=== PATIENT | female | born 1945 | race Caucasian/White ===

== ENCOUNTER 2018-08-28 19:43 | Emergency (ER) | payer BC, SELFPAY ==
[2018-08-28 19:44] VITALS: BP 141/78; PULSE 57; RESP 16; TEMP 36; O2SAT 95; BMI 32.9
[2018-08-28 20:31] VITALS: BP 122/62; PULSE 61; RESP 16; O2SAT 98
--- NOTE | 2018-08-28 20:45 | ED.RN ---
NO OLD EKGS IN MUSE
--- NOTE | 2018-08-28 20:49 | CT_ITS ---
STUDY: CTA NECK WITH CONTRAST REASON FOR EXAM: Female, 73 years old. HEAD AND BACK Pain, elevated BP HX:HTN RADIATION DOSAGE (If Supplied By Facility): CTDIvol = ( 28.48 ) mGy, DLP = ( 1464.36 ) mGycm Individualized dose optimization techniques were used for this CT. TECHNIQUE: CT angiography with multi-detector data acquisition was performed from the aortic arch to the skull base following intravenous administration of 100ML ml of Isovue 370 contrast. MIP images were reconstructed from the axial data set. Post-processing of the angiographic images was performed, with multiplanar reformation and 3D reconstruction. COMPARISON: None. FINDINGS: AORTIC ARCH: There is atherosclerotic calcific plaque formation of the aortic arch and great vessels arising from the aortic arch, without a hemodynamically significant stenosis. There is a normal origin of the brachiocephalic, left common carotid, and left subclavian arteries. Normal origins of the brachiocephalic, left common carotid, and left subclavian arteries. RIGHT CAROTID ARTERIES: Normal right common carotid artery (CCA). Normal right common carotid bulb. Normal origin of the right internal carotid (ICA) artery without a hemodynamically significant stenosis. Normal visualized cervical portion of the right internal carotid artery. Normal origin of the right external carotid artery (ECA). LEFT CAROTID ARTERIES: Normal left common carotid artery (CCA). Normal left common carotid bulb. Normal origin of the left internal carotid (ICA) artery without a hemodynamically significant stenosis. Normal visualized cervical portion of the left internal carotid artery. Normal origin of the left external carotid artery (ECA). VERTEBRAL ARTERIES: Normal bilateral vertebral arteries. CT/CTA Neck W/WO Contrast IMPRESSION: Normal bilateral cervical carotid and vertebral arteries. ALL ABOVE CRITERIA BY [facility]. Electronically Signed: Valentin Alejandro MD at 22:15 EDT , Service support ,
--- NOTE | 2018-08-28 20:49 | EKG12_ITS ---
Test Reason : HTN Blood Pressure : / mmHG Vent. Rate : 055 BPM Atrial Rate : 055 BPM P-R Int : 148 ms QRS Dur : 076 ms QT Int : 430 ms P-R-T Axes : 042 -54 045 degrees QTc Int : 411 ms Sinus bradycardia Left axis deviation Poor R wave progression Anteroseptal OK, age undetermined Abnormal ECG Confirmed by DARLENE MARTINES, ANA ([id number]), staff editor LUIZA SLADE ([id number]) on 08/30/2018 1:14:08 PM Referred By: NIKITA Confirmed By:ANA COLON MD
--- NOTE | 2018-08-28 20:49 | CT_ITS ---
STUDY: CT BRAIN WITHOUT CONTRAST REASON FOR EXAM: Female, 73 years old. Elevated blood pressure. RADIATION DOSAGE (If Supplied By Facility): CTDIvol = ( 28.48 ) mGy, DLP = ( 1464.36 ) mGycm TECHNIQUE: Transaxial CT imaging of the brain was performed without administration of intravenous contrast material. Individualized dose optimization techniques were used for this CT. COMPARISON: None. FINDINGS: Normal soft tissue structures. Normal calvarium. There is mild cerebral atrophy with widening of the extra-axial spaces and ventricular dilatation. There are areas of decreased attenuation within the white matter tracts of the supratentorial brain, consistent with microvascular disease changes. Normal basal ganglia and thalami. Normal brainstem. There is mild cerebellar atrophy. There is no intracranial hemorrhage. There are no findings of an acute ischemic infarction. Normal visualized paranasal sinuses. CT/CTA Head W/WO Contrast IMPRESSION: Chronic involutional changes of the brain. No acute abnormalities. Electronically Signed: Franki Corona MD at 22:38 EDT , Service support ,
[2018-08-28 21:26] LABS: Absolute Lymphocyte Count 2.19 X10^3/ul (0.83-4.51); Absolute Neutrophil Count 2.9 X10^3/uL (2.0-7.7); Basophil# 0.06 X10^3/uL; Eosinophil# 0.34 X10^3/uL; Eosinophils% 5.7 % (0-5); Hematocrit 40.6 % (37-47); Hemoglobin 13.3 g/dl (12.0-15.0); Lymphocyte # 2.19 X10^3/ul (4.0); Lymphocyte % 36.4 % (19-41); Mean Corp Hgb Conc 32.8 g/gl (32-36); Mean Corpuscular Volume 94.6 fL (81-99); Mean Platelet Vol. 9.4 fl (6.2-12.0); Monocyte# 0.49 X10^3/uL; Monocyte% 8.2 % (0-10); Neutrophil # 2.91 X10^3/uL (2.7-7.7); Neutrophil % 48.4 % (47-70); Platelet Count 235 K/mm3 (150-450); RBC Distribution Width SD 47.2 fl (35.1-43.9); Red Blood Count 4.29 M/mm3 (4.2-5.4)
[2018-08-28 21:31] LABS: POSITIVE COUNT NO; POSITIVE DIFFERENTIAL NO; POSITIVE MORPHOLOGY NO
[2018-08-28 21:37] LABS: Anion Gap 5 (5-15); BUN 10 mg/dL (7-18); BUN/Creat Ratio 10.4 RATIO (10-20); Calcium,Total 8.4 mg/dL (8.5-10.1); Chloride 105 mmol/L (98-107); Creatinine, Serum 0.96 mg/dL (0.55-1.02); EST Glomerular Filtration Rate 61 mL/min (>60); Est Glom Filt Rate - Afr Amer 74 mL/min (>60); Estimated Creatinine Clearance 46.41 ml/min; Glucose 90 mg/dL (74-106); Sodium Level 138 mmol/L (136-145)
[2018-08-28 21:40] LABS: Erythrocyte Sedimentation Rate 8 mm/hr (0-30)
[2018-08-28 23:15] VITALS: BP 150/75; PULSE 55; RESP 19; O2SAT 96
--- NOTE | 2018-08-28 23:51 | ED.VISSUMM ---
- ER Visit Summary Date of Service: 08/28/18 Chief Complaint: [] History of Present Illness: The patient is a 73 F [headache and hypertension presents the emergency department with complaint of a headache intermittently for several months. Patient also states that she has spikes in her blood pressure that then causes a headache. Yesterday patient had an episode where a bug went down her throat and she started gagging and coughing and then developed a severe right-sided headache. Patient spoke with her cherry picker operator and he advised her to come into the ER to be evaluated. Patient currently states her headaches about a 3 out of 10. Patient states that she has been under increased stress recently as her has to go have surgery tomorrow. Patient denies any chest pain. Within the last 3 months she has had a stress test and wore a Holter monitor and is had an echocardiogram.] Patient denies photophobia. She denies any falls or head injuries. No family history of brain aneurysms or brain tumors. Physical Examination: [HEENT-PERRLA, EOMI. Cranial nerves II through XII grossly intact. TMs clear. Mucous membranes moist. No adenopathy. Cardiovascular-regular rate and rhythm without murmur or ectopy Lungs-clear to auscultation, chest wall stable without crepitus or subcu emphysema Abdomen-normoactive bowel sounds, soft, nontender, no rebound or rigidity, no peritoneal signs. Neuro hoko-rhozqk-nzsm and heel squires testing within normal limits, negative Romberg, negative pronator drift, fundi benign Extremities-intact ?4, normal range of motion, normal pulses, atraumatic] Test Results: [CBC with differential obtained was normal. Chemistries were normal. Troponin was less than 0.015. EKG obtained shows sinus rhythm with a ventricular rate of 55 bpm with no acute ST segment changes. CT of the brain without contrast was unremarkable. CTA of the brain and neck were normal.] Sed rate was normal. Emergency Department Course and Treatment: [Patient's blood pressures in the emergency department are in the 140 systolic over 70s diastolic. No further treatment was indicated.] Treatment Plan: [Patient to follow-up with her primary care physician as needed] Disposition: [Discharged home in stable condition] Impression: Cephalgia Hypertension-established Anxiety [] This note was generated with Ripstoneation software. It may contain incorrect words, spelling, and punctuation that were not noted in review of the chart prior to signing ED Disposition - Plan for ED Patient: Chief Complaint: Hypertension Referrals: Rafal Zapien [Primary Care Provider] -
--- NOTE | 2018-08-28 23:54 | ED.DCSUM_ITS ---
- ER Visit Summary Date of Service: 08/28/18 Chief Complaint: [] History of Present Illness: The patient is a 73 F [headache and hypertension presents the emergency department with complaint of a headache intermittently for several months. Patient also states that she has spikes in her blood pressure that then causes a headache. Yesterday patient had an episode where a bug went down her throat and she started gagging and coughing and then developed a severe right-sided headache. Patient spoke with her merchandiser retail representative and he advised her to come into the ER to be evaluated. Patient currently states her headaches about a 3 out of 10. Patient states that she has been under increased stress recently as her has to go have surgery tomorrow. Patient denies any chest pain. Within the last 3 months she has had a stress test and wore a Holter monitor and is had an echocardiogram.] Patient denies photophobia. She denies any falls or head injuries. No family history of brain aneurysms or brain tumors. Physical Examination: [HEENT-PERRLA, EOMI. Cranial nerves II through XII grossly intact. TMs clear. Mucous membranes moist. No adenopathy. Cardiovascular-regular rate and rhythm without murmur or ectopy Lungs-clear to auscultation, chest wall stable without crepitus or subcu emphysema Abdomen-normoactive bowel sounds, soft, nontender, no rebound or rigidity, no peritoneal signs. Neuro pfof-krmlly-viap and heel squires testing within normal limits, negative R omberg, negative pronator drift, fundi benign Extremities-intact ?4, normal range of motion, normal pulses, atraumatic] Test Results: [CBC with differential obtained was normal. Chemistries were normal. Troponin was less than 0.015. EKG obtained shows sinus rhythm with a ventricular rate of 55 bpm with no acute ST segment changes. CT of the brain without contrast was unremarkable. CTA of the brain and neck were normal.] Sed rate was normal. Emergency Department Course and Treatment: [Patient's blood pressures in the emergency department are in the 140 systolic over 70s diastolic. No further treatment was indicated.] Treatment Plan: [Patient to follow-up with her primary care physician as needed] Disposition: [Discharged home in stable condition] Impression: Cephalgia Hypertension-established Anxiety [] This note was generated with Wed[employer]uation software. It may contain incorrect words, spelling, and punctuation that were not noted in review of the chart prior to signing ED Disposition - Plan for ED Patient: Chief Complaint: Hypertension Referrals: Rafal Zapien [Primary Care Provider] -
--- NOTE | 2018-08-28 23:54 | ED.DEP ---
ED Disposition - Plan for ED Patient: Chief Complaint: Hypertension Instructions: ED HTN Established, ED Cephalgia Unspecified, ED Stress React Referrals: Rafal Zapien [Primary Care Provider] - 3-5 Days
[2018-08-29 00:02] VITALS: BP 149/75
== END 2018-08-29 00:02 | disposition home or self-care (01) ==
PROVIDERS: Emergency Provider Emergency Medicine; Family Provider Student in an Organized Health Care Education/Training Program; PCP Student in an Organized Health Care Education/Training Program
DX: R51 Headache (principal); F41.9 Anxiety disorder, unspecified; I10 Essential (primary) hypertension; E78.00 Pure hypercholesterolemia, unspecified; E03.9 Hypothyroidism, unspecified; Z79.82 Long term (current) use of aspirin; Z79.899 Other long term (current) drug therapy
CPT/HCPCS: 70496; 70498; 80048; 84484; 85025; 85652; 93005; 99284; Q9967; A4216

== ENCOUNTER → 2018-12-28 14:57 | Outpatient (CLI) | payer MEDICARE, SELFPAY ==
--- NOTE | 2018-12-28 15:10 | VDLE_ITS ---
Reason For Study: SWELLING Procedure LEFT Exam performed in department. GSV is normal. A preliminary report was called and/or faxed CFV is compressible, spontaneous, phasic, to ANA RUIZ. competent, and demonstrates normal augmentation. FV is compressible, spontaneous, phasic, competent and demonstrates normal augmentation. POP V is compressible, spontaneous, phasic, competent and demonstrates normal augmentation. T/P Trunk is compressible. PTV is compressible. LT PerV is compressible. Interpretation Summary Deep veins of the left lower extremity are patent and compressible segmentally. There is no evidence of left lower extremity deep vein thrombosis. Valvular competence appears intact within the proximal deep venous system on the left . The left greater saphenous vein appears patent and compressible segmentally. Ordering Physician: Ana Ruiz Referring Physician: PÉREZ SHEPARD Performed By: Emi Gamboa, LAURENT, RVT
== END ==
PROVIDERS: Family Provider Student in an Organized Health Care Education/Training Program; PCP Student in an Organized Health Care Education/Training Program; Referring Provider Nurse Practitioner Adult Health; Visit Provider Nurse Practitioner Adult Health
DX: M79.662 Pain in left lower leg (principal); M79.89 Other specified soft tissue disorders; V89.2XXA Person injured in unspecified motor-vehicle accident, traffic, initial encounter
CPT/HCPCS: 93971

== ENCOUNTER 2024-12-19 15:07 | Emergency (ER) | payer MEDICARE, SELFPAY ==
[2024-12-19 15:08] VITALS: BP 150/78; PULSE 67; RESP 16; TEMP 36.4; O2SAT 98
--- NOTE | 2024-12-19 16:21 | CT_ITS ---
PROCEDURE: SPINE LUMBAR WITHOUT CONTRAST REASON FOR EXAM: Sciatica; increased pain and weakness with incontinence. . TECHNIQUE: Lumbar spine CT without contrast. CONTRAST: COMPARISON: None. FINDINGS: Vertebrae: Normal lumbar vertebral body heights. No evidence of fracture. No spondylolysis. Alignment: No spondylolisthesis. Moderate discogenic degenerative changes at L1-2, L2-3, and L3-4. Severe discogenic degenerative changes at L4-5 and L5-S1. Lower lumbar facet arthropathy. Sacrum: Degenerative changes of the bilateral sacroiliac joints. Atherosclerosis is present. CT/Spine Lumbar without Contrast IMPRESSION: Multilevel spondylosis. One or more dose reduction techniques were used (e.g., Automated exposure contr ol, adjustment of the mA and/or kV according to patient size, use of iterative reconstruction technique). Reading Location: [id number]
[2024-12-19] MEDS: Orphenadrine 60 MG/2 ML Ampul IM (16:27)
[2024-12-19] MEDS: morphine 10 MG/ML Syringe 8 MG IM (16:27)
[2024-12-19] MEDS: Ondansetron ODT 4 MG Tablet PO (16:28)
[2024-12-19 16:32] VITALS: BMI 38.6
[2024-12-19 16:45] VITALS: BP 133/70; PULSE 82; RESP 16; O2SAT 98
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
[2024-12-19 17:38] VITALS: BP 135/66; PULSE 86; RESP 16; TEMP 36.9; O2SAT 100
== END 2024-12-19 17:52 | disposition home or self-care (01) ==
PROVIDERS: Emergency Provider Emergency Medicine; PCP Student in an Organized Health Care Education/Training Program; Visit Provider Emergency Medicine
DX: S30.0XXA Contusion of lower back and pelvis, initial encounter (principal); F41.9 Anxiety disorder, unspecified; E78.00 Pure hypercholesterolemia, unspecified; E03.9 Hypothyroidism, unspecified; I10 Essential (primary) hypertension; W19.XXXA Unspecified fall, initial encounter; G89.29 Other chronic pain
CPT/HCPCS: 72131; 96372; 99283

== ENCOUNTER 2024-12-26 13:47 | Emergency (ER) | payer MEDICARE, SELFPAY ==
[2024-12-26 13:48] VITALS: BP 112/89; PULSE 67; RESP 26; TEMP 36.6; O2SAT 100
--- NOTE | 2024-12-26 14:36 | RAD_ITS ---
EXAM: XR Lumbosacral Spine, 2 or 3 Views CLINICAL INDICATION: TECHNIQUE: Frontal and lateral views of the lumbar spine and sacrum. COMPARISON: No relevant prior studies available. FINDINGS: VERTEBRAE: Endplate degenerative change and disc disease with facet arthropathy of L4-S1. Normal alignment. No acute fracture. SACRUM/COCCYX: Unremarkable as visualized. No acute fracture. DISC SPACES: No acute findings. No significant narrowing. SOFT TISSUES: Unremarkable. RAD/Lumbar Spine 2 or 3 Views IMPRESSION: No acute fracture. Reading [facility]
[2024-12-26] MEDS: Ondansetron 4 MG/2 ML Vial IV (14:48)
[2024-12-26] MEDS: Morphine 4 MG/ML Syringe IV (14:48)
--- NOTE | 2024-12-26 15:15 | EX.ED.GENINJ ---
HPI History of Present Illness Chief Complaint: Back Detail of Chief Complaint: Low back pain status post fall 1 week ago. Informant: patient Onset/Context/Timing Onset: Weeks (1 week) Mechanism/Context: Fall (Standing position) Location of pain/injuries: - ( low back/lumbar region) Quality of Pain: Dull and Throbbing Current Severity: Mild Maximum Severity: Severe Worsened by: Movement Relieved by: Nothing Associated Symptoms Associated Symptoms: Negative for Parasthesias, Weakness, Loss of function, Inability to ambulate, Loss of consciousness or Amnesia Narrative Narrative: Patient is a 79-year-old woman. She presents because of low back pain since falling. She was seen on December 19, 2024. She had a CT at that time which revealed degenerative changes of L1-L2, L2-L3, L3-L4. Patient was prescribed Percocet. She presents because of persistent pain. She denies bowel bladder dysfunction. She denies radicular pain. Denies foot drop. Denies buckling of her knees going up or down steps. She denies saddle paresthesia or anesthesia i.e. no altered sensation when she wipes. She denies symptoms of claudication. Patient [place] fever, chills night sweats. Patient denies dysuria, frequency, urgency or hematuria. Patient denies change in consistency, caliber or color of her stool. Prior similar symptoms: Yes Recent Illness/Hospitalization: Yes (Reviewed documentation by nurse practitioner for visit December 19, 2024.) [facility] Medical History Hypercholesteremia Depression Anxiety Hypothyroidism Home Medications ?Medication ?Instructions ?Recorded ?Last Taken ?Type aspirin 81 mg tablet,delayed 81 mg PO DAILY 08/28/18 Unknown History release (Adult Low Dose Aspirin) cetirizine 10 mg capsule (Zyrtec) 10 mg PO DAILY PRN Allergies 08/28/18 Unknown History cholecalciferol (vitamin D3) 125 5,000 unit PO DAILY 08/28/18 Unknown History mcg (5,000 unit) capsule diazepam 10 mg tablet 10 mg PO DAILY PRN Anxiety 08/28/18 Unknown History fluoxetine 10 mg capsule 10 mg PO DAILY 08/28/18 Unknown History levothyroxine 137 mcg tablet 137 mcg PO DAILY 08/28/18 Unknown History pravastatin 40 mg tablet 40 mg PO DAILY 08/28/18 Unknown History ondansetron 4 mg disintegrating 4 mg PO Q8H PRN PRN Nausea #10 tabs 12/19/24 Unknown Rx tablet oxycodone-acetaminophen 5 mg-325 1 tab PO Q8H PRN pain 3 days #10 12/19/24 Unknown Rx mg tablet (Percocet) tabs oxycodone-acetaminophen 5 mg-325 1 tab PO Q6H PRN PRN pain 5 days 12/26/24 Unknown Rx mg tablet #20 TABLETS Allergy/AdvReac Type Severity Reaction Status Date / Time acetaminophen (From Allergy Other Verified 12/26/24 13:48 Tylenol-Codeine #3) codeine (From Allergy Other Verified 12/26/24 13:48 Tylenol-Codeine #3) diphenhydramine (From Allergy Other Verified 12/26/24 13:48 Benadryl) Surgical History Hx of tonsillectomy Hx of appendectomy History of cholecystectomy Social History housing: house Smoking Status: Never smoker ROS ROS ED Constitutional Constitutional ED: Denies chills, fever(s), subjective, sweats or weight loss Eyes Eyes: Denies blurry vision or change in vision Cardiovascular Cardiovascular: Denies chest pain or palpitations Respiratory/Chest Respiratory/Chest: Denies cough, dyspnea or dyspnea on exertion Gastrointestinal Gastrointestinal: Denies abdominal pain, constipation, diarrhea, melena, nausea or vomiting Genitourinary Genitourinary ED: Denies dysuria, hematuria or urinary frequency Musculoskeletal Musculoskeletal: Reports back pain; Denies arthralgias or myalgias Integumentary Denies rash Neurologic Neurologic: Denies paresthesias or weakness Endocrine Endocrinology: Denies cold intolerance or heat intolerance Hematologic/Lymphatic Hematologic/Lymphatic: Denies easy bleeding or easy bruising EXAM Physical Exam Const Vital Signs: 12/26/24 13:48 Temperature 97.8 F Temperature Source Temporal Pulse Rate 67 Respiratory Rate 26 H Blood Pressure 112/89 H Blood Pressure Mean 96 Pulse Ox 100 Oxygen Delivery Method Room Air Positive well nourished and well developed General Appearance ED: well developed; Negative for NAD HEENT Reports TM's clear HEENT Narrative: Head is normocephalic. atraumatic Nose: Negative for septum abnormal Tympanic Membrane ED: Yes TM's clear Eyes PERRL and EOMs intact bilaterally General Eye ED: Yes other Other Details: There is no subconjunctival hemorrhage. There is no scleral icterus. Adjunctive is normal. Neck full ROM General: Negative for tenderness Resp normal respiratory effort Cardio regular rhythm Rate: regular rate GI normal to inspection, nondistended, normoactive bowel sounds, non-tender, non-distended and no masses Inspection: Negative for abdominal distention Palpation: soft Back/Spine normal to inspection; Negative for no thoracic nor lumbar tenderness Back/Spine Narrative: There is pain outpatient lower lumbar region. There is no bruising noted. There is no rash noted. Extremity full ROM Extremity Narrative: Patient has mild edema of the lower extremities. There is no neurovascular compromise. Patella and ankle reflex are 1+. There is no clonus. There is no Babinski sign. EHLs intact bilaterally. 5/5 strength with plantar dorsiflexion of her foot. PT pulses palpable and symmetric. General Extremety ED: Negative for deformity General Extremity: Negative for deformity Neuro oriented x3, CN's II-XII intact bilaterally, moves all extremities, no focal motor deficits and no sensory deficits noted [place] Coma Scale: document GCS findings Spontaneous Obeys Commands Oriented 15 Deep Tendon Reflexes: Rt Patellar (L4): 1+, Lt Patellar (L4): 1+, Rt Ankle (S1): 1+ and Lt Ankle (S1): 1+ Deep Tendon Reflexes Back: Rt Patellar (L4): 1+, Lt Patellar (L4): 1+, Rt Ankle (S1): 1+ and Lt Ankle (S1): 1+ Plantar Reflex: Downgoing: bilateral Psych mental status grossly normal and thought process normal Skin no rashes or lesions noted, no wounds and no jaundice MDM MDM MDM Narrative Medical decision making narrative: With persistent pain will obtain x-ray to determine if she has delayed compression fracture. Patient was medicated with morphine. History & Record Review Additional record(s) reviewed:: Prior ED visit (CT of the lumbar spine was reviewed that was obtained December 19, 2024. Radiology report was reviewed as well.) Radiography Chest X-Ray - ED: Read by ED Physician (Three-view x-ray of the LS spine reveals degenerative changes with no evidence of compression fracture, spondylolisthesis or spondylosis. There is no dilatation of the aorta noted. This was independently reviewed interpreted by me at 1516.) Treatment and Re-Evaluation Narrative: Patient was informed of x-ray results. She was discharged to home. Patient had no questions. Discharge Plan Triage Chief Complaint: Back ED Provider: Ignacio Ballesteros Dx/Rx/DC Orders Clinical Impression: Low back pain, Fall, Acute lumbosacral myofascial strain Instructions: ED Back Sprain/Strain Prescriptions: New oxycodone-acetaminophen 5-325 mg tablet 1 tab PO Q6H PRN PRN (Reason: pain) 5 Days Qty: 20 0RF No Action levothyroxine 137 MCG tablet 137 mcg PO DAILY pravastatin 40 MG tablet 40 mg PO DAILY aspirin [Adult Low Dose Aspirin] 81 MG tablet,delayed release (DR/EC) 81 mg PO DAILY fluoxetine 10 MG capsule 10 mg PO DAILY diazepam 10 MG tablet 10 mg PO DAILY PRN (Reason: Anxiety) cholecalciferol (vitamin D3) 5,000 UNIT capsule 5,000 unit PO DAILY cetirizine [Zyrtec] 10 MG capsule 10 mg PO DAILY PRN (Reason: Allergies) oxycodone-acetaminophen [Percocet] 5-325 mg tablet 1 tab PO Q8H PRN (Reason: pain) 3 Days Qty: 10 0RF ondansetron 4 mg tablet,disintegrating 4 mg PO Q8H PRN PRN (Reason: Nausea) Qty: 10 0RF Primary Care Provider: Rafal Zapien Referrals: Rafal Zapien, [Primary Care Provider] - 3-5 Days if not improving Activity Restrictions/Additional Instructions: 1. Apply ice to your lower back 6-8 times a day. Print Language: Serbian Disposition Disposition: Home, Self Care
[2024-12-26 15:31] VITALS: BP 112/89; PULSE 67; RESP 26; TEMP 36.6; O2SAT 100
== END 2024-12-26 15:49 | disposition home or self-care (01) ==
PROVIDERS: Emergency Provider Emergency Medicine; PCP Student in an Organized Health Care Education/Training Program; Visit Provider Emergency Medicine
DX: S39.012A Strain of muscle, fascia and tendon of lower back, initial encounter (principal); E78.00 Pure hypercholesterolemia, unspecified; W19.XXXA Unspecified fall, initial encounter
CPT/HCPCS: 72100; 96374; 96375; 99282; A4216; J2405

== ENCOUNTER 2024-12-30 14:50 | Emergency (ER) | payer MEDICARE, SELFPAY ==
[2024-12-30 14:51] VITALS: BP 126/86; PULSE 82; RESP 18; TEMP 36.1; O2SAT 98
--- NOTE | 2024-12-30 16:52 | CT_ITS ---
PROCEDURE: CTA ABD/PELVIS W/WO CONTRAST REASON FOR EXAM: Abdominal pain. Blood in stool. TECHNIQUE: CTA imaging of the abdomen and pelvis with and without intravenous contrast. 3D reconstructions. Coronal and sagittal 2D reformatted images are provided for better evaluation. COMPARISON: None. FINDINGS: Abdominal aorta demonstrates normal caliber with no evidence of aneurysm or dissection. There are atherosclerotic calcifications of the abdominal aorta. Celiac artery, superior mesenteric artery, bilateral renal arteries, and inferior mesenteric artery are patent. Bilateral common iliac, internal iliac, and external iliac arteries are patent. There is no evidence of active hemorrhage. Lung bases demonstrates dependent atelectasis. Liver and spleen are limited in evaluation due to the phase of contrast. Gallbladder is surgically absent. Pancreas and adrenal glands are unremarkable. Bilateral kidneys enhance homogeneously without hydronephrosis or obstructive uropathy. There is a small fat containing umbilical hernia. Urinary bladder is underdistended. Colonic diverticulosis is identified without diverticulitis. There is fatty wall infiltration of the cecum, ascending colon, and mid to proximal transverse colon. No colonic obstruction is present. Appendix is surgically absent. Small bowel demonstrates a normal caliber. No free air or free fluid is identified. Evaluation of the osseous structures demonstrates degenerative changes greatest from L4-S1. There is a hemangioma involving the L2 vertebral body. There is dextroscoliosis of the upper lumbar spine. CT/CTA Abd/Pelvis W/WO Contrast IMPRESSION: 1. No evidence of active hemorrhage. No abdominal aortic aneurysm or dissection . 2. Colonic diverticulosis without diverticulitis. 3. Fatty wall infiltration of the cecum, ascending colon, mid to proximal trans verse colon which can relate to chronic inflammatory changes. 4. Additional findings as above. One or more dose reduction techniques were used (e.g., Automated exposure contr ol, adjustment of the mA and/or kV according to patient size, use of iterative reconstruction technique). Reading Location: [facility]
--- NOTE | 2024-12-30 16:54 | EDS_ITS ---
HPI History of Present Illness Chief Complaint: Back Informant: patient Narrative Narrative: Presents to ED for evaluation after discussing with her PCP office. She has been having sciatica pain right side for the past few weeks. She states this is her third visit to the ED. She was seen in the ED twice had a CT scan and x- ray. She was told sciatica was put on Percocet which helped her symptoms. From her last visit reported she missed her doctors appointment that day. She called for follow-up the following day however appointment not till March. Yesterday noted bright red blood in her stool once called her PCP office today due to bright red blood was sent here. Baby aspirin no other anticoagulants. No colonoscopies in the past. Feels pain deep in her abdomen. Denies any abdominal surgeries. Also reported there was blood in her urine. No fever or chills. She is not taking any NSAIDs. Prior similar symptoms: Yes [facility] Medical History Hypercholesteremia Depression Anxiety Hypothyroidism Home Medications ?Medication ?Instructions ?Recorded ?Last Taken ?Type aspirin 81 mg tablet,delayed 81 mg PO DAILY 08/28/18 U nknown History release (Adult Low Dose Aspirin) cetirizine 10 mg capsule (Zyrtec) 10 mg PO DAILY PRN A llergies 08/28/18 Unknown History cholecalciferol (vitamin D3) 125 5,000 unit PO DAILY 1 Unknown History mcg (5,000 unit) capsule diazepam 10 mg tablet 10 mg PO DAILY PRN Anxiety 1 Unknown History fluoxetine 10 mg capsule 10 mg PO DAILY 08/28/18 Unkn own History levothyroxine 137 mcg tablet 137 mcg PO DAILY 08/28/18 Unknown History pravastatin 40 mg tablet 40 mg PO DAILY 08/28/18 Unkn own History ondansetron 4 mg disintegrating 4 mg PO Q8H PRN PRN Na usea #10 tabs 12/19/24 Unknown Rx tablet oxycodone-acetaminophen 5 mg-325 1 tab PO Q8H PRN pain 3 days #10 12/19/24 Unknown Rx mg tablet (Percocet) tabs oxycodone-acetaminophen 5 mg-325 1 tab PO Q6H PRN PRN pain 5 days 12/26/24 Unknown Rx mg tablet #20 TABLETS gabapentin 300 mg capsule 300 mg PO QHS #30 caps 12/30 Unknown Rx oxycodone-acetaminophen 5 mg-325 1 tab PO Q6H PRN PRN Pain 3 days 12/30/24 Unknown Rx mg tablet #12 TABLETS Allergy/AdvReac Type Severity Reaction Status Date / Time acetaminophen (From Allergy Other Verified 12/30/24 14:57 Tylenol-Codeine #3) codeine (From Allergy Other Verified 12/30/24 14:57 Tylenol-Codeine #3) diphenhydramine (From Allergy Other Verified 12/30/24 14:57 Benadryl) Surgical History Hx of tonsillectomy Hx of appendectomy History of cholecystectomy Social History housing: house Smoking Status: Never smoker ROS ROS ED Constitutional Constitutional ED: Denies chills, fever(s) or sweats ENT ENT ED: Denies sore throat Cardiovascular Cardiovascular: Denies chest pain, leg edema, palpitations or racing heartbeat Respiratory/Chest Respiratory/Chest: Denies cough, dyspnea or dyspnea on exertion Gastrointestinal Gastrointestinal: Reports abdominal pain and other Details: Blood in stool ; Denies diarrhea, nausea or vomiting Genitourinary Genitourinary ED: Reports hematuria; Denies dysuria or urinary frequency Musculoskeletal Musculoskeletal: Reports back pain; Denies extremity pain or neck pain Integumentary Denies rash or wounds Neurologic Neurologic: Denies headache(s), paresthesias or weakness EXAM Physical Exam Const Vital Signs: 12/30/24 14:51 12/30/24 18:50 Temperature 96.9 F L Temperature Source Temporal Pulse Rate 82 74 Respiratory Rate 18 16 Blood Pressure 126/86 H 122/88 H Blood Pressure Mean 99 99 Pulse Ox 98 99 Oxygen Delivery Method Room Air Positive well nourished and well developed General Appearance ED: well developed and NAD HEENT Reports moist mucous membranes normocephalic and atraumatic Eyes General Eye ED: Yes normal appearance of both eyes Neck full ROM Chest Wall Chest: Negative for tenderness Resp normal respiratory effort and normal air movement Effort and Inspection: symmetric chest movement; Negative for respiratory distress Cardio regular rate, regular rhythm and no murmurs Peripheral Pulses: pulses 2+ throughout GI normal to inspection, nondistended, normoactive bowel sounds GI Narrative: Pain to deep palpation lower abdominal, no guarding or rebound. Palpation: Negative for guarding or rebound tenderness present Back/Spine Negative for no CVA tenderness Back/Spine Narrative: Straight leg test negative bilaterally. Extremity normal to inspection General Extremety ED: Negative for edema or tenderness General Extremity: Negative for edema Neuro oriented x3 and no sensory deficits noted Sensorium / Orientation: awake and alert Skin no rashes or lesions noted and no wounds MDM MDM MDM Narrative Medical decision making narrative: Interventions / MDM: Differential diagnosis: Right-sided sciatica, rectal bleed Diagnosis considered but do not suspect: Colitis however CT negative. No cauda equina symptoms. My EKG interpretation: N/A Imaging independently reviewed and interpreted by myself: CT angiogram abdomen pelvis: No acute process. External documents reviewed: Visit 12/19/2024, visit 12/26/2024. With CT lumbar spine degenerative disc disease noted. Test considered but not ordered:N/A ED course: Patient was sciatica symptoms no cauda equina symptoms. However new symptoms of blood in stools. Pain at the palpation of abdomen. Will check labs, CT angiogram abdomen pelvis. Morphine Zofran. Will reevaluate. 1830: Hemoglobin 14.3 white count 6.4. Sodium 141 potassium 3.1 creatinine 0.94. Awaiting urine. Awaiting CT scan results. Patient noted ambulating to the restroom with no difficulties. 2030: Delays on CT read returned showing no acute process. No additional bloody stools. Hemoglobin stable vital stable. She is able to ambulate. Discussed starting the patient on gabapentin for which she agrees. First dose in the ED. She will take this at night. Short prescription for pain control. Follow-up with her PCP for sciatica treatment options. She is given follow-up with GI as an outpatient with her reported blood in the stool with no history endoscopies. All questions were answered. Re-evaluation: stable Disposition discussed with patient/family/significant other: Patient Case discussed with consulting clinician: N/A This note was generated with [employer] dictation software. It may contain incorrect words, spelling, and punctuation that were not noted in checking the note before signing. Lab Data Attestation: I reviewed the patient's lab results. Labs: Laboratory Results - last 24 hr 12/30/24 12/30/24 17:06 18:30 WBC 6.4 RBC 4.72 Hgb 14.3 Hct 43.0 MCV 91.1 MCH 30.3 MCHC 33.3 RDW Std Deviation 43.9 RDW Coeff of Natasha 13.2 Plt Count 219 MPV 10.6 Immature Gran % (Auto) 0.200 Neut % (Auto) 55.2 Lymph % (Auto) 29.1 [place] % (Auto) 8.6 Eos % (Auto) 6.0 H Baso % (Auto) 0.9 Absolute Neuts (auto) 3.5 Absolute Lymphs (auto) 1.85 Nucleated RBC % 0 Sodium 141 Potassium 3.4 L Chloride 104 Carbon Dioxide 29.0 Anion Gap 8 BUN 12 Creatinine 0.94 Est GFR (MDRD) Af Amer 75 Est GFR (MDRD) Non-Af 62 BUN/Creatinine Ratio 12.8 Glucose 98 Calcium 9.5 Urine Color Yellow Urine Clarity Clear Urine pH 8.0 Ur Specific [place] 1.010 Urine Protein 15 H Urine Glucose (UA) Normal Urine Ketones Negative Urine Occult Blood Negative Urine Nitrite Negative Urine Bilirubin Negative Urine Urobilinogen Normal Ur Leukocyte Esterase 25 H Urine RBC 0 SEEN Urine WBC 0-5 SEEN Ur Squamous Epith Cells 0-5 SEEN Urine Bacteria RARE Urine Mucus 0 SEEN Radiography Diagnostic Testing: Clinical Impression(s) from Imaging Studies Abdomen/Pelvis CTA 12/30/24 16:52 IMPRESSION: 1. No evidence of active hemorrhage. No abdominal aortic aneurysm or dissection. 2. Colonic diverticulosis without diverticulitis. 3. Fatty wall infiltration of the cecum, ascending colon, mid to proximal transverse colon which can relate to chronic inflammatory changes. 4. Additional findings as above. One or more dose reduction techniques were used (e.g., Automated exposure control, adjustment of the mA and/or kV according to patient size, use of iterative reconstruction technique). Reading Location: [facility] Discharge Plan Triage Chief Complaint: Back ED Provider: Angelo Workman Dx/Rx/DC Orders Clinical Impression: Sciatica of right side, Abdominal pain, Rectal bleed Instructions: Abdominal Pain, Rectal Bleeding Tx, ED Sciatica Prescriptions: New oxycodone-acetaminophen 5-325 mg tablet 1 tab PO Q6H PRN PRN (Reason: Pain) 3 Days Qty: 12 0RF gabapentin 300 mg capsule 300 mg PO QHS Qty: 30 0RF No Action levothyroxine 137 MCG tablet 137 mcg PO DAILY pravastatin 40 MG tablet 40 mg PO DAILY aspirin [Adult Low Dose Aspirin] 81 MG tablet,delayed release (DR/EC) 81 mg PO DAILY fluoxetine 10 MG capsule 10 mg PO DAILY diazepam 10 MG tablet 10 mg PO DAILY PRN (Reason: Anxiety) cholecalciferol (vitamin D3) 5,000 UNIT capsule 5,000 unit PO DAILY cetirizine [Zyrtec] 10 MG capsule 10 mg PO DAILY PRN (Reason: Allergies) oxycodone-acetaminophen [Percocet] 5-325 mg tablet 1 tab PO Q8H PRN (Reason: pain) 3 Days Qty: 10 0RF ondansetron 4 mg tablet,disintegrating 4 mg PO Q8H PRN PRN (Reason: Nausea) Qty: 10 0RF oxycodone-acetaminophen 5-325 mg tablet 1 tab PO Q6H PRN PRN (Reason: pain) 5 Days Qty: 20 0RF Primary Care Provider: Rafal Zapien Referrals: Rafal Zapien DO [Primary Care Provider] - 5-7 Days Jl Lewis DO [Med Staff - Active Staff] - 1-2 Weeks Activity Restrictions/Additional Instructions: You referred him here secondary to blood in your stool. Your CT scan negative. Hemoglobin 14. Hold your aspirin at this time. You will need to follow-up with gastroenterology for further workup. You have sciatica symptoms with degenerative changes of lumbar spine. Take gabapentin as prescribed. Use oxycodone with Tylenol as needed. Follow-up your doctor for further treatment options. Print Language: Luxembourgish Disposition Disposition: Home, Self Care Discharge Date/Time: 12/30/24 20:41
[2024-12-30] MEDS: Ondansetron 4 MG/2 ML Vial IV (17:02)
[2024-12-30] MEDS: 0.9% Normal Saline (500mL Bag) 500 ML 1000 ML IV (17:02)
[2024-12-30] MEDS: Morphine 4 MG/ML Syringe IV (17:02)
--- NOTE | 2024-12-30 17:11 | ED.RN ---
pt refusing to get into hospital gown. pt states she has no metal in her clothes and would prefer to stay in her own clothes.
[2024-12-30 17:30] LABS: Anion Gap 8 (5-15); BUN 12 mg/dL (7-18); BUN/Creat Ratio 12.8 RATIO (10-20); Calcium,Total 9.5 mg/dL (8.5-10.1); Chloride 104 mmol/L (98-107); Creatinine, Serum 0.94 mg/dL (0.55-1.02); EST Glomerular Filtration Rate 62 mL/min (>60); Est Glom Filt Rate - Afr Amer 75 mL/min (>60); Glucose 98 mg/dL (74-106); Potassium 3.4 mmol/L (3.5-5.1); Sodium Level 141 mmol/L (136-145)
[2024-12-30 18:08] LABS: Absolute Lymphocyte Count 1.85 X10^3/uL (0.83-4.51); Absolute Neutrophil Count 3.5 X10^3/uL (2.0-7.7); Basophil# 0.06 X10^3/uL; Basophil% 0.9 % (0-1); Eosinophil# 0.38 X10^3/uL; Hemoglobin 14.3 g/dL (12.0-15.0); Lymphocyte # 1.85 X10^3/ul (0.83-4.51); Lymphocyte % 29.1 % (19-41); Mean Corp Hgb Conc 33.3 g/dL (32-36); Mean Corpuscular Hgb 30.3 pg (27.0-32.0); Mean Corpuscular Volume 91.1 fL (81-99); Mean Platelet Vol. 10.6 fl (6.2-12.0); Monocyte# 0.55 X10^3/uL; Monocyte% 8.6 % (0-10); NRBC Flagged by Analyzer 0 % (0-5); Neutrophil # 3.51 X10^3/uL (2.7-7.7); Neutrophil % 55.2 % (47-70); Platelet Count 219 K/mm3 (150-450); RBC Distribution Width CV 13.2 % (11.6-14.6); RBC Distribution Width SD 43.9 fl (35.1-43.9); Red Blood Count 4.72 M/mm3 (4.2-5.4); White Blood Count 6.4 K/mm3 (4.4-11.0)
[2024-12-30 18:36] LABS: Mucous, Urine 0 SEEN /hpf (<or=2+)
[2024-12-30 18:41] LABS: Color, Urine Yellow (Yellow); Glucose, Dipstick Normal (Normal); Ketone-Dipstick Negative (Negative); Leukocyte Esterase-Dipstick 25 /ul (Negative); Nitrite-Dipstick Negative (Negative); Occult Blood-Urine Negative /ul (Negative); Protein-Dipstick 15 mg/dl (Negative); Urine Bilirubin Dipstick Negative (Negative); Urine Clarity Clear (Clear); Urine Urobilinogen Normal (Normal)
[2024-12-30 18:50] VITALS: BP 122/88; PULSE 74; RESP 16; O2SAT 99
[2024-12-30 19:33] LABS: Bacteria RARE /hpf (None Seen); Red Blood Cells-Urine 0 SEEN /hpf (0-5); Squamous Epithelial Cells - UA 0-5 SEEN /hpf (5-10); White Blood Cells 0-5 SEEN /hpf (0-5)
[2024-12-30] MEDS: Gabapentin 300 MG Capsule PO (20:38)
== END 2024-12-30 20:41 | disposition home or self-care (01) ==
PROVIDERS: Emergency Provider Emergency Medicine; PCP Student in an Organized Health Care Education/Training Program; Visit Provider Emergency Medicine
DX: M54.31 Sciatica, right side (principal); R10.9 Unspecified abdominal pain; K62.5 Hemorrhage of anus and rectum; E78.00 Pure hypercholesterolemia, unspecified; Z79.82 Long term (current) use of aspirin; R31.9 Hematuria, unspecified
CPT/HCPCS: 74174; 80048; 81001; 85025; 96361; 96374; 96375; 99283; Q9967; A4216; J2405

== ENCOUNTER 2025-06-29 14:42 | Emergency (ER) | payer MEDICARE, SELFPAY ==
[2025-06-29 14:43] VITALS: BP 143/73; PULSE 84; RESP 16; TEMP 36.6; O2SAT 100; BMI 37.3
--- NOTE | 2025-06-29 15:03 | EX.ED.DYSGE1 ---
HPI History of Present Illness Chief Complaint: Complaint Informant: patient Onset/Context/Timing Onset: Weeks Context: Gradual Onset Timing: Intermittent Quality: Tightness Location: Chest Worsened by: Exertion, going up stairs Relieved by: Rest Narrative Narrative: Patient presents with shortness of breath. Patient states she went to the urgent care because she thought she had a urinary tract infection. Patient was referred to the emergency department because of her shortness of breath. Patient states that they told her she needed to come to the emergency department because she needed blood work done. Patient states her breathing has been getting worse over the past couple weeks. Patient states it is gradually getting worse. Patient admits to some tightness in her chest. Patient states her breathing is worse when she goes upstairs and exerts herself. Patient states it is better with rest. Patient also admits to some tingling into her fingers and toes. Patient is concerned that she may be developing diabetes. Patient denies any fevers or chills. Patient admits to a chronic cough. Patient denies any sputum production. [facility] Medical History Hypercholesteremia Depression Anxiety Hypothyroidism Home Medications ?Medication ?Instructions ?Recorded ?Last Taken ?Type aspirin 81 mg tablet,delayed 81 mg PO DAILY 08/28/18 Unknown History release (Adult Low Dose Aspirin) cetirizine 10 mg capsule (Zyrtec) 10 mg PO DAILY PRN Allergies 08/28/18 Unknown History cholecalciferol (vitamin D3) 125 5,000 unit PO DAILY 08/28/18 Unknown History mcg (5,000 unit) capsule diazepam 10 mg tablet 10 mg PO DAILY PRN Anxiety 08/28/18 Unknown History fluoxetine 10 mg capsule 10 mg PO DAILY 08/28/18 Unknown History levothyroxine 137 mcg tablet 137 mcg PO DAILY 08/28/18 Unknown History pravastatin 40 mg tablet 40 mg PO DAILY 08/28/18 Unknown History ondansetron 4 mg disintegrating 4 mg PO Q8H PRN PRN Nausea #10 tabs 12/19/24 Unknown Rx tablet gabapentin 300 mg capsule 300 mg PO QHS #30 caps 12/30/24 Unknown Rx Allergy/AdvReac Type Severity Reaction Status Date / Time acetaminophen (From Allergy Other Verified 12/30/24 14:57 Tylenol-Codeine #3) codeine (From Allergy Other Verified 12/30/24 14:57 Tylenol-Codeine #3) diphenhydramine (From Allergy Other Verified 12/30/24 14:57 Benadryl) Surgical History Hx of tonsillectomy Hx of appendectomy History of cholecystectomy Social History housing: house Smoking Status: Never smoker ROS ROS ED Constitutional Constitutional ED: Denies chills or fever(s) Eyes Eyes: Denies blurry vision or change in vision ENT ENT ED: Denies rhinorrhea or sore throat Cardiovascular Cardiovascular: Denies chest pain or palpitations Respiratory/Chest Respiratory/Chest: Reports cough and dyspnea Gastrointestinal Gastrointestinal: Denies nausea or vomiting Genitourinary Genitourinary ED: Denies dysuria or hematuria Musculoskeletal Musculoskeletal: Reports back pain; Denies neck pain Integumentary Denies abscess or rash Neurologic Neurologic: Reports headache(s); Denies weakness Allergic/Immunologic Allergic/Immunologic ED: Denies mouth swelling or urticaria EXAM Physical Exam Const Vital Signs: 06/29/25 14:43 06/29/25 16:43 Temperature 98 F Temperature Source Oral Pulse Rate 84 78 Respiratory Rate 16 18 Blood Pressure 143/73 H 154/81 H Blood Pressure Mean 96 105 Pulse Ox 100 97 Oxygen Delivery Method Room Air Positive well nourished and well developed General Appearance ED: well developed and NAD HEENT Reports moist mucous membranes Neck supple and no JVD Resp normal respiratory effort and clear to auscultation bilaterally Cardio regular rate and regular rhythm GI non-tender and non-distended Palpation: soft Extremity normal to inspection General Extremety ED: Negative for edema or tenderness General Extremity: Negative for edema Neuro oriented x3, CN's II-XII intact bilaterally and no sensory deficits noted Sensorium / Orientation: alert Motor Exam: strength 5/5 throughout Psych mental status grossly normal MDM MDM MDM Narrative Medical decision making narrative: Differential diagnosis includes urinary tract infection, pneumonia, bronchitis, congestive heart failure, cardiac dysrhythmia, cardiac ischemia, electrolyte abnormality, viral illness, and anxiety. EKG will be obtained to assess for cardiac dysrhythmia and cardiac ischemia. Chest x-ray will be obtained to assess for pneumonia, bronchitis, congestive heart failure. CBC will be obtained to assess for leukocytosis and anemia. Basic metabolic profile will be obtained to assess for electrolyte abnormality and renal function. BNP will be obtained to assess for congestive heart failure. High-sensitivity troponin will be obtained to assess for cardiac ischemia. 2-hour repeat high-sensitivity troponin will be obtained to assess for ongoing cardiac ischemia. D-dimer will be obtained to assess for pulmonary embolism. Lab Data Attestation: I reviewed the patient's lab results. Lab results narrative: CBC was reviewed and was within normal limits. Basic metabolic profile was reviewed and was within normal limits. D-dimer was reviewed and was normal at 0.27. Initial high-sensitivity troponin was reviewed and was normal at 8. BNP was reviewed and was normal at 37. 2-hour repeat high-sensitivity troponin was reviewed and was normal at 8. Urinalysis was reviewed. There is no evidence of urinary tract infection or hematuria. Labs: Laboratory Results - last 24 hr 06/29/25 06/29/25 06/29/25 14:59 16:16 16:53 WBC 6.7 RBC 4.69 Hgb 14.3 Hct 43.6 MCV 93.0 MCH 30.5 MCHC 32.8 RDW Std Deviation 43.5 RDW Coeff of Natasha 12.8 Plt Count 241 MPV 11.1 Immature Gran % (Auto) 0.400 Neut % (Auto) 56.3 Lymph % (Auto) 25.2 [place] % (Auto) 9.2 Eos % (Auto) 7.7 H Baso % (Auto) 1.2 H Absolute Neuts (auto) 3.8 Absolute Lymphs (auto) 1.69 Nucleated RBC % 0 D-Dimer Quant (PE/DVT) 0.27 Sodium 138 Potassium 4.5 Chloride 103 Carbon Dioxide 21.1 Anion Gap 14 BUN 17 Creatinine 0.87 Estim Creat Clear Calc 58.66 Est GFR (MDRD) Non-Af 68 BUN/Creatinine Ratio 19.5 Glucose 102 H Calcium 9.5 Troponin T High Sens 8 Troponin T Hi Sens 2 Hr 8 NT pro BNP II 37 Urine Color Yellow Urine Clarity Clear Urine pH 6.0 Ur Specific [place] 1.015 Urine Protein 15 H Urine Glucose (UA) Normal Urine Ketones Negative Urine Occult Blood 10 H Urine Nitrite Negative Urine Bilirubin Negative Urine Urobilinogen Normal Ur Leukocyte Esterase 25 H Urine RBC 0-5 SEEN Urine WBC 0-5 SEEN Ur Squamous Epith Cells 0-5 SEEN Urine Bacteria RARE Urine Mucus 0 SEEN Radiography Chest X-Ray - ED: 2 View, Read by ED Physician, Read by Radiologist and No Acute Disease Diagnostic Testing: Clinical Impression(s) from Imaging Studies Chest X-Ray 06/29/25 16:00 IMPRESSION: NO ACUTE FINDINGS. Reading Location: [id number] and lateral chest x-ray was obtained. There are 2 views. On my independent interpretation, lung marti are clear. There is normal cardiac silhouette. Bony thorax is normal. There is no acute process noted. Radiologist also interpreted the x-ray and agrees. EKG Initial EKG: Attestation: I personally reviewed and interpreted this EKG as follows: Interpretation: Sinus Rhythm (62) and No Acute Injury Pattern Comments: EKG was obtained. On my independent interpretation, it showed a normal sinus rhythm with a rate of 62. MS interval, QRS interval, and QTc intervals were all normal. There is left axis deviation at -63. There is a left anterior fascicular block pattern noted. There are no acute ST or T wave changes. Prior EKG tracings: available for review Prior: Unchanged (08/28/2018) Treatment and Re-Evaluation :: Patient was advised of her findings. Patient has a HEART score of 3. Patient was advised that this is low risk for acute cardiac event. Patient was instructed to follow-up with her primary care physician in 5 to 7 days. Patient was instructed to return if worse in any way. Patient understood and was agreeable with the plan. All questions were answered. Discharge Plan Triage Chief Complaint: Complaint ED Provider: Sushant Jones Dx/Rx/DC Orders Clinical Impression: Dyspnea, Elevated blood pressure reading Instructions: ED Dyspnea Prescriptions: No Action levothyroxine 137 MCG tablet 137 mcg PO DAILY pravastatin 40 MG tablet 40 mg PO DAILY aspirin [Adult Low Dose Aspirin] 81 MG tablet,delayed release (DR/EC) 81 mg PO DAILY fluoxetine 10 MG capsule 10 mg PO DAILY diazepam 10 MG tablet 10 mg PO DAILY PRN (Reason: Anxiety) cholecalciferol (vitamin D3) 5,000 UNIT capsule 5,000 unit PO DAILY Zyrtec 10 MG capsule 10 mg PO DAILY PRN (Reason: Allergies) ondansetron 4 mg tablet,disintegrating 4 mg PO Q8H PRN PRN (Reason: Nausea) Qty: 10 0RF gabapentin 300 mg capsule 300 mg PO QHS Qty: 30 0RF Primary Care Provider: Rafal Zapien Referrals: Rafal Zapien DO [Primary Care Provider] - 3-5 Days Print Language: [place] Disposition Disposition: Home, Self Care
--- NOTE | 2025-06-29 15:31 | CM.ED ---
Social Work Date of referral: 06/29/25 Reason for referral: No Advanced Care Directives (ACD's) on file. Referred by: Social Work Identification Patient provided consent to social work visit. Craft Recruiter requested a copy of the ACD's which patient stated she would bring in. Paz Mayen, PROP AND EFFECTS DESIGNER, WOOD CAR BUILDER
--- OUTSIDE RECORDS SUMMARY | 2025-06-29 15:31 | XMS RPT_ITS | CCD ---
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 prior LVEFANDlt;40 (NQF 0083) - N/AACE-I or ARB for ASHD with DM or prior LVEFANDlt;40 (NQF 0066) - N/AStatin therapy for ASHD or FHL or DM - metBMI documented and plan if ANDgt;25 (NQF 0421) - lifestyle recommendation formTobacco use screening and referral (NQF 0028) - lifestyle recommendation formRecommendation for whole food, plant based diet - lifestyle recommendation formCLINICAL IMPRESSION/PLAN:Xuan Hernandez is having intermittent episodes of shortness of breath andexercise intolerance which may correlate to episodes of significantbradycardia. She's also had some lightheadedness and occasional episodes ofconfusion and slight dizziness.I recommended that she have an echocardiogram for assessment of valvular heartdisease and an event monitor to see if we can correlate abnormal heart rates orarrhythmias with her symptoms. TSH is slightly low. [facility] She is also currently being evaluated for B-12deficiency.I will see her in one month, at which time we will review her monitor. If thereis any correlation between bradycardia and symptoms, she may be a candidate forpacemaker therapy. She is on no rate slowing agents at this time.Thank you for asking me to see and make recommendations on Xuan Hernandez.This report is available to you in the shared medical record.Written and verbal health teaching given to patient, patient verbalizesunderstanding and agrees with treatment plan.This note was generated using AudioPixels voice recognition system, and there may besome incorrect words, spellings, and punctuation that were not noted inchecking the note before saving.DIAGNOSIS FOR VISIT:BradycardiaExercise intoleranceHISTORY OF PRESENT ILLNESSXuan Hernandez is a 72-year-old woman who is seen in [facility] Zapien, for recommendations regarding new onset bradycardiaand multiple other symptoms.She contacted primary care last month with complaints of intermittentdizziness, lightheadedness, slight chest discomfort, slight confusion. She wassent to emergency department where she was evaluated. She was noted to haveresting sinus bradycardia. Workup was otherwise unremarkable. Most of thesymptoms have not recurred, but she has had episodes when she has unexplainedshortness of breath for a few seconds. These have been going on for 6 months .She has noted a slight decrease in exercise tolerance. 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 Shereports that her heart rate is frequently been less than 50 in the past,although this cannot be confirmed from the medical record.She's had no chest discomfort. She denies orthopnea and edema.She's had 30 pound intentional weight loss over the last several months. Shedenies TIAs, amaurosis, claudication. She is unaware of any irregular heartrhythm. She's had no syncope.She underwent stress testing last year for evaluation of exercise intolerance.She was told that she had a normal heart. There is no mention made ofbradycardia at that time.ALLERGIES:ALLERGIESAllerge n Reactions- Acetaminophen-Codei* GI Upset- Benedryl [Diphenhyd* Other: See Comments blood pressure droppedCURRENT OUTPATIENT MEDICATIONS:levothyroxine (SYNTHROID) 137 mcg tablet 1 tablet PO 6 days a weekFLUoxetine (PROZAC) 10 mg capsule Take 1 capsule by mouth once daily.diazePAM (VALIUM) 10 mg tablet Take 1 tablet by mouth every 12 hours as neededfor Anxiety for up to 90 days.nystatin-triamcinolone (MYCOLOG) ointment Apply 1 application to affected areatwice daily.ASPIRIN ORAL Take by mouth.pravastatin (PRAVACHOL) 40 mg tablet Take 1 tablet by mouth once daily.diclofenac, EC, (VOLTAREN) 75 mg EC tablet TAKE 1 TABLET TWICE DAILY NEEDEDFOR PAIN. DO NOT TAKE WITH ASPIRINPAST MEDICAL HISTORYDiagnosis Date- Ankle fracture left- History of tobacco abuse- Hypercholesteremia- Hypothyroidism- Panic attack- Pulmonary nodules 04/[address] chest by 04/2015- Spasm of back muscles after work injury in past- Vitamin D deficiency 02/21/14PAST SURGICAL HISTORYProcedure Laterality Date- CHOLECYSTECTOMY 1992 gallstones- COLONOSCOPY 1992- LUMPECTOMY/RADIOTHERAPY DIAG MAMM/A10 age 18 breast, left, benignFAMILY HISTORYProblem Relation Age of Onset- diabetes mellitus [Other] [OTHER] Mother- diabetes mellitus [Other] [OTHER] Brother- diabetes mellitus [Other] [OTHER] BrotherSocial History Marital status: Spouse name: Years of education: Number of children:Social History Main Topics Smoking status: Former Smoker Packs/day: 0.00 Years: 0.00 Types: Cigarettes Quit date: 11/20/1998 Smokeless status: Never Used Comment: quit smoking 15 years ago Alcohol use: No Drug use: No Sexual activity: Not CurrentlySocial History Narrative No pulmonary mass or significant adenopathy. Multiple small noncalcified nonspecific pleural and parenchymal nodules of uncertain significance. Followup recommended in 8-12 months to confirm stability.04/2014- Needs f/u by 04/2015REVIEW OF SYSTEMS: General: No chills, fever, weight loss, night sweats.SHEENT: No change in vision or auditory acuity. Respiratory: No productivecough. History of asthma. Cardiac: As noted above. GI: No melena. : Nodysuria. Musculoskeletal: No myalgias. Neurologic: No strokes. Psychiatric:No depression. Endocrine: No diabetes. Hematologic: No anemia.PHYSICAL EXAMINATION: S/he is alert and in no distressVITAL SIGNS: BP 127/57 Pulse 58 Wt 187 lb 12.8 oz (85.2kg)SHEENT: Skin is warm and dry. Pupils are round and reactive. Retinal vesselsare grossly unremarkable. No xanthelasmas appreciated. Pharynx is benign.There is no oral cyanosis. Neck: supple. No adenopathy or thyroidenlargement. Chest: Clear to percussion and auscultation. Trachea is midline. Air entry is equal. There is no chest wall tenderness. Cardiac: Regularrhythm. S1 and S2 are normal. PMI is nondisplaced. There is a soft systolicejection. No click is heard. Carotids are brisk without bruits. JVP is lessthan 10 cm. Abdomen: Soft and nontender. There are no pulsatile masses orbruits. No liver enlargement. Bowel sounds are active. : Deferred.Extremities: No edema. Pulses are intact and symmetrical. No clubbing orcyanosis. No femoral bruits. Neurologic: Grossly normal motor and sensory.S/he is alert and oriented x4. Musculoskeletal: No joint deformities.Previous records were reviewed. TSH is slightly suppressed. B-12 level wasborderline low, as was vitamin D. Renal function is mildly depressed. LDL lsn353.EKG shows sinus bradycardia and left axis deviation. There is no significantchange from 2013.Stress test showed a normal ejection fraction. There is no evidence of ischemia.Electronically Signed:Georgi Gonzalez [facility] 2017 2:33 PMCC: August Leal Provider: RAFAL ZAPIEN [[id number]]Allergies As of Date: 02/09/2018 Noted Allergy ReactionACETAMINOPHEN-CODEINE 03/31/2014 8 - GI UpsetBENEDRYL (DIPHENHYDRAMINE) 03/03/2014 14 - Other: See Comments Comments: blood pressure droppedDate Reviewed: 02/09/2018Reviewed by: Dolly Gilbert - Fully AssessedReason for Visit: New Patient [172]Primary Visit Diagnosis:JON (dyspnea on exertion) [R06.09] Other Visit Diagnoses:Other hyperlipidemia [E78.4] Cardiac syncope [R55]Order(s):EVENT MONITOR [[id number]] Order #: [id number]: 1 ECHO [[id number]] Order #: [id number]: 1 FUTUREPrescriptions as of 02/09/2018 Sig: LEVOTHYROXINE 137 MCG TABLET 1 tablet PO 6 days a week FLUOXETINE 10 MG CAPSULE Take 1 capsule by mouth once * DIAZEPAM 10 MG TABLET Take 1 tablet by mouth every * NYSTATIN-TRIAMCINOLONE 100,00* Apply 1 application to affect* ASPIRIN ORAL Take by mouth. PRAVASTATIN 40 MG TABLET Take 1 tablet by mouth once d* DICLOFENAC SODIUM 75 MG TABLE* TAKE 1 TABLET TWICE DAILY *Problem List As Of Date 02/09/2018 Noted Resolved Vitamin D deficiency [E55.9] INVALID FOR* Thyroid disease [E07.9] INVALID FOR*06/08/2015 Hypercholesterolemia [E78.00] INVALID FOR* Pulmonary nodules/lesions, multiple [R91.8] INVALID FOR* Acquired hypothyroidism [E03.9] INVALID FOR* Anemia due to vitamin B12 deficiency [D51.9] INVALID FOR*Follow-up and Disposition History RecordedEncounter Number: [id number] Status:Closed by GEORGI GONZALEZ MD on 02/09/18 [facility] PROGRESSon 02-09-2018 PROGRESS HNO ID: [id number] thor: Georgi Anderson: (none)Author Type: PhysicianType: Progress NotesFiled: 02/09/2018 4:59 PMNote Text:PERTINENT CARDIAC HISTORYBradycardiaDOEHTNHLADHER ENCE TO GUIDELINESACE-I or ARB for HF with prior LVEF<40 (NQF 0081) - N/AASA or Plavix for ASHD (NQF 0067) - N/ABeta paola for ASHD with prior MA or prior LVEF<40 (NQF 0070) - N/ABeta paola for HF with prior LVEF<40 (NQF 0083) - N/AACE-I or ARB for ASHD with DM or prior LVEF<40 (NQF 0066) - N/AStatin therapy for ASHD or FHL or DM - metBMI documented and plan if >25 (NQF 0421) - lifestyle recommendation formTobacco use screening and referral (NQF 0028) - lifestyle recommendationformRecommendatio n for whole food, plant based diet - lifestyle recommendationformCLINICAL IMPRESSION/PLAN:Xuan Hernandez is having intermittent episodes of shortness of breath andexercise intolerance which may correlate to episodes of significantbradycardia. She's also had some lightheadedness and occasional episodesof confusion and slight dizziness.I recommended that she have an echocardiogram for assessment of valvularheart disease and an event monitor to see if we can correlate abnormalheart rates or arrhythmias with her symptoms. TSH is slightly low. She hasan appointment in primary care in the near future. She is also currentlybeing evaluated for B-12 deficiency.I will see her in one month, at which time we will review her monitor. Ifthere is any correlation between bradycardia and symptoms, she may be acandidate for pacemaker therapy. She is on no rate slowing agents at thistime.Thank you for asking me to see and make recommendations on Xuan Murillo. This report is available to you in the shared medical record.Written and verbal health teaching given to patient, patient verbalizesunderstanding and agrees with treatment plan.This note was generated using AudioPixels voice recognition system, and theremay be some incorrect words, spellings, and punctuation that were notnoted in checking the note before saving.DIAGNOSIS FOR VISIT:BradycardiaExercise intoleranceHISTORY OF PRESENT ILLNESSXuan Hernandez is a 72-year-old woman who is seen in [facility], for recommendations regarding new onsetbradycardia and multiple other symptoms.She contacted primary care last month with complaints of intermittentdizziness, lightheadedness, slight chest discomfort, slight confusion. Shewas sent to emergency department where she was evaluated. She was noted tohave resting sinus bradycardia. Workup was otherwise unremarkable. Most ofthe symptoms have not recurred, but she has had episodes when she hasunexplained shortness of breath for a few seconds. These have been goingon for 6 months .She has noted a slight decrease in exercise tolerance. However, shecontinues to walk on her treadmill 3 times a day and takes care of herfarm animals. She reports that her heart rate is frequently been less than50 in the past, although this cannot be confirmed from the medical record.She's had no chest discomfort. She denies orthopnea and edema.She's had 30 pound intentional weight loss over the last several months.She denies TIAs, amaurosis, claudication. She is unaware of any irregularheart rhythm. She's had no syncope.She underwent stress testing last year for evaluation of exerciseintolerance. She was told that she had a normal heart. There is no mentionmade of bradycardia at that time.ALLERGIES:ALLERGIESAllerge n Reactions- Acetaminophen-Codei* GI Upset- Benedryl [Diphenhyd* Other: See Comments blood pressure droppedCURRENT OUTPATIENT MEDICATIONS:levothyroxine (SYNTHROID) 137 mcg tablet 1 tablet PO 6 days a weekFLUoxetine (PROZAC) 10 mg capsule Take 1 capsule by mouth once daily.diazePAM (VALIUM) 10 mg tablet Take 1 tablet by mouth every 12 hours asneeded for Anxiety for up to 90 days.nystatin-triamcinolone (MYCOLOG) ointment Apply 1 application to affectedarea twice daily.ASPIRIN ORAL Take by mouth.pravastatin (PRAVACHOL) 40 mg tablet Take 1 tablet by mouth once daily.diclofenac, EC, (VOLTAREN) 75 mg EC tablet TAKE 1 TABLET TWICE DAILY ASNEEDED FOR PAIN. DO NOT TAKE WITH ASPIRINPAST MEDICAL HISTORYDiagnosis Date- Ankle fracture left- History of tobacco abuse- Hypercholesteremia- Hypothyroidism- Panic attack- Pulmonary nodules 04/[address] chest by 04/2015- Spasm of back muscles after work injury in past- Vitamin D deficiency 02/21/14PAST SURGICAL HISTORYProcedure Laterality Date- CHOLECYSTECTOMY 1992 gallstones- COLONOSCOPY 1992- LUMPECTOMY/RADIOTHERAPY DIAG MAMM/A10 age 18 breast, left, benignFAMILY HISTORYProblem Relation Age of Onset- diabetes mellitus [Other] [OTHER] Mother- diabetes mellitus [Other] [OTHER] Brother- diabetes mellitus [Other] [OTHER] BrotherSocial History Marital status: Spouse name: Years of education: Number of children:Social History Main Topics Smoking status: Former Smoker Packs/day: 0.00 Years: 0.00 Types: Cigarettes Quit date: 11/20/1998 Smokeless status: Never Used Comment: quit smoking 15 years ago Alcohol use: No Drug use: No Sexual activity: Not CurrentlySocial History Narrative No pulmonary mass or significant adenopathy. Multiple small noncalcified nonspecific pleural and parenchymal nodules of uncertain significance. Followup recommended in 8-12 months to confirm stability.04/2014- Needs f/u by 04/2015REVIEW OF SYSTEMS: General: No chills, fever, weight loss, night sweats. SHEENT: No change in vision or auditory acuity. Respiratory: Noproductive cough. History of asthma. Cardiac: As noted above. GI: Nomelena. : No dysuria. Musculoskeletal: No myalgias. Neurologic: Nostrokes. Psychiatric: No depression. Endocrine: No diabetes.Hematologic: No anemia.PHYSICAL EXAMINATION: S/he is alert and in no distressVITAL SIGNS: BP 127/57 Pulse 58 Wt 187 lb 12.8 oz (85.2kg)SHEENT: Skin is warm and dry. Pupils are round and reactive. Retinalvessels are grossly unremarkable. No xanthelasmas appreciated. Pharynxis benign. There is no oral cyanosis. Neck: supple. No adenopathy orthyroid enlargement. Chest: Clear to percussion and auscultation.Trachea is midline. Air entry is equal. There is no chest walltenderness. Cardiac: Regular rhythm. S1 and S2 are normal. PMI isnondisplaced. There is a soft systolic ejection. No click is heard.Carotids are brisk without bruits. JVP is less than 10 cm. Abdomen: Softand nontender. There are no pulsatile masses or bruits. No liverenlargement. Bowel sounds are active. : Deferred. Extremities: Noedema. Pulses are intact and symmetrical. No clubbing or cyanosis. Nofemoral bruits. Neurologic: Grossly normal motor and sensory. S/he isalert and oriented x4. Musculoskeletal: No joint deformities.Previous records were reviewed. TSH is slightly suppressed. B-12 level wasborderline low, as was vitamin D. Renal function is mildly depressed. LDLwas 118.EKG shows sinus bradycardia and left axis deviation. There is nosignificant change from 2014.Stress test showed a normal ejection fraction. There is no evidence ofischemia.Electronically Signed:Georgi Gonzalez, [facility] 2017 2:33 PMCC: Rafal Zapien DO [facility] Vital Signs Date Time Vital Sign Value Performing Clinician Facility 04-21-2025 14:49-0400 Body height 162.5 cm Rafal Zapien DO Work Phone: [facility] 04-21-2025 14:49-0400 Body mass index (BMI) [Ratio] 37.96 kg/m2 Rafal Ledesmaon DO Work Phone: [facility] 04-21-2025 14:49-0400 Body temperature 97 [degF] Rafal Zapien DO Work Phone: [facility] 04-21-2025 14:49-0400 Body weight 100.25 kg Rafal Zapien DO Work Phone: [facility] 04-21-2025 14:49-0400 Diastolic blood pressure 80 mm[Hg] Rafal Zapien DO Work Phone: [facility] 04-21-2025 14:49-0400 Heart rate 60 /min Rafal Zapien DO Work Phone: [facility] 04-21-2025 14:49-0400 Respiratory rate 20 /min Rafal Zapien DO Work Phone: [facility] 04-21-2025 14:49-0400 Systolic blood pressure 124 mm[Hg] Rafal Zapien DO Work Phone: [facility] 02-21-2025 14:00-0400 Diastolic blood pressure 75 mm[Hg] Brandon Finelli DO Work Phone: [facility] 02-21-2025 14:00-0400 Heart rate 64 /min Brandon Finelli DO Work Phone: [facility] 02-21-2025 14:00-0400 Respiratory rate 25 /min Brandon Finelli DO Work Phone: [facility] 02-21-2025 14:00-0400 SaO2% (BldA) [Mass fraction] 98 % Brandon Finelli DO Work Phone: [facility] 02-21-2025 14:00-0400 Systolic blood pressure 155 mm[Hg] Brandon Finelli DO Work Phone: [facility] 02-21-2025 10:40-0400 Body height 162.6 cm Brandon Finelli DO Work Phone: [facility] 02-21-2025 10:40-0400 Body mass index (BMI) [Ratio] 37.76 kg/m2 Brandon Finelli DO Work Phone: [facility] 02-21-2025 10:40-0400 Body temperature 97 [degF] Brandon Finelli DO Work Phone: [facility] 02-21-2025 10:40-0400 Body weight 99.79 kg Brandon Alba DO Work Phone: [facility] 02-20-2025 11:23-0400 Diastolic blood pressure 76 mm[Hg] Darwin Pisano MD Work Phone: [facility] 02-20-2025 11:23-0400 Heart rate 59 /min Darwin Pisano MD Work Phone: [facility] 02-20-2025 11:23-0400 Respiratory rate 16 /min Darwin Pisano MD Work Phone: [facility] 02-20-2025 11:23-0400 SaO2% (BldA) [Mass fraction] 95 % Darwin Pisano MD Work Phone: [facility] 02-20-2025 11:23-0400 Systolic blood pressure 128 mm[Hg] Darwin Pisano MD Work Phone: [facility] 02-20-2025 09:46-0400 Body mass index (BMI) [Ratio] 37.77 kg/m2 Darwin Pisano MD Work Phone: [facility] 02-20-2025 09:46-0400 Body temperature 96.21 [degF] Darwin Pisano MD Work Phone: [facility] 02-20-2025 09:46-0400 Body weight 99.8 kg Darwin Pisano MD Work Phone: [facility] 02-03-2025 15:34-0400 Body mass index (BMI) [Ratio] 37.76 kg/m2 Nadia John CARDIOPULMONARY SUPERVISOR.CARDIAC NURSE SPECIALIST Work Phone: [facility] 02-03-2025 15:34-0400 Body weight 99.79 kg Nadia John CARDIOPULMONARY SUPERVISOR.CARDIAC NURSE SPECIALIST Work Phone: [facility] 02-03-2025 15:34-0400 Diastolic blood pressure 75 mm[Hg] Nadia John CARDIOPULMONARY SUPERVISOR.CARDIAC NURSE SPECIALIST Work Phone: [facility] 02-03-2025 15:34-0400 Heart rate 70 /min Nadia John CARDIOPULMONARY SUPERVISOR.CARDIAC NURSE SPECIALIST Work Phone: [facility] 02-03-2025 15:34-0400 SaO2% (BldA) [Mass fraction] 96 % Nadia John CARDIOPULMONARY SUPERVISOR.CARDIAC NURSE SPECIALIST Work Phone: [facility] 02-03-2025 15:34-0400 Systolic blood pressure 130 mm[Hg] Nadia John CARDIOPULMONARY SUPERVISOR.CARDIAC NURSE SPECIALIST Work Phone: [facility] 01-30-2025 15:19-0400 Body mass index (BMI) [Ratio] 37.61 kg/m2 Chata Suppan CARDIOPULMONARY SUPERVISOR.CARDIAC NURSE SPECIALIST Work Phone: [facility] 01-30-2025 15:19-0400 Body temperature 97.39 [degF] Chata Suppan CARDIOPULMONARY SUPERVISOR.CARDIAC NURSE SPECIALIST Work Phone: [facility] 01-30-2025 15:19-0400 Body weight 99.4 kg Chata Suppan CARDIOPULMONARY SUPERVISOR.CARDIAC NURSE SPECIALIST Work Phone: [facility] 01-30-2025 15:19-0400 Diastolic blood pressure 68 mm[Hg] Chata Suppan CARDIOPULMONARY SUPERVISOR.CARDIAC NURSE SPECIALIST Work Phone: [facility] 01-30-2025 15:19-0400 Heart rate 66 /min Chata Suppan CARDIOPULMONARY SUPERVISOR.CARDIAC NURSE SPECIALIST Work Phone: [facility] 01-30-2025 15:19-0400 SaO2% (BldA) [Mass fraction] 97 % Chata Suppan CARDIOPULMONARY SUPERVISOR.CARDIAC NURSE SPECIALIST Work Phone: [facility] 01-30-2025 15:19-0400 Systolic blood pressure 112 mm[Hg] Chata Suppan CARDIOPULMONARY SUPERVISOR.CARDIAC NURSE SPECIALIST Work Phone: [facility] 01-13-2025 13:14-0500 Body mass index (BMI) [Ratio] 37.59 kg/m2 Elham Perez CARDIOPULMONARY SUPERVISOR.CARDIAC NURSE SPECIALIST Work Phone: [facility] 01-13-2025 13:14-0500 Body weight 99.34 kg Elham Perez CARDIOPULMONARY SUPERVISOR.CARDIAC NURSE SPECIALIST Work Phone: [facility] 01-13-2025 13:14-0500 Diastolic blood pressure 60 mm[Hg] Elham Perez CARDIOPULMONARY SUPERVISOR.CARDIAC NURSE SPECIALIST Work Phone: [facility] 01-13-2025 13:14-0500 Heart rate 70 /min Elham Perez CARDIOPULMONARY SUPERVISOR.CARDIAC NURSE SPECIALIST Work Phone: [facility] 01-13-2025 13:14-0500 Respiratory rate 16 /min Elham Perez CARDIOPULMONARY SUPERVISOR.CARDIAC NURSE SPECIALIST Work Phone: [facility] 01-13-2025 13:14-0500 SaO2% (BldA) [Mass fraction] 94 % Elham Perez CARDIOPULMONARY SUPERVISOR.CARDIAC NURSE SPECIALIST Work Phone: [facility] 01-13-2025 13:14-0500 Systolic blood pressure 112 mm[Hg] Elham Perez CARDIOPULMONARY SUPERVISOR.CARDIAC NURSE SPECIALIST Work Phone: [facility] 09-25-2024 12:40-0500 Body mass index (BMI) [Ratio] 37.01 kg/m2 Rafal Zapien DO Work Phone: [facility] 09-25-2024 12:40-0500 Body temperature 97.2 [degF] Rafal Zapien DO Work Phone: [facility] 09-25-2024 12:40-0500 Body weight 97.8 kg Rafal Zapien DO Work Phone: [facility] 09-25-2024 12:40-0500 Diastolic blood pressure 76 mm[Hg] Rafal Zapien DO Work Phone: [facility] 09-25-2024 12:40-0500 Heart rate 68 /min Rafal Zapien DO Work Phone: [facility] 09-25-2024 12:40-0500 Respiratory rate 20 /min Rafal Zapien DO Work Phone: [facility] 09-25-2024 12:40-0500 Systolic blood pressure 124 mm[Hg] Rafal Zapien DO Work Phone: [facility] 07-15-2024 12:06-0400 Body mass index (BMI) [Ratio] 36.1 kg/m2 Teri Mahmood APRN.CARDIAC NURSE SPECIALIST Work Phone: [facility] 07-15-2024 12:06-0400 Body temperature 96.8 [degF] Teri Mahmood APRN.CARDIAC NURSE SPECIALIST Work Phone: [facility] 07-15-2024 12:06-0400 Body weight 95.4 kg Teri Mahmood APRN.CARDIAC NURSE SPECIALIST Work Phone: [facility] 07-15-2024 12:06-0400 Diastolic blood pressure 80 mm[Hg] Teri Mahmood APRN.CARDIAC NURSE SPECIALIST Work Phone: [facility] 07-15-2024 12:06-0400 Heart rate 73 /min Teri Mahmood APRN.CARDIAC NURSE SPECIALIST Work Phone: [facility] 07-15-2024 12:06-0400 Respiratory rate 18 /min Teri Mahmood APRN.CARDIAC NURSE SPECIALIST Work Phone: [facility] 07-15-2024 12:06-0400 SaO2% (BldA) [Mass fraction] 98 % Teri Mahmood APRN.CARDIAC NURSE SPECIALIST Work Phone: [facility] 07-15-2024 12:06-0400 Systolic blood pressure 138 mm[Hg] Teir Mahmood APRN.CARDIAC NURSE SPECIALIST Work Phone: [facility] 02-28-2024 14:06-0400 Body temperature 97 [degF] Rafal Zapien DO Work Phone: [facility] 02-28-2024 14:06-0400 Body weight 98.88 kg Rafal Zapien DO Work Phone: [facility] 02-28-2024 14:06-0400 Diastolic blood pressure 60 mm[Hg] Rafal Zapien DO Work Phone: [facility] 02-28-2024 14:06-0400 Heart rate 60 /min Rafal Zapien DO Work Phone: [facility] 02-28-2024 14:06-0400 Respiratory rate 16 /min Rafal Zapien DO Work Phone: [facility] 02-28-2024 14:06-0400 Systolic blood pressure 128 mm[Hg] Rafal Zapien DO Work Phone: [facility] 07-07-2023 14:01-0400 Body temperature 96.8 [degF] Rafal Zapien DO Work Phone: [facility] 07-07-2023 14:01-0400 Diastolic blood pressure 80 mm[Hg] Rafal Zapien DO Work Phone: [facility] 07-07-2023 14:01-0400 Heart rate 76 /min Rafal Zapien DO Work Phone: [facility] 07-07-2023 14:01-0400 Respiratory rate 20 /min Rafal Zapien DO Work Phone: [facility] 07-07-2023 14:01-0400 Systolic blood pressure 130 mm[Hg] Rafal Zapien DO Work Phone: [facility] 02-15-2023 11:13-0400 Body temperature 96.91 [degF] Teir Mahmood APRN.CARDIAC NURSE SPECIALIST Work Phone: [facility] 02-15-2023 11:13-0400 Body weight 100.15 kg Teri Mahmood APRN.CARDIAC NURSE SPECIALIST Work Phone: [facility] 02-15-2023 11:13-0400 Diastolic blood pressure 72 mm[Hg] Teri Mahmood APRN.CARDIAC NURSE SPECIALIST Work Phone: [facility] 02-15-2023 11:13-0400 Heart rate 78 /min Teri Mahmood APRN.CARDIAC NURSE SPECIALIST Work Phone: [facility] 02-15-2023 11:13-0400 Respiratory rate 20 /min Teri Mahmood APRN.CARDIAC NURSE SPECIALIST Work Phone: [facility] 02-15-2023 11:13-0400 SaO2% (BldA) [Mass fraction] 96 % Teri Mahmood APRN.CARDIAC NURSE SPECIALIST Work Phone: [facility] 02-15-2023 11:13-0400 Systolic blood pressure 118 mm[Hg] Teri Jamie YOUNG.CARDIAC NURSE SPECIALIST Work Phone: [facility] 08-05-2022 12:32-0400 Diastolic blood pressure 69 mm[Hg] SOLITARIO SAHU MD [facility] 08-05-2022 12:32-0400 Heart rate 64 /min SOLITARIO SAHU MD [facility] 08-05-2022 12:32-0400 Respiratory rate 18 /min SOLITARIO SAHU MD [facility] 08-05-2022 12:32-0400 Systolic blood pressure 138 mm[Hg] SOLITARIO SAHU MD [facility] 08-05-2022 12:06-0400 Diastolic blood pressure 66 mm[Hg] SOLITARIO SAHU MD [facility] 08-05-2022 12:06-0400 Heart rate 58 /min SOLITARIO SAHU MD [facility] 08-05-2022 12:06-0400 Respiratory rate 21 /min SOLITARIO SAHU MD [facility] 08-05-2022 12:06-0400 Systolic blood pressure 140 mm[Hg] SOLITARIO SAHU MD [facility] 08-05-2022 11:30-0400 Diastolic blood pressure 98 mm[Hg] SOLITARIO SAHU MD [facility] 08-05-2022 11:30-0400 Heart rate 59 /min SOLITARIO SAHU MD [facility] 08-05-2022 11:30-0400 Respiratory rate 22 /min SOLITARIO SAHU MD [facility] 08-05-2022 11:30-0400 Systolic blood pressure 139 mm[Hg] SOLITARIO SAHU MD [facility] 08-05-2022 09:36-0400 Body height 160 cm SOLITARIO SAHU MD [facility] 08-05-2022 09:36-0400 Body temperature 97.52 [degF] SOLITARIO SAHU MD [facility] 08-05-2022 09:36-0400 Body weight 95.5 kg SOLITARIO SAHU MD [facility] 08-05-2022 09:36-0400 Heart rate 58 /min SOLITARIO SAHU MD [facility] 07-13-2022 13:15-0400 Body temperature 96.4 [degF] Rafal Zapien DO Work Phone: [facility] 07-13-2022 13:15-0400 Body weight 100.25 kg Rafal Zapien DO Work Phone: [facility] 07-13-2022 13:15-0400 Diastolic blood pressure 80 mm[Hg] Rafal Zapien DO Work Phone: [facility] 07-13-2022 13:15-0400 Heart rate 76 /min Rafal Zapien DO Work Phone: [facility] 07-13-2022 13:15-0400 Respiratory rate 16 /min Rafal Zapien DO Work Phone: [facility] 07-13-2022 13:15-0400 Systolic blood pressure 130 mm[Hg] Rafal Zapien DO Work Phone: [facility] 04-05-2022 13:39-0400 Body temperature 96.21 [degF] Rafal Zapien DO Work Phone: [facility] 04-05-2022 13:39-0400 Body weight 98.43 kg Rafal Zapien DO Work Phone: [facility] 04-05-2022 13:39-0400 Diastolic blood pressure 60 mm[Hg] Rafal Zapien DO Work Phone: [facility] 04-05-2022 13:39-0400 Heart rate 80 /min Rafal Zapien DO Work Phone: [facility] 04-05-2022 13:39-0400 Respiratory rate 16 /min Rafal Zapien DO Work Phone: [facility] 04-05-2022 13:39-0400 Systolic blood pressure 110 mm[Hg] Rafal Zapien DO Work Phone: [facility] 03-28-2022 14:03-0400 Body height 162.6 cm Betty Peña APRN.CARDIAC NURSE SPECIALIST Work Phone: [facility] 03-28-2022 14:03-0400 Body weight 99.34 kg Betty Peña APRN.CARDIAC NURSE SPECIALIST Work Phone: [facility] 03-28-2022 14:03-0400 Diastolic blood pressure 70 mm[Hg] Betty Peña APRN.CARDIAC NURSE SPECIALIST Work Phone: [facility] 03-28-2022 14:03-0400 Heart rate 61 /min Betty Peña APRN.CARDIAC NURSE SPECIALIST Work Phone: [facility] 03-28-2022 14:03-0400 SaO2% (BldA) [Mass fraction] 97 % Betty Peña APRN.CARDIAC NURSE SPECIALIST Work Phone: [facility] 03-28-2022 14:03-0400 Systolic blood pressure 136 mm[Hg] Betty Peña APRN.CARDIAC NURSE SPECIALIST Work Phone: [facility] Encounters Encounter Date Encounter Type Care Provider Facility Start: 06-11-2025 End: 06-11-2025 Nursing evaluation of patient and report Mi Nurse Work Phone: [facility] Comment on above: Vitamin B12 deficien cy (Primary Dx) Start: 06-11-2025 End: 06-11-2025 ambulatory RAFAL L ZAPIEN Facility:[facility] Start: 05-01-2025 End: 05-01-2025 Nursing evaluation of patient and report Mi Nurse Work Phone: [facility] Comment on above: Vitamin B12 deficien cy (Primary Dx) Start: 05-01-2025 End: 05-01-2025 ambulatory RAFAL L ZAPIEN Facility:[facility] Start: 04-28-2025 End: 04-28-2025 ambulatory [facility] Soumya cooley Comment on above: Results Start: 04-28-2025 End: 04-28-2025 E-mail encounter from caregiver [facility] Start: 04-28-2025 End: 04-28-2025 Telephone encounter Rafal L Zapien DO Work Phone: [facility] Start: 04-23-2025 Patient encounter procedure Rafal Zapien DO Work Phone: [facility] Start: 04-21-2025 End: 04-21-2025 ambulatory RAFAL L ZAPIEN Facility:[facility] Start: 04-21-2025 End: 04-21-2025 Patient encounter procedure Rafal L Zapien DO Work Phone: [facility] Comment on above: Medicare annual well ness visit, subsequent (Primary Dx); Acquired hypothyroidism; RUDY (generalized anxiety disorder); Chronic constipation; Tubular adenoma; Bloating; Hypercholesterolemia; Vitamin B12 deficiency; Anemia due to vitamin B12 deficiency, unspecified B12 deficiency type Start: 04-21-2025 End: 04-21-2025 ambulatory RAFAL L ZAPIEN Facility:[facility] Start: 04-16-2025 End: 04-16-2025 ambulatory RAFAL L ZAPIEN Facility:[facility] Start: 04-15-2025 End: 04-15-2025 Telephone encounter Rafal L Zapien DO Work Phone: [facility] [place] Comment on above: Orders Start: 04-04-2025 End: 04-04-2025 Nursing evaluation of patient and report Mi Nurse Work Phone: [facility] Comment on above: Vitamin B12 deficien cy (Primary Dx) Start: 04-04-2025 End: 04-18-2025 Telephone encounter Brandon Alba DO Work Phone: General Surgery Comment on above: Patient Update; Clin ical Update Start: 04-04-2025 End: 04-04-2025 ambulatory RAFAL ZAPIEN Facility:[facility] Start: 03-25-2025 End: 03-25-2025 Telephone encounter Rafal Zapien DO Work Phone: [facility] Comment on above: Insurance Authorizat ion Start: 03-24-2025 End: 03-24-2025 Telephone encounter Rafal Zapien DO Work Phone: [facility] [place] Comment on above: Lab Orders Start: 03-20-2025 End: 03-20-2025 ambulatory Rafal Zapien DO Work Phone: [facility] [place] Start: 03-20-2025 End: 03-20-2025 Patient encounter procedure Rafal Ledesmaon DO Work Phone: [facility] Comment on above: Population Health Na vigation Outreach (Chantale Campos ) Start: 03-05-2025 End: 03-05-2025 ambulatory BRANDON ALBA Facility:[facility] Start: 03-03-2025 End: 03-03-2025 Telephone encounter Brandon Alba DO Work Phone: General Surgery Start: 02-26-2025 End: 04-28-2025 Follow-up encounter Nadia Naylor APRN.CARDIAC NURSE SPECIALIST Work Phone: General Surgery Start: 02-21-2025 ambulatory RAFAL Mora it:[facility] Start: 02-21-2025 End: 02-21-2025 Subsequent hospital visit by physician Brandon Alba DO Work Phone: [facility] End[facility] Comment on above: BRBPR (bright red bl ood per rectum) [K62.5] Start: 02-20-2025 End: 02-20-2025 Orders Only Nadia Naylor APRN.CARDIAC NURSE SPECIALIST Work Phone: General Surgery Comment on above: BRBPR (bright red bl ood per rectum) (Primary Dx); Constipation, unspecified constipation type Constipation, unspec ified constipation type [K59.00] Start: 02-19-2025 End: 04-03-2025 Telephone encounter Emma Barrios APRN.CARDIAC NURSE SPECIALIST Work Phone: G[facility]enter[facility] [place] Comment on above: Appointment Start: 02-18-2025 End: 02-18-2025 ambulatory Sd Edgar GARCIA [facility] [place] Start: 02-18-2025 End: 02-18-2025 Patient encounter procedure Sd Edgar GARCIA [facility] Comment on above: Population Health Na vigation Outreach ([facility] Start: 02-03-2025 End: 02-03-2025 Patient encounter procedure Nadia Naylor APRN.CARDIAC NURSE SPECIALIST Work Phone: General Surgery Comment on above: Screen for colon can cer (Primary Dx); Constipation, unspecified constipation type; Rectal bleeding; Abnormal CT of the abdomen Start: 02-03-2025 End: 02-03-2025 ambulatory RAFAL ZAPIEN Facility:[facility] Start: 02-03-2025 End: 02-03-2025 Nursing evaluation of patient and report Mi Nurse Work Phone: [facility] Comment on above: Anemia due to vitami n B12 deficiency, unspecified B12 deficiency type (Primary Dx) Start: 02-03-2025 End: 03-07-2025 Telephone encounter Nadia Naylor APRN.CARDIAC NURSE SPECIALIST Work Phone: General Surgery Comment on above: 02-20-2025 colon ASC Start: 01-31-2025 End: 02-03-2025 Telephone encounter Nadia Naylor APRN.CARDIAC NURSE SPECIALIST Work Phone: General Surgery Comment on above: Appointment; Request Outside Medical Records Start: 01-30-2025 End: 01-30-2025 ambulatory SELF Facility:[facility] Start: 01-30-2025 End: 01-30-2025 Office outpatient visit 15 minutes Chata Shelton CARDIOPULMONARY SUPERVISOR.CARDIAC NURSE SPECIALIST Work Phone: [facility] Comment on above: Urinary frequency (P rimary Dx); Constipation, unspecified constipation type; Rectal bleeding Start: 01-30-2025 End: 01-30-2025 Telephone encounter Chata Shelton CARDIOPULMONARY SUPERVISOR.CARDIAC NURSE SPECIALIST Work Phone: [facility] Start: 01-27-2025 End: 01-27-2025 ambulatory Janessa Armendariz RN NURSE [facility] Start: 01-27-2025 End: 01-27-2025 Follow-up encounter Janessa Armendariz RN NURSE [facility] Comment on above: Follow Up; Hospital F/U Start: 01-22-2025 End: 01-23-2025 Telephone encounter Elham Perez APRN.CARDIAC NURSE SPECIALIST Work Phone: [facility] Comment on above: Patient Update Start: 01-13-2025 End: 01-13-2025 ambulatory ELHAM PEREZ Facility:[facility] Start: 01-13-2025 End: 01-13-2025 Office outpatient visit 15 minutes Elham Perez CARDIOPULMONARY SUPERVISOR.CARDIAC NURSE SPECIALIST Work Phone: [facility] Comment on above: Acute midline low ba ck pain with right-sided sciatica (Primary Dx); Blood in stool Start: 12-30-2024 End: 12-30-2024 Emergency department patient visit Angelo Workman Facility:[facility] Start: 12-30-2024 End: 12-30-2024 ambulatory Rafal Zapien DO Work Phone: [facility] Comment on above: Back Pain Start: 12-26-2024 End: 12-26-2024 Emergency department patient visit Ignacio Ballesteros Facility:[facility] Start: 12-19-2024 End: 12-19-2024 Emergency department patient visit Darwin Fleming Facility:[facility] Start: 12-05-2024 End: 12-05-2024 Nursing evaluation of patient and report Mi Nurse Work Phone: [facility] Comment on above: Anemia due to vitami n B12 deficiency, unspecified B12 deficiency type (Primary Dx) Start: 12-05-2024 End: 12-05-2024 ambulatory RAFAL L ZAPIEN Facility:[facility] Start: 12-04-2024 End: 12-04-2024 Telephone encounter Rafal L Zapien DO Work Phone: [facility] Comment on above: Lab Order Request Start: 11-04-2024 End: 11-04-2024 ambulatory RAFAL L ZAPIEN Facility:[facility] Start: 11-04-2024 End: 11-04-2024 Nursing evaluation of patient and report Mi Nurse Work Phone: [facility] Comment on above: Vitamin B12 deficien cy (Primary Dx) Start: 09-25-2024 End: 09-25-2024 Patient encounter procedure Rafal L Zapien DO Work Phone: [facility] Comment on above: Left hip pain (Prima ry Dx); Vitamin B12 deficiency; RUDY (generalized anxiety disorder); Acquired hypothyroidism; Hypercholesterolemia; Vitamin D deficiency; Chronic kidney disease, stage 3a (HCC); Hypertensive heart disease with heart failure (HCC); 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); Class 2 obesity with body mass index (BMI) of 38.0 to 38.9 in adult, unspecified obesity type, unspecified whether serious comorbidity present Start: 09-25-2024 End: 09-25-2024 ambulatory RAFAL L ZAPIEN Facility:[facility] Start: 09-17-2024 End: 09-17-2024 ambulatory RAFAL L ZAPIEN Facility:[facility] Start: 09-03-2024 End: 09-03-2024 ambulatory RAFAL L ZAPIEN Facility:[facility] Start: 09-03-2024 End: 09-03-2024 Nursing evaluation of patient and report Mi Nurse Work Phone: [facility] Comment on above: Vitamin B12 deficien cy (Primary Dx) Start: 08-27-2024 End: 08-28-2024 Refill Rafal L Zapien DO Work Phone: [facility] Comment on above: Refill Request Start: 08-05-2024 End: 08-05-2024 ambulatory RAFAL ZAPIEN Facility:[facility] Start: 08-05-2024 End: 08-05-2024 Nursing evaluation of patient and report Mi Nurse Work Phone: [facility] Comment on above: Vitamin B12 deficien cy (Primary Dx) Start: 08-05-2024 End: 08-05-2024 Telephone encounter Rafal Zapien DO Work Phone: [facility] Start: 07-17-2024 End: 07-18-2024 Telephone encounter Teri Mahmood APRN.CARDIAC NURSE SPECIALIST Work Phone: [facility] Comment on above: Results Start: 07-15-2024 End: 07-15-2024 ambulatory RAFAL ZAPIEN Facility:[facility] Start: 07-15-2024 End: 07-15-2024 Patient encounter procedure Teri Mahmood APRN.CARDIAC NURSE SPECIALIST Work Phone: [place] [facility] Comment on above: Burning with urinati on (Primary Dx) Start: 07-01-2024 End: 07-01-2024 ambulatory RAFAL ZAPIEN Facility:[facility] Start: 06-03-2024 End: 06-03-2024 Nursing evaluation of patient and report Mi Nurse Work Phone: [facility] Comment on above: Vitamin B12 deficien cy (Primary Dx) Start: 05-27-2024 Telephone encounter Rafal hairston DO Work Phone: [facility] Comment on above: Medication Problem Start: 05-08-2024 Refill Rafal weller DO Work Phone: [facility] Comment on above: Refill Request Start: 05-02-2024 End: 05-02-2024 Nursing evaluation of patient and report Mi Nurse Work Phone: [facility] Comment on above: Vitamin B12 deficien cy (Primary Dx) Start: 04-30-2024 Telephone encounter Rafal hairston DO Work Phone: [facility] [place] Comment on above: Orders Start: 04-01-2024 End: 04-01-2024 Nursing evaluation of patient and report Mi Nurse Work Phone: [facility] [place] Comment on above: Vitamin B12 deficien cy (Primary Dx) Start: 02-28-2024 End: 02-28-2024 Patient encounter procedure Rafal Zapien DO Work Phone: [facility] Comment on above: Vitamin B12 deficien cy (Primary Dx); Acquired hypothyroidism; RUDY (generalized anxiety disorder); Hypertensive heart disease with heart failure (HCC); 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); Chronic kidney disease, stage 3a (HCC); Hypercholesterolemia; Class 2 obesity with body mass index (BMI) of 38.0 to 38.9 in adult, unspecified obesity type, unspecified whether serious comorbidity present Start: 01-31-2024 End: 01-31-2024 Nursing evaluation of patient and report Mi Nurse Work Phone: [facility] Comment on above: Vitamin B12 deficien cy (Primary Dx) Start: 10-31-2023 End: 10-31-2023 Nursing evaluation of patient and report Mi Nurse Work Phone: [facility] [place] Comment on above: Vitamin B12 deficien cy (Primary Dx) Start: 10-27-2023 Refill Rafal Tejada son DO Work Phone: [facility] [place] Comment on above: Refill Request Start: 10-13-[address] fide VAZQUEZCARDIAC NURSE SPECIALIST Work Phone: [facility] Comment on above: Results Start: 10-02-2023 Telephone encounter Rafal hairston DO Work Phone: [facility] [place] Comment on above: Orders (Requesting l abs) Start: 08-08-2023 Refill Rafal weller DO Work Phone: [facility] [place] Comment on above: Refill Request Start: 08-02-2023 End: 08-02-2023 Nursing evaluation of patient and report Mi Nurse Work Phone: [facility] Comment on above: Vitamin B12 deficien cy (Primary Dx) Start: 07-07-2023 End: 07-07-2023 Patient encounter procedure Rafal Zapien DO Work Phone: [facility] Comment on above: Acquired hypothyroid ism (Primary Dx); Vitamin B12 deficiency; RUDY (generalized anxiety disorder); Hypertensive heart disease with heart failure (HCC); Hypercholesterolemia; Hypertension, essential; Vitamin D deficiency Start: 06-27-2023 End: 06-27-2023 Nursing evaluation of patient and report Mi Nurse Work Phone: [facility] [place] Comment on above: Vitamin B12 deficien cy (Primary Dx) Start: 05-29-2023 End: 05-29-2023 Nursing evaluation of patient and report Mi Nurse Work Phone: [facility] [place] Comment on above: Vitamin B12 deficien cy (Primary Dx) Start: 05-19-2023 Refill Rafal weller DO Work Phone: [facility] Comment on above: Refill Request Start: 05-02-2023 Documentation procedure Mammog trinh Coordinator [facility] Start: 05-02-2023 Letter encounter Mammography Coordinator [facility] Department Start: 05-01-2023 End: 05-01-2023 Subsequent hospital visit by physician Screen Mammo [facility] Comment on above: Encounter for screen ing mammogram for malignant neoplasm of breast [Z12.31] Start: 04-19-2023 Telephone encounter Rafal hairston DO Work Phone: [facility] Comment on above: Orders Start: 03-27-2023 End: 03-27-2023 Nursing evaluation of patient and report Mi Nurse Work Phone: [facility] Comment on above: Vitamin B12 deficien cy (Primary Dx) Start: 02-24-2023 End: 02-24-2023 Nursing evaluation of patient and report Mi Nurse Work Phone: [facility] Comment on above: Vitamin B12 deficien cy (Primary Dx) Start: 02-15-2023 End: 02-15-2023 Patient encounter procedure Teri Mahmood APRN.CARDIAC NURSE SPECIALIST Work Phone: [facility] Comment on above: Acute cough (Primary Dx); Rhinosinusitis Start: 02-15-2023 End: 02-15-2023 Subsequent hospital visit by physician Xr [facility] [place] Work Phone: Radiology Comment on above: Acute cough [R05.1] Start: 02-14-2023 ambulatory Rafal weller DO Work Phone: [facility] [place] Comment on above: Cough; Sinus congest ion Start: 01-25-2023 End: 01-25-2023 Nursing evaluation of patient and report Mi Nurse Work Phone: [facility] Comment on above: Vitamin B12 deficien cy (Primary Dx) Start: 01-25-2023 Telephone encounter Rafal hairston DO Work Phone: [facility] Comment on above: Patient Question; Or ders Start: 12-27-2022 End: 12-27-2022 Nursing evaluation of patient and report Mi Nurse Work Phone: [facility] [place] Comment on above: Vitamin B12 deficien cy (Primary Dx) Start: 11-24-2022 End: 11-24-2022 Nursing evaluation of patient and report Mi Nurse Work Phone: [facility] [place] Comment on above: Vitamin B12 deficien cy (Primary Dx) Start: 11-04-2022 Telephone encounter Darrell Etienne APRN.CARDIAC NURSE SPECIALIST Work Phone: [facility] [place] Comment on above: Results Start: 11-04-2022 End: 11-04-2022 Subsequent hospital visit by physician Mri Radio [facility] (I-Stat/1.5t) Work Phone: Radiology Comment on above: Dizziness [R42] Start: 11-02-2022 Telephone encounter Elham nicole APRN.CARDIAC NURSE SPECIALIST Work Phone: [facility] [place] Comment on above: Results Start: 11-02-2022 End: 11-02-2022 Subsequent hospital visit by physician Us [facility] Work Phone: Radiology Comment on above: Abnormal mammogram [ R92.8] Start: 10-27-2022 End: 10-27-2022 Nursing evaluation of patient and report Mi Nurse Work Phone: [facility] Comment on above: Vitamin B12 deficien cy (Primary Dx) Start: 10-03-2022 Telephone encounter Rafal hairston DO Work Phone: [address] [place] [address] Comment on above: Orders Start: 09-20-2022 End: 09-20-2022 Nursing evaluation of patient and report Ky Nurse Work Phone: [facility] Comment on above: Vitamin B12 deficien cy (Primary Dx) Start: 09-06-2022 End: 09-06-2022 ambulatory Betty O'Shadi PT [facility] Comment on above: Vertigo (Primary Dx) Start: 08-31-2022 End: 08-31-2022 ambulatory Betty O'Shadi PT [place] [facility] Comment on above: Vertigo (Primary Dx) Start: 08-23-2022 End: 08-23-2022 Nursing evaluation of patient and report Ky Nurse Work Phone: [facility] Comment on above: Vitamin B12 deficien cy (Primary Dx); Need for influenza vaccination Start: 08-13-2022 End: 08-13-2022 Subsequent hospital visit by physician Colette [facility] Work Phone: Radiology Comment on above: Subacute cough [R05. 2] Start: 08-08-2022 Telephone encounter Rafal hairston DO Work Phone: [facility] Comment on above: Patient Update; Mariposa ent Question Start: 08-05-2022 End: 08-05-2022 Emergency department patient visit RAFAL ZAPIEN DO Facility:[facility] Start: 08-05-2022 End: 08-05-2022 Emergency department patient visit SOLITARIO SAHU MD [facility] Start: 07-30-2022 Telephone encounter Rafal hairston DO Work Phone: [facility] Comment on above: Results Start: 07-29-2022 Refill Rafal weller DO Work Phone: [facility] [place] Comment on above: Refill Request Start: 07-26-2022 End: 07-26-2022 Nursing evaluation of patient and report Mi Nurse Work Phone: [facility] Comment on above: Vitamin B12 deficien cy (Primary Dx) Start: 07-18-2022 Telephone encounter Rafal hairston DO Work Phone: [facility] [place] Comment on above: Results Start: 07-13-2022 End: 07-13-2022 Patient encounter procedure Rafal Zapien DO Work Phone: [facility] Comment on above: Acute cystitis witho ut hematuria (Primary Dx); Vitamin B12 deficiency; Bilateral leg edema; Fatigue, unspecified type; RUDY (generalized anxiety disorder) Start: 07-12-2022 End: 07-12-2022 Subsequent hospital visit by physician Colette [facility] Work Phone: Radiology Comment on above: Acute cough [R05.1] Start: 07-06-2022 Refill Darrell Tamra rose APRN.CARDIAC NURSE SPECIALIST Work Phone: [facility] Comment on above: Refill Request Start: 05-24-2022 End: 05-24-2022 Nursing evaluation of patient and report Mi Nurse Work Phone: [facility] Comment on above: Vitamin B12 deficien cy (Primary Dx); Need for vaccination Start: 05-10-2022 End: 05-10-2022 Subsequent hospital visit by physician [facility] Work Phone: Radiology Comment on above: Breast pain [N64.4] Start: 05-10-2022 Telephone encounter Rafal hairston DO Work Phone: [facility] Comment on above: Results Start: 04-27-2022 Documentation procedure Mammog trinh Coordinator [facility] Start: 04-27-2022 Letter encounter Mammography Coordinator [facility] Department Start: 04-27-2022 End: 04-27-2022 Nursing evaluation of patient and report Mi Nurse Work Phone: [facility] [place] Comment on above: Vitamin B12 deficien cy (Primary Dx) Start: 04-25-2022 Telephone encounter Rafal hairston DO Work Phone: [facility] [place] Comment on above: Orders Start: 04-21-2022 ambulatory Loida Slade MA [facility] Comment on above: Population Health Na vigation Outreach ([employer]) Start: 04-07-2022 Refill Rafal weller DO Work Phone: [facility] [place] Comment on above: Refill Request Start: 04-06-2022 Refill Rafal weller DO Work Phone: [facility] [place] Comment on above: Refill Request Results Start: 04-05-2022 End: 04-05-2022 Patient encounter procedure Rafal Zapien DO Work Phone: [facility] [place] Comment on above: JON (dyspnea on exer tion) (Primary Dx); RUDY (generalized anxiety disorder); Acquired hypothyroidism; Grade I diastolic dysfunction; Hypertension, essential; Vitamin B12 deficiency; Hypercholesterolemia Start: 03-28-2022 End: 03-28-2022 Patient encounter procedure Betty Peña APRN.CARDIAC NURSE SPECIALIST Work Phone: Cardiology Comment on above: Screening for ischem ic heart disease (Primary Dx); JON (dyspnea on exertion); Hypertension, essential; Hypercholesterolemia Start: 04-12-2021 End: 04-12-2021 Subsequent hospital visit by physician Colette [facility] Work Phone: Radiology Comment on above: Lateral pain of left hip [M25.552] Start: 03-30-2018 Ambulatory [facility] Facility :[facility] Start: 02-09-2018 End: 02-09-2018 Ambulatory [facility] Facility:[facility] Start: 02-09-2018 End: 02-09-2018 [facility] Facility:[facility] Procedures Date Procedure Procedure Detail Performing Clinician Start: 02-21-2025 Colonoscopy flx dx w /collj spec when pfrmd Nadia Naylor APRN.CARDIAC NURSE SPECIALIST Work Phone: Start: 02-20-2025 Colonoscopy flx dx w /collj spec when pfrmd Nadia Naylor CARDIOPULMONARY SUPERVISOR.CARDIAC NURSE SPECIALIST Work Phone: Start: 01-30-2025 Urnls dip stick/tabl et rgnt auto w/o microscopy Chata Sandy Bhumika CARDIOPULMONARY SUPERVISOR.CARDIAC NURSE SPECIALIST Work Phone: Start: 07-15-2024 Urnls dip stick/tabl et rgnt auto w/o microscopy Teri Mahmood CARDIOPULMONARY SUPERVISOR.CARDIAC NURSE SPECIALIST Work Phone: Start: 02-28-2024 Adult depression scr eening assessment Teri Mahmood CARDIOPULMONARY SUPERVISOR.CARDIAC NURSE SPECIALIST Work Phone: Start: 05-01-2023 Screening mammograph y bi 2-view breast inc cad Rafal Ledesmaon DO Work Phone: Start: 02-15-2023 Radiologic exam ches t 2 views Teri Mahmood CARDIOPULMONARY SUPERVISOR.CARDIAC NURSE SPECIALIST Work Phone: Start: 11-04-2022 Mri brain brain stem w/o w/contrast material Rafal Rooneyrison DO Work Phone: Start: 11-02-2022 Us breast uni real t brigitte with image limited Elham Perez CARDIOPULMONARY SUPERVISOR.CARDIAC NURSE SPECIALIST Work Phone: Start: 08-23-2022 INFLUENZA SEASONAL QUADRIVALENT HIGH DOSE AGE 65+ Rafal Rooneyrison DO Work Phone: Start: 08-13-2022 Radiologic exam ches t 2 views Rafal Rooneyrison DO Work Phone: Start: 07-12-2022 Radiologic exam ches t 2 views Rafal Michel Zapien DO Work Phone: Start: 05-24-2022 [employer] COVI D-19 VACCINE, AGE 12+ YR ([place]) Rafal Rooneyrison DO Work Phone: Start: 05-10-2022 Us breast uni real t brigitte with image limited Rafal Rooneyrison DO Work Phone: Start: 04-27-2022 Mammography Mi Nurse Work Phone: Start: 04-05-2022 Adult depression scr eening assessment Rafal Zapien DO Work Phone: Start: 04-12-2021 Radex hip unilateral with pelvis 2-3 views Rafal Zapien DO Work Phone: Start: 04-12-2021 Radiologic exam ches t 2 views Víctor Novak MD Work Phone: Start: 02-09-2021 Adult depression scr eening assessment Betty Mariana CARDIOPULMONARY SUPERVISOR.CARDIAC NURSE SPECIALIST Work Phone: Start: 01-15-2018 Mammography Betty Malia rivas CARDIOPULMONARY SUPERVISOR.CARDIAC NURSE SPECIALIST Work Phone: Start: 03-26-2014 Colonoscopy Bettyshon rivas CARDIOPULMONARY SUPERVISOR.CARDIAC NURSE SPECIALIST Work Phone: Appendectomy SOLITARIO CERNA MD Cholecystectomy SOLITARIO VELASCO MD Plan of Treatment Date Care Activity Detail Author Start: 01-07-2029 Urine microalbumin profile [facility] Start: 04-16-2028 Diabetes Screening Diabetes Screening [facility] Start: 04-04-2028 LIPID SCREEN LIPID SCREEN [facility] Start: 12-05-2027 Diabetes Screening Diabetes Screening [facility] Start: 10-06-2027 LIPID SCREEN LIPID SCREEN [facility] Start: 09-17-2027 Diabetes Screening Diabetes Screening [facility] Start: 01-04-2027 LIPID SCREEN LIPID SCREEN [facility] Start: 11-30-2026 Diabetes Screening Diabetes Screening [facility] Start: 07-03-2026 DIABETES SCREEN DIABETES SCREEN [facility] Start: 07-03-2026 Diabetes Screening Diabetes Screening [facility] Start: 04-21-2026 Annual PCP Team Chronic Disease Visit Annual PCP Team Chronic Disease Visit [facility] Start: 04-16-2026 Complete blood count Hemoglobin/Hematocrit [facility] Start: 04-16-2026 Creatinine measurement Serum Creatinine [facility] Start: 04-04-2026 DIABETES SCREEN DIABETES SCREEN [facility] Start: 01-30-2026 Annual PCP Team Chronic Disease Visit Annual PCP Team Chronic Disease Visit [facility] Start: 01-30-2026 BP Controlled (<130/80) BP Controlled (<130/80) [facility] Start: 01-13-2026 Annual PCP Team Chronic Disease Visit Annual PCP Team Chronic Disease Visit [facility] Start: 01-13-2026 BP Controlled (<130/80) BP Controlled (<130/80) [facility] Start: 01-13-2026 RSV Vaccine (1 - 1-dose 75+ series) RSV Vaccine (1 - 1-dose 75+ series) [facility] Comment on above: Postponed from 2022 (Declined at t his time) Start: 12-05-2025 Creatinine measurement Serum Creatinine [facility] Start: 11-11-2025 End: 11-11-2025 Nursing evaluation of patient and report 11/11/2025 2:00 PM EST Nurse Visit [facility] [place] [address] [place] [address] Nurse, [place] [address] [place] [address] B-12 injection [facility] [place] Comment on above: B-12 injection Start: 10-13-2025 End: 10-13-2025 Nursing evaluation of patient and report 10/13/2025 2:00 PM EST Nurse Visit [facility] [place] [address] [place] [address] Nurse, [place] [address] [place] [address] B-12 injection [facility] [place] Comment on above: B-12 injection Start: 10-06-2025 DIABETES SCREEN DIABETES SCREEN [facility] Start: 09-25-2025 Annual PCP Team Chronic Disease Visit Annual PCP Team Chronic Disease Visit [facility] Start: 09-25-2025 BP Controlled (<130/80) BP Controlled (<130/80) [facility] Start: 09-25-2025 Covid-19 Vaccine ( season) Covid-19 Vaccine () [facility] Comment on above: Postponed from 07/21/2024 (Declined at t his time) Start: 09-17-2025 Complete blood count Hemoglobin/Hematocrit [facility] Start: 09-17-2025 Creatinine measurement Serum Creatinine [facility] Start: 09-15-2025 End: 09-15-2025 Patient encounter procedure 09/15/2025 7:30 AM EDT Appointment [facility] Endoscopy [address] [place] [address] Tae Nash MD [address] [place] [address] [facility] Comment on above: COLON Start: 09-11-2025 End: 09-11-2025 Nursing evaluation of patient and report 09/11/2025 2:00 PM EDT Nurse Visit [facility] [place] [address] [facility] [address] Nurse, [place] [address] [place] [address] B-12 injection [facility] [place] Comment on above: B-12 injection Start: 08-12-2025 End: 08-12-2025 Nursing evaluation of patient and report 08/12/2025 2:00 PM EDT Nurse Visit [facility] [place] [address] [place] [address] Nurse, [place] [address] [place] [address] B-12 injection [facility] [place] Comment on above: B-12 injection Start: 07-29-2025 End: 07-29-2025 Patient encounter procedure 07/29/2025 2:20 PM EDT Office Visit [facility] [place] [address] [facility] [address] Rafal Zapien, [address] [facility] [place] [address] 3 month follow up [facility] [place] Comment on above: 3 month follow up Start: 07-21-2025 Influenza vaccination [facility] Start: 07-12-2025 DIABETES SCREEN DIABETES SCREEN [facility] Start: 07-11-2025 End: 07-11-2025 Nursing evaluation of patient and report 07/11/2025 2:45 PM EDT Nurse Visit [facility] [place] [address] [facility] [address] Nurse, [place] [address] [facility] [place], [place] [address] B-12 injection [facility] [place] Comment on above: B-12 injection Start: 06-04-2025 End: 06-04-2025 Nursing evaluation of patient and report 06/04/2025 2:00 PM EDT Nurse Visit [facility] [place] [address] [place] [address] Nurse, [place] [address] [place] [address] B-12 injection [facility] [place] Comment on above: B-12 injection Start: 06-04-2025 End: 09-03-2025 Thyrotropin [Units/volume] in Serum or Plasma THYROID STIMULATING HORMONE Lab Routine Acquired hypothyroidism Expected: 06/04/2025, Expires: 09/03/2025 [facility] Comment on above: Expected: 06/04/2025, Expires: Start: 06-04-2025 End: 09-03-2025 Thyroxine (T4) free [Mass/volume] in Serum or Plasma T4 FREE/FREE THYROXINE Lab Routine Acquired hypothyroidism Expected: 06/04/2025, Expires: 09/03/2025 [facility] Comment on above: Expected: 06/04/2025, Expires: Start: 05-19-2025 Influenza vaccination [facility] Comment on above: Postponed from 07/21/2024 (Declined at t his time) Start: 05-01-2025 End: 05-01-2025 Nursing evaluation of patient and report 05/01/2025 2:00 PM EDT Nurse Visit [facility] [place] [address] [place] [address] Nurse, [place] [address] [place] [address] B-12 injection [facility] [place] Comment on above: B-12 injection Start: 04-21-2025 End: 04-21-2025 Patient encounter procedure 04/21/2025 3:00 PM EDT Office Visit [facility] [place] [address] [place] [address] Rafal Zapien, [address] [facility] [place] [address] follow up [facility] [place] Comment on above: follow up Start: 04-21-2025 End: 07-21-2025 CELIAC ASSOC HLA-DQ GENOTYPE [facility] Work Phone: Comment on above: Expected: 04/21/2025, Expires: Start: 04-21-2025 End: 07-21-2025 LACTOSE TOLERANCE LACTOSE TOLERANCE Lab Routine Chronic constipation Bloating Expected: 04/21/2025, Expires: 07/21/2025 [facility] Comment on above: Expected: 04/21/2025, Expires: Start: 04-05-2025 DIABETES SCREEN DIABETES SCREEN [facility] Start: 04-04-2025 End: 04-04-2025 Nursing evaluation of patient and report 04/04/2025 2:00 PM EDT Nurse Visit [facility] [place] [address] [place] [id number] Nurse, [place] [address] [place] [address] B-12 injection [facility] Comment on above: B-12 injection Start: 03-24-2025 End: 06-23-2025 CBC W Auto Differential panel - Blood COMPLETE BLOOD COUNT AND DIFFERENTIAL Lab Routine Hypercholesterolemia Vitamin B12 deficiency Acquired hypothyroidism Expected: 03/24/2025, Expires: 06/23/2025 [facility] Comment on above: Expected: 03/24/2025, Expires: Start: 03-24-2025 End: 06-23-2025 Cobalamin (Vitamin B12) [Mass/volume] in Serum or Plasma VITAMIN B12 Lab Routine Vitamin B12 deficiency Expected: 03/24/2025, Expires: 06/23/2025 [facility] Comment on above: Expected: 03/24/2025, Expires: Start: 03-24-2025 End: 06-23-2025 Comprehensive metabolic 2000 panel - Serum or Plasma COMPREHENSIVE METABOLIC PANEL Lab Routine Hypercholesterolemia Expected: 03/24/2025, Expires: 06/23/2025 [facility] Comment on above: Expected: 03/24/2025, Expires: Start: 03-24-2025 End: 06-23-2025 Lipid 1996 panel - Serum or Plasma LIPID PANEL, FASTING Lab Routine Hypercholesterolemia Expected: 03/24/2025, Expires: 06/23/2025 [facility] Work Phone: Comment on above: Expected: 03/24/2025, Expires: Start: 03-24-2025 End: 06-23-2025 Thyrotropin [Units/volume] in Serum or Plasma THYROID STIMULATING HORMONE Lab Routine Acquired hypothyroidism Expected: 03/24/2025, Expires: 06/23/2025 [facility] Comment on above: Expected: 03/24/2025, Expires: Start: 03-24-2025 End: 06-23-2025 Thyroxine (T4) free [Mass/volume] in Serum or Plasma T4 FREE/FREE THYROXINE Lab Routine Acquired hypothyroidism Expected: 03/24/2025, Expires: 06/23/2025 [facility] Comment on above: Expected: 03/24/2025, Expires: Start: 03-05-2025 End: 03-05-2025 Patient encounter procedure 03/05/2025 3:30 PM EDT Office Visit General Surgery [address] [id number] Brandon Alba, [address] [place], [place] [id number] Discuss Colonoscopy Results 02/21/25 plan of care General Surgery Comment on above: Discuss Colonoscopy Results 02/21/25 plan of care Start: 03-05-2025 End: 03-05-2025 Nursing evaluation of patient and report 03/05/2025 2:00 PM EDT Nurse Visit [facility] [place] [address] [place] [address] Nurse, Brittany [address] [place] [address] B-12 injection [facility] [place] Comment on above: B-12 injection Start: 02-27-2025 Annual PCP Team Chronic Disease Visit Annual PCP Team Chronic Disease Visit [facility] Start: 02-27-2025 BP Controlled (<130/80) BP Controlled (<130/80) [facility] Start: 02-27-2025 Depression Screening Depression Screening [facility] Start: 02-21-2025 End: 02-21-2025 Patient encounter procedure [facility] End[facility] Comment on above: BRBPR (bright red blood per rectum) [K62 .5]; Constipation, unspecified constipation type [K59.00] Start: 02-20-2025 End: 02-20-2025 Patient encounter procedure 02/20/2025 11:15 AM EDT Appointment Ambulatory Surgery [address] [place] [address] Darwin Pisano MD [address] [place], [place] [phone] Ambulatory Surgery Start: 02-19-2025 End: 02-19-2025 Patient encounter procedure 02/19/2025 3:05 PM EDT Office Visit Gastroenterology [facility] [address] [facility] [place] [id number] Emma Barrios, CARDIOPULMONARY SUPERVISOR.CARDIAC NURSE SPECIALIST [address] [facility] [place], [place] [id number] CT scan likely showing chronic inflammatory changes within bowel Gastroenterology [facility] Comment on above: CT scan likely showing chronic inflammat ory changes within bowel Start: 02-03-2025 End: 02-03-2025 Patient encounter procedure 02/03/2025 3:30 PM EDT Office Visit General Surgery [address] [place], [place] [phone] Nadia Naylor, HECTOR.CARDIAC NURSE SPECIALIST [address] [place], [place] [phone] colonscopy consult General Surgery Comment on above: colonscopy consult Start: 02-03-2025 End: 02-03-2025 Nursing evaluation of patient and report 02/03/2025 2:00 PM EDT Nurse Visit [facility] [place] [address] [place], [place] [phone] Nurse, [place] [address] [place] [address] B-12 injection [facility] [place] Comment on above: B-12 injection Start: 01-28-2025 End: 01-28-2025 Patient encounter procedure 01/28/2025 9:00 AM EDT Office Visit [facility] [place] [address] [place] [address] Víctor Novak MD [address] [place] [address] Discussing Results [facility] [place] Comment on above: Discussing Results Start: 01-06-2025 End: 01-06-2025 Nursing evaluation of patient and report 01/06/2025 2:00 PM EST Nurse Visit [facility] [place] [address] [place] [address] Nurse, [place] [address] [place], [place] [address] B-12 injection [facility] [place] Comment on above: B-12 injection Start: 01-04-2025 DIABETES SCREEN DIABETES SCREEN [facility] Start: 12-27-2024 End: 12-27-2024 Patient encounter procedure 12/27/2024 1:20 PM EST Office Visit [facility] [place] [address] [place] [address] Rafal Zapien DO [address] [place] [address] 3 month follow up [facility] [place] Comment on above: 3 month follow up Start: 12-20-2024 Annual PCP Team Chronic Disease Visit Annual PCP Team Chronic Disease Visit [facility] Start: 12-05-2024 End: 12-05-2024 Nursing evaluation of patient and report 12/05/2024 2:00 PM EST Nurse Visit [facility] [place] [address] [place] [address] Nurse, [place] [address] [place] [address] B-12 injection [facility] [place] Comment on above: B-12 injection Start: 12-04-2024 End: 03-05-2025 CBC W Auto Differential panel - Blood COMPLETE BLOOD COUNT AND DIFFERENTIAL Lab Routine Anemia due to vitamin B12 deficiency, unspecified B12 deficiency type Expected: 12/04/2024, Expires: 03/05/2025 [facility] Comment on above: Expected: 12/04/2024, Expires: Start: 12-04-2024 End: 03-05-2025 Cobalamin (Vitamin B12) [Mass/volume] in Serum or Plasma VITAMIN B12 Lab Routine Anemia due to vitamin B12 deficiency, unspecified B12 deficiency type Expected: 12/04/2024, Expires: 03/05/2025 [facility] Comment on above: Expected: 12/04/2024, Expires: Start: 12-04-2024 End: 03-05-2025 Comprehensive metabolic 2000 panel - Serum or Plasma COMPREHENSIVE METABOLIC PANEL Lab Routine Anemia due to vitamin B12 deficiency, unspecified B12 deficiency type Expected: 12/04/2024, Expires: 03/05/2025 [facility] Work Phone: Comment on above: Expected: 12/04/2024, Expires: Start: 12-04-2024 End: 03-05-2025 Thyrotropin [Units/volume] in Serum or Plasma THYROID STIMULATING HORMONE Lab Routine Acquired hypothyroidism Expected: 12/04/2024, Expires: 03/05/2025 [facility] Comment on above: Expected: 12/04/2024, Expires: Start: 12-04-2024 End: 03-05-2025 Thyroxine (T4) free [Mass/volume] in Serum or Plasma T4 FREE/FREE THYROXINE Lab Routine Acquired hypothyroidism Expected: 12/04/2024, Expires: 03/05/2025 [facility] Comment on above: Expected: 12/04/2024, Expires: Start: 11-30-2024 Creatinine measurement Serum Creatinine [facility] Start: 11-04-2024 End: 11-04-2024 Nursing evaluation of patient and report 11/04/2024 2:00 PM EST Nurse Visit [facility] [place] [address] [place] [address] Nurse, [address] [place] [address] B-12 injection [facility] [place] Comment on above: B-12 injection Start: 10-03-2024 End: 10-03-2024 Nursing evaluation of patient and report 10/03/2024 2:00 PM EST Nurse Visit [facility] [place] [address] [place] [address] Nurse, [place] [address] [place] [address] B-12 injection [facility] [place] Comment on above: B-12 injection Start: 09-25-2024 End: 12-25-2024 25-hydroxyvitamin D3 [Mass/volume] in Serum or Plasma VITAMIN D 25 HYDROXY Lab Routine Vitamin D deficiency Expected: 09/25/2024, Expires: 12/25/2024 [facility] Work Phone: Comment on above: Expected: 09/25/2024, Expires: Start: 09-25-2024 End: 12-25-2024 CBC panel - Blood by Automated count COMPLETE BLOOD COUNT Lab Routine Hypertensive heart disease with heart failure (HCC) Expected: 09/25/2024, Expires: 12/25/2024 [facility] Comment on above: Expected: 09/25/2024, Expires: Start: 09-25-2024 End: 12-25-2024 Cobalamin (Vitamin B12) [Mass/volume] in Serum or Plasma VITAMIN B12 Lab Routine Vitamin B12 deficiency Expected: 09/25/2024, Expires: 12/25/2024 [facility] Comment on above: Expected: 09/25/2024, Expires: Start: 09-25-2024 End: 12-25-2024 Comprehensive metabolic 2000 panel - Serum or Plasma COMPREHENSIVE METABOLIC PANEL Lab Routine Hypertensive heart disease with heart failure (HCC) Expected: 09/25/2024, Expires: 12/25/2024 [facility] Comment on above: Expected: 09/25/2024, Expires: Start: 09-25-2024 End: 12-25-2024 Hemoglobin A1c in Blood HEMOGLOBIN A1C Lab Routine Hyperglycemia Expected: 09/25/2024, Expires: 12/25/2024 [facility] Comment on above: Expected: 09/25/2024, Expires: Start: 09-25-2024 End: 12-25-2024 Lipid 1996 panel - Serum or Plasma LIPID PANEL BASIC Lab Routine Hypercholesterolemia Expected: 09/25/2024, Expires: 12/25/2024 [facility] Comment on above: Expected: 09/25/2024, Expires: Start: 09-25-2024 End: 09-25-2024 Patient encounter procedure 09/25/2024 12:40 PM EST Office Visit [facility] [place] [address] [place] [address] Rafal Zapien DO [address] [place] [address] >4 month follow up; B-12 injection [facility] [place] Comment on above: >4 month follow up; B-12 injection Start: 09-04-2024 End: 09-04-2024 Nursing evaluation of patient and report 09/04/2024 2:00 PM EDT Nurse Visit [facility] [place] [address] [place] [address] Nurse, [place] [address] [place] [address] B-12 injection [facility] [place] Comment on above: B-12 injection Start: 09-03-2024 End: 09-03-2024 Nursing evaluation of patient and report 09/03/2024 2:00 PM EDT Nurse Visit [facility] [place] [address] [place] [address] Nurse, [place] [address] [place] [address] B-12 injection [facility] [place] Comment on above: B-12 injection Start: 08-05-2024 End: 08-05-2024 Nursing evaluation of patient and report 08/05/2024 2:00 PM EDT Nurse Visit [facility] [place] [address] [place] [address] Nurse, [place] [address] [place] [address] B-12 injection [facility] [place] Comment on above: B-12 injection Start: 07-21-2024 Covid-19 Vaccine ( season) Covid-19 Vaccine () [facility] Start: 07-21-2024 Covid-19 Vaccine () Covid-19 Vaccine () [facility] Start: 07-21-2024 Influenza vaccination Influ[facility] Start: 07-07-2024 ANNUAL PCP TEAM CHRONIC DISEASE VISIT ANNUAL PCP TEAM CHRONIC DISEASE VISIT [facility] Start: 07-03-2024 End: 07-03-2024 Patient encounter procedure Family Les Campos Comment on above: 4 month follow up 4 month follow up; B -12 injection Start: 07-03-2024 Creatinine measurement Serum Creatinine [facility] Start: 07-03-2024 SERUM CREATININE SERUM CREATININE [facility] Start: 06-29-2024 End: 09-28-2024 Thyrotropin [Units/volume] in Serum or Plasma THYROID STIMULATING HORMONE Lab Routine Acquired hypothyroidism Expected: 06/29/2024, Expires: 09/28/2024 [facility] Work Phone: Comment on above: Expected: 06/29/2024, Expires: Start: 06-29-2024 End: 09-28-2024 Thyroxine (T4) free [Mass/volume] in Serum or Plasma T4 FREE/FREE THYROXINE Lab Routine Acquired hypothyroidism Expected: 06/29/2024, Expires: 09/28/2024 [facility] Comment on above: Expected: 06/29/2024, Expires: 4 Start: 06-29-2024 End: 09-28-2024 Triiodothyronine (T3) [Mass/volume] in Serum or Plasma T3 Lab Routine Acquired hypothyroidism Expected: 06/29/2024, Expires: 09/28/2024 [facility] Comment on above: Expected: 06/29/2024, Expires: 4 Start: 06-03-2024 End: 06-03-2024 Nursing evaluation of patient and report 06/03/2024 2:00 PM EDT Nurse Visit [facility] [place] [address] [place] [id number] Nurse, Brittany [address] [place] [address] B-12 injection Family Medicine Beth Comment on above: B-12 injection Start: 05-02-2024 End: 05-02-2024 Nursing evaluation of patient and report 05/02/2024 2:15 PM EDT Nurse Visit Family [facility] [place] [address] [place] [address] Nurse, Brittany [address] [place] [address] B-12 injection Family [facility] Comment on above: B-12 injection Start: 04-05-2024 ANNUAL PCP TEAM CHRONIC DISEASE VISIT ANNUAL PCP TEAM CHRONIC DISEASE VISIT [facility] Start: 04-05-2024 BP CONTROLLED (<130/80) BP CONTROLLED (<130/80) [facility] Start: 04-04-2024 HEMOGLOBIN/HEMATOCRIT HEMOGLOBIN/HEMATOCRIT [facility] Start: 04-04-2024 SERUM CREATININE SERUM CREATININE [facility] Start: 03-26-2024 Colonoscopy COLONOSCOPY [facility] Start: 03-26-2024 COLORECTAL CANCER SCREENING COLORECTAL CANCER SCREENING [facility] Start: 02-16-2024 BP CONTROLLED (<130/80) BP CONTROLLED (<130/80) [facility] Start: 11-20-2023 Depression Assessment Depression Assessment [facility] Start: 10-12-2023 ANNUAL PCP TEAM CHRONIC DISEASE VISIT ANNUAL PCP TEAM CHRONIC DISEASE VISIT [facility] Start: 10-12-2023 BP CONTROLLED (<130/80) BP CONTROLLED (<130/80) [facility] Start: 10-02-2023 End: 01-01-2024 25-hydroxyvitamin D3 [Mass/volume] in Serum or Plasma VITAMIN D 25 HYDROXY Lab Routine Vitamin B12 deficiency Expected: 10/02/2023, Expires: 01/01/2024 [facility] Work Phone: Comment on above: Expected: 10/02/2023, Expires: Start: 10-02-2023 End: 01-01-2024 Cobalamin (Vitamin B12) [Mass/volume] in Serum or Plasma VITAMIN B12 BLOOD Lab Routine Vitamin D deficiency Expected: 10/02/2023, Expires: 01/01/2024 [facility] Work Phone: Comment on above: Expected: 10/02/2023, Expires: 4 Start: 10-02-2023 End: 01-01-2024 Thyrotropin [Units/volume] in Serum or Plasma TSH BLD Lab Routine Acquired hypothyroidism Expected: 10/02/2023, Expires: 01/01/2024 [facility] Work Phone: Comment on above: Expected: 10/02/2023, Expires: 4 Start: 10-02-2023 End: 01-01-2024 Thyroxine (T4) free [Mass/volume] in Serum or Plasma T4 FREE/FREE THYROX Lab Routine Acquired hypothyroidism Expected: 10/02/2023, Expires: 01/01/2024 [facility] Work Phone: Comment on above: Expected: 10/02/2023, Expires: 4 Start: 10-02-2023 End: 01-01-2024 Triiodothyronine (T3) Free [Mass/volume] in Serum or Plasma T3 FREE BLD Lab Routine Acquired hypothyroidism Expected: 10/02/2023, Expires: 01/01/2024 [facility] Work Phone: Comment on above: Expected: 10/02/2023, Expires: 4 Start: 07-21-2023 Covid-19 Vaccine () Covid-19 Vaccine () [facility] Start: 07-21-2023 Influenza vaccination [facility] Start: 07-13-2023 ANNUAL PCP TEAM CHRONIC DISEASE VISIT ANNUAL PCP TEAM CHRONIC DISEASE VISIT [facility] Start: 04-27-2023 Mammography MAMMOGRAM [facility] Start: 04-05-2023 Adult depression screening assessment DEPRESSION SCREENING [facility] Start: 04-05-2023 ANNUAL PCP TEAM CHRONIC DISEASE VISIT ANNUAL PCP TEAM CHRONIC DISEASE VISIT [facility] Start: 04-05-2023 BP CONTROLLED (<130/80) BP CONTROLLED (<130/80) [facility] Start: 01-26-2023 End: 03-28-2023 25-hydroxyvitamin D3 [Mass/volume] in Serum or Plasma VITAMIN D 25 HYDROXY Lab Routine Vitamin D deficiency Expected: 01/26/2023, Expires: 03/28/2023 [facility] Work Phone: Comment on above: Expected: 01/26/2023, Expires: 3 Start: 01-26-2023 End: 03-28-2023 CBC panel - Blood by Automated count CBC Lab Routine Hyperglycemia Hypercholesterolemia Hypertension, essential Expected: 01/26/2023, Expires: 03/28/2023 [facility] Work Phone: Comment on above: Expected: 01/26/2023, Expires: 3 Start: 01-26-2023 End: 03-28-2023 Cobalamin (Vitamin B12) [Mass/volume] in Serum or Plasma VITAMIN B12 BLOOD Lab Routine Vitamin B12 deficiency Expected: 01/26/2023, Expires: 03/28/2023 [facility] Work Phone: Comment on above: Expected: 01/26/2023, Expires: 3 Start: 01-26-2023 End: 03-28-2023 Comprehensive metabolic 2000 panel - Serum or Plasma COMP METABOLIC PANEL Lab Routine Hyperglycemia Hypercholesterolemia Hypertension, essential Expected: 01/26/2023, Expires: 03/28/2023 [facility] Work Phone: Comment on above: Expected: 01/26/2023, Expires: 3 Start: 01-26-2023 End: 03-28-2023 Hemoglobin A1c in Blood HGB A1C Lab Routine Hyperglycemia Expected: 01/26/2023, Expires: 03/28/2023 [facility] Work Phone: Comment on above: Expected: 01/26/2023, Expires: 3 Start: 01-26-2023 End: 03-28-2023 Lipid 1996 panel - Serum or Plasma LIPID PANEL BASIC Lab Routine Hypercholesterolemia Hypertension, essential Expected: 01/26/2023, Expires: 03/28/2023 [facility] Work Phone: Comment on above: Expected: 01/26/2023, Expires: 3 Start: 01-26-2023 End: 03-28-2023 Thyrotropin [Units/volume] in Serum or Plasma TSH BLD Lab Routine Acquired hypothyroidism Expected: 01/26/2023, Expires: 03/28/2023 [facility] Work Phone: Comment on above: Expected: 01/26/2023, Expires: 3 Start: 01-26-2023 End: 03-28-2023 Thyroxine (T4) free [Mass/volume] in Serum or Plasma T4 FREE/FREE THYROX Lab Routine Acquired hypothyroidism Expected: 01/26/2023, Expires: 03/28/2023 [facility] Work Phone: Comment on above: Expected: 01/26/2023, Expires: 3 Start: 01-26-2023 End: 03-28-2023 Triiodothyronine (T3) [Mass/volume] in Serum or Plasma T3 BLD Lab Routine Acquired hypothyroidism Expected: 01/26/2023, Expires: 03/28/2023 [facility] Work Phone: Comment on above: Expected: 01/26/2023, Expires: 3 Start: 01-14-2023 ANNUAL PCP TEAM CHRONIC DISEASE VISIT ANNUAL PCP TEAM CHRONIC DISEASE VISIT [facility] Start: 11-20-2022 DEPRESSION ASSESSMENT DEPRESSION ASSESSMENT [facility] Start: 10-03-2022 End: 12-03-2022 CBC W Auto Differential panel - Blood CBC + DIFF Lab Routine Hypertension, essential Expected: 10/03/2022, Expires: 12/03/2022 [facility] Work Phone: Comment on above: Expected: 10/03/2022, Expires: 3 Start: 10-03-2022 End: 12-03-2022 Cobalamin (Vitamin B12) [Mass/volume] in Serum or Plasma VITAMIN B12 BLOOD Lab Routine Vitamin B12 deficiency Expected: 10/03/2022, Expires: 12/03/2022 [facility] Work Phone: Comment on above: Expected: 10/03/2022, Expires: 3 Start: 10-03-2022 End: 12-03-2022 Comprehensive metabolic 2000 panel - Serum or Plasma COMP METABOLIC PANEL Lab Routine Hypertension, essential Expected: 10/03/2022, Expires: 12/03/2022 [facility] Work Phone: Comment on above: Expected: 10/03/2022, Expires: 3 Start: 10-03-2022 End: 12-03-2022 Hemoglobin A1c in Blood HGB A1C Lab Routine IFG (impaired fasting glucose) Expected: 10/03/2022, Expires: 12/03/2022 [facility] Work Phone: Comment on above: Expected: 10/03/2022, Expires: 3 Start: 10-03-2022 End: 12-03-2022 Lipid 1996 panel - Serum or Plasma LIPID PANEL BASIC Lab Routine Hypercholesterolemia Expected: 10/03/2022, Expires: 12/03/2022 [facility] Work Phone: Comment on above: Expected: 10/03/2022, Expires: 3 Start: 10-03-2022 End: 12-03-2022 Thyrotropin [Units/volume] in Serum or Plasma TSH BLD Lab Routine Acquired hypothyroidism Expected: 10/03/2022, Expires: 12/03/2022 [facility] Work Phone: Comment on above: Expected: 10/03/2022, Expires: 3 Start: 10-03-2022 End: 12-03-2022 Thyroxine (T4) free [Mass/volume] in Serum or Plasma T4 FREE/FREE THYROX Lab Routine Acquired hypothyroidism Expected: 10/03/2022, Expires: 12/03/2022 [facility] Work Phone: Comment on above: Expected: 10/03/2022, Expires: 3 Start: 07-30-2022 End: 09-29-2022 Bacteria identified in Urine by Culture URINE CULTURE Microbiology Routine Recurrent UTI (urinary tract infection) Expected: 07/30/2022, Expires: 09/29/2022 [facility] Work Phone: Comment on above: Expected: 07/30/2022, Expires: 2 Start: 07-21-2022 Influenza vaccination INFLUENZA (#1) [facility] Start: 07-19-2022 COVID-19 VACCINE (5 - Booster for Pfizer series) COVID-19 VACCINE (5 - Booster for Pfizer series) [facility] Start: 07-19-2022 COVID-19 VACCINE (5 - Pfizer series) COVID-19 VACCINE (5 - Pfizer series) [facility] Start: 07-13-2022 End: 09-12-2022 Bacteria identified in Urine by Culture URINE CULTURE Microbiology Routine Acute cystitis without hematuria Expected: 07/13/2022, Expires: 09/12/2022 [facility] Work Phone: Comment on above: Expected: 07/13/2022, Expires: 2 Start: 07-13-2022 End: 09-12-2022 Urinalysis complete panel - Urine URINALYSIS, WITH MICROSCOPIC Lab Routine Acute cystitis without hematuria Expected: 07/13/2022, Expires: 09/12/2022 [facility] Work Phone: Comment on above: Expected: 07/13/2022, Expires: 2 Start: 05-06-2022 End: 07-06-2022 T3 FREE BLD T3 FREE BLD Lab Routine Acquired hypothyroidism Expected: 05/06/2022, Expires: 07/06/2022 [facility] Work Phone: Comment on above: Expected: 05/06/2022, Expires: 2 Start: 05-06-2022 End: 07-06-2022 T4 FREE/FREE THYROX T4 FREE/FREE THYROX Lab Routine Acquired hypothyroidism Expected: 05/06/2022, Expires: 07/06/2022 [facility] Work Phone: Comment on above: Expected: 05/06/2022, Expires: 2 Start: 05-06-2022 End: 07-06-2022 Thyrotropin [Units/volume] in Serum or Plasma TSH BLD Lab Routine Acquired hypothyroidism Expected: 05/06/2022, Expires: 07/06/2022 [facility] Work Phone: Comment on above: Expected: 05/06/2022, Expires: 2 Start: 2022 COVID-19 VACCINE (4 - Booster for Pfizer series) COVID-19 VACCINE (4 - Booster for Pfizer series) [facility] Start: 2022 RSV Vaccine (1 - 1-dose 75+ series) RSV Vaccine (1 - 1-dose 75+ series) [facility] Start: 04-05-2022 End: 06-05-2022 CBC W Auto Differential panel - Blood [facility] Work Phone: Comment on above: Expected: 04/05/2022, Expires: 2 Start: 04-05-2022 End: 06-05-2022 Comprehensive metabolic 2000 panel - Serum or Plasma [facility] Work Phone: Comment on above: Expected: 04/05/2022, Expires: 2 Start: 04-05-2022 End: 06-05-2022 Magnesium [Mass/volume] in Serum or Plasma [facility] Work Phone: Comment on above: Expected: 04/05/2022, Expires: 2 Start: 04-05-2022 End: 06-05-2022 Natriuretic peptide.B prohormone N-Terminal [Mass/volume] in Serum or Plasma [facility] Work Phone: Comment on above: Expected: 04/05/2022, Expires: 2 Start: 04-05-2022 End: 06-05-2022 VITAMIN B12 BLOOD [facility] Work Phone: Comment on above: Expected: 04/05/2022, Expires: 2 Start: 02-09-2022 Adult depression screening assessment DEPRESSION SCREENING [facility] Start: 11-20-2021 ADVANCE DIRECTIVE DISCUSSION ADVANCE DIRECTIVE DISCUSSION [facility] Start: 11-20-2021 DEPRESSION ASSESSMENT DEPRESSION ASSESSMENT [facility] Start: 01-15-2019 Mammography MAMMOGRAM [facility] Start: 10-17-2017 FECAL OCCULT BLOOD FECAL OCCULT BLOOD [facility] Start: 2007 RSV Vaccine (1 - 1-dose 60+ series) RSV Vaccine (1 - 1-dose 60+ series) [facility] Start: 1997 SHINGRIX VACCINE (1 of 2) SHINGRIX VACCINE (1 of 2) [facility] Start: 1992 COLOGUARD (FIT-DNA) COLOGUARD (FIT-DNA) [facility] Start: [address] COLONOGRAPHY [facility] Start: 1992 SIGMOIDOSCOPY SIGMOIDOSCOPY [facility] Start: 1965 BP CONTROLLED (<130/80) BP CONTROLLED (<130/80) [facility] inic Bacteria identified in Urine by Culture URINE CULTURE Microbiology Routine Burning with urination Ordered: 07/15/2024 [facility] Work Phone: Comment on above: Ordered: 07/15/2024 End: 03-24-2023 ECG COMPLETE ECG COMPLETE ECG Routine Screening for ischemic heart disease 1 Occurrences starting 03/24/2022 until 03/24/2023 [facility] Work Phone: Comment on above: 1 Occurrences starting 03/24/2022 until 03/24/2023 End: 04-05-2023 ECG COMPLETE ECG COMPLETE ECG Routine Grade I diastolic dysfunction Hypertension, essential JON (dyspnea on exertion) 1 Occurrences starting 04/05/2022 until 04/05/2023 [facility] Work Phone: Comment on above: 1 Occurrences starting 04/05/2022 until 04/05/2023 End: 04-05-2023 Echocardiography ECHO Cardiology Routine Grade I diastolic dysfunction Hypertension, essential JON (dyspnea on exertion) 1 Occurrences starting 04/05/2022 until 04/05/2023 [facility] Work Phone: Comment on above: 1 Occurrences starting 04/05/2022 until 04/05/2023 End: 02-03-2026 Flexible sigmoidoscopy study COLONOSCOPY DIAGNOSTIC Endoscopy Routine Constipation, unspecified constipation type Rectal bleeding Abnormal CT of the abdomen 1 Occurrences starting 02/03/2025 until 02/03/2026 [facility] Work Phone: Comment on above: 1 Occurrences starting 02/03/2025 until 02/03/2026 End: 02-20-2026 Flexible sigmoidoscopy study COLONOSCOPY DIAGNOSTIC Endoscopy Routine BRBPR (bright red blood per rectum) Constipation, unspecified constipation type 1 Occurrences starting 02/20/2025 until 02/20/2026 [facility] Work Phone: Comment on above: 1 Occurrences starting 02/20/2025 until 02/20/2026 PT PLAN OF CARE CERTIFICATION PT PLAN OF CARE CERTIFICATION Procedures Routine Vertigo Ordered: 08/31/2022 [facility] Comment on above: Ordered: 08/31/2022 End: 09-09-2023 Radiologic exam chest 2 views XR CHEST 2V FRONTAL/LAT Radiology Routine Subacute cough 1 Occurrences starting 08/10/2022 until 09/09/2023 [facility] Work Phone: Comment on above: 1 Occurrences starting 08/10/2022 until 09/09/2023 Tissue Pathology bio psy report [facility] Work Phone: Comment on above: Release Upon Ordering for 1 Occurrences starting 02/21/2025, 1 completed End: 10-25-2025 XR Lumbar spine 3 Views XR LUMBAR GENERAL 3V AP/LAT/L5-S1 Radiology Routine Left hip pain 1 Occurrences starting 09/25/2024 until 10/25/2025 [facility] Comment on above: 1 Occurrences starting 09/25/2024 until 10/25/2025 End: 10-25-2025 XR Pelvis and Hip - left AP and Lateral frog XR HIP GENERAL 3V PELV/AP/LAT LEFT Radiology Routine Left hip pain 1 Occurrences starting 09/25/2024 until 10/25/2025 [facility] Work Phone: Comment on above: 1 Occurrences starting 09/25/2024 until 10/25/2025 [facility] Immunizations Immunization Date Immunization Notes Care Provider Julio harmon 08-29-2023 influenza (HD-IIV4) vaccine, age 65+ yr, high dose, quadrivalent, PF (FLUZONE HIGH-DOSE) Rafal Zapien DO Work Phone: [facility] Work Phone: 08-29-2023 influenza virus vacc ine, unspecified formulation [place] Nurse Work Phone: [facility] 08-23-2022 influenza, high-dose , quadrivalent vaccine (FLUZONE HIGH DOSE QUADRIVALENT) Ky Nurse Work Phone: [facility] Work Phone: 08-23-2022 influenza virus vacc ine, unspecified formulation [place] Nurse Work Phone: [facility] 05-24-2022 COVID-19 vaccine, ag e 12+ yr (PFIZER-BIONTECH - KOHLER TOP) [place] Nurse Work Phone: [facility] Work Phone: 01-04-2022 COVID-19 vaccine, ag e 12+ yr (PFIZER-BIONTECH - KOHLER TOP) Betty Peña APRN.[facility] Work Phone: [facility] Work Phone: 08-12-2021 influenza, injectabl e, quadrivalent, contains preservative Betty Peña APRN.CARDIAC NURSE SPECIALIST Work Phone: [facility] Work Phone: 07-14-2021 COVID-19 vaccine, ag e 12+ yr (PFIZER-BIONTECH - PURPLE TOP) Betty Peña APRN.CARDIAC NURSE SPECIALIST Work Phone: [facility] Work Phone: 06-16-2021 COVID-19 vaccine, ag e 12+ yr ([employer]-BIONTECH - PURPLE TOP) Betty Peña CARDIOPULMONARY SUPERVISOR.[facility] Work Phone: [facility] Work Phone: 07-31-2020 influenza, high-dose , quadrivalent vaccine (FLUZONE HIGH DOSE QUADRIVALENT) Betty Peña CARDIOPULMONARY SUPERVISOR.[facility] Work Phone: [facility] Work Phone: 08-06-2019 influenza, high dose seasonal, preservative-free Betty Mariana CARDIOPULMONARY SUPERVISOR.[facility] Work Phone: [facility] Work Phone: 08-16-2018 influenza, high dose seasonal, preservative-free Betty Mariana CARDIOPULMONARY SUPERVISOR.[facility] Work Phone: [facility] Work Phone: 08-01-2018 pneumococcal polysaccharide vaccine, 23 valent Betty Peña CARDIOPULMONARY SUPERVISOR.[facility] Work Phone: [facility] Work Phone: 08-14-2017 influenza, high dose seasonal, preservative-free Betty Mariana CARDIOPULMONARY SUPERVISOR.[facility] Work Phone: [facility] Work Phone: 10-17-2016 pneumococcal conjuga te vaccine, 13 valent Betty Peña CARDIOPULMONARY SUPERVISOR.[facility] Work Phone: [facility] Payers Date Payer Category Payer Self-pay 2024 Medicare (Managed Care) [employer]ALE CANTU [id number] 2022 Private Health Insurance [id number] 2021 Medicare HU[employer]NA MEDICARE [employer] GOLD PLUS [id number] 2021-Present [phone] [address] [address] [place] [address] O [id number] 2019 Medicare [id number] 1945 Unknown [id number] Unknown [id number] Unknown [id number] Unknown [id number] Unknown [id number] Social History Date Type Detail Facility Start: 02-24-2014 End: 07-15-2024 Tobacco smoking status NHIS Ex-smoker [facility] End: 11-20-1998 History of tobacco use Current smoker [facility] End: 11-20-1998 History of tobacco use Cigarette Smoker [facility] Start: 02-24-2014 End: 07-15-2024 Tobacco use and exposure Smokeless tobacco non-user [facility] Start: 03-28-2022 End: 04-21-2025 Alcohol intake Current non-drinker of alcohol (finding) [facility] Start: 03-19-2014 End: 07-13-2022 Tobacco Comment quit smoking 15 years ago [facility] Start: 1945 Sex Assigned At Not on file [facility] Start: 03-13-2021 End: 10-12-2022 Exposure to SARS-CoV-2 (event) Not sure [facility] Work Phone: Sex Assigned At Sex [facility] Start: 08-01-2022 End: 08-11-2022 Exposure to SARS-CoV-2 (event) Unable to assess [facility] Work Phone: Start: 03-27-2023 End: 04-05-2023 History of Social function [facility] Work Phone: Start: 03-27-2023 End: 04-05-2023 Tobacco use panel [facility] Work Phone: Adult Depression Screening Assessment 0 [facility] Work Phone: How often to you hav e a drink containing alcohol? Never [facility] Functional Status Date Assessment Result Facility 04-21-2025 Total score [AUDIT-C] 0 04/21/20 25 2:51 PM EDT Paco Neal LPN [facility] 08-05-2022 Functional Status Activity Statu s ADL Ambulating in redman, Bathroom privileges [facility] 08-05-2022 Functional Status Standard Safet y ID band on, Allergy Band on, Call device within reach, Bed in low position, Wheels locked, Visitor at bedside [facility] 05-05-2015 Are you deaf, or do you have serious difficulty hearing No 05/05/2015 10:11 AM EDT Yuli Hale Cma No [facility] 05-05-2015 Are you blind, or do you have serious difficulty seeing, even when wearing glasses No 05/05/2015 10:11 AM EDT Yuli Hale Cma No [facility] 05-05-2015 Do you have serious difficulty walking or climbing stairs Yes 05/05/2015 10:11 AM EDT Yuli Hale Cma Yes [facility] 05-05-2015 Do you have difficul ty dressing or bathing No 05/05/2015 10:11 AM EDT Yuli Hale Cma No [facility] 05-05-2015 Because of a physica l, mental, or emotional condition, do you have difficulty doing errands alone such as visiting a physician's office or shopping No 05/05/2015 10:11 AM EDT Yuli Hale Cma No [facility] Mental Status Date Assessment Result Facility 08-05-2022 Mental Status Orientation Oriented x 4 [facility] 05-05-2015 Because of a physica l, mental, or emotional condition, do you have serious difficulty concentrating, remembering, or making decisions No 05/05/2015 10:11 AM EDT Yuli Hale Cma [facility] Clinical Notes 12-29-2015 to 06-11-2025 CINTIA RICO - 06/11/2025 3:36 PM EDTCINTIA RICO - 05/01/2025 1:55 PM EDTTelephone Encounter - Paco Neal LPN - 04/28/2025 9:51 AM EDTGRafal hairston DO - 04/23/2025 7:40 AM EDT Note Date & Type Note Facility 06-11-2025 Note HNO ID: [id number] Author: ?, ?, ? Service: ? Author Type: LICENSED NURSE Type: Progress Notes Filed: 06/11/2025 15:42 Note Text: Patient presents for B-12 injection. Denies any problems at this time. Patient instructed on any SE of medication, verbalized understanding and agreed to proceed with treatment. Tolerated injection well. Cintia Rico LPN [facility] 06-11-2025 History of Present illness Narrative Patient presents for B-12 injection. Denies any problems at this time. Patient instructed on any SE of medication, verbalized understanding and agreed to proceed with treatment. Tolerated injection well. Cintia Rico LPN documented in this encounter [facility] 05-01-2025 Note HNO ID: [id number] Author: ?, ?, ? Service: ? Author Type: LICENSED NURSE Type: Progress Notes Filed: 05/01/2025 14:14 Note Text: Patient presents for B-12 injection. Denies any problems at this time. Patient instructed on any SE of medication, verbalized understanding and agreed to proceed with treatment. Tolerated injection well. Cintia Rico LPN [facility] 05-01-2025 History of Present illness Narrative Patient presents for B-12 injection. Denies any problems at this time. Patient instructed on any SE of medication, verbalized understanding and agreed to proceed with treatment. Tolerated injection well. Cintia Rico LPN documented in this encounter [facility] 04-28-2025 Telephone encounter Note Pt. informed via My Chart. [facility] 04-28-2025 Miscellaneous Notes Pt. informed via My Chart. Please inform patient that her recent labs show no concerns for H pylori infection but do show risk of her having issues with gluten. Her Celiac HLA genotype is category 2 positive which means that she doesn't have Celiac disease but she does have risk of not tolerating wheat/gluten. Recommend that she cuts all the wheat/gluten out of her diet that she is able to, to see if feels better with stomach symptoms Rafal Zapien DO documented in this encounter [facility] 04-28-2025 Telephone encounter Note Please inform patient that her recent labs show no concerns for H pylori infection but do show risk of her having issues with gluten. Her Celiac HLA genotype is category 2 positive which means that she doesn't have Celiac disease but she does have risk of not tolerating wheat/gluten. Recommend that she cuts all the wheat/gluten out of her diet that she is able to, to see if feels better with stomach symptoms Rafal Zapien DO [facility] 04-23-2025 Note HNO ID: [id number] Author: RAFAL ZAPIEN DO Service: ? Author Type: Physician Type: Progress Notes Filed: 04/23/2025 07:43 Note Text: Xuan Hernandez is a 79 year old female here for a Medicare wellness visit. Medicare Health Risk Assessment General Health Good Exercise: Minutes/Day 30 min Exercise: Days/Week 7 days Alcohol: Daily Use Never Alcohol: Drinks/Day Patient does not drink Alcohol: 6 or more drinks Never Feel off balance No Concerns: Teeth/Dentures No Concerns: Sexual function No Troubled by feelings None of the above Frequency: Eating healthy diet Nearly every day ADLs requiring help None of the above Safety precautions in home/vehicle Yes Smoke, vape, chews tobacco No Difficulty hearing No Difficulty seeing Yes Current Providers Specialists: I have reviewed specialist-related care of the patient in the medical record. Medical/Family history review Reviewed and updated problem list, medical/surgical/family/social history, medications, and allergies. Opioid use review Opioid Medications (last 90 days) No data to display Anxiety/Depression screening PHQ-2 Score: 0 (Lower risk for depression) Recommendation: no further intervention at this time Cognitive screening Mini Cog Score: 4 Cognitive screening reviewed and No further action needed (score 3-5). Functional Observation Was the patient's Timed Up AND Go test unsteady or >= 12 seconds? No Advance Care Planning Surrogate decision maker and/or advance care plan documented Measurements BP 124/80 Pulse 60 Temp 36.1 ?C (97 ?F) (Right Tympanic) Resp 20 Ht 162.5 cm (5' 3.98) Wt 100.2 kg (221 lb) BMI 37.96 kg/m? Vision Screening: Follows with optometry/ophthalmology Assessment/Plan Medicare annual wellness visit, subsequent (Z00.00) - Counseled on healthy diet and regular exercise - Fall avoidance information provided - Personalized prevention plan provided - Discussed need for and benefit of weight loss. BMI 37.96 kg/(m2) Rafal Zapien DO [facility] 04-23-2025 History of Present illness Narrative Images from the original note were not included. Xuan Hernandez is a 79 year old female here for a Medicare wellness visit. Medicare Health Risk Assessment General Health Good Exercise: Minutes/Day 30 min Exercise: Days/Week 7 days Alcohol: Daily Use Never Alcohol: Drinks/Day Patient does not drink Alcohol: 6 or more drinks Never Feel off balance No Concerns: Teeth/Dentures No Concerns: Sexual function No Troubled by feelings None of the above Frequency: Eating healthy diet Nearly every day ADLs requiring help None of the above Safety precautions in home/vehicle Yes Smoke, vape, chews tobacco No Difficulty hearing No Difficulty seeing Yes Current Providers Specialists: I have reviewed specialist-related care of the patient in the medical record. Medical/Family history review Reviewed and updated problem list, medical/surgical/family/social history, medications, and allergies. Opioid use review Opioid Medications (last 90 days) No data to display Anxiety/Depression screening PHQ-2 Score: 0 (Lower risk for depression) Recommendation: no further intervention at this time Cognitive screening Mini Cog Score: 4 Cognitive screening reviewed and No further action needed (score 3-5). Functional Observation Was the patient's Timed Up & Go test unsteady or >= 12 seconds? No Advance Care Planning Surrogate decision maker and/or advance care plan documented Measurements BP 124/80 Pulse 60 Temp 36.1 C (97 F) (Right Tympanic) Resp 20 Ht 162.5 cm (5' 3.98) Wt 100.2 kg (221 lb) BMI 37.96 kg/m Vision Screening: Follows with optometry/ophthalmology Assessment/Plan Medicare annual wellness visit, subsequent (Z00.00) - Counseled on healthy diet and regular exercise - Fall avoidance information provided - Personalized prevention plan provided - Discussed need for and benefit of weight loss. BMI 37.96 kg/(m^2) Rafal Zapien DO CC: Xuan Hernandez is a 79 year old female who presents to the office for follow up HPI: Recently had colonoscopy in February 2025 and diagnosed with colon polyps x 2, she is going to have repeat testing with colonoscopy in the fall and potential full resection of the sigmoid colon polyp that was originally large at 15 mm size Constipation, chronic, worsening. She is wondering what she can take to keep her bowels regular. No new blood in stool Admits to bloating and gassiness Hypothyroidism,taking levothyroxine as prescribed HPL, taking crestor, no SE with medication No recent falls. Arthritis is stable. Hx of sciatica. Still trying to exercise as much as she is able. PAST MEDICAL HISTORY Diagnosis Date Advance care planning 07/13/2022 Gregorio helps with medical decision making Ankle fracture left Arthritis Constipation History of tobacco abuse Hypercholesteremia Hypothyroidism Panic attack Pulmonary nodules 04/20/[address] chest by 04/2015 Sciatica Spasm of back muscles after work injury in past Vitamin D deficiency 02/21/2014 PAST SURGICAL HISTORY Procedure Laterality Date APPENDECTOMY CHOLECYSTECTOMY 11/20/1992 gallstones COLONOSCOPY 11/20/1992 LUMPECTOMY/RADIOTHERAPY DIAG MAMM/A10 age 18 breast, left, benign Current Outpatient Medications Medication Sig levothyroxine (SYNTHROID) 137 mcg tablet Take 1 tablet by mouth once daily. diclofenac, EC, (VOLTAREN) 75 mg EC tablet TAKE 1 TABLET TWICE DAILY NEEDED FOR PAIN. DO NOT TAKE WITH ASPIRIN rosuvastatin (CRESTOR) 20 mg tablet Take 1 tablet by mouth daily at bedtime. FLUoxetine (PROZAC) 10 mg capsule Take 1 capsule by mouth once daily. cholecalciferol, vitamin D3, (VITAMIN D3 ORAL) Take by mouth once daily. cyanocobalamin (VITAMIN B-12) 1,000 mcg tab Take 1 tablet by mouth once daily. ASPIRIN ORAL Take 81 mg by mouth once daily. Current Facility-Administered Medications Medication Dose Route Frequency [START ON 05/01/2025] cyanocobalamin 1,000 mcg injection 1,000 mcg INTRAMUSCULAR q 1 MONTH cyanocobalamin 1,000 mcg injection 1,000 mcg INTRAMUSCULAR q 1 MONTH ALLERGIES Allergen Reactions Acetaminophen-Codei* GI Upset Benedryl [Diphenhyd* Other: See Comments blood pressure dropped Codeine Mental Status Change Seeing things Social History Tobacco Use Smoking status: Former Current packs/day: 0.00 Types: Cigarettes Quit date: 11/20/1998 Years since quittin.4 Smokeless tobacco: Never Tobacco comments: quit smoking 15 years ago Substance Use Topics Alcohol use: No Drug use: No ROS: See HPI PE: BP 124/80 Pulse 60 Temp (Src) 97 (Right Tympanic) Resp 20 Ht 5' 3.976 (1.63m) Wt 221 lb (100.2kg) BMI 37.96 kg/(m^2). Gen: A&OX3, NAD, non-toxic appearing HEENT: PERRLA, EOMs intact b/l, nares without drainage, pharynx without erythema, exudate, lesions, or drainage. Uvula midline. Neck: No LAD, no thyromegaly, no meningismus. CV: RRR, no murmur Lungs: CTA b/l, no wheezing Skin: No rashes, lesions, or wounds on exposed skin. No edema, normal pulses Abd: soft, NT, ND, normal BS, + overweight, not obese, no obvious hepatosplenomegaly or masses. + mild bloating Hard of hearing ASSESSMENT/PLAN: 1. Medicare annual wellness visit, subsequent - ICD9: V70.0, ICD10: Z00.00 (primary diagnosis) - Counseled on healthy diet and regular exercise - Discussed need and benefit for weight loss. BMI 37.96 kg/(m^2) 2. Acquired hypothyroidism - ICD9: 244.9, ICD10: E03.9 - Instructed patient on importance of taking on an empty stomach either first thing in the morning or at bedtime. - continue current dose of Synthroid - LEVOTHYROXINE 137 MCG TABLET - DICLOFENAC SODIUM 75 MG TABLET,DELAYED RELEASE - THYROID STIMULATING HORMONE - T4 FREE/FREE THYROXINE 3. RUDY (generalized anxiety disorder) - ICD9: 300.02, ICD10: F41.1 stable 4. Chronic constipation - ICD9: 564.00, ICD10: K59.09 Start on miralax and fiber supplement daily as d/w her today as well as probiotic rich foods. - [employer] HLA-DQ GENOTYPE - LACTOSE TOLERANCE - H PYLORI IGG AB 5. Tubular adenoma - ICD9: 229.9, ICD10: D36.9 F/u with specialist 6. Bloating - ICD9: 787.3, ICD10: R14.0 See above, change diet and add on supplements to help improve bowel functioning. - C[employer] HLA-DQ GENOTYPE - LACTOSE TOLERANCE - H PYLORI IGG AB 7. Hypercholesterolemia - ICD9: 272.0, ICD10: E78.00 stable 8. Vitamin B12 deficiency - ICD9: 266.2, ICD10: E53.8 stable 9. Anemia due to vitamin B12 deficiency, unspecified B12 deficiency type - ICD9: 281.1, ICD10: D51.9 stable Rafal Zapien DO Return if no improvement. Follow up with Rafal Zapien DO. To ER if develops chest pain, shortness of breath. Discussed risks, benefits, alternatives, and potential side effects of medications. Patient/Guardian expressed understanding and agreed with the plan. See patient instructions. Rafal Zapien DO [address] [place] [address] Rafal Zapien DO documented in this encounter [facility] 04-23-2025 Note HNO ID: [id number] Author: RAFAL ZAPIEN DO Service: ? Author Type: Physician Type: Progress Notes Filed: 04/23/2025 07:43 Note Text: CC: Xuan Hernandez is a 79 year old female who presents to the office for follow up HPI: Recently had colonoscopy in February 2025 and diagnosed with colon polyps x 2, she is going to have repeat testing with colonoscopy in the fall and potential full resection of the sigmoid colon polyp that was originally large at 15 mm size Constipation, chronic, worsening. She is wondering what she can take to keep her bowels regular. No new blood in stool Admits to bloating and gassiness Hypothyroidism,taking levothyroxine as prescribed HPL, taking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 equally round, sclera are anicteric, mucous membranes are moist, oropharynx is clear. Neck has no masses, asymmetry or lymphadenopathy. Respiratory: Clear to auscultation and percussion. Normal respiratory excursion and pattern. Cardiac: Examination is regular rate and rhythm. Normal S1/S2 Abdominal exam: Soft, nontender, with no palpable masses. No hepatosplenomegaly. No palpable hernias. Extremities: no clubbing, cyanosis or edema. No adenopathy. LABORATORY VALUES: As Noted RADIOLOGIC STUDIES: As Noted Assessment IMPRESSION: BRBPR, constipation, abnormal finding on CT PLAN: I have reviewed my findings with the surgeon. Will plan for lower endoscopy. We discussed the risks and benefits of the planned endoscopy. I have informed the patient that complications can occur including failure to complete the endoscopy and perforation. Xuan had the opportunity to ask questions concerning the planned endoscopy. My staff has also explained the procedure to the patient in understandable terms and has given the patient printed material concerning the procedure. Xuan freely consents to surgery. I plan to use MiraLAX bowel preparation-3 days of clear liquids I have explained to the patient the difference between IV conscious sedation and MAC anesthesia - and I have offered either, according to the patient's wishes. I have explained that with IV conscious sedation there is no anesthesia provider available and therefore there is a limitation of the amount of IV medications that can be given and that the patient may wake up in the middle of the procedure and/or experience pain/discomfort during the procedure. Further discussion was done and the patient was given the opportunity to ask questions and all questions were answered. Xuan chooses IV conscious sedation. Xuan was counseled that if there are changes in his/her medical condition, to let the office know if surgery should proceed. If there are changes in patient's medical condition from time of this encounter to the day of the procedure that preclude anesthesia, patient may have procedure cancelled for patient's safety. Diagnoses: (Z12.11) Screen for colon cancer (primary encounter diagnosis) (K59.00) Constipation, unspecified constipation type (K62.5) Rectal bleeding (R93.5) Abnormal CT of the abdomen Consultation requested by Chata Shelton CNP for an opinion regarding rectal bleeding and constipation. My final recommendations will be communicated back to the requesting physician by way of shared Medical record or letter to requesting physician via [place] mail. Portions of this documentation were copied and pasted from previous office visit notes in order to provide a cohesive continuity of the history. The note has been reviewed and edited and updated as necessary. Nadia Naylor APRN.CNP UPDATED HISTORY AND PHYSICAL EXAMINATION SERVICE DATE: 02/20/2025 SERVICE TIME: 10:14 AM PHYSICAL EXAM MUST BE COMPLETED ON ADMISSION The History and Physical (completed in the past 30 days) has been reviewed and the patient has been examined. The contents accurately reflect the patient's condition with the following additions or revisions since the H&P was completed. Examination indicates no changes. This H&P can be found in the attached. SIGNATURE: Darwin Pisano III, MD PATIENT NAME: Xuan Casianocus DATE: February 20, 2025 TIME: 10:14 AM [facility] Work Phone: 02-21-2025 History and physical note UPDATED HISTORY AND PHYSICAL EXAMINATION SERVICE DATE: 02/21/2025 SERVICE TIME: 12:45 PM Participation of a fellow, resident, medical student, or advanced practice provider student in performing the sensitive examination was discussed with the patient or authorized manufacturers representative. The patient or authorized manufacturers representative has agreed to proceed with the sensitive examination. PHYSICAL EXAM MUST BE COMPLETED ON ADMISSION The History and Physical (completed in the past 30 days) has been reviewed and the patient has been examined. The contents accurately reflect the patient's condition with the following additions or revisions since the H&P was completed. Examination indicates no changes. This H&P can be found in the attached. SIGNATURE: Brandon Alba DO PATIENT NAME: Xuan Hernandez DATE: February 21, 2025 TIME: 12:45 PM Source Note - Darwin Pisano MD - 02/20/2025 10:30 AM EDT HISTORY AND PHYSICAL Xuan Hernandez : 1945 REFERRING PHYSICIAN: Chata Shelton [address] [facility] [id number] CHIEF COMPLAINT: No chief complaint on file. HPI: Xuan is a 79 year old female referred for endoscopy. Xuan notes constipation and rectal bleeding. Lorene has had multiple ED visits recently d/t back pain. She has been given percocets and multiple IV narcotic doses in the ED. She has noted constipation requiring fleet enemas and suppositories which weren't working leading to miraLAX use. She had a BM and noticed bright red blood. CT lumbar spine 12/30/24 IMPRESSION: 1. No evidence of active hemorrhage. No abdominal aortic aneurysm or dissection. 2. Colonic diverticulosis without diverticulitis. 3. Fatty wall infiltration of the cecum, ascending colon, mid to proximal transverse colon which can relate to chronic inflammatory changes. 4. Additional findings as above Xuan denies abdominal pain.. Xuan denies diarrhea. Xuan notes recent history of constipation. -due to multiple doses of narcotics from back pain -has been using miraLAX daily with 1-2 bowel movements a day Xuan denies a change in bowel habits. Xuan denies melena. Xuan notes bright red blood per rectum. -when finally had BM after being constipated Xuan denies hemorrhoids. Xuan denies family history of colon issues. Xuan denies heartburn. Xuan denies dysphagia. Xuan denies a history of ulcers/ peptic ulcer disease. Xuan has undergone prior endoscopy. 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 CURRENT MEDICATIONS Current Outpatient Medications Medication Sig rosuvastatin (CRESTOR) 20 mg tablet Take 1 tablet by mouth daily at bedtime. levothyroxine (SYNTHROID) 137 mcg tablet Take 1 tablet by mouth once daily. 5 days per week only. Do not take 2 days per week. FLUoxetine (PROZAC) 10 mg capsule Take 1 capsule by mouth once daily. diclofenac, EC, (VOLTAREN) 75 mg EC tablet TAKE 1 TABLET TWICE DAILY NEEDED FOR PAIN. DO NOT TAKE WITH ASPIRIN cholecalciferol, vitamin D3, (VITAMIN D3 ORAL) Take by mouth once daily. cyanocobalamin (VITAMIN B-12) 1,000 mcg tab Take 1 tablet by mouth once daily. ASPIRIN ORAL Take by mouth. Current Facility-Administered Medications Medication Dose Route Frequency cyanocobalamin 1,000 mcg injection 1,000 mcg INTRAMUSCULAR q 1 MONTH ALLERGIES: Acetaminophen-Codeine, Benedryl [Diphenhydramine], and Codeine PAST MEDICAL HISTORY PAST MEDICAL HISTORY Diagnosis Date Advance care planning 07/13/2022 Gregorio helps with medical decision making Ankle fracture left Constipation History of tobacco abuse Hypercholesteremia Hypothyroidism Panic attack Pulmonary nodules 04/20/[address] chest by 04/2015 Sciatica Spasm of back muscles after work injury in past Vitamin D deficiency 02/21/2014 PAST SURGICAL HISTORY PAST SURGICAL HISTORY Procedure Laterality Date APPENDECTOMY CHOLECYSTECTOMY 11/20/1992 gallstones COLONOSCOPY 11/20/1992 LUMPECTOMY/RADIOTHERAPY DIAG MAMM/A10 age 18 breast, left, benign FAMILY HISTORY FAMILY HISTORY Problem Relation Age of Onset other (diabetes mellitus [Other]) Mother Heart Failure Father other (diabetes mellitus [Other]) Brother other (diabetes mellitus [Other]) Brother other (other) Brother accident No Known Problems Maternal Grandmother No Known Problems Maternal Grandfather No Known Problems Paternal Grandmother No Known Problems Paternal Grandfather SOCIAL HISTORY Social History Tobacco Use Smoking status: Former Current packs/day: 0.00 Types: Cigarettes Quit date: 11/20/1998 Years since quittin.2 Smokeless tobacco: Never Tobacco comments: quit smoking 15 years ago Substance Use Topics Alcohol use: No Drug use: No REVIEW OF SYMPTOMS: The review of systems data was entered by the nurse and reviewed by me SEE NURSING NOTE PHYSICAL EXAMINATION: General: The patient is 79 year old, female well nourished, well hydrated in no acute distress. The patient is oriented to time, place, and person. VITALS: Blood pressure 130/75, pulse 70, weight 99.8 kg (220 lb), SpO2 96%. Body mass index is 37.76 kg/m . HEENT: Normal cephalic, ataumatic, pupils are equally round, sclera are anicteric, mucous membranes are moist, oropharynx is clear. Neck has no masses, asymmetry or lymphadenopathy. Respiratory: Clear to auscultation and percussion. Normal respiratory excursion and pattern. Cardiac: Examination is regular rate and rhythm. Normal S1/S2 Abdominal exam: Soft, nontender, with no palpable masses. No hepatosplenomegaly. No palpable hernias. Extremities: no clubbing, cyanosis or edema. No adenopathy. LABORATORY VALUES: As Noted RADIOLOGIC STUDIES: As Noted Assessment IMPRESSION: BRBPR, constipation, abnormal finding on CT PLAN: I have reviewed my findings with the surgeon. Will plan for lower endoscopy. We discussed the risks and benefits of the planned endoscopy. I have informed the patient that complications can occur including failure to complete the endoscopy and perforation. Xuan had the opportunity to ask questions concerning the planned endoscopy. My staff has also explained the procedure to the patient in understandable terms and has given the patient printed material concerning the procedure. Xuan freely consents to surgery. I plan to use MiraLAX bowel preparation-3 days of clear liquids I have explained to the patient the difference between IV conscious sedation and MAC anesthesia - and I have offered either, according to the patient's wishes. I have explained that with IV conscious sedation there is no anesthesia provider available and therefore there is a limitation of the amount of IV medications that can be given and that the patient may wake up in the middle of the procedure and/or experience pain/discomfort during the procedure. Further discussion was done and the patient was given the opportunity to ask questions and all questions were answered. Xuan chooses IV conscious sedation. Xuan was counseled that if there are changes in his/her medical condition, to let the office know if surgery should proceed. If there are changes in patient's medical condition from time of this encounter to the day of the procedure that preclude anesthesia, patient may have procedure cancelled for patient's safety. Diagnoses: (Z12.11) Screen for colon cancer (primary encounter diagnosis) (K59.00) Constipation, unspecified constipation type (K62.5) Rectal bleeding (R93.5) Abnormal CT of the abdomen Consultation requested by Chata Shelton CNP for an opinion regarding rectal bleeding and constipation. My final recommendations will be communicated back to the requesting physician by way of shared Medical record or letter to requesting physician via [place] mail. Portions of this documentation were copied and pasted from previous office visit notes in order to provide a cohesive continuity of the history. The note has been reviewed and edited and updated as necessary. Nadia Naylor APRN.CNP UPDATED HISTORY AND PHYSICAL EXAMINATION SERVICE DATE: 02/20/2025 SERVICE TIME: 10:14 AM PHYSICAL EXAM MUST BE COMPLETED ON ADMISSION The History and Physical (completed in the past 30 days) has been reviewed and the patient has been examined. The contents accurately reflect the patient's condition with the following additions or revisions since the H&P was completed. Examination indicates no changes. This H&P can be found in the attached. SIGNATURE: Darwin Pisano III, MD PATIENT NAME: Xuan Michel Mary DATE: February 20, 2025 TIME: 10:14 AM documented in this encounter [facility] 02-21-2025 Nurse Note Other: pt ready for OR, call ciarra in Gregorio ceja to stay in the waiting room per pt at this time [facility] 02-21-2025 Nurse Note Other: pt ready for OR, call light in Gregorio ceja to stay in the waiting room per pt at this time documented in this encounter [facility] 02-20-2025 Note Formatting of this n ote might be different from the original. The patient received a copy of Colonoscopy discharge instructions that contain information for how to contact the physician who performed the procedure and when to seek medical care. [facility] 02-20-2025 Miscellaneous Notes The patient received a copy of Colonoscopy discharge instructions that contain information for how to contact the physician who performed the procedure and when to seek medical care. documented in this encounter [facility] 02-20-2025 History and physical note HISTORY AND PHYSICAL Xuan Hernandez : 1945 REFERRING PHYSICIAN: Chata Shelton [address] [facility] [id number] CHIEF COMPLAINT: No chief complaint on file. HPI: Xuan is a 79 year old female referred for endoscopy. Xuan notes constipation and rectal bleeding. Lorene has had multiple ED visits recently d/t back pain. She has been given percocets and multiple IV narcotic doses in the ED. She has noted constipation requiring fleet enemas and suppositories which weren't working leading to miraLAX use. She had a BM and noticed bright red blood. CT lumbar spine 12/30/24 IMPRESSION: 1. No evidence of active hemorrhage. No abdominal aortic aneurysm or dissection. 2. Colonic diverticulosis without diverticulitis. 3. Fatty wall infiltration of the cecum, ascending colon, mid to proximal transverse colon which can relate to chronic inflammatory changes. 4. Additional findings as above Xuan denies abdominal pain.. Xuan denies diarrhea. Xuan notes recent history of constipation. -due to multiple doses of narcotics from back pain -has been using miraLAX daily with 1-2 bowel movements a day Xuan denies a change in bowel habits. Xuan denies melena. Xuan notes bright red blood per rectum. -when finally had BM after being constipated Xuan denies hemorrhoids. Xuan denies family history of colon issues. Xuan denies heartburn. Xuan denies dysphagia. Xuan denies a history of ulcers/ peptic ulcer disease. Xuan has undergone prior endoscopy. 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 CURRENT MEDICATIONS Current Outpatient Medications Medication Sig rosuvastatin (CRESTOR) 20 mg tablet Take 1 tablet by mouth daily at bedtime. levothyroxine (SYNTHROID) 137 mcg tablet Take 1 tablet by mouth once daily. 5 days per week only. Do not take 2 days per week. FLUoxetine (PROZAC) 10 mg capsule Take 1 capsule by mouth once daily. diclofenac, EC, (VOLTAREN) 75 mg EC tablet TAKE 1 TABLET TWICE DAILY NEEDED FOR PAIN. DO NOT TAKE WITH ASPIRIN cholecalciferol, vitamin D3, (VITAMIN D3 ORAL) Take by mouth once daily. cyanocobalamin (VITAMIN B-12) 1,000 mcg tab Take 1 tablet by mouth once daily. ASPIRIN ORAL Take by mouth. Current Facility-Administered Medications Medication Dose Route Frequency cyanocobalamin 1,000 mcg injection 1,000 mcg INTRAMUSCULAR q 1 MONTH ALLERGIES: Acetaminophen-Codeine, Benedryl [Diphenhydramine], and Codeine PAST MEDICAL HISTORY PAST MEDICAL HISTORY Diagnosis Date Advance care planning 07/13/2022 Gregorio helps with medical decision making Ankle fracture left Constipation History of tobacco abuse Hypercholesteremia Hypothyroidism Panic attack Pulmonary nodules 04/20/[address] chest by 04/2015 Sciatica Spasm of back muscles after work injury in past Vitamin D deficiency 02/21/2014 PAST SURGICAL HISTORY PAST SURGICAL HISTORY Procedure Laterality Date APPENDECTOMY CHOLECYSTECTOMY 11/20/1992 gallstones COLONOSCOPY 11/20/1992 LUMPECTOMY/RADIOTHERAPY DIAG MAMM/A10 age 18 breast, left, benign FAMILY HISTORY FAMILY HISTORY Problem Relation Age of Onset other (diabetes mellitus [Other]) Mother Heart Failure Father other (diabetes mellitus [Other]) Brother other (diabetes mellitus [Other]) Brother other (other) Brother accident No Known Problems Maternal Grandmother No Known Problems Maternal Grandfather No Known Problems Paternal Grandmother No Known Problems Paternal Grandfather SOCIAL HISTORY Social History Tobacco Use Smoking status: Former Current packs/day: 0.00 Types: Cigarettes Quit date: 11/20/1998 Years since quittin.2 Smokeless tobacco: Never Tobacco comments: quit smoking 15 years ago Substance Use Topics Alcohol use: No Drug use: No REVIEW OF SYMPTOMS: The review of systems data was entered by the nurse and reviewed by me SEE NURSING NOTE PHYSICAL EXAMINATION: General: The patient is 79 year old, female well nourished, well hydrated in no acute distress. The patient is oriented to time, place, and person. VITALS: Blood pressure 130/75, pulse 70, weight 99.8 kg (220 lb), SpO2 96%. Body mass index is 37.76 kg/m . HEENT: Normal cephalic, ataumatic, pupils are equally round, sclera are anicteric, mucous membranes are moist, oropharynx is clear. Neck has no masses, asymmetry or lymphadenopathy. Respiratory: Clear to auscultation and percussion. Normal respiratory excursion and pattern. Cardiac: Examination is regular rate and rhythm. Normal S1/S2 Abdominal exam: Soft, nontender, with no palpable masses. No hepatosplenomegaly. No palpable hernias. Extremities: no clubbing, cyanosis or edema. No adenopathy. LABORATORY VALUES: As Noted RADIOLOGIC STUDIES: As Noted Assessment IMPRESSION: BRBPR, constipation, abnormal finding on CT PLAN: I have reviewed my findings with the surgeon. Will plan for lower endoscopy. We discussed the risks and benefits of the planned endoscopy. I have informed the patient that complications can occur including failure to complete the endoscopy and perforation. Xuan had the opportunity to ask questions concerning the planned endoscopy. My staff has also explained the procedure to the patient in understandable terms and has given the patient printed material concerning the procedure. Xuan freely consents to surgery. I plan to use MiraLAX bowel preparation-3 days of clear liquids I have explained to the patient the difference between IV conscious sedation and MAC anesthesia - and I have offered either, according to the patient's wishes. I have explained that with IV conscious sedation there is no anesthesia provider available and therefore there is a limitation of the amount of IV medications that can be given and that the patient may wake up in the middle of the procedure and/or experience pain/discomfort during the procedure. Further discussion was done and the patient was given the opportunity to ask questions and all questions were answered. Xuan chooses IV conscious sedation. Xuan was counseled that if there are changes in his/her medical condition, to let the office know if surgery should proceed. If there are changes in patient's medical condition from time of this encounter to the day of the procedure that preclude anesthesia, patient may have procedure cancelled for patient's safety. Diagnoses: (Z12.11) Screen for colon cancer (primary encounter diagnosis) (K59.00) Constipation, unspecified constipation type (K62.5) Rectal bleeding (R93.5) Abnormal CT of the abdomen Consultation requested by Chata Shelton CNP for an opinion regarding rectal bleeding and constipation. My final recommendations will be communicated back to the requesting physician by way of shared Medical record or letter to requesting physician via US mail. Portions of this documentation were copied and pasted from previous office visit notes in order to provide a cohesive continuity of the history. The note has been reviewed and edited and updated as necessary. Nadia Naylor APRN.CNP UPDATED HISTORY AND PHYSICAL EXAMINATION SERVICE DATE: 02/20/2025 SERVICE TIME: 10:14 AM PHYSICAL EXAM MUST BE COMPLETED ON ADMISSION The History and Physical (completed in the past 30 days) has been reviewed and the patient has been examined. The contents accurately reflect the patient's condition with the following additions or revisions since the H&P was completed. Examination indicates no changes. This H&P can be found in the attached. SIGNATURE: Darwin Pisano III, MD PATIENT NAME: Xuan Hernandez DATE: February 20, 2025 TIME: 10:14 AM [facility] 02-20-2025 History and physical note HISTORY AND PHYSICAL Xuan Hernandez : 1945 REFERRING PHYSICIAN: Chata Shelton [address] [facility] [id number] CHIEF COMPLAINT: No chief complaint on file. HPI: Xuan is a 79 year old female referred for endoscopy. Xuan notes constipation and rectal bleeding. Lorene has had multiple ED visits recently d/t back pain. She has been given percocets and multiple IV narcotic doses in the ED. She has noted constipation requiring fleet enemas and suppositories which weren't working leading to miraLAX use. She had a BM and noticed bright red blood. CT lumbar spine 12/30/24 IMPRESSION: 1. No evidence of active hemorrhage. No abdominal aortic aneurysm or dissection. 2. Colonic diverticulosis without diverticulitis. 3. Fatty wall infiltration of the cecum, ascending colon, mid to proximal transverse colon which can relate to chronic inflammatory changes. 4. Additional findings as above Xuan denies abdominal pain.. Xuan denies diarrhea. Xuan notes recent history of constipation. -due to multiple doses of narcotics from back pain -has been using miraLAX daily with 1-2 bowel movements a day Xuan denies a change in bowel habits. Xuan denies melena. Xuan notes bright red blood per rectum. -when finally had BM after being constipated Xuan denies hemorrhoids. Xuan denies family history of colon issues. Xuan denies heartburn. Xuan denies dysphagia. Xuan denies a history of ulcers/ peptic ulcer disease. Xuan has undergone prior endoscopy. 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 CURRENT MEDICATIONS Current Outpatient Medications Medication Sig rosuvastatin (CRESTOR) 20 mg tablet Take 1 tablet by mouth daily at bedtime. levothyroxine (SYNTHROID) 137 mcg tablet Take 1 tablet by mouth once daily. 5 days per week only. Do not take 2 days per week. FLUoxetine (PROZAC) 10 mg capsule Take 1 capsule by mouth once daily. diclofenac, EC, (VOLTAREN) 75 mg EC tablet TAKE 1 TABLET TWICE DAILY NEEDED FOR PAIN. DO NOT TAKE WITH ASPIRIN cholecalciferol, vitamin D3, (VITAMIN D3 ORAL) Take by mouth once daily. cyanocobalamin (VITAMIN B-12) 1,000 mcg tab Take 1 tablet by mouth once daily. ASPIRIN ORAL Take by mouth. Current Facility-Administered Medications Medication Dose Route Frequency cyanocobalamin 1,000 mcg injection 1,000 mcg INTRAMUSCULAR q 1 MONTH ALLERGIES: Acetaminophen-Codeine, Benedryl [Diphenhydramine], and Codeine PAST MEDICAL HISTORY PAST MEDICAL HISTORY Diagnosis Date Advance care planning 07/13/2022 Gregorio helps with medical decision making Ankle fracture left Constipation History of tobacco abuse Hypercholesteremia Hypothyroidism Panic attack Pulmonary nodules 04/20/[address] chest by 04/2015 Sciatica Spasm of back muscles after work injury in past Vitamin D deficiency 02/21/2014 PAST SURGICAL HISTORY PAST SURGICAL HISTORY Procedure Laterality Date APPENDECTOMY CHOLECYSTECTOMY 11/20/1992 gallstones COLONOSCOPY 11/20/1992 LUMPECTOMY/RADIOTHERAPY DIAG MAMM/A10 age 18 breast, left, benign FAMILY HISTORY FAMILY HISTORY Problem Relation Age of Onset other (diabetes mellitus [Other]) Mother Heart Failure Father other (diabetes mellitus [Other]) Brother other (diabetes mellitus [Other]) Brother other (other) Brother accident No Known Problems Maternal Grandmother No Known Problems Maternal Grandfather No Known Problems Paternal Grandmother No Known Problems Paternal Grandfather SOCIAL HISTORY Social History Tobacco Use Smoking status: Former Current packs/day: 0.00 Types: Cigarettes Quit date: 11/20/1998 Years since quittin.2 Smokeless tobacco: Never Tobacco comments: quit smoking 15 years ago Substance Use Topics Alcohol use: No Drug use: No REVIEW OF SYMPTOMS: The review of systems data was entered by the nurse and reviewed by me SEE NURSING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 (Bydureon/ Byetta) Liraglutide (Victoza/Saxenda) Insulin glargine / lixisenatide (Soliqua) Continue Hold on DOS GLP-1 Agonists (oral) Semaglutide (Reybelsus) Continue Hold on DOS Nurse verifies time of last dose and documents. Assess for symptoms of satiety or nausea. If patient took DOS, contact the anesthesiologist. Insulin pump Follow protocol Follow protocol Nurse verifies settings. Blood glucose check on arrival Long- or intermediate-acting insulin (Levemir, Lantus, NPH etc.) Take 75% of normal dose the night before surgery if possible Check fasting AM glucose. If 200 or greater, take half the prescribed dose. If under 200, hold AM dose. Nurse verifies dose and time. Blood glucose check on arrival. If you take GLP-1 agonists such as semaglutide (Ozempic, Wegovy, Rybelsus), dulaglutide (Trulicity), liraglutide (Victoza, Saxenda), exenatide (Byetta, Bydureon), or lixisenatide (Adylyxin), tirzepatide (MOUNJARO). if you take medication once or twice daily, do not take your medication for 1 day prior to your procedure if you take these medications weekly, do not take your medication the week ( hold the prior week's dose) before your procedure If you take aspirin, take it and ALL other medication prescribed by your doctor unless told otherwise by either the physician's office or Pre-Admission testing if having procedure done in a hospital setting (PACC) with a small sip of water only. You may take over the counter medications if you have a headache. TAKE ALL BLOOD PRESSURE MEDICATION THE MORNING OF THE PROCEDURE. Failure to take usual morning blood pressure meds may result in cancellation of the procedure if hypertensive. Hold erectile dysfunction medications for 48 hrs. prior to the procedure. Five (5) days before your colonoscopy Do not take medications that stop Diarrhea - Imodium, Kaopectate, or Pepto Bismol Do NOT take fiber supplements - Metamucil, Citrucel, FiberCon Do NOT take products that contain iron (check vitamin label) Two (2) to three (3) days before your colonoscopy DO NOT EAT HIGH FIBER FOODS No beans, seeds (flax, sunflower, quinoa), nuts, popcorn, multigrain bread salad/vegetables, or fresh and dried fruit. Do not eat red meat 3 days before your procedure. YOU MAY EAT Lean Chicken breast, fish, eggs, and soup YOU MUST BE ON CLEAR LIQUIDS FOR 2 FULL DAYS PRIOR TO PROCEDURE Two (2) Days before your colonoscopy ONLY DRINK CLEAR LIQUIDS for 2 DAYs BEFORE YOUR COLONOSCOPY. DO NOT EAT ANY SOLID FOODS. Drink at least eight (8) ounces of clear liquids every hour after waking up. Clear fluids include: Water, apple juice, white grape juice, broth (beef, chicken or vegetable), coffee and/or tea (NO DAIRY, MILK OR CREAMER) clear carbonated beverages (sprite, 7-up, alexander-keri), Gatorade, or other sport drinks, Beck-Aid, Jell-O, Gummy Bears and popsicles. NOTHING RED IN COLOR. DO NOT DRINK ALCOHOL the day before or the day of your procedure. DAY 1 (2 days before your colonoscopy) Clear Liquids all day, you may have water, coffee or tea- NO DAIRY, Clear broth (Beef, Chicken or vegetable) Clear carbonated beverages, apple juice, white grape juice , Gatorade, Jell-O, Beck-Aid, and popsicles. NO DAIRY, TOMATO, OR ORANGE JUICE. NO RED OR PURPLE! DAY 2 - (day before your colonoscopy) SAME DAY 1, Continue clear fluids and then follow the instructions below~ 8:00 AM - May Mix the Miralax prep with 64 oz. of Gatorade or any of the clear fluids listed above and place in fridge. 1:00 PM - Take 2 Dulcolax Tablets with 8oz of water 3:00 PM - Start to drink the Miralax mixture. - Finish by midnight 4:00 PM - Take 2 Dulcolax tablets with 8oz of water. You may continue to drink clear liquids while you are taking your prep and after you finish as long as it is before midnight. Drink lots of fluids so you don't become dehydrated. Nothing to drink after midnight unless instructed otherwise by nursing staff and/or physician. Please remember to take your normal medications the morning of your procedure with a small sip of water especially your blood pressure medications. If you are diabetic, you need to contact your physicians regarding how to take your diabetic medications and/or insulin during the prepping period and the day of the procedure. The times above are a general guide. You may change the times if needed to accommodate your schedule. Example, instead of taking your first step at 1 PM you may take your first step at 6 PM. Your time frames would be: 6 PM take 2 Dulcolax tablets, at 8 PM you would start drinking the Miralax mixture and at 9 PM you would take two more Dulcolax tablets. Any questions please call [phone] or [phone] and ask for the general surgery nurses. What is a colonoscopy? A colonoscopy is an outpatient procedure in which the inside of the large intestine (colon and rectum) is examined. A colonoscopy is commonly used to evaluate gastrointestinal symptoms, such as rectal and intestinal bleeding, abdominal pain, or change in bowel habits. Colonoscopies are also performed in individuals without symptoms to check for colorectal polyps or cancer. A screening colonoscopy is recommended for anyone 50 years of age or older, and for anyone with parents, siblings, or children with a history of colorectal cancer or polyps. What happens before a colonoscopy? To have a successful colonoscopy, your bowel must be empty so that your physician can clearly view the colon. To do this, it is very important to read and follow all of the instructions given to you at least 2 weeks BEFORE your exam. If your bowel is not empty, your colonoscopy will not be successful and may have to be repeated. If you feel nauseated or vomit while taking the bowel preparation, wait 30 minutes before drinking more fluid and start with small sips of solution. Some activity (such as walking) may help decrease the nausea you are feeling. If the nausea persist, please contact the office at [phone] and ask for the provider's office that scheduled your colonoscopy or nurse manager of operations at [phone]. You may experience skin irritation around the anus due to the passage of liquid stool. To prevent and treat skin irritation you should: Apply Vaseline or Desitin ointment to the skin around the anus before drinking the bowel preparation medications. These products can be purchased at any [employer]. Wipe the skin after each bowel movement with disposable wet wipes instead of toilet paper. These are found in the toilet paper area of the store. Sit in a bathtub filled with warm water for 10-15 minutes after you finish passing a stool; after soaking blot the skin dry with a soft cloth, apply Vaseline or Desitin ointment to the anal area, and place a cotton ball just outside your anus to absorb any leaking fluid. What happens during a Colonoscopy? During a colonoscopy, an experienced physician uses a colonoscope (a long, flexible instrument about inch in diameter) to view the lining of the colon, the colonscope is inserted into the rectum and advanced through the large intestine. If necessary during a colonoscopy, small amounts of tissue can be removed for analysis (biopsy) and polyps can be identifies and entirely removed. In many cases, a colonoscopy allows accurate diagnosis and treatment of colorectal problems without the need for a major operation. You are asked to wear a hospital gown and an IV will be started You are given a pain reliever and sedative intravenously (in your vein). You will feel relaxed and somewhat drowsy You will lie on your left side, with your knees drawn up towards your chest A small amount of air is used to expand the colon so the physicians can see the colon rivera. You may feel mild cramping during the procedure. Cramping can be reduced by taking slow, deep breaths. The colonoscope is slowly withdrawn while the lining of your bowel is carefully examined. The procedure last from approximately 30-60 min. What happens after a Colonoscopy? You will stay in a recovery room for observation until you are ready for discharge You may feel some cramping and/or a sensation of having gas, but this quickly passes If sedation has been given, a responsible family member or friend MUST drive you home. Avoid alcohol, driving and operating machinery for 24 hrs. following the procedure. Unless otherwise instructed, you may immediately return to your normal diet. We recommend you wait until the day after your procedure to resume normal activities. If Polyps were removed or a biopsy was taken, the physicians performing the colonoscopy will tell you when it is safe to resume taking your blood thinners. If a biopsy was taken or if a polyp was removed, you will notice a little amount of rectal bleeding for 1-2 days after the procedure. If you have a large amount of rectal bleeding, high or persistent fever, or severe abdominal pain within the next 2 weeks, please go to your local emergency room and call the physician who performed your exam. documented in this encounter [facility] 02-03-2025 Note HNO ID: [id number] Author: NADIA NAYLOR APRN.CNP Service: ? Author Type: Nurse Practitioner Type: Progress Notes Filed: 02/03/2025 16:26 Note Text: HISTORY AND PHYSICAL Xuan Michel Mary : 1945 REFERRING PHYSICIAN: Chata Shelton [address] [facility] [id number] CHIEF COMPLAINT: No chief complaint on file. HPI: Xuan is a 79 year old female referred for endoscopy. Xuan notes constipation and rectal bleeding. oLrene has had multiple ED visits recently d/t back pain. She has been given percocets and multiple IV narcotic doses in the ED. She has noted constipation requiring fleet enemas and suppositories which weren't working leading to miraLAX use. She had a BM and noticed bright red blood. CT lumbar spine 12/30/24 IMPRESSION: 1. No evidence of active hemorrhage. No abdominal aortic aneurysm or dissection. 2. Colonic diverticulosis without diverticulitis. 3. Fatty wall infiltration of the cecum, ascending colon, mid to proximal transverse colon which can relate to chronic inflammatory changes. 4. Additional findings as above Xuan denies abdominal pain.. Xuan denies diarrhea. Xuan notes recent history of constipation. -due to multiple doses of narcotics from back pain -has been using miraLAX daily with 1-2 bowel movements a day Xuan denies a change in bowel habits. Xuan denies melena. Xuan notes bright red blood per rectum. -when finally had BM after being constipated Xuan denies hemorrhoids. Xuan denies family history of colon issues. Xuan denies heartburn. Xuan denies dysphagia. Xuan denies a history of ulcers/ peptic ulcer disease. Xuan has undergone prior endoscopy. 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 Current Outpatient Medications Medication Sig rosuvastatin (CRESTOR) 20 mg tablet Take 1 tablet by mouth daily at bedtime. levothyroxine (SYNTHROID) 137 mcg tablet Take 1 tablet by mouth once daily. 5 days per week only. Do not take 2 days per week. FLUoxetine (PROZAC) 10 mg capsule Take 1 capsule by mouth once daily. diclofenac, EC, (VOLTAREN) 75 mg EC tablet TAKE 1 TABLET TWICE DAILY NEEDED FOR PAIN. DO NOT TAKE WITH ASPIRIN cholecalciferol, vitamin D3, (VITAMIN D3 ORAL) Take by mouth once daily. cyanocobalamin (VITAMIN B-12) 1,000 mcg tab Take 1 tablet by mouth once daily. ASPIRIN ORAL Take by mouth. Current Facility-Administered Medications Medication Dose Route Frequency cyanocobalamin 1,000 mcg injection 1,000 mcg INTRAMUSCULAR q 1 MONTH ALLERGIES: Acetaminophen-Codeine, Benedryl [Diphenhydramine], and Codeine PAST MEDICAL HISTORY Diagnosis Date Advance care planning 07/13/2022 Gregorio helps with medical decision making Ankle fracture left Constipation History of tobacco abuse Hypercholesteremia Hypothyroidism Panic attack Pulmonary nodules 04/20/[address] chest by 04/2015 Sciatica Spasm of back muscles after work injury in past Vitamin D deficiency 02/21/2014 PAST SURGICAL HISTORY Procedure Laterality Date APPENDECTOMY CHOLECYSTECTOMY 11/20/1992 gallstones COLONOSCOPY 11/20/1992 LUMPECTOMY/RADIOTHERAPY DIAG MAMM/A10 age 18 breast, left, benign FAMILY HISTORY Problem Relation Age of Onset other (diabetes mellitus [Other]) Mother Heart Failure Father other (diabetes mellitus [Other]) Brother other (diabetes mellitus [Other]) Brother other (other) Brother accident No Known Problems Maternal Grandmother No Known Problems Maternal Grandfather No Known Problems Paternal Grandmother No Known Problems Paternal Grandfather Social History Tobacco Use Smoking status: Former Current packs/day: 0.00 Types: Cigarettes Quit date: 11/20/1998 Years since quittin.2 Smokeless tobacco: Never Tobacco comments: quit smoking 15 years ago Substance Use Topics Alcohol use: No Drug use: No REVIEW OF SYMPTOMS: The review of systems data was entered by the nurse and reviewed by me SEE NURSING NOTE PHYSICAL EXAMINATION: General: The patient is 79 year old, female well nourished, well hydrated in no acute distress. The patient is oriented to time, place, and person. VITALS: Blood pressure 130/75, pulse 70, weight 99.8 kg (220 lb), SpO2 96%. Body mass index is 37.76 kg/m?. HEENT: Normal cephalic, ataumatic, pupils are equally round, sclera are anicteric, mucous membranes are moist, oropharynx is clear. Neck has no masses, asymmetry or lymphadenopathy. Respiratory: Clear to auscultation and percussion. Normal respiratory excursion and pattern. Cardiac: Examination is regular rate and rhythm. Normal S1/S2 Abdominal exam: Soft, nontender, with no palpable masses. No hepatosplenomegaly. No palpable hernias. Extremities: no clubbing, cyanosis or edema. No adenopathy. LABORATORY VALUES: As N (more content not included)... [facility] 02-03-2025 Note HNO ID: [id number] Author: ?, ?, ? Service: ? Author Type: LICENSED NURSE Type: Progress Notes Filed: 02/03/2025 14:28 Note Text: Patient presents for B-12 injection. Denies any problems at this time. Patient instructed on any SE of medication, verbalized understanding and agreed to proceed with treatment. Tolerated injection well. Cintia Rico LPN [facility] 02-03-2025 History of Present illness Narrative Patient presents for B-12 injection. Denies any problems at this time. Patient instructed on any SE of medication, verbalized understanding and agreed to proceed with treatment. Tolerated injection well. Cintia Rico LPN documented in this encounter [facility] 02-03-2025 Telephone encounter Note Medical records sent to scanned docs for EGD & path 2008 [facility]. [facility] 02-03-2025 Miscellaneous Notes Medical records sent to scanned docs for EGD & path 2008 [facility]. Faxed request to medical records. Josselin De Guzman LPN Called [facility] Medical Records. Their system goes back to 2013 and no records for colonoscopy was located. Hollie states she checked files and they have something was done in 2008 but will need to fax over request to ([phone]. Josselin De Guzman LPN Patient called. Verified name and date of . Patient reports last colonoscopy last at [facility] but states she was to have had it done in 2013 at [facility] but colonoscopy could not be done due to having difficulties keeping the liquid prep drink down. Josselin De Guzman LPN Called patient. No answer- left message to call clinic regarding consult appointment next week. Patient is scheduled to see Nadia Naylor APRN, CNP for consult colonoscopy. Where was last colonoscopy done in order to request records. ZURDO Salomon LPN documented in this encounter [facility] 01-31-2025 Telephone encounter Note Faxed request to medical records. Josselin De Guzman LPN [facility] 01-31-2025 Telephone encounter Note Called [facility] Medical Records. Their system goes back to 2013 and no records for colonoscopy was located. Hollie states she checked files and they have something was done in 2008 but will need to fax over request to ([phone]. Josselin De Guzman LPN [facility] 01-31-2025 Telephone encounter Note Patient called. Verified name and date of . Patient reports last colonoscopy last at [facility] but states she was to have had it done in 2013 at [facility] but colonoscopy could not be done due to having difficulties keeping the liquid prep drink down. Josselin De Guzman LPN [facility] 01-31-2025 Telephone encounter Note Called patient. No answer- left message to call clinic regarding consult appointment next week. Patient is scheduled to see Nadia Naylor APRN, CNP for consult colonoscopy. Where was last colonoscopy done in order to request records. ZURDO Salomon LPN [facility] 01-30-2025 Telephone encounter Note Patient was seen at [facility] emergency room on December 19, 2024 for back pain, anxiety, hypothyroidism, hypertension, hyperlipidemia who presented with low back pain. Started 3 days ago when she was getting out of her car and slipped on the ice landing on her left buttock. She was able to get up and drove to her house. Over 24 hours she is having a lot more pain radiating down her right leg. Having trouble get to the bathroom because she knows she is trying to get there slowly ends up urinating on herself. CT of the lumbar spine done December 19, 2024 showed multilevel spondylosis. She was discharged home on Percocet and Zofran. Patient was given IV morphine and Norflex. Patient was seen in the emergency room at [facility] on December 26, 2024 for back pain. Dull and throbbing severe in nature. Negative for paresthesia, weakness, loss of function, inability to ambulate, or lost of consciousness. She was treated with Percocet for 5 days. X-ray of the lumbar spine revealed degenerative changes with no evidence of compression fracture, spondylolisthesis, or spondylosis. There is no dilatation of the aorta. Patient was seen evaluated in the emergency room December 30, 2024 for back pain. She was having sciatic pain right-sided for the past few weeks. This is her third visit to the emergency room. Had a CT scan and then an x-ray. Told sciatica was put on Percocet That helped her symptoms. She missed her doctor's appointment. Not not scheduled until March Yesterday noted bright red blood in the stool and PCP sent to the emergency room. She is on low-dose aspirin but no other anticoagulants. No colonoscopies in the past. Feels pain deep in her abdomen. Not taking any nonsteroidals. No cauda equina CT of the abdomen and pelvis showed no acute process. Hemoglobin 14.3, white count 6.4, creatinine 0.94. WBC 6.4, hemoglobin 14.3, hematocrit 43, platelet count 219 Differential was normal except for eosinophils slightly elevated Sodium 141, potassium 3.4, BUN 12, creatinine 0.94, glucose 98 GFR 62 Urinalysis showed leukocytes, negative nitrates CT no evidence of acute hemorrhage. No abdominal aortic aneurysm or dissection. Colonic diverticulosis without diverticulitis Fatty wall infiltrated cecum, ascending colon, mid to proximal transverse colon which can relate to chronic inflammatory changes. Patient was again sent home on oxycodone every 6 hours 12 tablets Gabapentin 300 mg at bedtime. [facility] Work Phone: 01-30-2025 Miscellaneous Notes Patient was seen at [facility] emergency room on December 19, 2024 for back pain, anxiety, hypothyroidism, hypertension, hyperlipidemia who presented with low back pain. Started 3 days ago when she was getting out of her car and slipped on the ice landing on her left buttock. She was able to get up and drove to her house. Over 24 hours she is having a lot more pain radiating down her right leg. Having trouble get to the bathroom because she knows she is trying to get there slowly ends up urinating on herself. CT of the lumbar spine done December 19, 2024 showed multilevel spondylosis. She was discharged home on Percocet and Zofran. Patient was given IV morphine and Norflex. Patient was seen in the emergency room at [facility] on December 26, 2024 for back pain. Dull and throbbing severe in nature. Negative for paresthesia, weakness, loss of function, inability to ambulate, or lost of consciousness. She was treated with Percocet for 5 days. X-ray of the lumbar spine revealed degenerative changes with no evidence of compression fracture, spondylolisthesis, or spondylosis. There is no dilatation of the aorta. Patient was seen evaluated in the emergency room December 30, 2024 for back pain. She was having sciatic pain right-sided for the past few weeks. This is her third visit to the emergency room. Had a CT scan and then an x-ray. Told sciatica was put on Percocet That helped her symptoms. She missed her doctor's appointment. Not not scheduled until March Yesterday noted bright red blood in the stool and PCP sent to the emergency room. She is on low-dose aspirin but no other anticoagulants. No colonoscopies in the past. Feels pain deep in her abdomen. Not taking any nonsteroidals. No cauda equina CT of the abdomen and pelvis showed no acute process. Hemoglobin 14.3, white count 6.4, creatinine 0.94. WBC 6.4, hemoglobin 14.3, hematocrit 43, platelet count 219 Differential was normal except for eosinophils slightly elevated Sodium 141, potassium 3.4, BUN 12, creatinine 0.94, glucose 98 GFR 62 Urinalysis showed leukocytes, negative nitrates CT no evidence of acute hemorrhage. No abdominal aortic aneurysm or dissection. Colonic diverticulosis without diverticulitis Fatty wall infiltrated cecum, ascending colon, mid to proximal transverse colon which can relate to chronic inflammatory changes. Patient was again sent home on oxycodone every 6 hours 12 tablets Gabapentin 300 mg at bedtime. documented in this encounter [facility] 01-30-2025 Instructions Chata Shelton APRN.CNP - 01/30/2025 4:18 PM EDT - Check urine POC - Consult GEN SURGERY for colonoscopy - See Dr. Zapien in April as scheduled documented in this encounter [facility] 01-30-2025 Note HNO ID: [id number] Author: CHATA SHELTON APRN.CNP Service: ? Author Type: Nurse Practitioner Type: Progress Notes Filed: 01/30/2025 17:28 Note Text: This is a 79 year old female who presents today with: No chief complaint on file. HISTORY OF PRESENT ILLNESS: Xuan Hernandez is a 79 year old female. Treated for low back pain in ER with morphine and muscle relaxants twice. Developed severe constipation- gave herself FLEETS suppositories and enemas. Then went on Miralax. Bowels started moving but had bright red blood in stool for several BMs Also had some burning with urination- no further urinary Sx They told her she needs a C scope d/t inflammation in bowels PAST MEDICAL HISTORY: PAST MEDICAL HISTORY Diagnosis Date Advance care planning 07/13/2022 Gregorio helps with medical decision making Ankle fracture left History of tobacco abuse Hypercholesteremia Hypothyroidism Panic attack Pulmonary nodules 04/20/[address] chest by 04/2015 Spasm of back muscles after work injury in past Vitamin D deficiency 02/21/2014 PAST SURGICAL HISTORY Procedure Laterality Date CHOLECYSTECTOMY 1992 gallstones COLONOSCOPY 1992 LUMPECTOMY/RADIOTHERAPY DIAG MAMM/A10 age 18 breast, left, benign ALLERGIES Acetaminophen-Codeine, Benedryl [Diphenhydramine], and Codeine MEDICATIONS Current Outpatient Medications Medication Sig gabapentin (NEURONTIN) 300 mg capsule Take 1 capsule by mouth three times a day for 90 days. rosuvastatin (CRESTOR) 20 mg tablet Take 1 tablet by mouth daily at bedtime. levothyroxine (SYNTHROID) 137 mcg tablet Take 1 tablet by mouth once daily. 5 days per week only. Do not take 2 days per week. FLUoxetine (PROZAC) 10 mg capsule Take 1 capsule by mouth once daily. diclofenac, EC, (VOLTAREN) 75 mg EC tablet TAKE 1 TABLET TWICE DAILY NEEDED FOR PAIN. DO NOT TAKE WITH ASPIRIN cholecalciferol, vitamin D3, (VITAMIN D3 ORAL) Take by mouth once daily. cyanocobalamin (VITAMIN B-12) 1,000 mcg tab Take 1 tablet by mouth once daily. cyanocobalamin 1,000 mcg/mL Inject 1 mL intramuscularly once every month. ASPIRIN ORAL Take by mouth. levothyroxine (SYNTHROID) 137 mcg tablet Take 1 tablet by mouth once daily. except one day during the week. For a total of 6 per week. Current Facility-Administered Medications Medication Dose Route Frequency cyanocobalamin 1,000 mcg injection 1,000 mcg INTRAMUSCULAR q 1 MONTH FAMILY HISTORY Problem Relation Age of Onset other (diabetes mellitus [Other]) Mother other (diabetes mellitus [Other]) Brother other (diabetes mellitus [Other]) Brother Social History Tobacco Use Smoking status: Former Current packs/day: 0.00 Types: Cigarettes Quit date: 11/20/1998 Years since quittin.2 Smokeless tobacco: Never Tobacco comments: quit smoking 15 years ago Substance Use Topics Alcohol use: No Drug use: No REVIEW OF SYSTEMS Review of Systems Constitutional: Positive for diaphoresis. Negative for appetite change, chills and unexpected weight change. Respiratory: Negative for chest tightness, shortness of breath and wheezing. Cardiovascular: Negative for chest pain, palpitations and leg swelling. Gastrointestinal: Positive for abdominal pain, anal bleeding, constipation and nausea. Genitourinary: Positive for dysuria. Musculoskeletal: Positive for back pain. Low back pain is chronic but severe flare improved Bowel and bladder Sx resolved EXAM: BP 112/68 Pulse 66 Temp 36.3 ?C (97.4 ?F) (Right Tympanic) Wt 99.4 kg (219 lb 2.2 oz) SpO2 97% BMI 37.61 kg/m? PHYSICAL EXAM: Physical Exam Vitals reviewed. Constitutional: Appearance: Normal appearance. Cardiovascular: Rate and Rhythm: Normal rate and regular rhythm. Pulses: Normal pulses. Heart sounds: Normal heart sounds. Pulmonary: Effort: Pulmonary effort is normal. Breath sounds: Normal breath sounds. Abdominal: General: Bowel sounds are normal. Palpations: Abdomen is soft. Tenderness: There is no abdominal tenderness. There is no guarding or rebound. Musculoskeletal: General: Normal range of motion. Comments: Moves all ext. Without difficulty, walks w/o assistive device Skin: General: Skin is warm and dry. Neurological: Mental Status: She is alert and oriented to person, place, and time. Psychiatric: Mood and Affect: Mood normal. Behavior: Behavior normal. LABS: ASSESSMENT/PLAN: 1. Urinary frequency - ICD9: 788.41, ICD10: R35.0 (primary diagnosis) acute - Patient education for prevention given - UA DIP, URINE (POC) trace of lysed blood, trace of protein, negative leukocytes and nitrates. 2. Constipation, unspecified constipation type - ICD9: 564.00, ICD10: K59.00 Acute likely related to 3 doses of morphine - Improved 3. Rectal bleeding - ICD9: 569.3, ICD10: K62.5 Refer to GEN SURGERY for C scope Discussed treatment plan and patient voices understanding. Patient's qu (more content not included)... [facility] 01-30-2025 History of Present illness Narrative This is a 79 year old female who presents today with: No chief complaint on file. HISTORY OF PRESENT ILLNESS: Xuan Hernandez is a 79 year old female. Treated for low back pain in ER with morphine and muscle relaxants twice. Developed severe constipation- gave herself FLEETS suppositories and enemas. Then went on Miralax. Bowels started moving but had bright red blood in stool for several BMs Also had some burning with urination- no further urinary Sx They told her she needs a C scope d/t inflammation in bowels PAST MEDICAL HISTORY: PAST MEDICAL HISTORY Diagnosis Date Advance care planning 07/13/2022 Gregorio helps with medical decision making Ankle fracture left History of tobacco abuse Hypercholesteremia Hypothyroidism Panic attack Pulmonary nodules 04/20/[address] chest by 04/2015 Spasm of back muscles after work injury in past Vitamin D deficiency 02/21/2014 PAST SURGICAL HISTORY Procedure Laterality Date CHOLECYSTECTOMY 1992 gallstones COLONOSCOPY 1992 LUMPECTOMY/RADIOTHERAPY DIAG MAMM/A10 age 18 breast, left, benign ALLERGIES Acetaminophen-Codeine, Benedryl [Diphenhydramine], and Codeine MEDICATIONS Current Outpatient Medications Medication Sig gabapentin (NEURONTIN) 300 mg capsule Take 1 capsule by mouth three times a day for 90 days. rosuvastatin (CRESTOR) 20 mg tablet Take 1 tablet by mouth daily at bedtime. levothyroxine (SYNTHROID) 137 mcg tablet Take 1 tablet by mouth once daily. 5 days per week only. Do not take 2 days per week. FLUoxetine (PROZAC) 10 mg capsule Take 1 capsule by mouth once daily. diclofenac, EC, (VOLTAREN) 75 mg EC tablet TAKE 1 TABLET TWICE DAILY NEEDED FOR PAIN. DO NOT TAKE WITH ASPIRIN cholecalciferol, vitamin D3, (VITAMIN D3 ORAL) Take by mouth once daily. cyanocobalamin (VITAMIN B-12) 1,000 mcg tab Take 1 tablet by mouth once daily. cyanocobalamin 1,000 mcg/mL Inject 1 mL intramuscularly once every month. ASPIRIN ORAL Take by mouth. levothyroxine (SYNTHROID) 137 mcg tablet Take 1 tablet by mouth once daily. except one day during the week. For a total of 6 per week. Current Facility-Administered Medications Medication Dose Route Frequency cyanocobalamin 1,000 mcg injection 1,000 mcg INTRAMUSCULAR q 1 MONTH FAMILY HISTORY Problem Relation Age of Onset other (diabetes mellitus [Other]) Mother other (diabetes mellitus [Other]) Brother other (diabetes mellitus [Other]) Brother Social History Tobacco Use Smoking status: Former Current packs/day: 0.00 Types: Cigarettes Quit date: 11/20/1998 Years since quittin.2 Smokeless tobacco: Never Tobacco comments: quit smoking 15 years ago Substance Use Topics Alcohol use: No Drug use: No REVIEW OF SYSTEMS Review of Systems Constitutional: Positive for diaphoresis. Negative for appetite change, chills and unexpected weight change. Respiratory: Negative for chest tightness, shortness of breath and wheezing. Cardiovascular: Negative for chest pain, palpitations and leg swelling. Gastrointestinal: Positive for abdominal pain, anal bleeding, constipation and nausea. Genitourinary: Positive for dysuria. Musculoskeletal: Positive for back pain. Low back pain is chronic but severe flare improved Bowel and bladder Sx resolved EXAM: BP 112/68 Pulse 66 Temp 36.3 C (97.4 F) (Right Tympanic) Wt 99.4 kg (219 lb 2.2 oz) SpO2 97% BMI 37.61 kg/m PHYSICAL EXAM: Physical Exam Vitals reviewed. Constitutional: Appearance: Normal appearance. Cardiovascular: Rate and Rhythm: Normal rate and regular rhythm. Pulses: Normal pulses. Heart sounds: Normal heart sounds. Pulmonary: Effort: Pulmonary effort is normal. Breath sounds: Normal breath sounds. Abdominal: General: Bowel sounds are normal. Palpations: Abdomen is soft. Tenderness: There is no abdominal tenderness. There is no guarding or rebound. Musculoskeletal: General: Normal range of motion. Comments: Moves all ext. Without difficulty, walks w/o assistive device Skin: General: Skin is warm and dry. Neurological: Mental Status: She is alert and oriented to person, place, and time. Psychiatric: Mood and Affect: Mood normal. Behavior: Behavior normal. LABS: ASSESSMENT/PLAN: 1. Urinary frequency - ICD9: 788.41, ICD10: R35.0 (primary diagnosis) acute - Patient education for prevention given - UA DIP, URINE (POC) trace of lysed blood, trace of protein, negative leukocytes and nitrates. 2. Constipation, unspecified constipation type - ICD9: 564.00, ICD10: K59.00 Acute likely related to 3 doses of morphine - Improved 3. Rectal bleeding - ICD9: 569.3, ICD10: K62.5 Refer to GEN SURGERY for C scope Discussed treatment plan and patient voices understanding. Patient's questions answered appropriately. Medications and potential side effects were discussed and patient voices understanding. Return to the office as scheduled or as needed for worsening/no improvement. Chata Shelton APRN.CARDIAC NURSE SPECIALIST documented in this encounter [facility] 01-27-2025 Telephone encounter Note Patient calling with same symptoms of lower back pain. Patient requesting to review test and lab results; requesting to see provider sooner than scheduled date. Patient denies any new or worsening symptoms of which a provider is not aware:Yes . Transferred to [facility] at the appointment center for scheduling. GO TO THE EMERGENCY ROOM OR CALL 911 IF: * You develop any new symptoms * Your condition worsens * You are concerned or anxious about your condition for any other reason. If you have any questions, you can call Nurse datastage consultant back. Janessa Armendariz RN [facility] 01-27-2025 Miscellaneous Notes Patient calling with same symptoms of lower back pain. Patient requesting to review test and lab results; requesting to see provider sooner than scheduled date. Patient denies any new or worsening symptoms of which a provider is not aware:Yes . Transferred to [facility] at the appointment center for scheduling. GO TO THE EMERGENCY ROOM OR CALL 911 IF: * You develop any new symptoms * Your condition worsens * You are concerned or anxious about your condition for any other reason. If you have any questions, you can call Nurse datastage consultant back. Janessa Armendariz, MARK documented in this encounter [facility] 01-23-2025 Telephone encounter Note Patient already scheduled with GI. Order linked. Rachelle Olivares [facility] 01-23-2025 Miscellaneous Notes Patient already scheduled with GI. Order linked. Rachelle Olivares Consult order placed, please assist her to schedule. Darrell Rodriguez APRN.CNP Pt called and is notified of providers results and instructions. Pt voices understanding. Transferred to scheduled to set up appt with GI and for EGD and Colonoscopy. Sent GI order to Elham Perez [employer]. Pina Webster, MARK 1st attempt - left message. When patient calls, please scheduled EGD/Colonocopy consult and physical with PCP team as directed below. Rachelle Olivares Spoke with pt gave information provided. She voices understanding. Please assist in scheduling gi and physical. I agree with below. I strongly recommend GI consult (as also recommend by ER) d/t CT scan likely showing chronic inflammatory changes within bowel --- this needs evaluated with colonoscopy/endoscopies which she has never had done in the past. Next step with back pain would be physical therapy or ortho consult if no improvement with current interventions. Thank you, Elham Perez APRN.DEVIN Patient calls to speak directly to Elham with questions in regards to her imaging completed at [facility]. Reviewed OV notes from 01/13/2025 which reviewed findings. Patient still not understanding why she continues to have such pain to her back. She also discusses bowel problems. Patient reports the gabapentin is not helping her back pain and today is the last day of prednisone and she doesn't feel that has helped either. Patient then goes on to discuss her bowel troubles but reports if she does Miralax every day and drinks fluids she has a bowel movement every day. Recommended patient continue Miralax, push fluids, and schedule GI consult as recommended. Patient doesn't recall that as being recommended. Patient is hard to follow as then she reports that the gabapentin does seem to help some and she just wants to make sure she is doing what Elham recommends. Patient asking provider to re-explain imaging from hospital, tell her what medications she recommends, and if she recommends the GI consult. Please review and advise, Caitlin Garcia RN documented in this encounter [facility] 01-23-2025 Telephone encounter Note Consult order placed, please assist her to schedule. Darrell Rodriguez APRN.DEVIN [facility] 01-23-2025 Telephone encounter Note Pt called and is notified of providers results and instructions. Pt voices understanding. Transferred to scheduled to set up appt with GI and for EGD and Colonoscopy. Sent GI order to Elham Perez NP. Pina Webster RN [facility] 01-23-2025 Telephone encounter Note 1st attempt - left message. When patient calls, please scheduled EGD/Colonocopy consult and physical with PCP team as directed below. Rachelle Olivares [facility] 01-22-2025 Telephone encounter Note Spoke with pt gave information provided. She voices understanding. Please assist in scheduling gi and physical. [facility] 01-22-2025 Telephone encounter Note I agree with below. I strongly recommend GI consult (as also recommend by ER) d/t CT scan likely showing chronic inflammatory changes within bowel --- this needs evaluated with colonoscopy/endoscopies which she has never had done in the past. Next step with back pain would be physical therapy or ortho consult if no improvement with current interventions. Thank you, Elham Perez APRN.CARDIAC NURSE SPECIALIST [facility] 01-22-2025 Telephone encounter Note Patient calls to speak directly to Elham with questions in regards to her imaging completed at [facility]. Reviewed [facility] notes from 01/13/2025 which reviewed findings. Patient still not understanding why she continues to have such pain to her back. She also discusses bowel problems. Patient reports the gabapentin is not helping her back pain and today is the last day of prednisone and she doesn't feel that has helped either. Patient then goes on to discuss her bowel troubles but reports if she does Miralax every day and drinks fluids she has a bowel movement every day. Recommended patient continue Miralax, push fluids, and schedule GI consult as recommended. Patient doesn't recall that as being recommended. Patient is hard to follow as then she reports that the gabapentin does seem to help some and she just wants to make sure she is doing what Elham recommends. Patient asking provider to re-explain imaging from hospital, tell her what medications she recommends, and if she recommends the GI consult. Please review and advise, Caitlin Garcia RN [facility] 01-13-2025 History of Present illness Narrative Chief Complaint Patient presents with: fell on ice hurt back sciatic bad. HPI Xuan Hernandez is a 79 year old female who presents here today for Above Complaints. Lorene is an established patient of Dr. Curry DO. Concerns today.... ER follow-up --- [facility] ER visit on 12/20, 12/26, and 12/30. 12/20-- fell on ice and c/o sciatica pain. CT lumbar spine showed multilevel spondylosis. Rx for percocet given. 12/26 -- back pain continues. Xray looking for delayed compression fracture was negative. 12/30 -- pt c/o BRB in stool and urine with some abd pain. Hgb was 14. Was told to hold ASA. CTA abd/pelvis was unremarkable besides fatty wall infiltration of cecum, ascending colon, and transverse colon. Likelyk chronic inflammatory changes. No prior endoscopies done so she was told to follow up with GI. Was also given rx for gabapentin d/t continue back pain as well. In office today.... Back pain -- Pt reports percocet did not help at all but gabapentin did help a great deal. Was taking 300 mg TID, but now only taking prn which is maybe once per day. Back pain is much improved but still painful. Able to wake and do daily activities now. Still unable to sleep in her bed d/t too soft. Sleeping in recliner or padding on the ground. Does not want any controlled substance medications -- she does not like how it makes her feel. No more blood in urine or stool besides the 1 episode that sent her to ER. Denies any abd pain or n/v/d/c. Past medical history, appointments, medications, allergies reviewed. Previous Medical History PAST MEDICAL HISTORY Diagnosis Date Advance care planning 07/13/2022 Gregorio helps with medical decision making Ankle fracture left History of tobacco abuse Hypercholesteremia Hypothyroidism Panic attack Pulmonary nodules 04/20/[address] chest by 04/2015 Spasm of back muscles after work injury in past Vitamin D deficiency 02/21/2014 Previous Surgical History PAST SURGICAL HISTORY Procedure Laterality Date CHOLECYSTECTOMY 1992 gallstones COLONOSCOPY 1992 LUMPECTOMY/RADIOTHERAPY DIAG MAMM/A10 age 18 breast, left, benign Family History FAMILY HISTORY Problem Relation Age of Onset other (diabetes mellitus [Other]) Mother other (diabetes mellitus [Other]) Brother other (diabetes mellitus [Other]) Brother Patient Allergies ALLERGIES Allergen Reactions Acetaminophen-Codei* GI Upset Benedryl [Diphenhyd* Other: See Comments blood pressure dropped Codeine Mental Status Change Seeing things Current Medications Current Outpatient Medications on File Prior to Visit Medication Sig rosuvastatin (CRESTOR) 20 mg tablet Take 1 tablet by mouth daily at bedtime. levothyroxine (SYNTHROID) 137 mcg tablet Take 1 tablet by mouth once daily. 5 days per week only. Do not take 2 days per week. FLUoxetine (PROZAC) 10 mg capsule Take 1 capsule by mouth once daily. diclofenac, EC, (VOLTAREN) 75 mg EC tablet TAKE 1 TABLET TWICE DAILY NEEDED FOR PAIN. DO NOT TAKE WITH ASPIRIN levothyroxine (SYNTHROID) 137 mcg tablet Take 1 tablet by mouth once daily. except one day during the week. For a total of 6 per week. cholecalciferol, vitamin D3, (VITAMIN D3 ORAL) Take by mouth once daily. cyanocobalamin (VITAMIN B-12) 1,000 mcg tab Take 1 tablet by mouth once daily. cyanocobalamin 1,000 mcg/mL Inject 1 mL intramuscularly once every month. ASPIRIN ORAL Take by mouth. Current Facility-Administered Medications on File Prior to Visit Medication cyanocobalamin 1,000 mcg injection Social History Social History Tobacco Use Smoking status: Former Current packs/day: 0.00 Types: Cigarettes Quit date: 11/20/1998 Years since quittin.1 Smokeless tobacco: Never Tobacco comments: quit smoking 15 years ago Substance Use Topics Alcohol use: No Drug use: No REVIEW OF SYSTEMS: as above Reviewed relevant PMHx, PSHx, Social Hx, current medications and allergies. Review of Symptoms REVIEW OF SYSTEMS See HPI. EXAM: BP 112/60 (BP Site: Left Arm, BP Position: Sitting, BP Cuff Size: Large Adult) Pulse 70 Resp 16 Wt 99.3 kg (219 lb) SpO2 94% BMI 37.59 kg/m General Appearance: Well appearing, alert, in no acute distress, well-hydrated, well nourished.. Skin: Skin color, texture, turgor normal, no suspicious rashes or lesions. Head: Normocephalic, no masses, lesions, tenderness or abnormalities. Back:no pain to palpation of vertebrae, good flexion and extension, good range of motion, no muscle tenderness, reflexes are 2+ and symmetric, motor and sensory appear to be normal Lungs: Lungs clear to auscultation. No wheezing, rhonchi, rales.. Heart: RRR without murmur, gallop, or rubs. No ectopy. Health Maintenance List Shingrix Vaccine(1 of 2) Never done Influenza Vaccine(1) due on 05/19/2025 Covid-19 Vaccine( season) due on 09/25/2025 RSV Vaccine(1 - 1-dose 75+ series) due on 01/13/2026 Depression Screening due on 02/27/2025 BP Controlled (<130/80) due on 09/25/2025 Serum Creatinine due on 12/05/2025 Annual PCP Team Chronic Disease Visit due on 01/13/2026 Diabetes Screening due on 12/05/2027 DTaP,Tdap,Td Vaccine(2 - Td or Tdap) due on 01/07/2029 Bone Density Screening Completed Hepatitis C Screening Completed Pneumococcal Vaccine: 50+ Completed Mammogram Screening Discontinued Colorectal Cancer Screening Discontinued Advance Directive Discussion Discontinued Data reviewed ASSESSMENT/PLAN: 1. Acute midline low back pain with right-sided sciatica - ICD9: 724.2, 724.3, ICD10: M54.41 Sciatica - Ice for localized tenderness - Warm moist heat for 20 min three times a day - Prednisone taper x 9 days. Continue with gabapentin 300 TID prn. RTO if symptoms do not improve. - GABAPENTIN 300 MG CAPSULE - PREDNISONE 10 MG TABLET 2. Blood in stool - ICD9: 578.1, ICD10: K92.1 X1 episode that resolved. If symptoms return, please RTO. RTO as needed. Prescription instructions reviewed with patient as applicable. Potential red flag symptoms discussed with the patient. Reviewed appropriate action plan to take if red flag symptoms occur. Patient agreeable to treatment plan. Elham Nicholas APRN.CNP [address] [place] [address] documented in this encounter [facility] 01-13-2025 Note HNO ID: [id number] Author: ELHAM PEREZ APRN.CNP Service: ? Author Type: Nurse Practitioner Type: Progress Notes Filed: 01/13/2025 14:09 Note Text: Chief Complaint Patient presents with: fell on ice hurt back sciatic bad. HPI Xuan Hernandez is a 79 year old female who presents here today for Above Complaints. Lorene is an established patient of Dr. Curry DO. Concerns today.... ER follow-up --- [facility] ER visit on 12/20, 12/26, and 12/30. 12/20-- fell on ice and c/o sciatica pain. CT lumbar spine showed multilevel spondylosis. Rx for percocet given. 12/26 -- back pain continues. Xray looking for delayed compression fracture was negative. 12/30 -- pt c/o BRB in stool and urine with some abd pain. Hgb was 14. Was told to hold ASA. CTA abd/pelvis was unremarkable besides fatty wall infiltration of cecum, ascending colon, and transverse colon. Likelyk chronic inflammatory changes. No prior endoscopies done so she was told to follow up with GI. Was also given rx for gabapentin d/t continue back pain as well. In office today.... Back pain -- Pt reports percocet did not help at all but gabapentin did help a great deal. Was taking 300 mg TID, but now only taking prn which is maybe once per day. Back pain is much improved but still painful. Able to wake and do daily activities now. Still unable to sleep in her bed d/t too soft. Sleeping in recliner or padding on the ground. Does not want any controlled substance medications -- she does not like how it makes her feel. No more blood in urine or stool besides the 1 episode that sent her to ER. Denies any abd pain or n/v/d/c. Past medical history, appointments, medications, allergies reviewed. Previous Medical History PAST MEDICAL HISTORY Diagnosis Date Advance care planning 07/13/2022 Gregorio helps with medical decision making Ankle fracture left History of tobacco abuse Hypercholesteremia Hypothyroidism Panic attack Pulmonary nodules 04/20/[address] chest by 04/2015 Spasm of back muscles after work injury in past Vitamin D deficiency 02/21/2014 Previous Surgical History PAST SURGICAL HISTORY Procedure Laterality Date CHOLECYSTECTOMY 1992 gallstones COLONOSCOPY 1992 LUMPECTOMY/RADIOTHERAPY DIAG MAMM/A10 age 18 breast, left, benign Family History FAMILY HISTORY Problem Relation Age of Onset other (diabetes mellitus [Other]) Mother other (diabetes mellitus [Other]) Brother other (diabetes mellitus [Other]) Brother Patient Allergies ALLERGIES Allergen Reactions Acetaminophen-Codei* GI Upset Benedryl [Diphenhyd* Other: See Comments blood pressure dropped Codeine Mental Status Change Seeing things Current Medications Current Outpatient Medications on File Prior to Visit Medication Sig rosuvastatin (CRESTOR) 20 mg tablet Take 1 tablet by mouth daily at bedtime. levothyroxine (SYNTHROID) 137 mcg tablet Take 1 tablet by mouth once daily. 5 days per week only. Do not take 2 days per week. FLUoxetine (PROZAC) 10 mg capsule Take 1 capsule by mouth once daily. diclofenac, EC, (VOLTAREN) 75 mg EC tablet TAKE 1 TABLET TWICE DAILY NEEDED FOR PAIN. DO NOT TAKE WITH ASPIRIN levothyroxine (SYNTHROID) 137 mcg tablet Take 1 tablet by mouth once daily. except one day during the week. For a total of 6 per week. cholecalciferol, vitamin D3, (VITAMIN D3 ORAL) Take by mouth once daily. cyanocobalamin (VITAMIN B-12) 1,000 mcg tab Take 1 tablet by mouth once daily. cyanocobalamin 1,000 mcg/mL Inject 1 mL intramuscularly once every month. ASPIRIN ORAL Take by mouth. Current Facility-Administered Medications on File Prior to Visit Medication cyanocobalamin 1,000 mcg injection Social History Social History Tobacco Use Smoking status: Former Current packs/day: 0.00 Types: Cigarettes Quit date: 11/20/1998 Years since quittin.1 Smokeless tobacco: Never Tobacco comments: quit smoking 15 years ago Substance Use Topics Alcohol use: No Drug use: No REVIEW OF SYSTEMS: as above Reviewed relevant PMHx, PSHx, Social Hx, current medications and allergies. Review of Symptoms REVIEW OF SYSTEMS See HPI. EXAM: BP 112/60 (BP Site: Left Arm, BP Position: Sitting, BP Cuff Size: Large Adult) Pulse 70 Resp 16 Wt 99.3 kg (219 lb) SpO2 94% BMI 37.59 kg/m? General Appearance: Well appearing, alert, in no acute distress, well-hydrated, well nourished.. Skin: Skin color, texture, turgor normal, no suspicious rashes or lesions. Head: Normocephalic, no masses, lesions, tenderness or abnormalities. Back:no pain to palpation of vertebrae, good flexion and extension, good range of motion, no muscle tenderness, reflexes are 2+ and symmetric, motor and sensory appear to be normal Lungs: Lungs clear to auscultation. No wheezing, rhonchi, rales.. Heart: RRR without murmur, gallop, or rubs. No ectopy. Health Maintenance List Shingrix Vaccine(1 of 2) Never done (more content not included)... [facility] 12-30-2024 Telephone encounter Note Protocol recommends go to the ER and have someone else drive you. Let Pt know to call squad if she isn't able to get someone else to drive her as her isn't able to drive right now. Pt will be going to [facility], was there on 12/19/24 and 12/26/24. Care plan reviewed with patient. Patient voices understanding. Advised patient that if symptoms get worse to call 911. Reason for Disposition Numbness (loss of sensation) in groin or rectal area Answer Assessment - Initial Assessment Questions 1. MECHANISM: Pt fell on running board getting out of car, and didn't have back pain until 2 days after fall. 2. ONSET: The injury happened 12/17/24 3. LOCATION: The lower back is injured. 4. SEVERITY: Pt cannot move the back normally. States she can move it front to back when getting up if she is careful. 5. PAIN: - NONE (0): No pain. - MILD (1-3): Doesn't interfere with normal activities. - MODERATE (4-7): Interferes with normal activities or awakens from sleep. - SEVERE (8-10): Excruciating pain, unable to do any normal activities. Pt states her pain is a 10/10 sharp and it is constant. States it feels like something is pinching. 6. SIZE: Pt denies cuts or bruises. Pt reports swelling to BLE from feet all the way up. She states it is pitting, red, hot, and painful to the touch. Pt reports swelling is worse at night. 7. TETANUS: Denies any breaks in the skin. 8. NEUROLOGIC SYMPTOMS: Pt reports weakness and numbness of bilateral lower legs. 9. OTHER SYMPTOMS: Pt reports abdomen pain when has to go to the bathroom, blood in urine about 3 days ago states it was bright red only once, 2 days ago states she had diarrhea with about 1 tablespoon of blood in it x1, nausea, decreased appetite, and feels faint when she gets up too fast. 10. : Postmenopausal. Protocols used: Back [id number] [facility] 12-30-2024 Miscellaneous Notes Protocol recommends go to the ER and have someone else drive you. Let Pt know to call squad if she isn't able to get someone else to drive her as her isn't able to drive right now. Pt will be going to [facility], was there on 12/19/24 and 12/26/24. Care plan reviewed with patient. Patient voices understanding. Advised patient that if symptoms get worse to call 911. Reason for Disposition Numbness (loss of sensation) in groin or rectal area Answer Assessment - Initial Assessment Questions 1. MECHANISM: Pt fell on running board getting out of car, and didn't have back pain until 2 days after fall. 2. ONSET: The injury happened 12/17/24 3. LOCATION: The lower back is injured. 4. SEVERITY: Pt cannot move the back normally. States she can move it front to back when getting up if she is careful. 5. PAIN: - NONE (0): No pain. - MILD (1-3): Doesn't interfere with normal activities. - MODERATE (4-7): Interferes with normal activities or awakens from sleep. - SEVERE (8-10): Excruciating pain, unable to do any normal activities. Pt states her pain is a 10/10 sharp and it is constant. States it feels like something is pinching. 6. SIZE: Pt denies cuts or bruises. Pt reports swelling to BLE from feet all the way up. She states it is pitting, red, hot, and painful to the touch. Pt reports swelling is worse at night. 7. TETANUS: Denies any breaks in the skin. 8. NEUROLOGIC SYMPTOMS: Pt reports weakness and numbness of bilateral lower legs. 9. OTHER SYMPTOMS: Pt reports abdomen pain when has to go to the bathroom, blood in urine about 3 days ago states it was bright red only once, 2 days ago states she had diarrhea with about 1 tablespoon of blood in it x1, nausea, decreased appetite, and feels faint when she gets up too fast. 10. : Postmenopausal. Protocols used: Back [id number] documented in this encounter [facility] 12-05-2024 Note HNO ID: [id number] Author: CINTIA RICO LPN Service: ? Author Type: LICENSED NURSE Type: Progress Notes Filed: 12/05/2024 13:34 Note Text: Patient presents for B-12 injection. Denies any problems at this time. Patient instructed on any SE of medication, verbalized understanding and agreed to proceed with treatment. Tolerated injection well. Cintia Rico LPN [facility] 12-05-2024 History of Present illness Narrative Patient presents for B-12 injection. Denies any problems at this time. Patient instructed on any SE of medication, verbalized understanding and agreed to proceed with treatment. Tolerated injection well. Cintia Rico LPN documented in this encounter [facility] 12-04-2024 Telephone encounter Note Patient notified. Teena Hagan RN [facility] 12-04-2024 Miscellaneous Notes Patient notified. Teena Hagan RN Orders for labs placed please notify her Rafal Zapien DO Patient has 3 month follow up appt with Dr. Zapien on 12/27/24. Patient asking if provider would place lab orders to have completed prior to this appt. Pt states she had some medication adjustments and it was her understanding that PCP wanted to recheck her B12, thyroid and kidneys again. Please advise. Teena Hagan RN documented in this encounter [facility] 12-04-2024 Telephone encounter Note Orders for labs placed please notify her Rafal Zapien DO [facility] 12-04-2024 Telephone encounter Note Patient has 3 month follow up appt with Dr. Zapien on 12/27/24. Patient asking if provider would place lab orders to have completed prior to this appt. Pt states she had some medication adjustments and it was her understanding that PCP wanted to recheck her B12, thyroid and kidneys again. Please advise. Teena Hagan RN [facility] 11-04-2024 Note HNO ID: [id number] Author: CINTIA RICO LPN Service: ? Author Type: LICENSED NURSE Type: Progress Notes Filed: 11/04/2024 13:58 Note Text: Patient presents for B-12 injection. Denies any problems at this time. Patient instructed on any SE of medication, verbalized understanding and agreed to proceed with treatment. Tolerated injection well. Cintia Rico LPN [facility] 11-04-2024 History of Present illness Narrative Patient presents for B-12 injection. Denies any problems at this time. Patient instructed on any SE of medication, verbalized understanding and agreed to proceed with treatment. Tolerated injection well. Cintia Rico LPN documented in this encounter [facility] 09-25-2024 Note HNO ID: [id number] Author: RAFAL ZAPIEN DO Service: ? Author Type: Physician Type: Progress Notes Filed: 09/25/2024 13:51 Note Text: CC: Xuan Hernandez is a 79 year old female who presents to the office to establish care. HPI: Left hip pain, was increased in severity in the past winter. Was struggling to walk due to the severity of the pain. This was occurring for 2 months. Started working on strengthening her hips with walking on the treadmill. Feels like her back pain and left hip pain are improving with the increased stretching and exercising Weight gain over the last few months, trying to work on this with increased exercise. Hypothyroidism, taking synthroid as prescribed TSH Date Value Ref Range Status 07/01/2024 0.240 (L) 0.270 - 4.200 mIU/L Final HPL, taking crestor without SE to medication PAST MEDICAL HISTORY Diagnosis Date Advance care planning 07/13/2022 Gregorio helps with medical decision making Ankle fracture left History of tobacco abuse Hypercholesteremia Hypothyroidism Panic attack Pulmonary nodules 04/20/[address] chest by 04/2015 Spasm of back muscles after work injury in past Vitamin D deficiency 02/21/2014 PAST SURGICAL HISTORY Procedure Laterality Date CHOLECYSTECTOMY 1992 gallstones COLONOSCOPY 1992 LUMPECTOMY/RADIOTHERAPY DIAG MAMM/A10 age 18 breast, left, benign Social History: Social History Tobacco Use Smoking status: Former Current packs/day: 0.00 Types: Cigarettes Quit date: 11/20/1998 Years since quittin.8 Smokeless tobacco: Never Tobacco comments: quit smoking 15 years ago Substance Use Topics Alcohol use: No Drug use: No FAMILY HISTORY Problem Relation Age of Onset other (diabetes mellitus [Other]) Mother other (diabetes mellitus [Other]) Brother other (diabetes mellitus [Other]) Brother Current Outpatient prescriptions: rosuvastatin (CRESTOR) 20 mg tabletTake 1 tablet by mouth daily at bedtime.Disp: 90 tabletRfl: 1 levothyroxine (SYNTHROID) 137 mcg tabletTake 1 tablet by mouth once daily. 5 days per week only. Do not take 2 days per week.Disp: 90 tabletRfl: 1 FLUoxetine (PROZAC) 10 mg capsuleTake 1 capsule by mouth once daily.Disp: 90 capsuleRfl: 1 diclofenac, EC, (VOLTAREN) 75 mg EC tabletTAKE 1 TABLET TWICE DAILY NEEDED FOR PAIN. DO NOT TAKE WITH ASPIRINDisp: 180 tabletRfl: 1 levothyroxine (SYNTHROID) 137 mcg tabletTake 1 tablet by mouth once daily. except one day during the week. For a total of 6 per week.Disp: 10 tabletRfl: 1 cholecalciferol, vitamin D3, (VITAMIN D3 ORAL)Take by mouth once daily.Disp: Rfl: cyanocobalamin (VITAMIN B-12) 1,000 mcg tabTake 1 tablet by mouth once daily.Disp: 90 tabletRfl: 3 cyanocobalamin 1,000 mcg/mLInject 1 mL intramuscularly once every month.Disp: 1 mLRfl: 12 ASPIRIN ORALTake by mouth.Disp: Rfl: Allergies: ALLERGIES Allergen Reactions Acetaminophen-Codei* GI Upset Benedryl [Diphenhyd* Other: See Comments blood pressure dropped ROS: See HPI PE: 09/25/24 1240 BP: 124/76 Pulse: 68 Resp: 20 Temp: 36.2 ?C (97.2 ?F) TempSrc: Temporal Weight: 97.8 kg (215 lb 9.8 oz) Gen: AANDO, NAD, non-toxic appearing, Pleasant, cooperative HEENT: NT/AC, PERRLA, EOMs intact b/l, nares clear and patent b/l, pharynx without erythema, exudate or lesions. MMM, Uvula midline. EACs without erythema or debris. TMs pearly kohler with intact landmarks b/l. Neck: supple, No cervical LAD, no thyromegaly, no carotid bruits CV: RRR, normal S1 and S2, no murmurs, no gallops, no rubs, Pulses 2+ and symmetric in UE and LE b/l Lungs: normal respiratory effort, CTA b/l, no wheezing or rhonchi or rales Abd: soft, NT, ND, +BS, no hepatosplenomegaly MS: reduced ROM lumbar spine and left hip Neuro: CN II-XII intact b/l, strength 5/5 b/l UE and LE, DTRs 2/4 UE and LE, sensation intact. No edema, normal pulses Skin: warm, dry, intact, No rashes or lesions on exposed skin. ASSESSMENT/PLAN: 1. Left hip pain - ICD9: 719.45, ICD10: M25.552 (primary diagnosis) Xrays as ordered Continue stretches and walking Pain seems to be improving. - XR HIP GENERAL 3V PELV/AP/LAT LEFT - XR LUMBAR GENERAL 3V AP/LAT/L5-S1 2. Vitamin B12 deficiency - ICD9: 266.2, ICD10: E53.8 Continue injections 3. RUDY (generalized anxiety disorder) - ICD9: 300.02, ICD10: F41.1 Stable, chronic 4. Acquired hypothyroidism - ICD9: 244.9, ICD10: E03.9 - Instructed patient on importance of taking on an empty stomach either first thing in the morning or at bedtime. 5. Hypercholesterolemia - ICD9: 272.0, ICD10: E78.00 Stable, continue statin therapy 6. Vitamin D deficiency - ICD9: 268.9, ICD10: E55.9 Continue vitamin d supplement 7. Chronic kidney disease, stage 3a (HCC) - ICD9: 585.3, ICD10: N18.31 - eGFR: 59 Stable - Counseled on avoiding NSAIDs, adequate hydration - Counseled on low sodium diet 8. Hypertensive heart disease with heart f (more content not included)... [facility] 09-25-2024 History of Present illness Narrative CC: Xuan Hernandez is a 79 year old female who presents to the office to establish care. HPI: Left hip pain, was increased in severity in the past winter. Was struggling to walk due to the severity of the pain. This was occurring for 2 months. Started working on strengthening her hips with walking on the treadmill. Feels like her back pain and left hip pain are improving with the increased stretching and exercising Weight gain over the last few months, trying to work on this with increased exercise. Hypothyroidism, taking synthroid as prescribed TSH Date Value Ref Range Status 07/01/2024 0.240 (L) 0.270 - 4.200 mIU/L Final HPL, taking crestor without SE to medication PAST MEDICAL HISTORY Diagnosis Date Advance care planning 07/13/2022 Gregorio helps with medical decision making Ankle fracture left History of tobacco abuse Hypercholesteremia Hypothyroidism Panic attack Pulmonary nodules 04/20/[address] chest by 04/2015 Spasm of back muscles after work injury in past Vitamin D deficiency 02/21/2014 PAST SURGICAL HISTORY Procedure Laterality Date CHOLECYSTECTOMY 1992 gallstones COLONOSCOPY 1992 LUMPECTOMY/RADIOTHERAPY DIAG MAMM/A10 age 18 breast, left, benign Social History: Social History Tobacco Use Smoking status: Former Current packs/day: 0.00 Types: Cigarettes Quit date: 11/20/1998 Years since quittin.8 Smokeless tobacco: Never Tobacco comments: quit smoking 15 years ago Substance Use Topics Alcohol use: No Drug use: No FAMILY HISTORY Problem Relation Age of Onset other (diabetes mellitus [Other]) Mother other (diabetes mellitus [Other]) Brother other (diabetes mellitus [Other]) Brother Current Outpatient prescriptions: rosuvastatin (CRESTOR) 20 mg tablet^Take 1 tablet by mouth daily at bedtime.^Disp: 90 tablet^Rfl: 1 levothyroxine (SYNTHROID) 137 mcg tablet^Take 1 tablet by mouth once daily. 5 days per week only. Do not take 2 days per week.^Disp: 90 tablet^Rfl: 1 FLUoxetine (PROZAC) 10 mg capsule^Take 1 capsule by mouth once daily.^Disp: 90 capsule^Rfl: 1 diclofenac, EC, (VOLTAREN) 75 mg EC tablet^TAKE 1 TABLET TWICE DAILY NEEDED FOR PAIN. DO NOT TAKE WITH ASPIRIN^Disp: 180 tablet^Rfl: 1 levothyroxine (SYNTHROID) 137 mcg tablet^Take 1 tablet by mouth once daily. except one day during the week. For a total of 6 per week.^Disp: 10 tablet^Rfl: 1 cholecalciferol, vitamin D3, (VITAMIN D3 ORAL)^Take by mouth once daily.^Disp: ^Rfl: cyanocobalamin (VITAMIN B-12) 1,000 mcg tab^Take 1 tablet by mouth once daily.^Disp: 90 tablet^Rfl: 3 cyanocobalamin 1,000 mcg/mL^Inject 1 mL intramuscularly once every month.^Disp: 1 mL^Rfl: 12 ASPIRIN ORAL^Take by mouth.^Disp: ^Rfl: Allergies: ALLERGIES Allergen Reactions Acetaminophen-Codei* GI Upset Benedryl [Diphenhyd* Other: See Comments blood pressure dropped ROS: See HPI PE: 09/25/24 1240 BP: 124/76 Pulse: 68 Resp: 20 Temp: 36.2 C (97.2 F) TempSrc: Temporal Weight: 97.8 kg (215 lb 9.8 oz) Gen: A&O, NAD, non-toxic appearing, Pleasant, cooperative HEENT: NT/AC, PERRLA, EOMs intact b/l, nares clear and patent b/l, pharynx without erythema, exudate or lesions. MMM, Uvula midline. EACs without erythema or debris. TMs pearly kohler with intact landmarks b/l. Neck: supple, No cervical LAD, no thyromegaly, no carotid bruits CV: RRR, normal S1 and S2, no murmurs, no gallops, no rubs, Pulses 2+ and symmetric in UE and LE b/l Lungs: normal respiratory effort, CTA b/l, no wheezing or rhonchi or rales Abd: soft, NT, ND, +BS, no hepatosplenomegaly MS: reduced ROM lumbar spine and left hip Neuro: CN II-XII intact b/l, strength 5/5 b/l UE and LE, DTRs 2/4 UE and LE, sensation intact. No edema, normal pulses Skin: warm, dry, intact, No rashes or lesions on exposed skin. ASSESSMENT/PLAN: 1. Left hip pain - ICD9: 719.45, ICD10: M25.552 (primary diagnosis) Xrays as ordered Continue stretches and walking Pain seems to be improving. - XR HIP GENERAL 3V PELV/AP/LAT LEFT - XR LUMBAR GENERAL 3V AP/LAT/L5-S1 2. Vitamin B12 deficiency - ICD9: 266.2, ICD10: E53.8 Continue injections 3. RUDY (generalized anxiety disorder) - ICD9: 300.02, ICD10: F41.1 Stable, chronic 4. Acquired hypothyroidism - ICD9: 244.9, ICD10: E03.9 - Instructed patient on importance of taking on an empty stomach either first thing in the morning or at bedtime. 5. Hypercholesterolemia - ICD9: 272.0, ICD10: E78.00 Stable, continue statin therapy 6. Vitamin D deficiency - ICD9: 268.9, ICD10: E55.9 Continue vitamin d supplement 7. Chronic kidney disease, stage 3a (HCC) - ICD9: 585.3, ICD10: N18.31 - eGFR: 59 Stable - Counseled on avoiding NSAIDs, adequate hydration - Counseled on low sodium diet 8. Hypertensive heart disease with heart failure (HCC) - ICD9: 402.91, 428.9, ICD10: I11.0 - Controlled - Continue current medications - Recommend home blood pressure monitoring, to bring results to next visit - Encouraged sodium restriction, DASH or Mediterranean diet - Recommend regular aerobic exercise - stable - Continue current medications 9. 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) - ICD9: 331.9, ICD10: G31.9 stable 10. Class 2 obesity with body mass index (BMI) of 38.0 to 38.9 in adult, unspecified obesity type, unspecified whether serious comorbidity present - ICD9: 278.00, V85.38, ICD10: E66.812, Z68.38 Stable - Behavioral intervention and - Eat well program Rafal Zapien DO To ER if develops chest pain, shortness of breath, or severe worsening of symptoms. Discussed risks, benefits, alternatives, and potential side effects of medications. Patient expressed understanding and agreed with the plan. Rafal Zapien DO [address] [place] [address] documented in this encounter [facility] 09-03-2024 Note HNO ID: [id number] Author: CINTIA RICO LPN Service: ? Author Type: LICENSED NURSE Type: Progress Notes Filed: 09/03/2024 14:05 Note Text: Patient presents for B-12 injection. Denies any problems at this time. Patient instructed on any SE of medication, verbalized understanding and agreed to proceed with treatment. Tolerated injection well. Cintia Rico LPN [facility] 09-03-2024 History of Present illness Narrative Patient presents for B-12 injection. Denies any problems at this time. Patient instructed on any SE of medication, verbalized understanding and agreed to proceed with treatment. Tolerated injection well. Cintia Rico LPN documented in this encounter [facility] 08-28-2024 Telephone encounter Note Patient notified and voiced her understanding. [facility] 08-28-2024 Miscellaneous Notes Patient notified and voiced her understanding. TC patient, left message for patient to call back and speak with a triage nurse regarding prescription sent to pharmacy and labs being placed. Rachelle Sanders RN The following approved medication requests have been transmitted electronically. Requested Prescriptions Signed Prescriptions Disp Refills diazePAM (VALIUM) 10 mg tablet 180 tablet 1 Sig: TAKE 1 TABLET EVERY 12 HOURS NEEDED FOR ANXIETY Authorizing Provider: RAFAL ZAPIEN DO Labs ordered Please inform patient Rafal Zapien DO Patient calling and asking about refill and about labs to be ordered prior to appointment on 09/25/2024. The patient has been identified by name and date of : Yes Caregiver verified no other encounters exist for this prescription request: Yes Caregiver confirmed with patient/requestor that no other refills are due, in the near future, with this provider at this time: Yes The last office visit in the department: 02/28/2024 Does the patient have a future office visit with this provider/department: Yes 09/03/2024 Requested Prescriptions Pending Prescriptions Disp Refills diazePAM (VALIUM) 10 mg tablet 180 tablet 1 Sig: TAKE 1 TABLET EVERY 12 HOURS NEEDED FOR ANXIETY Rachelle Sanders RN August 27, 2024 3:38 PM documented in this encounter [facility] 08-28-2024 Telephone encounter Note TC patient, left message for patient to call back and speak with a triage nurse regarding prescription sent to pharmacy and labs being placed. Rachelle Sanders RN [facility] 08-27-2024 Telephone encounter Note The following approved medication requests have been transmitted electronically. Requested Prescriptions Signed Prescriptions Disp Refills diazePAM (VALIUM) 10 mg tablet 180 tablet 1 Sig: TAKE 1 TABLET EVERY 12 HOURS NEEDED FOR ANXIETY Authorizing Provider: RAFAL ZAPIEN DO Labs ordered Please inform patient Rafal Zapien DO [facility] 08-27-2024 Telephone encounter Note Patient calling and asking about refill and about labs to be ordered prior to appointment on 09/25/2024. The patient has been identified by name and date of : Yes Caregiver verified no other encounters exist for this prescription request: Yes Caregiver confirmed with patient/requestor that no other refills are due, in the near future, with this provider at this time: Yes The last office visit in the department: 02/28/2024 Does the patient have a future office visit with this provider/department: Yes 09/03/2024 Requested Prescriptions Pending Prescriptions Disp Refills diazePAM (VALIUM) 10 mg tablet 180 tablet 1 Sig: TAKE 1 TABLET EVERY 12 HOURS NEEDED FOR ANXIETY Rachelle Sanders RN August 27, 2024 3:38 PM [facility] 08-05-2024 Telephone encounter Note Patient states that she has been arguing with her mail order pharmacy regarding refills needed. She knows that she has new/existing meds available for them to refill, and they are telling her that they do not have any current that they can fill. Requesting to have new scripts sent to pharmacy again at this time. Please review and advise. Cintia Rico LPN [facility] 08-05-2024 Miscellaneous Notes Patient states that she has been arguing with her mail order pharmacy regarding refills needed. She knows that she has new/existing meds available for them to refill, and they are telling her that they do not have any current that they can fill. Requesting to have new scripts sent to pharmacy again at this time. Please review and advise. Cintia Rico LPN documented in this encounter [facility] 08-05-2024 Note HNO ID: [id number] Author: CINTIA RICO LPN Service: ? Author Type: LICENSED NURSE Type: Progress Notes Filed: 08/05/2024 14:13 Note Text: Patient presents for B-12 injection. Denies any problems at this time. Patient instructed on any SE of medication, verbalized understanding and agreed to proceed with treatment. Tolerated injection well. Cintia Rico LPN [facility] 08-05-2024 History of Present illness Narrative Patient presents for B-12 injection. Denies any problems at this time. Patient instructed on any SE of medication, verbalized understanding and agreed to proceed with treatment. Tolerated injection well. Cintia Rico LPN documented in this encounter [facility] 07-18-2024 Telephone encounter Note Patient notified of results and provider's instructions. Patient verbalizes understanding. Rachelle Sanders RN [facility] 07-18-2024 Miscellaneous Notes Patient notified of results and provider's instructions. Patient verbalizes understanding. Rachelle Sanders RN Left message for patient to return call. Nikki Dixon MA Patient is on the correct antibiotic according to urine culture. Patient symptoms should be improving. If patient is not feeling any better patient needs to follow-up with primary care. documented in this encounter [facility] 07-17-2024 Telephone encounter Note Left message for patient to return call. Nikki Dixon MA [facility] 07-17-2024 Telephone encounter Note Patient is on the correct antibiotic according to urine culture. Patient symptoms should be improving. If patient is not feeling any better patient needs to follow-up with primary care. [facility] 07-15-2024 Note HNO ID: [id number] Author: TERI MAHMOOD APRN.CNP Service: ? Author Type: Nurse Practitioner Type: Progress Notes Filed: 07/15/2024 12:35 Note Text: CC: Patient presents with: Urinary Problem: Burning, pressure x 12 hrs HPI Xuan Hernandez is a 79 year old female who presents with complaint of possible UTI. These symptoms have been present for 1 days. Associated symptoms: burning and pressure Denies: hematuria, fever, chills, sweats, abdominal pain, and flank pain Treatments: nothing The ROS was otherwise negative. PMH, Medications, labs, allergies, and recent past visits with PCP were reviewed and updated as able. PHYSICAL EXAM: BP 138/80 Pulse 73 Temp 36 ?C (96.8 ?F) Resp 18 Wt 95.4 kg (210 lb 5.1 oz) SpO2 98% BMI 36.10 kg/m? General: Well appearing and alert CV: Regular rate and rhythm without obvious murmur Lungs: clear to auscultation bilaterally Back: straight and symmetric Abdomen: soft, nontender, nondistended PAST MEDICAL HISTORY 07/13/2022: Advance care planning Comment: Gregorio helps with medical decision making No date: Ankle fracture Comment: left No date: History of tobacco abuse No date: Hypercholesteremia No date: Hypothyroidism No date: Panic attack 04/20/2014: Pulmonary nodules Comment: needs repeat CT chest by 04/2015 No date: Spasm of back muscles Comment: after work injury in past 02/21/2014: Vitamin D deficiency PAST SURGICAL HISTORY 1993: CHOLECYSTECTOMY Comment: gallstones 1993: COLONOSCOPY age 18: LUMPECTOMY/RADIOTHERAPY DIAG MAMM/A10 Comment: breast, left, benign ALLERGIES Acetaminophen-Codeine and Benedryl [Diphenhydramine] MEDICATIONS levothyroxine (SYNTHROID) 137 mcg tabletTake 1 tablet by mouth once daily. 5 days per week only. Do not take 2 days per week.Disp: 90 tabletRfl: 1 diclofenac, EC, (VOLTAREN) 75 mg EC tabletTAKE 1 TABLET TWICE DAILY NEEDED FOR PAIN. DO NOT TAKE WITH ASPIRINDisp: 180 tabletRfl: 1 FLUoxetine (PROZAC) 10 mg capsuleTake 1 capsule by mouth once daily.Disp: 90 capsuleRfl: 1 levothyroxine (SYNTHROID) 137 mcg tabletTake 1 tablet by mouth once daily. except one day during the week. For a total of 6 per week.Disp: 10 tabletRfl: 1 rosuvastatin (CRESTOR) 20 mg tabletTake 1 tablet by mouth daily at bedtime.Disp: 90 tabletRfl: 3 cholecalciferol, vitamin D3, (VITAMIN D3 ORAL)Take by mouth once daily.Disp: Rfl: cyanocobalamin (VITAMIN B-12) 1,000 mcg tabTake 1 tablet by mouth once daily.Disp: 90 tabletRfl: 3 cyanocobalamin 1,000 mcg/mLInject 1 mL intramuscularly once every month.Disp: 1 mLRfl: 12 ASPIRIN ORALTake by mouth.Disp: Rfl: FAMILY HISTORY Problem Relation Age of Onset other (diabetes mellitus [Other]) Mother other (diabetes mellitus [Other]) Brother other (diabetes mellitus [Other]) Brother Social History Tobacco Use Smoking status: Former Current packs/day: 0.00 Types: Cigarettes Quit date: 11/20/1998 Years since quittin.6 Smokeless tobacco: Never Tobacco comments: quit smoking 15 years ago Substance Use Topics Alcohol use: No Drug use: No ASSESSMENT/PLAN: 1. Burning with urination - ICD9: 788.1, ICD10: R30.0 - UA DIP, URINE (POC) - URINE CULTURE - NITROFURANTOIN MONOHYDRATE AND MACROCRYSTAL 100 MG ORAL CAP Did Notify patient that we would change antibiotic if culture requires. Prescription instructions reviewed with patient as applicable. Potential red flag symptoms discussed with the patient. Reviewed appropriate action plan to take if red flag symptoms occur. Patient agreeable to treatment plan. Teri Mahmood APRN.[facility] 07-15-2024 History of Present illness Narrative CC: Patient presents with: Urinary Problem: Burning, pressure x 12 hrs HPI Xuan Hernandez is a 79 year old female who presents with complaint of possible UTI. These symptoms have been present for 1 days. Associated symptoms: burning and pressure Denies: hematuria, fever, chills, sweats, abdominal pain, and flank pain Treatments: nothing The ROS was otherwise negative. PMH, Medications, labs, allergies, and recent past visits with PCP were reviewed and updated as able. PHYSICAL EXAM: BP 138/80 Pulse 73 Temp 36 C (96.8 F) Resp 18 Wt 95.4 kg (210 lb 5.1 oz) SpO2 98% BMI 36.10 kg/m General: Well appearing and alert CV: Regular rate and rhythm without obvious murmur Lungs: clear to auscultation bilaterally Back: straight and symmetric Abdomen: soft, nontender, nondistended PAST MEDICAL HISTORY 07/13/2022: Advance care planning Comment: Gregorio helps with medical decision making No date: Ankle fracture Comment: left No date: History of tobacco abuse No date: Hypercholesteremia No date: Hypothyroidism No date: Panic attack 04/20/2014: Pulmonary nodules Comment: needs repeat CT chest by 04/2015 No date: Spasm of back muscles Comment: after work injury in past 02/21/2014: Vitamin D deficiency PAST SURGICAL HISTORY 1992: CHOLECYSTECTOMY Comment: gallstones 1992: COLONOSCOPY age 18: LUMPECTOMY/RADIOTHERAPY DIAG MAMM/A10 Comment: breast, left, benign ALLERGIES Acetaminophen-Codeine and Benedryl [Diphenhydramine] MEDICATIONS levothyroxine (SYNTHROID) 137 mcg tablet^Take 1 tablet by mouth once daily. 5 days per week only. Do not take 2 days per week.^Disp: 90 tablet^Rfl: 1 diclofenac, EC, (VOLTAREN) 75 mg EC tablet^TAKE 1 TABLET TWICE DAILY NEEDED FOR PAIN. DO NOT TAKE WITH ASPIRIN^Disp: 180 tablet^Rfl: 1 FLUoxetine (PROZAC) 10 mg capsule^Take 1 capsule by mouth once daily.^Disp: 90 capsule^Rfl: 1 levothyroxine (SYNTHROID) 137 mcg tablet^Take 1 tablet by mouth once daily. except one day during the week. For a total of 6 per week.^Disp: 10 tablet^Rfl: 1 rosuvastatin (CRESTOR) 20 mg tablet^Take 1 tablet by mouth daily at bedtime.^Disp: 90 tablet^Rfl: 3 cholecalciferol, vitamin D3, (VITAMIN D3 ORAL)^Take by mouth once daily.^Disp: ^Rfl: cyanocobalamin (VITAMIN B-12) 1,000 mcg tab^Take 1 tablet by mouth once daily.^Disp: 90 tablet^Rfl: 3 cyanocobalamin 1,000 mcg/mL^Inject 1 mL intramuscularly once every month.^Disp: 1 mL^Rfl: 12 ASPIRIN ORAL^Take by mouth.^Disp: ^Rfl: FAMILY HISTORY Problem Relation Age of Onset other (diabetes mellitus [Other]) Mother other (diabetes mellitus [Other]) Brother other (diabetes mellitus [Other]) Brother Social History Tobacco Use Smoking status: Former Current packs/day: 0.00 Types: Cigarettes Quit date: 11/20/1998 Years since quittin.6 Smokeless tobacco: Never Tobacco comments: quit smoking 15 years ago Substance Use Topics Alcohol use: No Drug use: No ASSESSMENT/PLAN: 1. Burning with urination - ICD9: 788.1, ICD10: R30.0 - UA DIP, URINE (POC) - URINE CULTURE - NITROFURANTOIN MONOHYDRATE & MACROCRYSTAL 100 MG ORAL CAP Did Notify patient that we would change antibiotic if culture requires. Prescription instructions reviewed with patient as applicable. Potential red flag symptoms discussed with the patient. Reviewed appropriate action plan to take if red flag symptoms occur. Patient agreeable to treatment plan. Teri Mahmood APRN.DEVIN documented in this encounter [facility] 06-04-2024 Telephone encounter Note Sent patient letter to contact office for provider message Mery Bowers MA [facility] 06-04-2024 Miscellaneous Notes Sent patient letter to contact office for provider message Mery Bowers MA Line busy will need to try back,. Message left for pt to call back. Karen Powell MA Left message to return call Mery Bowers MA Thyroid labs ordered to be completed in a month. The following approved medication requests have been transmitted electronically. Requested Prescriptions Signed Prescriptions Disp Refills levothyroxine (SYNTHROID) 137 mcg tablet 90 tablet 1 Sig: Take 1 tablet by mouth once daily. 5 days per week only. Do not take 2 days per week. Authorizing Provider: RAFAL ZAPIEN Ordering User: DARRELL RODRIGUEZ APRN.CARDIAC NURSE SPECIALIST Patient reports [facility] informed her there was a problem with her levothyroxine Rx. Patient reports she is taking levothyroxine 137 mcg 6 days per week. Advised patient per 02-05-24 encounter, on that date, Esthetician/Owner changed her instructions to read take 5 days per week. Patient reports noone told her this and she has been taking the levothyroxine 6 days per week, per pcp instruction Patient agreeable to start with the new instructions tomorrow- and states she will take 5 days per week, and not take on Tu & Thurs. Patient's next appt with pcp is scheduled for 07-03-24 and asking provider to order labs for this appt. Patient will need new Rx. This nurse phoned [facility] to find out what the problem was with patient's Rx. Pharmacy reports patient just needs a new Rx. It appears the new Rx was never sent, only updated. Patient reports she has 9 pills left. Please send pended Rx to [facility] pharmacy. Last ov with pcp: 02-28-24 Next ov with pcp: 07-03-24 documented in this encounter [facility] 06-03-2024 Telephone encounter Note Line busy will need to try back,. [facility] 06-03-2024 History of Present illness Narrative Patient presents for B-12 injection. Denies any problems at this time. Patient instructed on any SE of medication, verbalized understanding and agreed to proceed with treatment. Tolerated injection well. Cintia Rico LPN documented in this encounter [facility] 06-03-2024 Telephone encounter Note Message left for pt to call back. Karen Powell MA [facility] 05-29-2024 Telephone encounter Note Left message to return call Mery Bowers MA [facility] 05-29-2024 Telephone encounter Note Thyroid labs ordered to be completed in a month. The following approved medication requests have been transmitted electronically. Requested Prescriptions Signed Prescriptions Disp Refills levothyroxine (SYNTHROID) 137 mcg tablet 90 tablet 1 Sig: Take 1 tablet by mouth once daily. 5 days per week only. Do not take 2 days per week. Authorizing Provider: RAFAL ZAPIEN Ordering User: DARRELL RODRIGUEZ APRN.CARDIAC NURSE SPECIALIST [facility] 05-27-2024 Telephone encounter Note Patient reports [facility] informed her there was a problem with her levothyroxine Rx. Patient reports she is taking levothyroxine 137 mcg 6 days per week. Advised patient per 02-05-24 encounter, on that date, Esthetician/Owner changed her instructions to read take 5 days per week. Patient reports noone told her this and she has been taking the levothyroxine 6 days per week, per pcp instruction Patient agreeable to start with the new instructions tomorrow- and states she will take 5 days per week, and not take on & . Patient's next appt with pcp is scheduled for 07-03-24 and asking provider to order labs for this appt. Patient will need new Rx. This nurse phoned [facility] pharmacy to find out what the problem was with patient's Rx. Pharmacy reports patient just needs a new Rx. It appears the new Rx was never sent, only updated. Patient reports she has 9 pills left. Please send pended Rx to [facility]. Last ov with pcp: 02-28-24 Next ov with pcp: 07-03-24 T [facility] 05-09-2024 Telephone encounter Note The following approved medication requests have been transmitted electronically. Requested Prescriptions Signed Prescriptions Disp Refills diazePAM (VALIUM) 10 mg tablet 180 tablet 1 Sig: TAKE 1 TABLET EVERY 12 HOURS NEEDED FOR ANXIETY Authorizing Provider: DARRELL RODRIGUEZ APRN.CNP PDMP website checked and validated. All prescriptions have been APPROPRIATELY filled. No suspicious activity was identified. 05/09/2024 by Darrell Rodriguez CNP. T [facility] 05-09-2024 Miscellaneous Notes The following approved medication requests have been transmitted electronically. Requested Prescriptions Signed Prescriptions Disp Refills diazePAM (VALIUM) 10 mg tablet 180 tablet 1 Sig: TAKE 1 TABLET EVERY 12 HOURS NEEDED FOR ANXIETY Authorizing Provider: DARRELL RODRIGUEZ APRN.CNP PDMP website checked and validated. All prescriptions have been APPROPRIATELY filled. No suspicious activity was identified. 05/09/2024 by Darrell Rodriguez CNP. The patient has been identified by name and date of : Yes Caregiver verified no other encounters exist for this prescription request: Yes Caregiver confirmed with patient/requestor that no other refills are due, in the near future, with this provider at this time: Yes The last office visit in the department: 02/28/2024 Does the patient have a future office visit with this provider/department: Yes 06/03/2024 Requested Prescriptions Pending Prescriptions Disp Refills diazePAM (VALIUM) 10 mg tablet 180 tablet 1 Sig: TAKE 1 TABLET EVERY 12 HOURS NEEDED FOR ANXIETY Patient has 9 pills left picked up rx from [facility] yesterday Suki Donovan LPN May 08, 2024 2:56 PM documented in this encounter [facility] 05-08-2024 Telephone encounter Note The patient has been identified by name and date of : Yes Caregiver verified no other encounters exist for this prescription request: Yes Caregiver confirmed with patient/requestor that no other refills are due, in the near future, with this provider at this time: Yes The last office visit in the department: 02/28/2024 Does the patient have a future office visit with this provider/department: Yes 06/03/2024 Requested Prescriptions Pending Prescriptions Disp Refills diazePAM (VALIUM) 10 mg tablet 180 tablet 1 Sig: TAKE 1 TABLET EVERY 12 HOURS NEEDED FOR ANXIETY Patient has 9 pills left picked up rx from [facility] yesterday Suki Donovan LPN May 08, 2024 2:56 PM [facility] 05-02-2024 History of Present illness Narrative Patient presents for B-12 injection. Denies any problems at this time. Patient instructed on any SE of medication, verbalized understanding and agreed to proceed with treatment. Tolerated injection well. Cintia Rico LPN documented in this encounter [facility] 04-30-2024 Telephone encounter Note Patient scheduled for nurse visit 05/02/24 to receive B-[address]. [address] order at this time. Cintia Rico LPN [facility] 04-30-2024 Miscellaneous Notes Patient scheduled for nurse visit 05/02/24 to receive B-[address] order at this time. Cintia Rico LPN documented in this encounter [facility] 04-01-2024 History of Present illness Narrative Patient presents for B-12 injection. Denies any problems at this time. Patient instructed on any SE of medication, verbalized understanding and agreed to proceed with treatment. Tolerated injection well. Cintia Rico LPN documented in this encounter [facility] 02-28-2024 History of Present illness Narrative CC: Xuan Hernandez is a 78 year old female who presents to the office for follow up HPI: Mood, stable. Taking prozac, has good support from her , he is overall still very healthy at age 88. HPL, taking crestor 20 mg a day, tolerating well. No SE Hypothyroidism, taking 137 mcg 6 days a week of her levothyroxine. States that since this rx was changed, she has stable fatigue symptoms- has been out of the medication for 6 days Was struggling with weakness in Oct/Nov and diagnosed with UTI. And treated with antibiotic with improvement of symptoms. obesity, she has been working on cutting fina her calorie intake and has been more physically active with walking 15 minutes, 3 times each day, mostly after she eats a meal. She is drinking a protein shake daily as well. PAST MEDICAL HISTORY Diagnosis Date Advance care planning 07/13/2022 Gregorio helps with medical decision making Ankle fracture left History of tobacco abuse Hypercholesteremia Hypothyroidism Panic attack Pulmonary nodules 04/20/[address] chest by 04/2015 Spasm of back muscles after work injury in past Vitamin D deficiency 02/21/2014 PAST SURGICAL HISTORY Procedure Laterality Date CHOLECYSTECTOMY 1992 gallstones COLONOSCOPY 1992 LUMPECTOMY/RADIOTHERAPY DIAG MAMM/A10 age 18 breast, left, benign Current Outpatient Medications Medication Sig levothyroxine (SYNTHROID) 137 mcg tablet Take 1 tablet by mouth once daily. 5 days per week only. Do not take 2 days per week. levothyroxine (SYNTHROID) 137 mcg tablet Take 1 tablet by mouth once daily. except one day during the week. For a total of 6 per week. rosuvastatin (CRESTOR) 20 mg tablet Take 1 tablet by mouth daily at bedtime. cholecalciferol, vitamin D3, (VITAMIN D3 ORAL) Take by mouth once daily. cyanocobalamin (VITAMIN B-12) 1,000 mcg tab Take 1 tablet by mouth once daily. cyanocobalamin 1,000 mcg/mL Inject 1 mL intramuscularly once every month. ASPIRIN ORAL Take by mouth. diclofenac, EC, (VOLTAREN) 75 mg EC tablet TAKE 1 TABLET TWICE DAILY NEEDED FOR PAIN. DO NOT TAKE WITH ASPIRIN FLUoxetine (PROZAC) 10 mg capsule Take 1 capsule by mouth once daily. Current Facility-Administered Medications Medication Dose Route Frequency cyanocobalamin 1,000 mcg injection 1,000 mcg INTRAMUSCULAR q 1 MONTH ALLERGIES Allergen Reactions Acetaminophen-Codei* GI Upset Benedryl [Diphenhyd* Other: See Comments blood pressure dropped Social History Tobacco Use Smoking status: Former Types: Cigarettes Quit date: 11/20/1998 Years since quittin.2 Smokeless tobacco: Never Tobacco comments: quit smoking 15 years ago Substance Use Topics Alcohol use: No Drug use: No ROS: See HPI PE: BP 128/60 Pulse 60 Temp (Src) 97 (Left Tympanic) Resp 16 Wt 218 lb (98.9kg) Gen: A&O, NAD, non-toxic appearing, Pleasant, cooperative HEENT: NT/AC, PERRLA, EOMs intact b/l, nares clear and patent b/l, pharynx without erythema, exudate or lesions. MMM, Uvula midline. EACs without erythema or debris. TMs pearly kohler with intact landmarks b/l. Neck: supple, No cervical LAD, no thyromegaly, no carotid bruits CV: RRR, normal S1 and S2, no murmurs, no gallops, no rubs, Pulses 2+ and symmetric in UE and LE b/l Lungs: normal respiratory effort, CTA b/l, no wheezing or rhonchi or rales Abd: soft, overweight, NT, ND, +BS, no hepatosplenomegaly MS: arthritis changes in spine, knees, hips Neuro: CN II-XII intact b/l Normal gait Skin: warm, dry, intact, No rashes or lesions on exposed skin. No edema, normal pulses ASSESSMENT/PLAN: 1. Vitamin B12 deficiency - ICD9: 266.2, ICD10: E53.8 (primary diagnosis) Continue vitamin B12 injections. 2. Acquired hypothyroidism - ICD9: 244.9, ICD10: E03.9 - Instructed patient on importance of taking on an empty stomach either first thing in the morning or at bedtime. - continue current dose of Synthroid - DICLOFENAC SODIUM 75 MG TABLET,DELAYED RELEASE 3. RUDY (generalized anxiety disorder) - ICD9: 300.02, ICD10: F41.1 Stable, chronic, no concerns. - FLUOXETINE 10 MG CAPSULE 4. Hypertensive heart disease with heart failure (HCC) - ICD9: 402.91, 428.9, ICD10: I11.0 - Controlled - Continue current medications - Recommend home blood pressure monitoring, to bring results to next visit - Encouraged sodium restriction, DASH or Mediterranean diet - Recommend regular aerobic exercise - stable - Continue current medications - Encouraged sodium restriction - Recommend regular aerobic exercise 5. 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) - ICD9: 331.9, ICD10: G31.9 Stable, long standing 6. Chronic kidney disease, stage 3a (HCC) - ICD9: 585.3, ICD10: N18.31 - eGFR: 61 Stable - Counseled on avoiding NSAIDs, adequate hydration - Counseled on low sodium diet 7. Hypercholesterolemia - ICD9: 272.0, ICD10: E78.00 - Lengthy discussion in office today regarding diet and exercise. Discussed use of small plate to eat meals from, drink 1 glass of water 10-15 minutes prior to eating meal, drink 8 glasses of water daily, eat fresh fruit and vegetable during meal first then lean protein such as grilled/baked chicken breast or fish, limit carbohydrate intake (less pasta, breads, rice and snack foods) as well as limiting sugars (desserts etc). Important to count / track your calories and exercise as well. 8. Class 2 obesity with body mass index (BMI) of 38.0 to 38.9 in adult, unspecified obesity type, unspecified whether serious comorbidity present - ICD9: 278.00, V85.38, ICD10: E66.9, Z68.38 Weight decreasing - PSMF and - Eat well program Rafal Zapien DO Return if no improvement. Follow up with Rafal Zapien DO. To ER if develops chest pain, shortness of breath. Discussed risks, benefits, alternatives, and potential side effects of medications. Patient/Guardian expressed understanding and agreed with the plan. See patient instructions. Rafal Zapien DO [address] [place] [address] documented in this encounter [facility] 01-31-2024 History of Present illness Narrative Patient presents for B-12 injection. Denies any problems at this time. Patient instructed on any SE of medication, verbalized understanding and agreed to proceed with treatment. Tolerated injection well. Cintia Rico LPN documented in this encounter [facility] 10-31-2023 History of Present illness Narrative Patient presents for B-12 injection. Denies any problems at this time. Patient instructed on any SE of medication, verbalized understanding and agreed to proceed with treatment. Tolerated injection well. Cintia Rico LPN documented in this encounter [facility] 10-27-2023 Miscellaneous Notes Medication refill requested by patient. Requested Prescriptions Pending Prescriptions Disp Refills diclofenac, EC, (VOLTAREN) 75 mg EC tablet 180 tablet Sig: TAKE 1 TABLET TWICE DAILY NEEDED FOR PAIN. DO NOT TAKE WITH ASPIRIN FLUoxetine (PROZAC) 10 mg capsule 90 capsule Sig: Take 1 capsule by mouth once daily. Last encounter with this provider: 07/07/2023 Next appt: 10/31/2023 Teena Hagan RN documented in this encounter [facility] 10-16-2023 Miscellaneous Notes Letter mailed to pt home of results. Karen Powell MA Left message to return call Mery Bowers Please let Lorene know that her labs are all in target range. Darrell Rodriguez APRN.CARDIAC NURSE SPECIALIST documented in this encounter [facility] 10-02-2023 Miscellaneous Notes Pt informed, verbalized understanding Mery Bowers Yes, non fasting labs as ordered Please inform patient Rafal Zapien DO Pt. has up coming appointment. Any labs needed. Patient called requesting labs Please advise Thank you documented in this encounter [facility] 08-08-2023 Miscellaneous Notes Patient has been identified by name and date of : Yes, Provider Dr. Zapien Date 08/08/23 Time 11:57 am Patient phones for refill(s): Requested Prescriptions Pending Prescriptions Disp Refills FLUoxetine (PROZAC) 10 mg capsule 90 capsule 0 Sig: Take 1 capsule by mouth once daily. rosuvastatin (CRESTOR) 20 mg tablet 90 tablet 3 Sig: Take 1 tablet by mouth daily at bedtime. levothyroxine (SYNTHROID) 137 mcg tablet 90 tablet 0 Sig: Take 1 tablet by mouth once daily. except one day during the week. For a total of 6 per week. diclofenac, EC, (VOLTAREN) 75 mg EC tablet 180 tablet 0 Sig: TAKE 1 TABLET TWICE DAILY NEEDED FOR PAIN. DO NOT TAKE WITH ASPIRIN Date of last office visit in primary care: 07/07/23 next apt 10/10/23 Last 2 Encounter Wt Readings: Date: Wt: 04/05/2023 100.7 kg (222 lb) 02/15/2023 100.2 kg (220 lb 12.8 oz) Previous labs/tests for medication: Thyroid: TSH Date Value 07/03/2023 0.272 mIU/L 01/04/2022 0.186 uU/mL Cholesterol: HDL Cholesterol (mg/dL) Date Value 07/03/2023 43 01/04/2022 44 LDL Cholesterol (mg/dL) Date Value 07/03/2023 63 01/04/2022 60 ALT (U/L) Date Value 07/03/2023 20 01/04/2022 15 Non HDL Cholesterol (mg/dL) Date Value 07/03/2023 99 01/04/2022 88 Thank you. Elvia Brennan LPN documented in this encounter [facility] 08-02-2023 History of Present illness Narrative Patient presents for B-12 injection. Denies any problems at this time. Patient instructed on any SE of medication, verbalized understanding and agreed to proceed with treatment. Tolerated injection well. Cintia Rico LPN documented in this encounter [facility] 07-07-2023 History of Present illness Narrative CC: Xuan Hernandez is a 78 year old female who presents to the office for follow up HPI: Mood, stable. Taking prozac, has good support from her , he is overall still very healthy at age 88. HPL, taking crestor 20 mg a day, tolerating well. No SE Cholesterol, Total Date Value Ref Range Status 07/03/2023 142 <200 mg/dL Final Comment: <200 mg/dL, Desirable 200-239 mg/dL, Borderline high >239 mg/dL, High HDL Cholesterol Date Value Ref Range Status 07/03/2023 43 >39 mg/dL Final Comment: 40-59 mg/dL, Acceptable >59 mg/dL, High: Negative risk factor for coronary heart disease <40 mg/dL, Low: Positive risk factor for coronary heart disease LDL Cholesterol Date Value Ref Range Status 07/03/2023 63 <100 mg/dL Final Comment: <100 mg/dL, Optimal 100-129 mg/dL, Near optimal/above optimal 130-159 mg/dL, Borderline high 160-189 mg/dL, High >189 mg/dL, Very high Secondary prevention optimal LDL Cholesterol levels are recommended to be < 70 mg/dL Triglyceride Date Value Ref Range Status 07/03/2023 180 (H) <150 mg/dL Final Comment: <150 mg/dL, Normal 150-199 mg/dL, Borderline high 200-499 mg/dL, High >499 mg/dL, Very high Hypothyroidism, taking 137 mcg 6 days a week of her levothyroxine. States that since this rx was changed, she has stable fatigue symptoms TSH Date Value Ref Range Status 07/03/2023 0.272 0.270 - 4.200 mIU/L Final Hemoglobin (g/dL) Date Value 07/03/2023 14.4 04/12/2021 13.6 Hematocrit (%) Date Value 07/03/2023 44.0 04/12/2021 43.2 WBC (k/uL) Date Value 07/03/2023 6.68 04/12/2021 7.10 Glucose (mg/dL) Date Value 07/03/2023 94 01/04/2022 85 Potassium (mmol/L) Date Value 07/03/2023 4.1 01/04/2022 4.4 Sodium (mmol/L) Date Value 07/03/2023 141 01/04/2022 139 Chloride (mmol/L) Date Value 07/03/2023 104 01/04/2022 105 CO2 (mmol/L) Date Value 07/03/2023 25 01/04/2022 23 Creatinine (mg/dL) Date Value 07/03/2023 0.96 01/04/2022 0.94 BUN (mg/dL) Date Value 07/03/2023 13 01/04/2022 10 Anion Gap (mmol/L) Date Value 07/03/2023 12 01/04/2022 11 Calcium (mg/dL) Date Value 01/04/2022 10.0 Calcium, Total (mg/dL) Date Value 07/03/2023 9.5 Protein, Total (g/dL) Date Value 07/03/2023 7.1 01/04/2022 7.5 Albumin (g/dL) Date Value 07/03/2023 4.3 01/04/2022 4.7 Bilirubin, Total (mg/dL) Date Value 07/03/2023 0.5 01/04/2022 0.4 Alkaline Phosphatase (U/L) Date Value 07/03/2023 63 01/04/2022 67 AST (U/L) Date Value 07/03/2023 32 01/04/2022 28 ALT (U/L) Date Value 07/03/2023 20 01/04/2022 15 PAST MEDICAL HISTORY Diagnosis Date Advance care planning 07/13/2022 Gregorio helps with medical decision making Ankle fracture left History of tobacco abuse Hypercholesteremia Hypothyroidism Panic attack Pulmonary nodules 04/20/[address] chest by 04/2015 Spasm of back muscles after work injury in past Vitamin D deficiency 02/21/2014 PAST SURGICAL HISTORY Procedure Laterality Date CHOLECYSTECTOMY 1992 gallstones COLONOSCOPY 1992 LUMPECTOMY/RADIOTHERAPY DIAG MAMM/A10 age 18 breast, left, benign Current Outpatient Medications Medication Sig levothyroxine (SYNTHROID) 137 mcg tablet Take 1 tablet by mouth once daily. except one day during the week. For a total of 6 per week. FLUoxetine (PROZAC) 10 mg capsule Take 1 capsule by mouth once daily. diclofenac, EC, (VOLTAREN) 75 mg EC tablet TAKE 1 TABLET TWICE DAILY NEEDED FOR PAIN. DO NOT TAKE WITH ASPIRIN rosuvastatin (CRESTOR) 20 mg tablet Take 1 tablet by mouth daily at bedtime. cholecalciferol, vitamin D3, (VITAMIN D3 ORAL) Take by mouth once daily. cyanocobalamin (VITAMIN B-12) 1,000 mcg tab Take 1 tablet by mouth once daily. cyanocobalamin 1,000 mcg/mL Inject 1 mL intramuscularly once every month. ASPIRIN ORAL Take by mouth. Current Facility-Administered Medications Medication Dose Route Frequency cyanocobalamin 1,000 mcg injection 1,000 mcg INTRAMUSCULAR q 1 MONTH ALLERGIES Allergen Reactions Acetaminophen-Codei* GI Upset Benedryl [Diphenhyd* Other: See Comments blood pressure dropped Social History Tobacco Use Smoking status: Former Types: Cigarettes Quit date: 11/20/1998 Years since quittin.6 Smokeless tobacco: Never Tobacco comments: quit smoking 15 years ago Substance Use Topics Alcohol use: No Drug use: No ROS: See HPI PE: BP 130/80 Pulse 76 Temp (Src) 96.8 (Right Tympanic) Resp 20 Gen: A&O, NAD, non-toxic appearing, Pleasant, cooperative HEENT: NT/AC, PERRLA, EOMs intact b/l, nares clear and patent b/l, pharynx without erythema, exudate or lesions. MMM, Uvula midline. EACs without erythema or debris. TMs pearly kohelr with intact landmarks b/l. Neck: supple, No cervical LAD, no thyromegaly, no carotid bruits CV: RRR, normal S1 and S2, no murmurs, no gallops, no rubs, Pulses 2+ and symmetric in UE and LE b/l Lungs: normal respiratory effort, CTA b/l, no wheezing or rhonchi or rales Abd: soft, overweight, NT, ND, +BS, no hepatosplenomegaly MS: arthritis changes in spine, knees, hips Neuro: CN II-XII intact b/l Normal gait Skin: warm, dry, intact, No rashes or lesions on exposed skin. No edema, normal pulses ASSESSMENT/PLAN: 1. Acquired hypothyroidism - ICD9: 244.9, ICD10: E03.9 (primary diagnosis) - Instructed patient on importance of taking on an empty stomach either first thing in the morning or at bedtime. - continue current dose of Synthroid 0.137 mg Stable - Behavioral intervention, - PSMF, and - Eat well program 2. Vitamin B12 deficiency - ICD9: 266.2, ICD10: E53.8 Continue supplement 3. RUDY (generalized anxiety disorder) - ICD9: 300.02, ICD10: F41.1 Stable, continue prozac 4. Hypertensive heart disease with heart failure (HCC) - ICD9: 402.91, 428.9, ICD10: I11.0 - Controlled - Continue current medications - Recommend home blood pressure monitoring, to bring results to next visit - Encouraged sodium restriction, DASH or Mediterranean diet - Recommend regular aerobic exercise - Discussed need for and benefit of weight loss. No weight on file for this encounter. 5. Hypercholesterolemia - ICD9: 272.0, ICD10: E78.00 Stable, continue Crestor 6. Hypertension, essential - ICD9: 401.9, ICD10: I10 - Controlled - Continue current medications - Recommend home blood pressure monitoring, to bring results to next visit - Encouraged sodium restriction, DASH or Mediterranean diet - Recommend regular aerobic exercise 7. Vitamin D deficiency - ICD9: 268.9, ICD10: E55.9 Stable, continue supplement Rafal Zapien DO Return if no improvement. Follow up with Rafal Zapien DO. To ER if develops chest pain, shortness of breath Discussed risks, benefits, alternatives, and potential side effects of medications. Patient/Guardian expressed understanding and agreed with the plan. See patient instructions. Rafal Zapien DO [address] [place] [address] documented in this encounter [facility] 06-27-2023 History of Present illness Narrative Patient presents for B-12 injection. Denies any problems at this time. Patient instructed on any SE of medication, verbalized understanding and agreed to proceed with treatment. Tolerated injection well. Cintia Rico LPN documented in this encounter [facility] 05-29-2023 History of Present illness Narrative Patient presents for B-12 injection. Denies any problems at this time. Patient instructed on any SE of medication, verbalized understanding and agreed to proceed with treatment. Tolerated injection well. Cintia Rico LPN documented in this encounter [facility] 05-19-2023 Miscellaneous Notes OK to refill as ordered Davie Mora MD Patient has been identified by name and date of : Yes Requested Prescriptions Pending Prescriptions Disp Refills levothyroxine (SYNTHROID) 137 mcg tablet 90 tablet 3 Sig: Take 1 tablet by mouth once daily. except one day during the week. For a total of 6 per week. FLUoxetine (PROZAC) 10 mg capsule 90 capsule 3 Sig: Take 1 capsule by mouth once daily. diclofenac, EC, (VOLTAREN) 75 mg EC tablet 180 tablet 3 Sig: TAKE 1 TABLET TWICE DAILY NEEDED FOR PAIN. DO NOT TAKE WITH ASPIRIN RX INSTRUCTIONS: Pharmacy initiated this request. No need to notify patient. Nidih Harvey documented in this encounter [facility] 05-02-2023 Miscellaneous Notes May 03, 2023 PID: [id number] Xuan Hernandez [address] [place] [address] Dear Ms. Hernandez, We are pleased to inform you that the results of your recent breast imaging exam on 05/01/2023 are normal. Early detection of cancer is very important. We also understand recommendations regarding breast cancer screening are controversial. Please discuss with your primary care provider which strategy is best for you and whether a mammogram is right for you. Your imaging studies and report will be kept on file at [facility] as part of your permanent medical record and are available for your continuing care. Thank you for allowing us to help in meeting your health care needs. Sincerely, Dr. Capone Interpreting Radiologist [facility] (Normal over 40) documented in this encounter [facility] 04-19-2023 Miscellaneous Notes Order placed Rafal Zapien DO Patient scheduled for nurse visit 04/27/23 to receive B-[address]. [address] new administration order at this time. Cintia Rico LPN documented in this encounter [facility] 03-27-2023 History of Present illness Narrative Patient presents for B-12 injection. Denies any problems at this time. Patient instructed on any SE of medication, verbalized understanding and agreed to proceed with treatment. Tolerated injection well. Cintia Rico LPN documented in this encounter [facility] 02-24-2023 History of Present illness Narrative Patient presents for B-12 injection. Denies any problems at this time. Patient instructed on any SE of medication, verbalized understanding and agreed to proceed with treatment. Tolerated injection well. Cintia Rico LPN documented in this encounter [facility] 02-15-2023 History of Present illness Narrative Radiology Service Progress Note PATIENT NAME: Xuan Hernandez DATE OF SERVICE: February 15, 2023 TIME: 11:28 AM PATIENT IDENTITY VERIFICATION COMPLETED USING TWO (2) IDENTIFIERS: Name and Date of confirmed by patient verbally. FALL SCREENING: Has the patient had 2 falls in the last year or 1 fall with injury or currently using an Ambulatory Assistive Device (Walker, Cane, Wheelchair, Crutches, etc.)? No PATIENT GENDER DATA: Female. status: : No status: NO. PATIENT RELEVANT IMPLANT DATA REVIEWED: Not Applicable RADIOLOGY DEPARTMENT: General X-ray: Exam(s) Completed: Chest X-Ray PERIPHERAL IV DATA: Not applicable SIGNED BY: RT Marissa(R) February 15, 2023 11:28 AM documented in this encounter [facility] 02-15-2023 History of Present illness Narrative CC: Patient presents with: Cough: Chest congestion x1.5 months HPI: Xuan Hernandez is a 77 year old female who presents to the office with complaint of chest congestion, head congestion, and cough, nonproductive for a month. Symptoms are worsening Associated symptoms includes cough. Denies fever, nausea, vomiting , and diarrhea. Treatments tried include nothing so far. with no relief of symptoms. Sick contacts: unknown. History of asthma, frequent episodes of bronchitis, chronic bronchitis, bronchiectasis or COPD: No Smoker: No Seasonal/environmental allergies: No The ROS is otherwise negative. The patient's pmh, medications, allergies, and past visits are reviewed. PHYSICAL EXAM: BP 118/72 Pulse 78 Temp 36.1 C (96.9 F) Resp 20 Wt 100.2 kg (220 lb 12.8 oz) SpO2 96% BMI 37.90 kg/m General appearance: alert, cooperative, pleasant, in no acute distress Head: Normocephalic Eyes: EOM's intact, conjunctiva pink and moist, no icterus, sclera white, non-injected Ears: Right ear: External ear/canal- Normal, TM - clear with good landmarks. Left ear: External ear/canal- Normal, TM - clear with good landmarks Oropharynx:moist without lesions, No erythema, exudates or tonsillar hypertrophy. Heart: Negative. RRR without obvious murmur, gallop, or rubs. No ectopy. Lungs: clear to auscultation, without rales or wheeze, good air exchange PAST MEDICAL HISTORY Diagnosis Date Advance care planning 07/13/2022 Gregorio helps with medical decision making Ankle fracture left History of tobacco abuse Hypercholesteremia Hypothyroidism Panic attack Pulmonary nodules 04/20/[address] chest by 04/2015 Spasm of back muscles after work injury in past Vitamin D deficiency 02/21/2014 PAST SURGICAL HISTORY Procedure Laterality Date CHOLECYSTECTOMY 1992 gallstones COLONOSCOPY 1992 LUMPECTOMY/RADIOTHERAPY DIAG MAMM/A10 age 18 breast, left, benign ALLERGIES Acetaminophen-Codeine and Benedryl [Diphenhydramine] MEDICATIONS rosuvastatin (CRESTOR) 20 mg tablet^Take 1 tablet by mouth daily at bedtime.^Disp: 90 tablet^Rfl: 3 levothyroxine (SYNTHROID) 137 mcg tablet^Take 1 tablet by mouth once daily. except one day during the week. For a total of 6 per week.^Disp: 90 tablet^Rfl: 3 FLUoxetine (PROZAC) 10 mg capsule^Take 1 capsule by mouth once daily.^Disp: 90 capsule^Rfl: 3 diclofenac, EC, (VOLTAREN) 75 mg EC tablet^TAKE 1 TABLET TWICE DAILY NEEDED FOR PAIN. DO NOT TAKE WITH ASPIRIN^Disp: 180 tablet^Rfl: 3 cholecalciferol, vitamin D3, (VITAMIN D3 ORAL)^Take by mouth once daily.^Disp: ^Rfl: cyanocobalamin (VITAMIN B-12) 1,000 mcg tab^Take 1 tablet by mouth once daily.^Disp: 90 tablet^Rfl: 3 cyanocobalamin 1,000 mcg/mL^Inject 1 mL intramuscularly once every month.^Disp: 1 mL^Rfl: 12 ASPIRIN ORAL^Take by mouth.^Disp: ^Rfl: FAMILY HISTORY Problem Relation Age of Onset other (diabetes mellitus [Other]) Mother other (diabetes mellitus [Other]) Brother other (diabetes mellitus [Other]) Brother Social History Tobacco Use Smoking status: Former Types: Cigarettes Quit date: 11/20/1998 Years since quittin.2 Smokeless tobacco: Never Tobacco comments: quit smoking 15 years ago Substance Use Topics Alcohol use: No Drug use: No ASSESSMENT/PLAN: 1. Acute cough - ICD9: 786.2, ICD10: R05.1 (primary diagnosis) - XR CHEST 2V FRONTAL/LAT * * * * Physician Interpretation * * * * EXAMINATION: CHEST RADIOGRAPH (2 VIEW FRONTAL & LATERAL) CLINICAL HISTORY: Acute cough MQ: [id number] EXAM DATE/TIME: 02/15/2023 11:33 AM COMPARISON: Chest x-ray on 08/13/2022 RESULT: Lines, tubes, and devices: None. Lungs and pleura: A few small linear opacities overlying the left lower lung unchanged. No consolidation. No lung mass. No pleural effusion. No pneumothorax. Cardiomediastinal silhouette: Normal cardiomediastinal silhouette. Bones and soft tissues: Unremarkable. IMPRESSION IMPRESSION: Overall findings unchanged. Dye Line Operator: KATHERINE Transcribe Date/Time: Feb 15 2023 11:35A Dictated by : DUSTY MCCALLUM MD 2. Rhinosinusitis - ICD9: 473.9, ICD10: J31.0, J32.9 - DOXYCYCLINE MONOHYDRATE 100 MG TABLET - BENZONATATE 100 MG CAPSULE Follow-up with primary care provider about the opacities seen in her x-ray that were there unchanged since July. Prescription instructions reviewed with patient as applicable. Potential red flag symptoms discussed with the patient. Reviewed appropriate action plan to take if red flag symptoms occur. Patient agreeable to treatment plan. Teri Mahmood APRN.DEVIN documented in this encounter [facility] 02-14-2023 Miscellaneous Notes Patient calls to request antibiotic for cough and cold symptoms. Nurse triage completed. Protocol recommends see provider within 3 days. Patient agreeable. Appointment scheduled tomorrow per patient request. Care advice reviewed. Patient verbalizes understanding. Reason for Disposition Cough has been present for > 3 weeks Answer Assessment - Initial Assessment Questions 1. ONSET: Patient reports that for about a month she has had a cough that went away for about 4-5 days but will be one week since cough has returned. 2. SEVERITY: Bothersome and worse at night. 3. SPUTUM: Small amount and yellow to dark yellow. 4. HEMOPTYSIS: No 5. DIFFICULTY BREATHING: - MILD: No SOB at rest, mild SOB with walking, speaks normally in sentences, can lie down, no retractions, pulse < 100. Mild per her usual. 6. FEVER: Not currently. A couple of days ago patient believes it was around 101.2 for one time Patient took tylenol once and fever didn't return. 7. CARDIAC HISTORY: No history of heart attack. History of diastolic heart failure. 8. LUNG HISTORY: No history of embolus, asthma, or emphysema. History of nodules and dyspnea on exertion. 9. PE RISK FACTORS: No recent major surgery, recent prolonged travel, or bedridden. 10. OTHER SYMPTOMS: Runny nose and sinus congestion. Chest pain with coughing. No wheezing. Protocols used: Cough - Acute [id number] documented in this encounter [facility] 01-27-2023 Miscellaneous Notes Pt called and is notified of providers message and instructions. Pt voices understanding. Pina Webster RN Yes I placed some basic labs to be drawn. Darrell Rodriguez APRN.DEVIN Patient asking if a lab draw is needed prior to office visit on April 05? Please advise and call patient. documented in this encounter [facility] 01-25-2023 History of Present illness Narrative Patient presents for B-12 injection. Denies any problems at this time. Patient instructed on any SE of medication, verbalized understanding and agreed to proceed with treatment. Tolerated injection well. iCntia Rico LPN documented in this encounter [facility] 12-27-2022 History of Present illness Narrative Patient presents for B-12 injection. Denies any problems at this time. Patient instructed on any SE of medication, verbalized understanding and agreed to proceed with treatment. Tolerated injection well. Cintia Rico LPN documented in this encounter [facility] 11-24-2022 History of Present illness Narrative Patient presents for B-12 injection. Denies any problems at this time. Patient instructed on any SE of medication, verbalized understanding and agreed to proceed with treatment. Tolerated injection well. Cintia Rico LPN documented in this encounter [facility] 11-04-2022 Miscellaneous Notes Patient was notified Alanis Moya Ma Please let Lorene know that her brain MRI looks good, no concerns at all. Darrell Rodriguez APRN.CNP documented in this encounter [facility] 11-04-2022 History of Present illness Narrative Radiology Service Progress Note DATE OF SERVICE: November 04, 2022 TIME: 11:59 AM PATIENT IDENTITY VERIFICATION COMPLETED USING TWO (2) STANDARD IDENTIFIERS: Name and Date of confirmed by patient verbally. FALL SCREENING: Has the patient had 2 falls in the last year or 1 fall with injury or currently using an Ambulatory Assistive Device (Walker, Cane, Wheelchair, Crutches, etc.)? No PATIENT GENDER DATA: Female. status: : No status: NO. PATIENT RELEVANT IMPLANT DATA REVIEWED: Yes ALLERGIES: Reviewed and unchanged CONTRAST ALLERGY: NO. EXAM: MRI - CONTRAST TYPE: GROUP II PERIPHERAL IV DATA: Ambulatory: A peripheral IV was started in the Right antecubital site with a Angio cath: 22 gauge. RADIOLOGY DEPARTMENT: MR; Exam(s) Completed: Head: Routine Brain SIGNATURE: RT Dk(R) PATIENT NAME: Xuan Hernandez DATE: November 04, 2022 TIME: 11:59 AM documented in this encounter [facility] 11-03-2022 Miscellaneous Notes Call to pt and notified of message below. Verbalized understanding. Jennifer Viera Ma Left message for patient to return call for results Mery Das Ma Please call and let Lorene know that US of breast was normal. No concerns for malignancy or any abnormalities. Continue annual screenings. Thank you, Elham Nicholas APRN.CARDIAC NURSE SPECIALIST documented in this encounter [facility] 10-27-2022 History of Present illness Narrative Patient presents for B-12 injection. Denies any problems at this time. Patient instructed on any SE of medication, verbalized understanding and agreed to proceed with treatment. Tolerated injection well. Cintia Rico LPN documented in this encounter [facility] 10-03-2022 Miscellaneous Notes Pt notified of such. Yes, please call her and inform her that I have ordered fasting labs to get completed before her OFFICE VISIT with me Rafal Zapien DO Please see labs. Last completed 07/12/2022 Mery Das Ma Patient is scheduled for an office visit with you and asking if any labs need completed before visit please advise the patient. documented in this encounter [facility] 09-20-2022 History of Present illness Narrative Patient presents for B-12 injection. Denies any problems at this time. Patient instructed on any SE of medication, verbalized understanding and agreed to proceed with treatment. Tolerated injection well. Cintia Rico LPN documented in this encounter [facility] 09-06-2022 History of Present illness Narrative Episode Visit Count: 2 Therapist That Will Accept/Oversee The Plan Of Care: Betty Valentino Start of Care Date: 08/31/22 Onset Date: 08/05/22 Plan of Care Certification Date: 08/31/22 Next Certification Due Date: 10/05/22 REHABILITATION AND SPORTS THERAPY PHYSICAL THERAPY TREATMENT NOTE ASSESSMENT: Xuan Hernandez tolerated the session with increased symptoms. She demonstrated improvements in symptoms and no nystagmus observed following CRM for R PC and R HC. The patient will continue to benefit from ongoing skilled physical therapy to progress toward set goals. PLAN FOR NEXT VISIT: Assess symptom response to CRM for R PC and R HC canalisthesis. SUBJECTIVE: Patient Reason for Visit: Pt. denies falls since last seen. Her dizziness was resolved for a day until she went to bed that night and rolled to her R side. The symptoms are not as severe as they were last visit. Vestibular Description: dizziness;vertigo Rating of current symptoms: 7/10 Rating of current symptoms: 0/10 Pain: Post Treatment Pain Post Treatment Symptoms: denies dizziness, no nystagmus and asymptomatic with re-stest R ear down as well as R izzy-hallpike and no imbalance observed with walking OBJECTIVE MEASURES WITH LEVEL OF FUNCTION: Oculomotor Testing Fixation Present Ocular ROM: WNL Spontaneous Nystagmus: No nystagmus Gaze Evoked Nystagmus: Not Present Oculomotor Testing Fixation Removed Gaze Evoked Nystagmus: Not present Positional Testing Right [place]pike: Upbeat;With delay;Less than 60 seconds;Symptomatic;Right Torsional / Clockwise Left [place]: Upbeat;Right Torsional / Clockwise;Asymptomatic Right Ear Down: Symptomatic;With delay;No nystagmus;Less than 60 seconds Left Ear Down: No nystagmus;Asymptomatic TREATMENT: Neuromuscular Re-Education: 1: *walking with slow head turns horrizontal 40' 2x 2: *walking with slow head turns vertical 40' 2x Skilled Intervention: Skilled judgment used to assess appropriate program for balance and coordination activity. Education and demonstration for posture and positioning for tone management. Ensured patient safety with use of guarding. Provided written instruction for home program to facilitate proper performance and compliance. Patient education as noted. Self-Intermediate Management: 1: *instructed pt. to sleep on opposite side 2: *instructed pt. to keep her head upright for 2 hours 3: *provided pt. education regarding SCC's and inner ear anatomy, discussed the physics causing symptoms and reasoning for repositioning manuever pattern. Skilled Intervention: Skilled judgment in the selection of proper modification for activity of daily living/home management based on clinical presentation, deficits, and needs. Physical assistance was provided during education for modifications and patient safety. Reviewed patient specific diagnosis in relation to activities of daily living/home management. Activity progression based on professional judgement. Moderate verbal cues for maintaining neutral spine alignment. Reviewed and educated patient on additions/changes for home program as noted above with an (*). Canalith Repositionin: R CRM for PC 2x, 360 degree roll for R HC 1x Skilled Intervention: Professional judgment was used to determine specific treatment interventions based on assessment of symptoms. Physically assisted patient through each step of repositioning. Verbal and tactile cues provided to patient to assist in moving between each position of maneuver in correct sequence. Patient education including handouts provided regarding self repostitioning techniques to be performed at home. Instructed patient in post repositioning procedures including sleeping on the opposite side tonight (LEFT) and keeping the head upright for 2 hours. Billing Neuromuscular Re-Education Treatment Minutes: 5 Self-Care/Home Management Treatment Minutes: 10 * Canalith Repositionin unit Total Treatment Time Minutes (timed/untimed): 45 Betty Valentino PT documented in this encounter [facility] 08-31-2022 History of Present illness Narrative Episode Visit Count: 1 Therapist That Will Accept/Oversee The Plan Of Care: Betty Valentino Start of Care Date: 08/31/22 Onset Date: 08/05/22 Plan of Care Certification Date: 08/31/22 Next Certification Due Date: 10/05/22 Patient Identified by Name and Date of : Yes REHABILITATION AND SPORTS THERAPY PHYSICAL THERAPY EVALUATION PLAN OF CARE: Assessment: Xuan Hernandez presents with diagnosis of vertigo that interferes with walking in the community;rising from a chair;driving;bed mobility;sleeping;bending . She presents with impairments in ADL's, balance, gait, independence in exercise, overall function, patient reported outcome measures, posture, and symptom management.. Prognosis for therapy is Excellent due to: positive past response to therapy;within-session changes;acuteness of condition;current objective clinical presentation;good support system/ coping skills;good overall health status . She will benefit from skilled therapy services to meet the goals established for this plan of care as noted below. Goals for Episode of Care: created on 08/31/22 through 10/12/22 Patient will be able to correct postural deviations independently in order to allow for normal mechanics, to decrease current pain and prevent future recurrence. Patient will have negative positional testing for BPPV. Patient will verbalize the understanding of the diagnosis BPPV, how to recognize symptoms and what to do if they return. Patient will demonstrate normal active cervical spine range of motion to restore posture and complete ADLS with trace report of dizziness/imbalance. Patient will return to prior level of function with all activities of daily living with trace reports of dizziness. Patient will deny dizziness with rolling right, bending, turning , walking, driving, and when on the move . Patient will be able to walk household and community distances with safe, functional gait pattern with trace report of dizziness/imbalance. Patient Goals: ADLs including laying R side, walking, and driving without dizziness Planned Interventions, Frequency, and Duration: Current Frequency: 1x/week Duration: 6 weeks Total Number of Visits Planned: 6 Planned Treatment Interventions: Therapeutic exercise (49142);Neuromuscular re-education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 collection. No evidence of an acute territorial infarct is identified. Periventricular and subcortical white matter hypoattenuation is nonspecific but most commonly reflects microvascular angiopathy. There is cerebral parenchymal loss, with associated enlargement of the ventricles and sulci. Calcifications of the larger arteries are noted. The skull base and calvarium demonstrate no abnormality. The included paranasal sinuses and mastoid air cells are clear. IMPRESSION: No acute intracranial abnormality. 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 Interpreted by: Jose Antonio Heart DO Preliminary Report By: Jose Antonio Heart DO Electronically signed By Jose Antonio Heart DO Dictated Date: 08/05/2022 12:31:45 PM Prelim Date: 08/05/2022 12:33:07 PM Sign Date: 08/05/2022 12:33:07 PM Ordering Provider: SOLITARIO [facility] 08-05-2022 Note ORIGINAL EXAMINATION: CT OF THE HEAD WITHOUT CONTRAST 08/05/2022 11:08 am TECHNIQUE: CT of the head was performed without the administration of intravenous contrast. Automated exposure control, iterative reconstruction, and/or weight based adjustment of the mA/kV was utilized to reduce the radiation dose to as low as reasonably achievable. COMPARISON: November 03, 2016 CT head HISTORY: ORDERING SYSTEM PROVIDED HISTORY: Reason for Exam: dizziness vertigo, nausea FINDINGS: There is no intracranial hemorrhage, mass, mass effect or abnormal extra-axial fluid collection. No evidence of an acute territorial infarct is identified. Periventricular and subcortical white matter hypoattenuation is nonspecific but most commonly reflects microvascular angiopathy. There is cerebral parenchymal loss, with associated enlargement of the ventricles and sulci. Calcifications of the larger arteries are noted. The skull base and calvarium demonstrate no abnormality. The included paranasal sinuses and mastoid air cells are clear. IMPRESSION: No acute intracranial abnormality. 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 Interpreted by: Jose Antonio Heart DO Preliminary Report By: Jose Antonio Heart DO Electronically signed By Jose Antonio Heart DO Dictated Date: 08/05/2022 12:31:45 PM Prelim Date: 08/05/2022 12:33:07 PM Sign Date: 08/05/2022 12:33:07 PM Ordering Provider: SOLITARIO [facility] 07-30-2022 Miscellaneous Notes Pt informed, verbalized understanding. Mery Das Ma Please inform patient that her urine culture shows mild amount of e coli bacteria, but not enough technically to be called a UTI / cystitis. Would recommend just repeating urine culture in 1-2 weeks as ordered at lab. Rafal Zapien DO documented in this encounter [facility] 07-29-2022 Miscellaneous Notes Patient calling on the following: *urine results *she has completed medication for pneumonia and feels great, denies cough and SOB. does she need any type of follow up regarding this. *refill Patient has been identified by name and date of : Yes Patient phones for refill(s): Requested Prescriptions Pending Prescriptions Disp Refills rosuvastatin (CRESTOR) 20 mg tablet 90 tablet 3 Sig: Take 1 tablet by mouth daily at bedtime. Date of last office visit in primary care: 07/13/22 Last 2 Encounter Wt Readings: Date: Wt: 07/13/2022 100.2 kg (221 lb) 04/05/2022 98.4 kg (217 lb) Previous labs/tests for medication: Cholesterol: HDL Cholesterol (mg/dL) Date Value 01/04/2022 44 LDL Cholesterol (mg/dL) Date Value 01/04/2022 60 ALT (U/L) Date Value 07/12/2022 19 01/04/2022 15 Non HDL Cholesterol (mg/dL) Date Value 01/04/2022 88 Thank you. Elvia Brennan LPN documented in this encounter [facility] 07-26-2022 History of Present illness Narrative Patient presents for B-12 injection. Denies any problems at this time. Patient instructed on any SE of medication, verbalized understanding and agreed to proceed with treatment. Tolerated injection well. Cintia Rico LPN documented in this encounter [facility] 07-18-2022 Miscellaneous Notes Pt. informed. Paco Neal LPN Please inform patient that her CXR shows IMPRESSION: Chronic interstitial lung changes with new pleural parenchymal stranding at the left base which could represent an infiltrate/atelectasis or scar. This could mean a potential early pneumonia. How is her cough? How is she feeling? If still coughing or having fatigue or any dyspnea, then would recommend starting on doxycycline as below Rafal Zapien DO The following approved medication requests have been transmitted electronically. Requested Prescriptions Signed Prescriptions Disp Refills doxycycline (VIBRA-TABS) 100 mg tablet 20 tablet 0 Sig: Take 1 tablet by mouth twice daily for 10 days. Authorizing Provider: RAFAL ZAPIEN DO documented in this encounter [facility] 07-13-2022 History of Present illness Narrative CC: Xuan Hernandez is a 77 year old female who presents to the office for follow up HPI: Patient has had a lot of additional stressors recently. Her granddaughter at the age of 18 recently from an uncontrolled epileptic seizure while at a concert in [place] last week. This has been very emotional for her family since her in his 80s isn't well enough to travel to [place] for the . Fatigue symptoms present. Admits that she hasn't been routinely exercising. Also has had leg edema symptoms. Has had a recent ECHO which was overall stable as well as labs she just had drawn including normal CRP and BNP and liver and renal function labs. Admits that she has also had urinary urgency and frequency over the last 1-2 weeks. UA showed hematuria and leukocytes and proteinuria. Awaiting urine culture. Doesn't routinely elevate her legs or take diuretic. PAST MEDICAL HISTORY Diagnosis Date Advance care planning 07/13/2022 Gregorio helps with medical decision making Ankle fracture left History of tobacco abuse Hypercholesteremia Hypothyroidism Panic attack Pulmonary nodules 04/20/[address] chest by 04/2015 Spasm of back muscles after work injury in past Vitamin D deficiency 02/21/2014 PAST SURGICAL HISTORY Procedure Laterality Date CHOLECYSTECTOMY 1992 gallstones COLONOSCOPY 1992 LUMPECTOMY/RADIOTHERAPY DIAG MAMM/A10 age 18 breast, left, benign Current Outpatient Medications Medication Sig diazePAM (VALIUM) 10 mg tablet TAKE 1 TABLET EVERY 12 HOURS NEEDED FOR ANXIETY levothyroxine (SYNTHROID) 137 mcg tablet Take 1 tablet by mouth once daily. except one day during the week. For a total of 6 per week. FLUoxetine (PROZAC) 10 mg capsule Take 1 capsule by mouth once daily. diclofenac, EC, (VOLTAREN) 75 mg EC tablet TAKE 1 TABLET TWICE DAILY NEEDED FOR PAIN. DO NOT TAKE WITH ASPIRIN cholecalciferol, vitamin D3, (VITAMIN D3 ORAL) Take by mouth once daily. rosuvastatin (CRESTOR) 20 mg tablet Take 1 tablet by mouth daily at bedtime. cyanocobalamin (VITAMIN B-12) 1,000 mcg tab Take 1 tablet by mouth once daily. cyanocobalamin 1,000 mcg/mL Inject 1 mL intramuscularly once every month. ASPIRIN ORAL Take by mouth. ciprofloxacin HCl (CIPRO) 500 mg tablet Take 1 tablet by mouth twice daily for 7 days. Current Facility-Administered Medications Medication Dose Route Frequency cyanocobalamin 1,000 mcg injection 1,000 mcg INTRAMUSCULAR q 1 MONTH perflutren lipid microspheres 1.3 mL in NaCl (PF) 0.9% 10 mL injection (DEFINITY) INTRAVENOUS DIRECTED PRN sodium chloride 0.9 % (flush) 10 mL (BD POSIFLUSH) 10 mL INTRAVENOUS DIRECTED PRN ALLERGIES Allergen Reactions Acetaminophen-Codei* GI Upset Benedryl [Diphenhyd* Other: See Comments blood pressure dropped Social History Tobacco Use Smoking status: Former Types: Cigarettes Quit date: 11/20/1998 Years since quittin.6 Smokeless tobacco: Never Tobacco comments: quit smoking 15 years ago Substance Use Topics Alcohol use: No Drug use: No ROS: See HPI PE: BP 130/80 Pulse 76 Temp (Src) 96.4 (Left Tympanic) Resp 16 Wt 221 lb (100.2kg) Gen: A&OX3, NAD, non-toxic appearing HEENT: PERRLA, EOMs intact b/l, nares without drainage, pharynx without erythema, exudate, lesions, or drainage. Uvula midline. Neck: No LAD, no thyromegaly, no meningismus. CV: RRR, no murmur Lungs: CTA b/l, no wheezing Skin: No rashes, lesions, or wounds on exposed skin. Trace non pitting edema b/l legs Normal peripheral pulses Overweight Fatigued and tearful in office today ASSESSMENT/PLAN: 1. Acute cystitis without hematuria - ICD9: 595.0, ICD10: N30.00 (primary diagnosis) Concerns for acute UTI based on symptoms, need for rx as below, recheck urine in 1-2 weeks as ordered. - CIPROFLOXACIN 500 MG TABLET - URINALYSIS, WITH MICROSCOPIC - URINE CULTURE 2. Vitamin B12 deficiency - ICD9: 266.2, ICD10: E53.8 - has recently missed dose of vitamin B12, given dose today in office, contributing to fatigue 3. Bilateral leg edema - ICD9: 782.3, ICD10: R60.0 - no obvious findings on ECHO, normal renal and liver function, normal BNP levels. Concerns for vein related dependent edema and arthritis as well as lack of routine exercise. She is going to be seeing [facility] for opinion as well. 4. Fatigue, unspecified type - ICD9: 780.79, ICD10: R53.83 - no obvious findings on ECHO, normal renal and liver function, normal BNP levels. Concerns for vein related dependent edema and arthritis as well as lack of routine exercise. She is going to be seeing [facility] for opinion as well. - needs to be consistent with vitamin B12 injection monthly as well 5. RUDY (generalized anxiety disorder) - ICD9: 300.02, ICD10: F41.1 - stable Rafal Zapien DO Return if no improvement. Follow up with Rafal Zapien DO. To ER if develops chest pain, shortness of breath. Discussed risks, benefits, alternatives, and potential side effects of medications. Patient/Guardian expressed understanding and agreed with the plan. See patient instructions. Rafal Zapien DO [address] [place] [address] documented in this encounter [facility] 07-13-2022 Instructions Rafal Zapien DO - 07/13/2022 1:50 PM EDT Start on antibiotic Ciprofloxacin with food twice a day for 7 day Recheck urinalysis and urine culture next Monday Elevate legs above your heart when you are sitting still at home Need for regular exercise on treadmill daily documented in this encounter [facility] 07-07-2022 Miscellaneous Notes [facility] website checked and validated. All prescriptions have been APPROPRIATELY filled. No suspicious activity was identified. 07/07/2022 by Elham Nicholas APRN.CNP The following approved medication requests have been transmitted electronically. Requested Prescriptions Signed Prescriptions Disp Refills diazePAM (VALIUM) 10 mg tablet 60 tablet 0 Sig: TAKE 1 TABLET EVERY 12 HOURS NEEDED FOR ANXIETY Authorizing Provider: ELHAM NICHOLAS APRN.DEVIN Patient phones requesting refills as follows: Requested Prescriptions Pending Prescriptions Disp Refills diazePAM (VALIUM) 10 mg tablet [Pharmacy Med Name: DIAZEPAM 10 MG Tablet] 60 tablet Sig: TAKE 1 TABLET EVERY 12 HOURS NEEDED FOR ANXIETY [facility]A-04/05/22 Labs-04/05/22 NOV-07/13/22 med filled 01/20/22 Please review and advise. Jigna Mckeon LPN documented in this encounter [facility] 05-24-2022 History of Present illness Narrative Patient presents for B-12 injection. Denies any problems at this time. Patient instructed on any SE of medication, verbalized understanding and agreed to proceed with treatment. Tolerated injection well. Pt to also receive COVID booster. Cintia Rico LPN documented in this encounter [facility] 05-11-2022 Miscellaneous Notes Patient notified. Please inform patient that her US of her left breast shows: IMPRESSION: PROBABLY BENIGN - SHORT TERM INTERVAL FOLLOW-UP RECOMMENDED The 1.5 cm x 0.5 cm x 1.3 cm oval area in the left breast resembles an evolving hematoma and is probably benign. A follow-up ultrasound in 3 months is recommended. The patient reports recent trauma and bruising to the breast. A follow-up ultrasound in 3 months is recommended Rafal Zapien DO documented in this encounter [facility] 05-10-2022 History of Present illness Narrative Radiology Service Progress Note PATIENT NAME: Xuan Hernandez DATE OF SERVICE: May 10, 2022 TIME: 3:07 PM PATIENT IDENTITY VERIFICATION COMPLETED USING TWO (2) IDENTIFIERS: Name and Date of confirmed by patient verbally. FALL SCREENING: Has the patient had 2 falls in the last year or 1 fall with injury or currently using an Ambulatory Assistive Device (Walker, Cane, Wheelchair, Crutches, etc.)? No PATIENT GENDER DATA: Female. status: : No status: N/A PATIENT RELEVANT IMPLANT DATA REVIEWED: Not Applicable RADIOLOGY DEPARTMENT: Ultrasound PERIPHERAL IV DATA: Not applicable SIGNED BY: Betty Campoverde RDMS RVT May 10, 2022 3:07 PM documented in this encounter [facility] 04-27-2022 Miscellaneous Notes April 27, 2022 PID: [id number] Xuan Hernandez [address] [place] [address] Dear Joseph Hernandez, Your recent breast imaging exam on 04/27/2022 showed a possible finding that requires additional imaging studies for a complete evaluation. Most such findings are probably benign (not cancer). If you have a healthcare provider who ordered/prescribed your screening mammogram: Please call [phone] or [phone]: [phone] to schedule an appointment for your additional imaging (if you have not already done so). If you DO NOT have a healthcare provider (ie you did not have an order/prescription for your screening mammogram): Please call to schedule an appointment for your additional imaging (if you have not already done so). You must have an order/prescription from your physician when calling to schedule your appointment. If your order/prescription is not electronic, you must bring the hard copy with you on the day of your exam to avoid delays. Your imaging studies and reports are kept on file at [facility] as part of your permanent medical record, and are available for your continuing care. Thank you for allowing us to help in meeting your health care needs. Sincerely, Dr. Jones Interpreting Radiologist [facility] (Additional imaging) documented in this encounter [facility] 04-27-2022 History of Present illness Narrative Patient presents for B-12 injection. Denies any problems at this time. Patient instructed on any SE of medication, verbalized understanding and agreed to proceed with treatment. Tolerated injection well. Cintia Rico LPN documented in this encounter [facility] 04-25-2022 Miscellaneous Notes Order placed. Thank you, Elham Nicholas APRN.CARDIAC NURSE SPECIALIST Patient scheduled for nurse visit 04/27/22 to receive B-[address]. [address] new administration order at this time. Cintia Rico LPN documented in this encounter [facility] 04-21-2022 History of Present illness Narrative POPULATION HEALTH NAVIGATION OUTREACH Action/FYI Pt currently due to complete care gaps. According to the pt's chart, she is only needing to schedule a mammogram. The order has already been placed and the pt is already scheduled for a future visit with her PCP. Called and spoke with the pt and offered to get it scheduled. She stated that she a lot of different appts coming up and she would like to wait until after they are completed before scheduling her mammogram. She stated that she would get it scheduled when she comes to the clinic either next week or the week after. Pt identified by name and : YES, via phone Outreach Outcome/Action Spoke to patient or caregiver: Patient will return the call or ask for return call Did you use a PCP flex slot to schedule this appointment? N/A Reason for Outreach Care Gap or Scheduling/Wellness visits Payer: Payor: [employer] MEDICARE / Plan: [facility] / Product Type: HMO / Care Gap Reviewed:: Breast Cancer screening Reminder: Reminder note to check Health Maintenance for items below Health Maintenance items due: SHINGRIX VACCINE(1 of 2) Never done MAMMOGRAM due on 01/15/2019 ADVANCE DIRECTIVE DISCUSSION Never done Message Sent to Practice: No Navigation Signature: Loida Slade MA April 21, 2022 9:24 AM documented in this encounter [facility] 04-07-2022 Miscellaneous Notes Patient has been identified by name and date of : Yes Patient phones for refill(s): Pending Prescriptions Disp Refills LEVOTHYROXINE 137 MCG TABLET 90 tablet 3 Sig: Take 1 tablet by mouth once daily. except one day during the week. For a total of 6 per week. ALMA: No Date of last office visit in primary care: 04/05/2022 Last 2 Encounter Wt Readings: Date: Wt: 04/05/2022 98.4 kg (217 lb) 03/28/2022 99.3 kg (219 lb) Previous labs/tests for medication: Thyroid: TSH Date Value 04/01/2022 0.878 mIU/L 01/04/2022 0.186 uU/mL Please advise. Thank you. Rachelle Sanders RN documented in this encounter [facility] 04-06-2022 Miscellaneous Notes Patient reports she is out of her levothyroxine 137 mcg and her mail order delivery won't be arriving for another week or so. Patient requesting a 10 day supply of this medication be sent to [facility] in [place], if provider agreeable. No call back to patient needed. Thank you. documented in this encounter [facility] 04-06-2022 Miscellaneous Notes Pt informed and verbalized understanding. Mery Das Ma Please inform patient that overall her labs are stable except for elevated serum creatinine levels, needs to be drinking at least 80 oz of water a day. Rafal Zapien DO documented in this encounter [facility] 04-05-2022 History of Present illness Narrative CC: Xuan Hernandez is a 76 year old female who presents to the office for follow up HPI: Mood, stable. Taking prozac, has good support from her , he is overall still very healthy at age 87. HPL, taking crestor 20 mg a day, tolerating well. No SE Hypothyroidism, didn't tolerate the dose adjustment down to 112 mcg daily of her levothyroxine. States that since this rx was changed, she had worsening fatigue symptoms, nose bleeds and was irritable/mood, Stopped taking her thyroid medication 1 week ago and already feels symptoms are better. Would like to go back to previous dosing and recheck labs if able. Shortness of breath, intermittent, with exertion. Has been occurring x months. Saw Cardiology [facility] [facility] but no testing was completed. Is concerned that there is a cardiac cause, has had ECHO about 1 year ago, no recent stress testing. Is interested in another opinion by Cardiology. No cough or wheezing or hemoptysis. PAST MEDICAL HISTORY Diagnosis Date Ankle fracture left History of tobacco abuse Hypercholesteremia Hypothyroidism Panic attack Pulmonary nodules 04/[address] chest by 04/2015 Spasm of back muscles after work injury in past Vitamin D deficiency 02/21/14 PAST SURGICAL HISTORY Procedure Laterality Date CHOLECYSTECTOMY 1992 gallstones COLONOSCOPY 1992 LUMPECTOMY/RADIOTHERAPY DIAG MAMM/A10 age 18 breast, left, benign Current Outpatient Medications Medication Sig FLUoxetine (PROZAC) 10 mg capsule Take 1 capsule by mouth once daily. diclofenac, EC, (VOLTAREN) 75 mg EC tablet TAKE 1 TABLET TWICE DAILY NEEDED FOR PAIN. DO NOT TAKE WITH ASPIRIN cholecalciferol, vitamin D3, (VITAMIN D3 ORAL) Take by mouth once daily. diazePAM (VALIUM) 10 mg tablet as needed for anxiety. rosuvastatin (CRESTOR) 20 mg tablet Take 1 tablet by mouth daily at bedtime. cyanocobalamin (VITAMIN B-12) 1,000 mcg tab Take 1 tablet by mouth once daily. cyanocobalamin 1,000 mcg/mL Inject 1 mL intramuscularly once every month. ASPIRIN ORAL Take by mouth. levothyroxine (SYNTHROID) 137 mcg tablet Take 1 tablet by mouth once daily. except one day during the week. For a total of 6 per week. diazePAM (VALIUM) 10 mg tablet take 1 tablet by mouth every 12 hours if needed for anxiety Current Facility-Administered Medications Medication Dose Route Frequency perflutren lipid microspheres 1.3 mL in NaCl (PF) 0.9% 10 mL injection (DEFINITY) INTRAVENOUS DIRECTED PRN sodium chloride 0.9 % (flush) 10 mL (BD POSIFLUSH) 10 mL INTRAVENOUS DIRECTED PRN cyanocobalamin 1,000 mcg injection 1,000 mcg INTRAMUSCULAR q 4 WEEKS perflutren lipid microspheres 1.3 mL in NaCl (PF) 0.9% 10 mL injection (DEFINITY) INTRAVENOUS DIRECTED PRN sodium chloride 0.9 % (flush) 10 mL (BD POSIFLUSH) 10 mL INTRAVENOUS DIRECTED PRN ALLERGIES Allergen Reactions Acetaminophen-Codei* GI Upset Benedryl [Diphenhyd* Other: See Comments blood pressure dropped Social History Tobacco Use Smoking status: Former Smoker Types: Cigarettes Quit date: 11/20/1998 Years since quittin.3 Smokeless tobacco: Never Used Tobacco comment: quit smoking 15 years ago Substance Use Topics Alcohol use: No Drug use: No ROS: See HPI PE: BP 110/60 Pulse 80 Temp (Src) 96.2 (Left Tympanic) Resp 16 Wt 217 lb (98.4kg) Gen: A&OX3, NAD, non-toxic appearing HEENT: PERRLA, EOMs intact b/l, nares without drainage, pharynx without erythema, exudate, lesions, or drainage. Uvula midline. Neck: No LAD, no thyromegaly, no meningismus. CV: RRR, 1/6 HSM RUSB soft blowing murmur, normal s1s2 Lungs: CTA b/l, no wheezing No edema, normal pulses Abd: soft, overweight ND, NT, normal bowel sounds. Skin: No rashes, lesions, or wounds on exposed skin. PDMP website checked and validated. All prescriptions have been APPROPRIATELY filled. No suspicious activity was identified. 04/05/2022 by Rafal Zapien DO ASSESSMENT/PLAN: 1. JON (dyspnea on exertion) - ICD9: 786.09, ICD10: R06.00 (primary diagnosis) - unsure cause, ECG reviewed and seems to be stable/unchanged, ECHO as ordered- hx of grade 1 diastolic dysfunction, BLOOD PRESSURE is stable. Needs to follow up with [facility]. - ECG COMPLETE - ECHO - PERFLUTREN LIPID MICROSPHERES 1.1 MG/ML INJECTION IN NS 10 ML - SODIUM CHLORIDE 0.9 % (FLUSH) INJECTION SYRINGE - CONSULT TO CARDIOLOGY - NT PRO BNP - CBC + DIFF - COMP METABOLIC PANEL - VITAMIN B12 BLOOD - MAGNESIUM BLD 2. RUDY (generalized anxiety disorder) - ICD9: 300.02, ICD10: F41.1 - rx refilled, stable, chronic - FLUOXETINE 10 MG CAPSULE - DIAZEPAM 10 MG TABLET - VITAMIN B12 BLOOD - MAGNESIUM BLD 3. Acquired hypothyroidism - ICD9: 244.9, ICD10: E03.9 - Instructed patient on importance of taking on an empty stomach either first thing in the morning or at bedtime. Change dosing to previous well tolerated dose per patient request and recheck labs in 4 weeks - DICLOFENAC SODIUM 75 MG TABLET,DELAYED RELEASE - LEVOTHYROXINE 137 MCG TABLET - TSH BLD - T4 FREE/FREE THYROX - T3 FREE BLD - LEVOTHYROXINE 137 MCG TABLET 4. Grade I diastolic dysfunction - ICD9: 429.9, ICD10: I51.89 - unsure cause, ECG reviewed and seems to be stable/unchanged, ECHO as ordered- hx of grade 1 diastolic dysfunction, BLOOD PRESSURE is stable. Needs to follow up with [facility]. - ECG COMPLETE - ECHO - PERFLUTREN LIPID MICROSPHERES 1.1 MG/ML INJECTION IN NS 10 ML - SODIUM CHLORIDE 0.9 % (FLUSH) INJECTION SYRINGE - CONSULT TO CARDIOLOGY - NT PRO BNP - CBC + DIFF - COMP METABOLIC PANEL 5. Hypertension, essential - ICD9: 401.9, ICD10: I10 - good control - Encouraged dietary sodium restriction/DASH diet - Recommended regular aerobic exercise. - Recommend home blood pressure monitoring, to bring results in on next visit - Goal of BP <130/80 - ECG COMPLETE - ECHO - PERFLUTREN LIPID MICROSPHERES 1.1 MG/ML INJECTION IN NS 10 ML - SODIUM CHLORIDE 0.9 % (FLUSH) INJECTION SYRINGE - CONSULT TO CARDIOLOGY - NT PRO BNP - CBC + DIFF - COMP METABOLIC PANEL - VITAMIN B12 BLOOD - MAGNESIUM BLD 6. Vitamin B12 deficiency - ICD9: 266.2, ICD10: E53.8 - continue vitamin B12 injections 7. Hypercholesterolemia - ICD9: 272.0, ICD10: E78.00 - stable, chronic Rafal Zapien DO Return if no improvement. Follow up with Rafal Zapien DO. To ER if develops chest pain, shortness of breath Discussed risks, benefits, alternatives, and potential side effects of medications. Patient/Guardian expressed understanding and agreed with the plan. See patient instructions. Rafal Zapien DO [address] [place] [address] THE LAST 2 WEEKS, HAVE YOU BEEN BOTHERED BY ANY OF THE FOLLOWING? - Little interest or pleasure in doing things 2 MORE THAN HALF THE DAYS Feeling down, depressed, or hopeless 0 Trouble falling or staying asleep, or sleeping too much 0 Feeling tired or having little energy 3 Poor appetite or overeating 0 Feeling bad yourself-you are a failure or have let yourself or others 0 Trouble concentrating, like reading the paper or watching TV 0 Moving/speaking slowly (others notice) OR being more fidgety/restless 0 Thoughts that you would be better off or of hurting yourself 0 PHQ TOTAL SCORE = 5 PHQ problems effect on difficulty of work, home, and social activity: 1 - NOT DIFFICULT AT ALL documented in this encounter [facility] 03-28-2022 Instructions Betty Peña APRN.[facility] - 03/28/2022 2:23 PM EDT Heart Disease in Women Is heart disease a problem for women? Heart disease is the leading cause of of [place] women. More women from heart disease than from cancer. A heart attack can happen when there are problems with the blood vessels that bring blood to the heart (the coronary arteries). For example, fatty deposits called plaque may build up in the coronary arteries and make them narrower. The narrowing decreases blood flow to the heart. Plaque also increases the chance that blood clots may form and block a blood vessel, which can cause a heart attack or stroke. In the first year after a heart attack, women have an increased risk of . In the first 6 years after a heart attack, they also have a higher risk of a second heart attack. Women are at high risk often because they are older at the time of the heart attack and have other medical problems. Not everyone has the same symptoms. The most common symptoms of a heart attack include: Chest pain or pressure, squeezing, or fullness in the center of your chest that lasts more than a few minutes, or goes away and comes back (may feel like indigestion or heartburn) Pain or discomfort in one or both arms or shoulders, or in your back, neck, jaw, or stomach Trouble breathing Breaking out in a cold sweat for no known reason Along with these symptoms, you may also feel very tired, faint, or be sick to your stomach. Sometimes you can be having a heart attack and not know it. Many women have chest pain or pressure, but sometimes symptoms in women are different from men s symptoms. Or women may have additional symptoms, such as: Unexplained anxiety and nervousness Swelling of the ankles or lower legs Because they may not feel the typical pain in the left side of their chest, many women may ignore the symptoms of a heart attack. Call 911 for emergency help right away if you have these symptoms. Do not drive yourself to the hospital. Immediate emergency care improves your chances of survival and may help avoid damage to your heart. How can women lower their risk for heart disease? If you have high blood pressure, carefully follow your healthcare provider's instructions for keeping it under control. If you are a smoker, stop smoking. Try to keep a healthy weight. If you are overweight, talk to your provider about ways to lose weight. Eat a healthy diet that includes: ?Avoiding salty foods and not adding salt to food ?Increasing fiber, fruits, and vegetables ?Avoiding foods high in fat, cholesterol, and sugar Exercise according to your healthcare provider's instructions. Get enough rest and learn to use relaxation methods to help reduce stress. Treat and control medical conditions such as diabetes and high cholesterol. If you are taking hormone therapy, you and your healthcare provider should discuss the risks and benefits. Hormone therapy may increase the risk for heart disease or stroke. Talk with your provider about taking aspirin. Low-dose aspirin therapy reduces the risk of stroke for women. But it helps to lower a woman s risk of heart attack and other heart problems only if she is 65 or older. Make sure that your provider knows about any other medicines you are taking. If you decide you need to make changes in the way you live, you probably won't be able to turn your life around all at once. Try to develop healthy habits that incorporate your lifestyle goals. If you do, you will greatly decrease your chances for developing heart disease. You can get more information from: [place] [facility] Ykchvrrbtad5-515-JOW-USA-1 ( )www.heart.org Developed by [employer]. Published by [employer]. Copyright 2014 [employer] and/or one of its subsidiaries. All rights reserved. documented in this encounter [facility] 03-28-2022 History of Present illness Narrative Images from the original note were not included. [facility] Cardiology ([facility]) [address] [facility] [id number] OUTPATIENT VISIT March 28, 2022 2:00 PM Chief Complaint Patient presents with: New Patient history of bradycardia History of Present Illness: Xuan Hernandez is a 76 year old female who presents for cardiology evaluation. She has a past medical history of tobacco use (quit ), HTN, hyperlipidemia, chronic diastolic HF, obesity. She explains she had Covid in October and shortness of breath/cough with her infection. After being treat with antibiotics, her symptoms improved. She has mild ongoing JON with stairs. She completed an echocardiogram April 2021 with grossly normal structure and function. She otherwise denies cardiac complaints. She is limited in activity by joint pain but does walk several times a day for about 10 minutes at a time on her treadmill. We reviewed risk factors and modifications. I offered her stress testing for further evaluation of JON. She does not feel like her symptoms are bothersome enough to complete cardiac testing at this time. She will let me know if she has a change in symptoms. PAST MEDICAL HISTORY Diagnosis Date Ankle fracture left History of tobacco abuse Hypercholesteremia Hypothyroidism Panic attack Pulmonary nodules 04/[address] chest by 04/2015 Spasm of back muscles after work injury in past Vitamin D deficiency 02/21/14 PAST SURGICAL HISTORY Procedure Laterality Date CHOLECYSTECTOMY 1992 gallstones COLONOSCOPY 1992 LUMPECTOMY/RADIOTHERAPY DIAG MAMM/A10 age 18 breast, left, benign FAMILY HISTORY Problem Relation Age of Onset other (diabetes mellitus [Other]) Mother other (diabetes mellitus [Other]) Brother other (diabetes mellitus [Other]) Brother Social History Tobacco Use Smoking status: Former Smoker Types: Cigarettes Quit date: 11/20/1998 Years since quittin.3 Smokeless tobacco: Never Used Tobacco comment: quit smoking 15 years ago Substance Use Topics Alcohol use: No Drug use: No Cardiac Risk Factors: age (male over 45, female over 55), hyperlipidemia, obesity ALLERGIES Allergen Reactions Acetaminophen-Codei* GI Upset Benedryl [Diphenhyd* Other: See Comments blood pressure dropped Medications: Current Outpatient Medications Medication Sig Dispense Refill cholecalciferol, vitamin D3, (VITAMIN D3 ORAL) Take by mouth once daily. diazePAM (VALIUM) 10 mg tablet as needed for anxiety. levothyroxine (LEVOXYL) 112 mcg tablet Take 1 tablet by mouth once daily. Take on empty stomach. For thyroid. 90 tablet 1 FLUoxetine (PROZAC) 10 mg capsule Take 1 capsule by mouth once daily. 90 capsule 3 diclofenac, EC, (VOLTAREN) 75 mg EC tablet TAKE 1 TABLET TWICE DAILY NEEDED FOR PAIN. DO NOT TAKE WITH ASPIRIN 180 tablet 3 rosuvastatin (CRESTOR) 20 mg tablet Take 1 tablet by mouth daily at bedtime. 90 tablet 3 cyanocobalamin 1,000 mcg/mL Inject 1 mL intramuscularly once every month. 1 mL 12 ASPIRIN ORAL Take by mouth. cyanocobalamin (VITAMIN B-12) 1,000 mcg tab Take 1 tablet by mouth once daily. (Patient not taking: Reported on 03/28/2022 ) 90 tablet 3 Current Facility-Administered Medications Medication Dose Route Frequency Provider Last Rate Last Admin cyanocobalamin 1,000 mcg injection 1,000 mcg INTRAMUSCULAR q 4 WEEKS Rafal Zapien DO 1,000 mcg at 03/01/22 1403 perflutren lipid microspheres 1.3 mL in NaCl (PF) 0.9% 10 mL injection (DEFINITY) INTRAVENOUS DIRECTED PRN Víctor Novak MD sodium chloride 0.9 % (flush) 10 mL (BD POSIFLUSH) 10 mL INTRAVENOUS DIRECTED PRN Víctor Novak MD Review of Systems Constitutional: Negative for chills, diaphoresis, fever, malaise/fatigue and weight loss. HENT: Negative for congestion, ear pain, nosebleeds, sinus pain and sore throat. Eyes: Negative for pain. Respiratory: Positive for shortness of breath. Negative for cough and wheezing. Cardiovascular: Positive for palpitations. Negative for chest pain, orthopnea, claudication, leg swelling and PND. Gastrointestinal: Negative for abdominal pain, blood in stool and melena. Genitourinary: Negative for hematuria. Musculoskeletal: Positive for back pain. Negative for falls. Neurological: Negative for dizziness, tingling, sensory change, speech change, focal weakness, loss of consciousness, weakness and headaches. Endo/Heme/Allergies: Does not bruise/bleed easily. Psychiatric/Behavioral: Negative for depression, memory loss and suicidal ideas. The patient is not nervous/anxious and does not have insomnia. Physical Examination: Vitals:BP 136/70 Pulse 61 Ht 5' 4 (1.63m) Wt 219 lb (99.3kg) SpO2 97% BMI 37.57 kg/(m^2). Last 2 Encounter Wt Readings: Date: Wt: 01/14/2022 213 lb (96.6 kg) 08/24/2021 216 lb 12.8 oz (98.3 kg) Physical Exam HENT: Head: Normocephalic. Eyes: Pupils: Pupils are equal, round, and reactive to light. Cardiovascular: Rate and Rhythm: Normal rate and regular rhythm. Pulses: Radial pulses are 2+ on the right side and 2+ on the left side. Dorsalis pedis pulses are 2+ on the right side and 2+ on the left side. Heart sounds: Normal heart sounds, S1 normal and S2 normal. Pulmonary: Effort: Pulmonary effort is normal. No accessory muscle usage or respiratory distress. Breath sounds: Normal breath sounds. Abdominal: General: Bowel sounds are normal. Palpations: Abdomen is soft. Musculoskeletal: General: Normal range of motion. Cervical back: Normal range of motion. Right lower leg: No edema. Left lower leg: No edema. Skin: General: Skin is warm and dry. Neurological: Mental Status: She is alert and oriented to person, place, and time. Gait: Gait is intact. Psychiatric: Mood and Affect: Affect normal. Cognition and Memory: Memory normal. Judgment: Judgment normal. Most Recent Cardiac Testing Echocardiogram 04/2021 CONCLUSIONS: - Technically difficult exam due to body habitus. - Exam indication: Shortness of Breath - The left ventricle is normal in size. Left ventricular systolic function is normal. EF = 70 5% (2D biplane) Grade I left ventricular diastolic dysfunction. - The right ventricle is normal in size. Right ventricular systolic function is normal. - There are no significant valvular abnormalities. Monitor 2018 Event monitor report Enrollment Period: 02/09/18-03/02/18 A 22 day event monitor was evaluated for Declara. Rhythm was sinus. Average heart rate was 62. There was occasional sinus bradycardia No atrial arrhythmias were observed. There was no atrial fibrillation. No ventricular arrhythmias were observed. There was no ventricular tachycardia. No pauses were observed. No symptoms were reported. Stress testing 2016 CONCLUSIONS: 1. SPECT Perfusion Study: Normal. 2. There is no scintigraphic evidence for inducible ischemia. 3. No evidence of scarred myocardium. 4. Good functional capacity for age and gender. 5. Left ventricle is normal in size. The left ventricle systolic function is normal. 6. Right ventricle is normal in size. 7. This is a low risk scan. LVEF % 71 Assessment and Plan: JON -She relates to COVID infection, symptoms are improving. She is not interested in further cardiac testing at this time. -Consider stress testing for anginal equivalent in the future HTN -136/70 -Encouraged dietary sodium restriction/DASH diet -Recommended regular aerobic exercise. -Recommend home blood pressure monitoring, to bring results in on next visit -Discussed need and benefit for weight loss. -Goal of BP <130/80 Hyperlipidemia -lipid panel 01/04/2022 LDL 60 -continue Crestor 20 mg Chronic diastolic HF -EF 70%, Grade I left ventricular diastolic dysfunction -Compensated on exam -recommended heart healthy, 2g low sodium diet, daily weights Obesity -lifestyle modifications -encouraged a heart healthy diet, routine exercise and weight loss Follow-up in 1 year. Patient to call with any issues or concerns prior to then. Electronically signed by Betty Peña APRN.CNP on March 28, 2022, 2:00 PM documented in this encounter [facility] 04-12-2021 History of Present illness Narrative Radiology Service Progress Note PATIENT NAME: Xuan Hernandez DATE OF SERVICE: April 12, 2021 TIME: 12:39 PM PATIENT IDENTITY VERIFICATION COMPLETED USING TWO (2) IDENTIFIERS: Name and Date of confirmed by patient verbally. FALL SCREENING: Has the patient had 2 falls in the last year or 1 fall with injury or currently using an Ambulatory Assistive Device (Walker, Cane, Wheelchair, Crutches, etc.)? No PATIENT GENDER DATA: Female. status: : No status: NO. PATIENT RELEVANT IMPLANT DATA REVIEWED: Yes RADIOLOGY DEPARTMENT: General X-ray: Exam(s) Completed: Chest X-Ray Pelvis X-Ray: Pelvis with Hip Left Lower Extremity X-Ray(s): Knee, AP / Lat / Tunne / Merchant Left and Wt. Bearing PERIPHERAL IV DATA: Not applicable SIGNED BY: RT Juana(R) April 12, 2021 12:39 PM documented in this encounter [facility] 03-13-2019 History of Past i llness Narrative Problem Noted Date Resolved Date Spinal stenosis, lumbar sultana on, without neurogenic claudication 03/13/2019 07/11/2022 Acute midline low back pain without sciatica 07/11/2022 Anemia due to vitamin B12 deficiency 12/29/2015 10/04/2018 Thyroid disease 02/21/2014 06/08/2015 documented as of this encounter (statuses as of 07/14/2022) [facility]2019 History of Past illness Narrative* Problem Noted Date Resolved Date Spinal stenosis, lumbar sultana on, without neurogenic claudication 03/13/2019 07/11/2022 Acute midline low back pain without sciatica 07/11/2022 Anemia due to vitamin B12 deficiency 12/29/2015 10/04/2018 Thyroid disease 02/21/2014 06/08/2015 documented as of this encounter (statuses as of 07/18/2022) [facility] History of Past illness Narrative* Problem Noted Date Resolved Date Spinal stenosis, lumbar sultana on, without neurogenic claudication 03/13/2019 07/11/2022 Acute midline low back pain without sciatica 07/11/2022 Anemia due to vitamin B12 deficiency 12/29/2015 10/04/2018 Thyroid disease 02/21/2014 06/08/2015 documented as of this encounter (statuses as of 07/26/2022) [facility] History of Past illness Narrative* Problem Noted Date Resolved Date Spinal stenosis, lumbar sultana on, without neurogenic claudication 03/13/2019 07/11/2022 Acute midline low back pain without sciatica 07/11/2022 Anemia due to vitamin B12 deficiency 12/29/2015 10/04/2018 Thyroid disease 02/21/2014 06/08/2015 documented as of this encounter (statuses as of 07/30/2022) [facility] History of Past illness Narrative* Problem Noted Date Resolved Date Spinal stenosis, lumbar sultana on, without neurogenic claudication 03/13/2019 07/11/2022 Acute midline low back pain without sciatica 07/11/2022 Anemia due to vitamin B12 deficiency 12/29/2015 10/04/2018 Thyroid disease 02/21/2014 06/08/2015 documented as of this encounter (statuses as of 07/30/2022) [address]24-2019 History of Past illness Narrative* Problem Noted Date Resolved Date Spinal stenosis, lumbar sultana on, without neurogenic claudication 03/13/2019 07/11/2022 Acute midline low back pain without sciatica 07/11/2022 Anemia due to vitamin B12 deficiency 12/29/2015 10/04/2018 Thyroid disease 02/21/2014 06/08/2015 documented as of this encounter (statuses as of 08/11/2022) [address]24-2019 History of Past illness Narrative* Problem Noted Date Resolved Date Spinal stenosis, lumbar sultana on, without neurogenic claudication 03/13/2019 07/11/2022 Acute midline low back pain without sciatica 07/11/2022 Anemia due to vitamin B12 deficiency 12/29/2015 10/04/2018 Thyroid disease 02/21/2014 06/08/2015 documented as of this encounter (statuses as of 08/23/2022) [address]24-2019 History of Past illness Narrative* Problem Noted Date Resolved Date Spinal stenosis, lumbar sultana on, without neurogenic claudication 03/13/2019 07/11/2022 Acute midline low back pain without sciatica 07/11/2022 Anemia due to vitamin B12 deficiency 12/29/2015 10/04/2018 Thyroid disease 02/21/2014 06/08/2015 documented as of this encounter (statuses as of 08/31/2022) [address]24-2019 History of Past illness Narrative* Problem Noted Date Resolved Date Spinal stenosis, lumbar sultana on, without neurogenic claudication 03/13/2019 07/11/2022 Acute midline low back pain without sciatica 07/11/2022 Anemia due to vitamin B12 deficiency 12/29/2015 10/04/2018 Thyroid disease 02/21/2014 06/08/2015 documented as of this encounter (statuses as of 09/06/2022) [address]24-2019 History of Past illness Narrative* Problem Noted Date Resolved Date Spinal stenosis, lumbar sultana on, without neurogenic claudication 03/13/2019 07/11/2022 Acute midline low back pain without sciatica 07/11/2022 Anemia due to vitamin B12 deficiency 12/29/2015 10/04/2018 Thyroid disease 02/21/2014 06/08/2015 documented as of this encounter (statuses as of 09/20/2022) [address]24-2019 History of Past illness Narrative* Problem Noted Date Resolved Date Spinal stenosis, lumbar sultana on, without neurogenic claudication 03/13/2019 07/11/2022 Acute midline low back pain without sciatica 07/11/2022 Anemia due to vitamin B12 deficiency 12/29/2015 10/04/2018 Thyroid disease 02/21/2014 06/08/2015 documented as of this encounter (statuses as of 10/04/2022) [address]24-2019 History of Past illness Narrative* Problem Noted Date Resolved Date Spinal stenosis, lumbar sultana on, without neurogenic claudication 03/13/2019 07/11/2022 Acute midline low back pain without sciatica 07/11/2022 Anemia due to vitamin B12 deficiency 12/29/2015 10/04/2018 Thyroid disease 02/21/2014 06/08/2015 documented as of this encounter (statuses as of 10/27/2022) [address]24-2019 History of Past illness Narrative* Problem Noted Date Resolved Date Spinal stenosis, lumbar sultana on, without neurogenic claudication 03/13/2019 07/11/2022 Acute midline low back pain without sciatica 07/11/2022 Anemia due to vitamin B12 deficiency 12/29/2015 10/04/2018 Thyroid disease 02/21/2014 06/08/2015 documented as of this encounter (statuses as of 11/03/2022) [address]24-2019 History of Past illness Narrative* Problem Noted Date Resolved Date Spinal stenosis, lumbar sultana on, without neurogenic claudication 03/13/2019 07/11/2022 Acute midline low back pain without sciatica 07/11/2022 Anemia due to vitamin B12 deficiency 12/29/2015 10/04/2018 Thyroid disease 02/21/2014 06/08/2015 documented as of this encounter (statuses as of 11/04/2022) [address]24-2019 History of Past illness Narrative* Problem Noted Date Resolved Date Spinal stenosis, lumbar sultana on, without neurogenic claudication 03/13/2019 07/11/2022 Acute midline low back pain without sciatica 07/11/2022 Anemia due to vitamin B12 deficiency 12/29/2015 10/04/2018 Thyroid disease 02/21/2014 06/08/2015 documented as of this encounter (statuses as of 11/25/2022) [facility]2019 History of Past illness Narrative* Problem Noted Date Resolved Date Spinal stenosis, lumbar sultana on, without neurogenic claudication 03/13/2019 07/11/2022 Acute midline low back pain without sciatica 07/11/2022 Anemia due to vitamin B12 deficiency 12/29/2015 10/04/2018 Thyroid disease 02/21/2014 06/08/2015 documented as of this encounter (statuses as of 12/27/2022) [facility] History of Past illness Narrative* Problem Noted Date Resolved Date Spinal stenosis, lumbar sultana on, without neurogenic claudication 03/13/2019 07/11/2022 Acute midline low back pain without sciatica 07/11/2022 Anemia due to vitamin B12 deficiency 12/29/2015 10/04/2018 Thyroid disease 02/21/2014 06/08/2015 documented as of this encounter (statuses as of 01/25/2023) [facility] History of Past illness Narrative* Problem Noted Date Resolved Date Spinal stenosis, lumbar sultana on, without neurogenic claudication 03/13/2019 07/11/2022 Acute midline low back pain without sciatica 07/11/2022 Anemia due to vitamin B12 deficiency 12/29/2015 10/04/2018 Thyroid disease 02/21/2014 06/08/2015 documented as of this encounter (statuses as of 01/27/2023) [address]24-2019 History of Past illness Narrative* Problem Noted Date Resolved Date Spinal stenosis, lumbar sultana on, without neurogenic claudication 03/13/2019 07/11/2022 Acute midline low back pain without sciatica 07/11/2022 Anemia due to vitamin B12 deficiency 12/29/2015 10/04/2018 Thyroid disease 02/21/2014 06/08/2015 documented as of this encounter (statuses as of 02/14/2023) [address]24-2019 History of Past illness Narrative* Problem Noted Date Resolved Date Spinal stenosis, lumbar sultana on, without neurogenic claudication 03/13/2019 07/11/2022 Acute midline low back pain without sciatica 07/11/2022 Anemia due to vitamin B12 deficiency 12/29/2015 10/04/2018 Thyroid disease 02/21/2014 06/08/2015 documented as of this encounter (statuses as of 02/15/2023) [address]24-2019 History of Past illness Narrative* Problem Noted Date Resolved Date Spinal stenosis, lumbar sultana on, without neurogenic claudication 03/13/2019 07/11/2022 Acute midline low back pain without sciatica 07/11/2022 Anemia due to vitamin B12 deficiency 12/29/2015 10/04/2018 Thyroid disease 02/21/2014 06/08/2015 documented as of this encounter (statuses as of 02/24/2023) [address]24-2019 History of Past illness Narrative* Problem Noted Date Resolved Date Spinal stenosis, lumbar sultana on, without neurogenic claudication 03/13/2019 07/11/2022 Acute midline low back pain without sciatica 07/11/2022 Anemia due to vitamin B12 deficiency 12/29/2015 10/04/2018 Thyroid disease 02/21/2014 06/08/2015 documented as of this encounter (statuses as of 03/27/2023) [address]24-2019 History of Past illness Narrative* Problem Noted Date Resolved Date Spinal stenosis, lumbar sultana on, without neurogenic claudication 03/13/2019 07/11/2022 Acute midline low back pain without sciatica 07/11/2022 Anemia due to vitamin B12 deficiency 12/29/2015 10/04/2018 Thyroid disease 02/21/2014 06/08/2015 documented as of this encounter (statuses as of 04/21/2023) [address]24-2019 History of Past illness Narrative* Problem Noted Date Resolved Date Spinal stenosis, lumbar sultana on, without neurogenic claudication 03/13/2019 07/11/2022 Acute midline low back pain without sciatica 07/11/2022 Anemia due to vitamin B12 deficiency 12/29/2015 10/04/2018 Thyroid disease 02/21/2014 06/08/2015 documented as of this encounter (statuses as of 2023) [address]24-2019 History of Past illness Narrative* Problem Noted Date Resolved Date Spinal stenosis, lumbar sultana on, without neurogenic claudication 03/13/2019 07/11/2022 Acute midline low back pain without sciatica 07/11/2022 Anemia due to vitamin B12 deficiency 12/29/2015 10/04/2018 Thyroid disease 02/21/2014 06/08/2015 documented as of this encounter (statuses as of 05/20/2023) [address]24-2019 History of Past illness Narrative* Problem Noted Date Diagnosed Date Resolved Date Spinal stenosis, lumbar sultana on, without neurogenic claudication 03/13/2019 07/11/2022 Acute midline low back pain without sciatica 9 07/11/2022 Anemia due to vitamin B12 deficiency 12/29/2015 10/04/2018 Thyroid disease 02/21/2014 06/08/2015 documented as of this encounter (statuses as of 05/30/2023) [address]24-2019 History of Past illness Narrative* Problem Noted Date Diagnosed Date Resolved Date Spinal stenosis, lumbar sultana on, without neurogenic claudication 03/13/2019 07/11/2022 Acute midline low back pain without sciatica 9 07/11/2022 Anemia due to vitamin B12 deficiency 12/29/2015 10/04/2018 Thyroid disease 02/21/2014 06/08/2015 documented as of this encounter (statuses as of 06/28/2023) [address]24-2019 History of Past illness Narrative* Problem Noted Date Diagnosed Date Resolved Date Spinal stenosis, lumbar sultana on, without neurogenic claudication 03/13/2019 07/11/2022 Acute midline low back pain without sciatica 9 07/11/2022 Anemia due to vitamin B12 deficiency 12/29/2015 10/04/2018 Thyroid disease 02/21/2014 06/08/2015 documented as of this encounter (statuses as of 07/08/2023) [address]24-2019 History of Past illness Narrative* Problem Noted Date Diagnosed Date Resolved Date Spinal stenosis, lumbar sultana on, without neurogenic claudication 03/13/2019 07/11/2022 Acute midline low back pain without sciatica 9 07/11/2022 Anemia due to vitamin B12 deficiency 12/29/2015 10/04/2018 Thyroid disease 02/21/2014 06/08/2015 documented as of this encounter (statuses as of 08/02/2023) [place] [address]24-2019 History of Past illness Narrative* Problem Noted Date Diagnosed Date Resolved Date Spinal stenosis, lumbar sultana on, without neurogenic claudication 03/13/2019 07/11/2022 Acute midline low back pain without sciatica 9 07/11/2022 Anemia due to vitamin B12 deficiency 12/29/2015 10/04/2018 Thyroid disease 02/21/2014 06/08/2015 documented as of this encounter (statuses as of 08/08/2023) [facility]04-24-2019 History of Past illness Narrative* Problem Noted Date Diagnosed Date Resolved Date Spinal stenosis, lumbar sultana on, without neurogenic claudication 03/13/2019 07/11/2022 Acute midline low back pain without sciatica 9 07/11/2022 Anemia due to vitamin B12 deficiency 12/29/2015 10/04/2018 Thyroid disease 02/21/2014 06/08/2015 documented as of this encounter (statuses as of 09/23/2023) [facility]24-2019 History of Past illness Narrative* Problem Noted Date Diagnosed Date Resolved Date Spinal stenosis, lumbar sultana on, without neurogenic claudication 03/13/2019 07/11/2022 Acute midline low back pain without sciatica 9 07/11/2022 Anemia due to vitamin B12 deficiency 12/29/2015 10/04/2018 Thyroid disease 02/21/2014 06/08/2015 documented as of this encounter (statuses as of 09/23/2023) [address]24-2019 History of Past illness Narrative* Problem Noted Date Diagnosed Date Resolved Date Spinal stenosis, lumbar sultana on, without neurogenic claudication 03/13/2019 07/11/2022 Acute midline low back pain without sciatica 9 07/11/2022 Anemia due to vitamin B12 deficiency 12/29/2015 10/04/2018 Thyroid disease 02/21/2014 06/08/2015 documented as of this encounter (statuses as of 09/23/2023) [address]24-2019 History of Past illness Narrative* Problem Noted Date Diagnosed Date Resolved Date Spinal stenosis, lumbar sultana on, without neurogenic claudication 03/13/2019 07/11/2022 Acute midline low back pain without sciatica 9 07/11/2022 Anemia due to vitamin B12 deficiency 12/29/2015 10/04/2018 Thyroid disease 02/21/2014 06/08/2015 documented as of this encounter (statuses as of 10/02/2023) [address]24-2019 History of Past illness Narrative* Problem Noted Date Diagnosed Date Resolved Date Spinal stenosis, lumbar sultana on, without neurogenic claudication 03/13/2019 07/11/2022 Acute midline low back pain without sciatica 9 07/11/2022 Anemia due to vitamin B12 deficiency 12/29/2015 10/04/2018 Thyroid disease 02/21/2014 06/08/2015 documented as of this encounter (statuses as of 10/16/2023) [address]24-2019 History of Past illness Narrative* Problem Noted Date Diagnosed Date Resolved Date Spinal stenosis, lumbar sultana on, without neurogenic claudication 03/13/2019 07/11/2022 Acute midline low back pain without sciatica 9 07/11/2022 Anemia due to vitamin B12 deficiency 12/29/2015 10/04/2018 Thyroid disease 02/21/2014 06/08/2015 documented as of this encounter (statuses as of 10/28/2023) [address]24-2019 History of Past illness Narrative* Problem Noted Date Diagnosed Date Resolved Date Spinal stenosis, lumbar sultana on, without neurogenic claudication 03/13/2019 07/11/2022 Acute midline low back pain without sciatica 9 07/11/2022 Anemia due to vitamin B12 deficiency 12/29/2015 10/04/2018 Thyroid disease 02/21/2014 06/08/2015 documented as of this encounter (statuses as of 11/01/2023) [address]24[address]2019 History of Past illness Narrative* Problem Noted Date Diagnosed Date Resolved Date Spinal stenosis, lumbar sultana on, without neurogenic claudication 03/13/2019 07/11/2022 Acute midline low back pain without sciatica 9 07/11/2022 Anemia due to vitamin B12 deficiency 12/29/2015 10/04/2018 Thyroid disease 02/21/2014 06/08/2015 documented as of this encounter (statuses as of 01/31/2024) [facility]24[facility]2019 History of Past illness Narrative* Problem Noted Date Diagnosed Date Resolved Date Spinal stenosis, lumbar sultana on, without neurogenic claudication 03/13/2019 07/11/2022 Acute midline low back pain without sciatica 9 07/11/2022 Anemia due to vitamin B12 deficiency 12/29/2015 10/04/2018 Thyroid disease 02/21/2014 06/08/2015 documented as of this encounter (statuses as of 02/29/2024) [facility] History of Past illness Narrative* Problem Noted Date Resolved Date Anemia due to vitamin B12 deficiency 12/29/2015 10/04/2018 Thyroid disease 02/21/2014 06/08/2015 documented as of this encounter (statuses as of 03/28/2022) [facility] History of Past illness Narrative* Problem Noted Date Resolved Date Anemia due to vitamin B12 deficiency 12/29/2015 10/04/2018 Thyroid disease 02/21/2014 06/08/2015 documented as of this encounter (statuses as of 04/05/2022) [facility] History of Past illness Narrative* Problem Noted Date Resolved Date Anemia due to vitamin B12 deficiency 12/29/2015 10/04/2018 Thyroid disease 02/21/2014 06/08/2015 documented as of this encounter (statuses as of 04/06/2022) [facility] History of Past illness Narrative* Problem Noted Date Resolved Date Anemia due to vitamin B12 deficiency 12/29/2015 10/04/2018 Thyroid disease 02/21/2014 06/08/2015 documented as of this encounter (statuses as of 04/06/2022) [facility] History of Past illness Narrative* Problem Noted Date Resolved Date Anemia due to vitamin B12 deficiency 12/29/2015 10/04/2018 Thyroid disease 02/21/2014 06/08/2015 documented as of this encounter (statuses as of 04/07/2022) [facility] History of Past illness Narrative* Problem Noted Date Resolved Date Anemia due to vitamin B12 deficiency 12/29/2015 10/04/2018 Thyroid disease 02/21/2014 06/08/2015 documented as of this encounter (statuses as of 04/21/2022) [facility] History of Past illness Narrative* Problem Noted Date Resolved Date Anemia due to vitamin B12 deficiency 12/29/2015 10/04/2018 Thyroid disease 02/21/2014 06/08/2015 documented as of this encounter (statuses as of 04/25/2022) [facility] History of Past illness Narrative* Problem Noted Date Resolved Date Anemia due to vitamin B12 deficiency 12/29/2015 10/04/2018 Thyroid disease 02/21/2014 06/08/2015 documented as of this encounter (statuses as of 04/27/2022) [facility] History of Past illness Narrative* Problem Noted Date Resolved Date Anemia due to vitamin B12 deficiency 12/29/2015 10/04/2018 Thyroid disease 02/21/2014 06/08/2015 documented as of this encounter (statuses as of 04/29/2022) [facility] History of Past illness Narrative* Problem Noted Date Resolved Date Anemia due to vitamin B12 deficiency 12/29/2015 10/04/2018 Thyroid disease 02/21/2014 06/08/2015 documented as of this encounter (statuses as of 05/11/2022) [facility] History of Past illness Narrative* Problem Noted Date Resolved Date Anemia due to vitamin B12 deficiency 12/29/2015 10/04/2018 Thyroid disease 02/21/2014 06/08/2015 documented as of this encounter (statuses as of 05/11/2022) [facility] History of Past illness Narrative* Problem Noted Date Resolved Date Anemia due to vitamin B12 deficiency 12/29/2015 10/04/2018 Thyroid disease 02/21/2014 06/08/2015 documented as of this encounter (statuses as of 05/24/2022) [facility] History of Past illness Narrative* Problem Noted Date Resolved Date Anemia due to vitamin B12 deficiency 12/29/2015 10/04/2018 Thyroid disease 02/21/2014 06/08/2015 documented as of this encounter (statuses as of 07/07/2022) [facility] + Plan note No data available for this section [facility] Oskar Kuhn Evaluation note* Diagnosis Screening for ischemic heart disease- Primary JON (dyspnea on exertion) Other dyspnea and respiratory abnormality Hypertension, essential Unspecified essential hypertension Hypercholesterolemia Pure hypercholesterolemia documented in this encounter [facility] note* Diagnosis JON (dyspnea on exertion)- Primary Other dyspnea and respiratory abnormality RUDY (generalized anxiety disorder) Generalized anxiety disorder Acquired hypothyroidism Unspecified hypothyroidism Grade I diastolic dysfunction Hypertension, essential Unspecified essential hypertension Vitamin B12 deficiency Other B-complex deficiencies Hypercholesterolemia Pure hypercholesterolemia documented in this encounter [facility] note* Diagnosis Acquired hypothyroidism Unspecified hypothyroidism documented in this encounter [facility] note* Diagnosis Vitamin B12 deficiency- Primary Other B-complex deficiencies documented in this encounter [facility] note* Diagnosis Vitamin B12 deficiency- Primary Other B-complex deficiencies documented in this encounter [facility] note* Diagnosis Breast pain Mastodynia [facility] Diagnosis Vitamin B12 deficiency- Primary Other B-complex deficiencies Need for vaccination Need for prophylactic vaccination and inoculation against unspecified single disease documented in this encounter [facility] note* Diagnosis RUDY (generalized anxiety disorder)- Primary Generalized anxiety disorder documented in this encounter [facility] note* Diagnosis Acute cystitis without hematuria- Primary Acute cystitis Vitamin B12 deficiency Other B-complex deficiencies Bilateral leg edema Edema Fatigue, unspecified type RUDY (generalized anxiety disorder) Generalized anxiety disorder documented in this encounter [facility] note* Diagnosis Vitamin B12 deficiency- Primary Other B-complex deficiencies [facility]* Diagnosis Recurrent UTI (urinary tract infection)- Primary Urinary tract infection, site not specified documented in this encounter [facility] note* Diagnosis Subacute cough- Primary Cough Vertigo Dizziness and giddiness documented in this encounter [facility] note* Diagnosis Vitamin B12 deficiency- Primary Other B-complex deficiencies Need for influenza vaccination Need for prophylactic vaccination and inoculation against influenza [facility]* Diagnosis Vertigo- Primary Dizziness and giddiness documented [facility] this [facility]* Diagnosis Vertigo- Primary Dizziness and giddiness [facility] Diagnosis Vitamin B12 deficiency- Primary Other B-complex deficiencies [facility] Diagnosis Hypercholesterolemia- Primary Pure hypercholesterolemia Hypertension, essential Unspecified essential hypertension Vitamin B12 deficiency Other B-complex deficiencies Acquired hypothyroidism Unspecified hypothyroidism IFG (impaired fasting glucose) Impaired fasting glucose [facility] Diagnosis Vitamin B12 deficiency- Primary Other B-complex deficiencies [facility] Diagnosis Vitamin B12 deficiency- Primary Other B-complex deficiencies [facility] Diagnosis Vitamin B12 deficiency- Primary Other B-complex deficiencies Vitamin D deficiency Unspecified vitamin D deficiency Hyperglycemia Other abnormal glucose Hypercholesterolemia Pure hypercholesterolemia Hypertension, essential Unspecified essential hypertension Acquired hypothyroidism Unspecified hypothyroidism [facility] Diagnosis Acute cough- Primary Rhinosinusitis Unspecified sinusitis (chronic) [facility] Diagnosis Acquired hypothyroidism Unspecified hypothyroidism RUDY (generalized anxiety disorder) Generalized anxiety disorder [facility] Diagnosis Vitamin B12 deficiency- Primary Other B-complex deficiencies [facility] Diagnosis Vitamin B12 deficiency- Primary Other B-complex deficiencies [facility] Diagnosis Acquired hypothyroidism- Primary Unspecified hypothyroidism Vitamin B12 deficiency Other B-complex deficiencies RUDY (generalized anxiety disorder) Generalized anxiety disorder Hypertensive heart disease with heart failure (HCC) Unspecified hypertensive heart disease with heart failure Hypercholesterolemia Pure hypercholesterolemia Hypertension, essential Unspecified essential hypertension Vitamin D deficiency Unspecified vitamin D deficiency [facility] Diagnosis RUDY (generalized anxiety disorder) Generalized anxiety disorder Acquired hypothyroidism Unspecified hypothyroidism [facility]* Diagnosis Encounter for screening mammogram for malignant neoplasm of breast Other screening mammogram [facility]* Diagnosis Dizziness Dizziness and giddiness 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) Cerebral degeneration, unspecified Abnormal CT of brain Nonspecific (abnormal) findings on radiological and other examination of skull and head New onset of headaches Headache [facility]* Diagnosis Abnormal mammogram Abnormal mammogram, unspecified [facility] Diagnosis Vitamin B12 deficiency- Primary Other B-complex deficiencies Acquired hypothyroidism Unspecified hypothyroidism Vitamin D deficiency Unspecified vitamin D deficiency documented in this encounter [facility] note* Diagnosis Vitamin B12 deficiency- Primary Other B-complex deficiencies documented in this encounter [facility] note* Diagnosis Vitamin B12 deficiency- Primary Other B-complex deficiencies documented in this encounter [facility] note* Diagnosis Vitamin B12 deficiency- Primary Other B-complex deficiencies Acquired hypothyroidism Unspecified hypothyroidism RUDY (generalized anxiety disorder) Generalized anxiety disorder Hypertensive heart disease with heart failure (HCC) Unspecified hypertensive heart disease with heart failure 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) Cerebral degeneration, unspecified Chronic kidney disease, stage 3a (HCC) Hypercholesterolemia Pure hypercholesterolemia Class 2 obesity with body mass index (BMI) of 38.0 to 38.9 in adult, unspecified obesity type, unspecified whether serious comorbidity present documented in this encounter [facility] note* Diagnosis RUDY (generalized anxiety disorder) Generalized anxiety disorder documented in this encounter [facility] note* Diagnosis Acquired hypothyroidism Unspecified hypothyroidism documented in this encounter [facility] note* Diagnosis Burning with urination- Primary Dysuria documented in this encounter [facility] note* Diagnosis Acquired hypothyroidism Unspecified hypothyroidism RUDY (generalized anxiety disorder) Generalized anxiety disorder documented in this encounter [facility] note* Diagnosis Acute cough documented in this encounter [facility] note* Diagnosis Acute cough documented in this encounter [facility] note* Diagnosis Subacute cough Cough documented in this encounter [facility] note* Diagnosis Lateral pain of left hip Pain in joint, pelvic region and thigh Acute pain of left knee JON (dyspnea on exertion) Other dyspnea and respiratory abnormality documented in this encounter [facility] note* Diagnosis Hypercholesterolemia- Primary Pure hypercholesterolemia RUDY (generalized anxiety disorder) Generalized anxiety disorder Vitamin D deficiency Unspecified vitamin D deficiency Vitamin B12 deficiency Other B-complex deficiencies Hypertensive heart disease with heart failure (HCC) Unspecified hypertensive heart disease with heart failure Hyperglycemia Other abnormal glucose [facility]* Diagnosis Left hip pain- Primary Pain in joint, pelvic region and thigh Vitamin B12 deficiency Other B-complex deficiencies RUDY (generalized anxiety disorder) Generalized anxiety disorder Acquired hypothyroidism Unspecified hypothyroidism Hypercholesterolemia Pure hypercholesterolemia Vitamin D deficiency Unspecified vitamin D deficiency Chronic kidney disease, stage 3a (HCC) Hypertensive heart disease with heart failure (HCC) Unspecified hypertensive heart disease with heart failure 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) Cerebral degeneration, unspecified Class 2 obesity with body mass index (BMI) of 38.0 to 38.9 in adult, unspecified obesity type, unspecified whether serious comorbidity present [facility]* Diagnosis Hypertension, essential- Primary Unspecified essential hypertension Acquired hypothyroidism Unspecified hypothyroidism Anemia due to vitamin B12 deficiency, unspecified B12 deficiency type [facility]* Diagnosis Anemia due to vitamin B12 deficiency, unspecified B12 deficiency type- Primary [facility] Diagnosis Acute midline low back pain with right-sided sciatica- Primary Blood in stool [facility] Diagnosis Blood in stool- Primary IBD (inflammatory bowel disease) Other and unspecified noninfectious gastroenteritis and colitis [facility] Diagnosis Urinary frequency- Primary Constipation, unspecified constipation type Rectal bleeding Hemorrhage of rectum and anus [facility]* Diagnosis Anemia due to vitamin B12 deficiency, unspecified B12 deficiency type- Primary [facility]* Diagnosis Screen for colon cancer- Primary Special screening for malignant neoplasms, colon Constipation, unspecified constipation type Rectal bleeding Hemorrhage of rectum and anus Abnormal CT of the abdomen Nonspecific (abnormal) findings on radiological and other examination of abdominal area, including retroperitoneum [facility]* Diagnosis BRBPR (bright red blood per rectum)- Primary Hemorrhage of rectum and anus Constipation, unspecified constipation type [facility]* Diagnosis Encounter for screening for malignant neoplasm of colon- Primary Special screening for malignant neoplasms, colon Constipation, unspecified constipation type Rectal bleeding Hemorrhage of rectum and anus Abnormal CT of the abdomen Nonspecific (abnormal) findings on radiological and other examination of abdominal area, including retroperitoneum Rectal bleeding- Primary Hemorrhage of rectum and anus Constipation, unspecified constipation type [facility]* Diagnosis Rectal bleeding- Primary Hemorrhage of rectum and anus Constipation, unspecified constipation type BRBPR (bright red blood per rectum) Hemorrhage of rectum and anus [facility]* Diagnosis Hypercholesterolemia- Primary Pure hypercholesterolemia Vitamin B12 deficiency Other B-complex deficiencies Acquired hypothyroidism Unspecified hypothyroidism [facility]* Diagnosis Medicare annual wellness visit, subsequent- Primary Routine general medical examination at a health care facility Acquired hypothyroidism Unspecified hypothyroidism RUDY (generalized anxiety disorder) Generalized anxiety disorder Chronic constipation Unspecified constipation Tubular adenoma Benign neoplasm of unspecified site Bloating Flatulence, eructation, and gas pain Hypercholesterolemia Pure hypercholesterolemia Vitamin B12 deficiency Other B-complex deficiencies Anemia due to vitamin B12 deficiency, unspecified B12 deficiency type [facility] SOLITARIO SAHU MD: SIGN, VERIFY Event Display: EKG [ED [facility]] - CV Authored Date: [id number] [facility] Reason for referral (narrative)* Outpatient Procedure (Routine) - Closed Specialty Diagnoses / Procedures Referred By Omkar snider [facility] Diagnoses Screening for ischemic heart disease Procedures ECG COMPLETE ECG ROUTINE ECG W/LEAST 12 LDS W/I&R Betty Peña APRN.CNP [address] [place] [address] [facility] [place] [address] [place] [address] Referral ID Status Reason Start Date Expiration Date V isits Requested Visits Authorized [id number] Closed Auto-Generate d Referral 03/24/2022 03/24/[address] [facility] for referral (narrative)* Diagnostic Procedure Only (Routine) - Closed Specialty Diagnoses / Procedures Referred By Omkar snider Referred To Contact [facility] Diagnoses Breast pain Procedures US BREAST LTD LT US BREAST UNI REAL TIME WITH IMAGE LIMITED Raafl Zapien DO [address] [place] [address] [facility] [address] [place] [address] Referral ID Status Reason Start Date Expiration Date V isits Requested Visits Authorized [id number] Closed Auto-Generate d Referral 04/28/2022 05/28/[address] [facility] for referral (narrative)* Diagnostic Procedure Only (Routine) - Closed Specialty Diagnoses / Procedures Referred By Omkar snider Referred To Contact [facility] Diagnoses Encounter for screening mammogram for malignant neoplasm of breast Procedures DOUG SCREENING SCREENING MAMMOGRAPHY BI 2-VIEW BREAST INC CAD Rafal Zapien, DO [address] [place] [address] [facility] [address] [place] [address] Referral ID Status Reason Start Date Expiration Date V isits Requested Visits Authorized [id number] Closed Auto-Generate d Referral 04/05/2023 [address] [facility] for referral (narrative)* Diagnostic Procedure Only (Routine) - Closed Specialty Diagnoses / Procedures Referred By Omkar snider Referred To Contact [facility] Diagnoses Abnormal mammogram Procedures US BREAST LTD LT US BREAST UNI REAL TIME WITH IMAGE LIMITED Elham Perez APRN.CNP [address] [place] [address] [facility] [address] [place] [phone] Referral ID Status Reason Start Date Expiration Date V isits Requested Visits Authorized [id number] Closed Auto-Generate d Referral 07/20/2022 08/19/[address] [facility] for referral (narrative)* Diagnostic Procedure Only (Routine) - New Request Specialty Diagnoses / Procedures Referred By Omkar snider Referred To Contact [facility] Diagnoses Left hip pain Procedures XR LUMBAR GENERAL 3V AP/LAT/L5-S1 RADEX SPINE LUMBOSACRAL 2/3 VIEWS Rafal Zapien DO [address] [place] [address] [place] [id number] Referral ID Status Reason Start Date Expiration Date Visits Requested Visits Authorized [id number] New Request Auto-Generat ed Referral 09/25/2024 10/25/2025 1 1 * Diagnostic Procedure Only (Routine) - New Request Specialty Diagnoses / Procedures Referred By Omkar t Referred To Contact [facility] Diagnoses Left hip pain Procedures XR HIP GENERAL 3V PELV/AP/LAT LEFT RADEX HIP UNILATERAL WITH PELVIS 2-3 VIEWS Rafal Zapien DO [address] [place] [address] [place] [id number] Referral ID Status Reason Start Date Expiration Date Visits Requested Visits Authorized [id number] New Request Auto-Generat ed Referral 09/25/2024 10/25/[address] [facility] for visit Narrative* Diagnostic Procedure Only (Routine) - Closed Specialty Diagnoses / Procedures Referred By Omkar t Referred To Contact [facility] Diagnoses Encounter for screening mammogram for malignant neoplasm of breast Procedures DOUG SCREENING SCREENING MAMMOGRAPHY BI 2-VIEW BREAST INC CAD Rafal Zapien DO [address] [place] [address] [facility] [address] [place] [address] Referral ID Status Reason Start Date Expiration Date V isits Requested Visits Authorized [id number] Closed Auto-Generate d Referral 04/05/2023 [address] [facility] for visit Narrative* Diagnostic Procedure Only (Routine) - Closed Specialty Diagnoses / Procedures Referred By Omkar t Referred To Contact [facility] Diagnoses Abnormal mammogram Procedures US BREAST LTD LT US BREAST UNI REAL TIME WITH IMAGE LIMITED Elham Perez APRN.CARDIAC NURSE SPECIALIST [address] [place] [address] [facility] [address] [place] [address] Referral ID Status Reason Start Date Expiration Date V isits Requested Visits Authorized [id number] Closed Auto-Generate d Referral 07/20/2022 08/19/[address] [facility] for visit Narrative* Consult, Test, Treat (Routine) - Closed Specialty Diagnoses / Procedures Referred By Omkar t Referred To Contact General Surgery Diagnoses Constipation, unspecified constipation type Rectal bleeding Procedures CONSULT TO GENERAL SURGERY OFFICE/OUTPATIENT NEW HIGH MDM 60 MINUTES Chata Shelton APRN.CARDIAC NURSE SPECIALIST [address] [place] [address] Phone: tel: fax: Referral ID Status Reason Start Date Expiration Date V isits Requested Visits Authorized [id number] Closed PCP Requested Referral 01/30/2025 01/30/[address] [facility] for visit Narrative* Outpatient Procedure (Routine) - Closed Specialty Diagnoses / Procedures Referred By Omkar t Referred To Contact [facility] Diagnoses Constipation, unspecified constipation type Rectal bleeding Abnormal CT of the abdomen Procedures COLONOSCOPY DIAGNOSTIC COLONOSCOPY FLX DX W/COLLJ SPEC WHEN Nadia Solis, CARDIOPULMONARY SUPERVISOR.CARDIAC NURSE SPECIALIST [address] [place] [address] Phone: tel: fax: Darwin Pisano MD [address] [place] [address] Phone: tel: fax: Referral ID Status Reason Start Date Expiration Date V isits Requested Visits Authorized [id number] Closed Auto-Generate d Referral 02/20/2025 04/19/[address] [facility] for visit Narrative* Outpatient Procedure (Routine) - Closed Specialty Diagnoses / Procedures Referred By Omkar t Referred To Contact Diagnoses BRBPR (bright red blood per rectum) Constipation, unspecified constipation type Procedures COLONOSCOPY DIAGNOSTIC COLONOSCOPY FLX DX W/COLLJ SPEC WHEN Nadia Solis APRN.CARDIAC NURSE SPECIALIST [address] [place] [address] Phone: tel: fax: Brandon Alba, DO [address] [place] [address] Phone: tel: fax: Referral ID Status Reason Start Date Expiration Date V isits Requested Visits Authorized [id number] Closed Auto-Generate d Referral 02/21/2025 05/23/2025 1 1 [facility] Summary Purpose Family History No Family History Records FoundNo Family History Records FoundNo Family History Records FoundNo Family History Records FoundNo Family History Records FoundNo Family History Records Found Advance Directives No Advanced Directives Records FoundNo Advanced Directives Records FoundNo Advanced Directives Records FoundNo Advanced Directives Records FoundNo Advanced Directives Records FoundNo Advanced Directives Records Found Reason for Referral Specialty Diagnoses / Procedures Referred By Contac t Referred To Contact Cardiology Diagnoses Grade I diastolic dysfunction Hypertension, essential JON (dyspnea on exertion) Procedures CONSULT TO CARDIOLOGY OFFICE/OUTPATIENT NEW HIGH MDM 60-74 MINUTES Rafal Zapien, DO [address] [place] [address] Referral ID Status Reason Start Date Expiration Date Visits Requested Visits Authorized [id number] Pending Review PCP Requested Referral 04/05/2022 04/05/2023 1 1 Specialty Diagnoses / Procedures Referred By Contac t Referred To Contact [facility] Diagnoses Grade I diastolic dysfunction Hypertension, essential JON (dyspnea on exertion) Procedures ECHO ECHO TTHRC R-T 2D W/WOM-MODE COMPL SPEC&COLR D Rafal Zapien, DO [address] [place] [address] [facility] [place] [address] [place] [address] Referral ID Status Reason Start Date Expiration Date Visits Requested Visits Authorized [id number] Pending Review Auto-Generat ed Referral 04/05/2022 04/05/2023 1 1 Specialty Diagnoses / Procedures Referred By Contac t Referred To Contact [facility] Diagnoses Grade I diastolic dysfunction Hypertension, essential JON (dyspnea on exertion) Procedures ECG COMPLETE ECG ROUTINE ECG W/LEAST 12 LDS W/I&R Rafal Zapien, DO [address] [place] [address] [facility] [address] [place] [address] Referral ID Status Reason Start Date Expiration Date V isits Requested Visits Authorized [id number] Closed Auto-Generate d Referral 04/05/2022 04/05/2023 1 1 Specialty Diagnoses / Procedures Referred By Contac t Referred To Contact [facility] Diagnoses Vertigo Procedures CONSULT TO PHYSICAL THERAPY PHYSICAL THERAPY EVALUATION HIGH COMPLEX 45 MINS Rafal Zapien, DO [address] [place] [address] [facility] [address] [address] Referral ID Status Reason Start Date Expiration Date Visits Requested Visits Authorized [id number] Pending Review Auto-Generat ed Referral 08/10/2022 08/10/2023 1 1 Specialty Diagnoses / Procedures Referred By Contac t Referred To Contact [facility] Diagnoses Vertigo Procedures PT REHAB FOLLOW UP ORDER THERAPEUTIC EXERCISES RE, EA 15 MIN. Betty Valentino, PT [facility] [address] [address] Referral ID Status Reason Start Date Expiration Date Visits Requested Visits Authorized [id number] Pending Review PCP Requested Referral Auto-Generate d Referral 2 11/29/2022 1 1 Specialty Diagnoses / Procedures Referred By Contac t Referred To Contact [facility] Diagnoses Dizziness 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) Abnormal CT of brain New onset of headaches Procedures MRI BRAIN WO/W IVCON MRI BRAIN BRAIN STEM W/O W/CONTRAST MATERIAL Rafal Zapien, DO [address] [place] [address] [place] [id number] Referral ID Status Reason Start Date Expiration Date V isits Requested Visits Authorized [id number] Closed Auto-Generate d Referral 11/04/2022 12/04/2022 1 1 Specialty Diagnoses / Procedures Referred By Contac t Referred To Contact Diagnoses Acquired hypothyroidism Rafal Zapien, DO [address] [place] [address] Referral ID Status Reason Start Date Expiration Date Visits Re quested Visits Authorized [id number] Closed 1 1 Medications Administered Section Active Administered Medications - up to 3 most recent administrations Medication Order MAR Action Action Date Dose Rate Site cyanocobalamin 1,000 mcg injection 1,000 mcg, INTRAMUSCULAR, EVERY 1 MONTH, 12 doses, First dose on 04/27/22 at 0000, Last dose on Kacie 03/23/23 at 0000 Given 04/27/2022 2:20 PM EDT 1,000 mcg Deltoid, Left Active Administered Medications - up to 3 most recent administrations Medication Order MAR Action Action Date Dose Rate Site cyanocobalamin 1,000 mcg injection 1,000 mcg, INTRAMUSCULAR, EVERY 1 MONTH, 12 doses, First dose on Mon04/27/22 at 0000, Last dose on Mon03/23/23 at 0000 Given 05/24/2022 2:02 PM EDT 1,000 mcg Deltoid, Right Given 04/27/2022 2:20 PM EDT 1,000 mcg De ltoid, Left Active Administered Medications - up to 3 most recent administrations Medication Order MAR Action Action Date Dose Rate Site cyanocobalamin 1,000 mcg injection 1,000 mcg, INTRAMUSCULAR, EVERY 1 MONTH, 12 doses, First dose on Mon04/27/22 at 0000, Last dose on Mon03/23/23 at 0000 Given 07/13/2022 2:06 PM EDT 1,000 mcg Deltoid, Left Given 05/24/2022 2:02 PM EDT 1,000 mcg De ltoid, Right Given 04/27/2022 2:20 PM EDT 1,000 mcg De ltoid, Left Active Administered Medications - up to 3 most recent administrations Medication Order MAR Action Action Date Dose Rate Site cyanocobalamin 1,000 mcg injection 1,000 mcg, INTRAMUSCULAR, EVERY 1 MONTH, 12 doses, First dose on Mon04/27/22 at 0000, Last dose on Mon03/23/23 at 0000 Given 07/26/2022 1:34 PM EDT 1,000 mcg Deltoid, Right Given 07/13/2022 2:06 PM EDT 1,000 mcg De ltoid, Left Given 05/24/2022 2:02 PM EDT 1,000 mcg De ltoid, Right Active Administered Medications - up to 3 most recent administrations Medication Order MAR Action Action Date Dose Rate Site cyanocobalamin 1,000 mcg injection 1,000 mcg, INTRAMUSCULAR, EVERY 1 MONTH, 12 doses, First dose on Mon04/27/22 at 0000, Last dose on Mon03/23/23 at 0000 Given 08/23/2022 1:54 PM EDT 1,000 mcg Deltoid, Left Given 07/26/2022 1:34 PM EDT 1,000 mcg De ltoid, Right Given 07/13/2022 2:06 PM EDT 1,000 mcg De ltoid, Left Active Administered Medications - up to 3 most recent administrations Medication Order MAR Action Action Date Dose Rate Site cyanocobalamin 1,000 mcg injection 1,000 mcg, INTRAMUSCULAR, EVERY 1 MONTH, 12 doses, First dose on Mon04/27/22 at 0000, Last dose on Mon03/23/23 at 0000 Given 09/20/2022 1:54 PM EDT 1,000 mcg Deltoid, Right Given 08/23/2022 1:54 PM EDT 1,000 mcg De ltoid, Left Given 07/26/2022 1:34 PM EDT 1,000 mcg De ltoid, Right Active Administered Medications - up to 3 most recent administrations Medication Order MAR Action Action Date Dose Rate Site cyanocobalamin 1,000 mcg injection 1,000 mcg, INTRAMUSCULAR, EVERY 1 MONTH, 12 doses, First dose on Mon04/27/22 at 0000, Last dose on Mon03/23/23 at 0000 Given 10/27/2022 2:26 PM EST 1,000 mcg Deltoid, Left Given 09/20/2022 1:54 PM EDT 1,000 mcg De ltoid, Right Given 08/23/2022 1:54 PM EDT 1,000 mcg De ltoid, Left Active Administered Medications - up to 3 most recent administrations Medication Order MAR Action Action Date Dose Rate Site cyanocobalamin 1,000 mcg injection 1,000 mcg, INTRAMUSCULAR, EVERY 1 MONTH, 12 doses, First dose on Mon04/27/22 at 0000, Last dose on Mon03/23/23 at 0000 Given 11/24/2022 2:13 PM EST 1,000 mcg Deltoid, Right Given 10/27/2022 2:26 PM EST 1,000 mcg De ltoid, Left Given 09/20/2022 1:54 PM EDT 1,000 mcg De ltoid, Right Active Administered Medications - up to 3 most recent administrations Medication Order MAR Action Action Date Dose Rate Site cyanocobalamin 1,000 mcg injection 1,000 mcg, INTRAMUSCULAR, EVERY 1 MONTH, 12 doses, First dose on Mon04/27/22 at 0000, Last dose on Mon03/23/23 at 0000 Given 12/27/2022 2:00 PM EST 1,000 mcg Deltoid, Left Given 11/24/2022 2:13 PM EST 1,000 mcg De ltoid, Right Given 10/27/2022 2:26 PM EST 1,000 mcg De ltoid, Left Active Administered Medications - up to 3 most recent administrations Medication Order MAR Action Action Date Dose Rate Site cyanocobalamin 1,000 mcg injection 1,000 mcg, INTRAMUSCULAR, EVERY 1 MONTH, 12 doses, First dose on Mon04/27/22 at 0000, Last dose on Mon03/23/23 at 0000 Given 01/25/2023 2:07 PM EST 1,000 mcg Deltoid, Right Given 12/27/2022 2:00 PM EST 1,000 mcg De ltoid, Left Given 11/24/2022 2:13 PM EST 1,000 mcg De ltoid, Right Active Administered Medications - up to 3 most recent administrations Medication Order MAR Action Action Date Dose Rate Site cyanocobalamin 1,000 mcg injection 1,000 mcg, INTRAMUSCULAR, EVERY 1 MONTH, 12 doses, First dose on Mon04/27/22 at 0000, Last dose on Mon03/23/23 at 0000 Given 02/24/2023 2:02 PM EDT 1,000 mcg Deltoid, Left Given 01/25/2023 2:07 PM EST 1,000 mcg De ltoid, Right Given 12/27/2022 2:00 PM EST 1,000 mcg De ltoid, Left Inactive Administered Medications - up to 3 most recent administrations Medication Order MAR Action Action Date Dose Rate Site cyanocobalamin 1,000 mcg injection 1,000 mcg, INTRAMUSCULAR, EVERY 1 MONTH, 12 doses, First dose on Mon04/27/22 at 0000, Last dose on Mon03/23/23 at 0000 Given 03/27/2023 1:01 PM EDT 1,000 mcg Deltoid, Right Given 02/24/2023 2:02 PM EDT 1,000 mcg De ltoid, Left Given 01/25/2023 2:07 PM EST 1,000 mcg De ltoid, Right Active Administered Medications - up to 3 most recent administrations Medication Order MAR Action Action Date Dose Rate Site cyanocobalamin 1,000 mcg injection 1,000 mcg, INTRAMUSCULAR, EVERY 1 MONTH, 12 doses, First dose on Mon04/27/23 at 0000, Last dose on Mon03/22/24 at 0000 Given 05/29/2023 2:07 PM EDT 1,000 mcg Deltoid, Right Given 04/27/2023 2:07 PM EDT 1,000 mcg De ltoid, Left Active Administered Medications - up to 3 most recent administrations Medication Order MAR Action Action Date Dose Rate Site cyanocobalamin 1,000 mcg injection 1,000 mcg, INTRAMUSCULAR, EVERY 1 MONTH, 12 doses, First dose on Kacie 04/27/23 at 0000, Last dose on Mon03/22/24 at 0000 Given 06/27/2023 2:25 PM EDT 1,000 mcg Deltoid, Left Given 05/29/2023 2:07 PM EDT 1,000 mcg De ltoid, Right Given 04/27/2023 2:07 PM EDT 1,000 mcg De ltoid, Left Active Administered Medications - up to 3 most recent administrations Medication Order MAR Action Action Date Dose Rate Site cyanocobalamin 1,000 mcg injection 1,000 mcg, INTRAMUSCULAR, EVERY 1 MONTH, 12 doses, First dose on Kacie 04/27/23 at 0000, Last dose on Mon03/22/24 at 0000 Given 08/02/2023 2:01 PM EDT 1,000 mcg Deltoid, Right Given 06/27/2023 2:25 PM EDT 1,000 mcg De ltoid, Left Given 05/29/2023 2:07 PM EDT 1,000 mcg De ltoid, Right Active Administered Medications - up to 3 most recent administrations Medication Order MAR Action Action Date Dose Rate Site cyanocobalamin 1,000 mcg injection 1,000 mcg, INTRAMUSCULAR, EVERY 1 MONTH, 12 doses, First dose on Kacie 04/27/23 at 0000, Last dose on Mon03/22/24 at 0000 Given 10/31/2023 1:49 PM EST 1,000 mcg Deltoid, Right Given 08/29/2023 2:03 PM EDT 1,000 mcg De ltoid, Left Given 08/02/2023 2:01 PM EDT 1,000 mcg De ltoid, Right Additional Source Comments INFORMATION SOURCE (unrecogn ized section and content) DATE CREATED AUTHOR 05/24/2018 [facility] DATE CREATED AUTHOR AUTHOR'S ORGANIZ ATION 05/24/2018 [facility] DATE CREATED AUTHOR AUTHOR'S ORGANIZ ATION 08/20/2022 [facility] DATE CREATED AUTHOR AUTHOR'S ORGANIZ ATION 01/15/2025 [facility] DATE CREATED AUTHOR AUTHOR'S ORGANIZ ATION 02/25/[address] [facility] DATE CREATED AUTHOR AUTHOR'S ORGANIZ ATION 06/13/2025 [facility] Source Comments (unrecognize d section and content) In the event this informatio n is protected by the Federal Confidentiality of Alcohol and Drug Abuse Patient Records regulations: The Federal rules restrict any use of the information to criminally investigate or prosecute any alcohol or drug abuse patient.[facility]In the event this information is protected by the Federal Confidentiality of Alcohol and Drug Abuse Patient Records regulations: The Federal rules restrict any use of the information to criminally investigate or prosecute any alcohol or drug abuse patient.[facility] HospitalIn the event this information is protected by the Federal Confidentiality of Alcohol and Drug Abuse Patient Records regulations: The Federal rules restrict any use of the information to criminally investigate or prosecute any alcohol or drug abuse patient.[facility] HospitalIn the event this information is protected by the Federal Confidentiality of Alcohol and Drug Abuse Patient Records regulations: The Federal rules restrict any use of the information to criminally investigate or prosecute any alcohol or drug abuse patient.[facility] HospitalIn the event this information is protected by the Federal Confidentiality of Alcohol and Drug Abuse Patient Records regulations: The Federal rules restrict any use of the information to criminally investigate or prosecute any alcohol or drug abuse patient.[facility] HospitalIn the event this information is protected by the Federal Confidentiality of Alcohol and Drug Abuse Patient Records regulations: The Federal rules restrict any use of the information to criminally investigate or prosecute any alcohol or drug abuse patient.[facility] HospitalIn the event this information is protected by the Federal Confidentiality of Alcohol and Drug Abuse Patient Records regulations: The Federal rules restrict any use of the information to criminally investigate or prosecute any alcohol or drug abuse patient.[facility] HospitalIn the event this information is protected by the Federal Confidentiality of Alcohol and Drug Abuse Patient Records regulations: The Federal rules restrict any use of the information to criminally investigate or prosecute any alcohol or drug abuse patient.[facility] HospitalIn the event this information is protected by the Federal Confidentiality of Alcohol and Drug Abuse Patient Records regulations: The Federal rules restrict any use of the information to criminally investigate or prosecute any alcohol or drug abuse patient.[facility] HospitalIn the event this information is protected by the Federal Confidentiality of Alcohol and Drug Abuse Patient Records regulations: The Federal rules restrict any use of the information to criminally investigate or prosecute any alcohol or drug abuse patient.[facility] HospitalIn the event this information is protected by the Federal Confidentiality of Alcohol and Drug Abuse Patient Records regulations: The Federal rules restrict any use of the information to criminally investigate or prosecute any alcohol or drug abuse patient.[facility] HospitalIn the event this information is protected by the Federal Confidentiality of Alcohol and Drug Abuse Patient Records regulations: The Federal rules restrict any use of the information to criminally investigate or prosecute any alcohol or drug abuse patient.[facility] HospitalIn the event this information is protected by the Federal Confidentiality of Alcohol and Drug Abuse Patient Records regulations: The Federal rules restrict any use of the information to criminally investigate or prosecute any alcohol or drug abuse patient.[facility] HospitalIn the event this information is protected by the Federal Confidentiality of Alcohol and Drug Abuse Patient Records regulations: The Federal rules restrict any use of the information to criminally investigate or prosecute any alcohol or drug abuse patient.[facility] HospitalIn the event this information is protected by the Federal Confidentiality of Alcohol and Drug Abuse Patient Records regulations: The Federal rules restrict any use of the information to criminally investigate or prosecute any alcohol or drug abuse patient.[facility] HospitalIn the event this information is protected by the Federal Confidentiality of Alcohol and Drug Abuse Patient Records regulations: The Federal rules restrict any use of the information to criminally investigate or prosecute any alcohol or drug abuse patient.[facility] HospitalIn the event this information is protected by the Federal Confidentiality of Alcohol and Drug Abuse Patient Records regulations: The Federal rules restrict any use of the information to criminally investigate or prosecute any alcohol or drug abuse patient.[facility] HospitalIn the event this information is protected by the Federal Confidentiality of Alcohol and Drug Abuse Patient Records regulations: The Federal rules restrict any use of the information to criminally investigate or prosecute any alcohol or drug abuse patient.[facility] HospitalIn the event this information is protected by the Federal Confidentiality of Alcohol and Drug Abuse Patient Records regulations: The Federal rules restrict any use of the information to criminally investigate or prosecute any alcohol or drug abuse patient.[facility] HospitalIn the event this information is protected by the Federal Confidentiality of Alcohol and Drug Abuse Patient Records regulations: The Federal rules restrict any use of the information to criminally investigate or prosecute any alcohol or drug abuse patient.[facility] HospitalIn the event this information is protected by the Federal Confidentiality of Alcohol and Drug Abuse Patient Records regulations: The Federal rules restrict any use of the information to criminally investigate or prosecute any alcohol or drug abuse patient.[facility] HospitalIn the event this information is protected by the Federal Confidentiality of Alcohol and Drug Abuse Patient Records regulations: The Federal rules restrict any use of the information to criminally investigate or prosecute any alcohol or drug abuse patient.[facility] HospitalIn the event this information is protected by the Federal Confidentiality of Alcohol and Drug Abuse Patient Records regulations: The Federal rules restrict any use of the information to criminally investigate or prosecute any alcohol or drug abuse patient.[facility] HospitalIn the event this information is protected by the Federal Confidentiality of Alcohol and Drug Abuse Patient Records regulations: The Federal rules restrict any use of the information to criminally investigate or prosecute any alcohol or drug abuse patient.[facility] HospitalIn the event this information is protected by the Federal Confidentiality of Alcohol and Drug Abuse Patient Records regulations: The Federal rules restrict any use of the information to criminally investigate or prosecute any alcohol or drug abuse patient.[facility] HospitalIn the event this information is protected by the Federal Confidentiality of Alcohol and Drug Abuse Patient Records regulations: The Federal rules restrict any use of the information to criminally investigate or prosecute any alcohol or drug abuse patient.[facility] HospitalIn the event this information is protected by the Federal Confidentiality of Alcohol and Drug Abuse Patient Records regulations: The Federal rules restrict any use of the information to criminally investigate or prosecute any alcohol or drug abuse patient.[facility] HospitalIn the event this information is protected by the Federal Confidentiality of Alcohol and Drug Abuse Patient Records regulations: The Federal rules restrict any use of the information to criminally investigate or prosecute any alcohol or drug abuse patient.[facility] HospitalIn the event this information is protected by the Federal Confidentiality of Alcohol and Drug Abuse Patient Records regulations: The Federal rules restrict any use of the information to criminally investigate or prosecute any alcohol or drug abuse patient.[facility] HospitalIn the event this information is protected by the Federal Confidentiality of Alcohol and Drug Abuse Patient Records regulations: The Federal rules restrict any use of the information to criminally investigate or prosecute any alcohol or drug abuse patient.[facility] HospitalIn the event this information is protected by the Federal Confidentiality of Alcohol and Drug Abuse Patient Records regulations: The Federal rules restrict any use of the information to criminally investigate or prosecute any alcohol or drug abuse patient.[facility] HospitalIn the event this information is protected by the Federal Confidentiality of Alcohol and Drug Abuse Patient Records regulations: The Federal rules restrict any use of the information to criminally investigate or prosecute any alcohol or drug abuse patient.[facility] HospitalIn the event this information is protected by the Federal Confidentiality of Alcohol and Drug Abuse Patient Records regulations: The Federal rules restrict any use of the information to criminally investigate or prosecute any alcohol or drug abuse patient.[facility] HospitalIn the event this information is protected by the Federal Confidentiality of Alcohol and Drug Abuse Patient Records regulations: The Federal rules restrict any use of the information to criminally investigate or prosecute any alcohol or drug abuse patient.[facility] HospitalIn the event this information is protected by the Federal Confidentiality of Alcohol and Drug Abuse Patient Records regulations: The Federal rules restrict any use of the information to criminally investigate or prosecute any alcohol or drug abuse patient.[facility] HospitalIn the event this information is protected by the Federal Confidentiality of Alcohol and Drug Abuse Patient Records regulations: The Federal rules restrict any use of the information to criminally investigate or prosecute any alcohol or drug abuse patient.[facility] HospitalIn the event this information is protected by the Federal Confidentiality of Alcohol and Drug Abuse Patient Records regulations: The Federal rules restrict any use of the information to criminally investigate or prosecute any alcohol or drug abuse patient.[facility] HospitalIn the event this information is protected by the Federal Confidentiality of Alcohol and Drug Abuse Patient Records regulations: The Federal rules restrict any use of the information to criminally investigate or prosecute any alcohol or drug abuse patient.[facility] HospitalIn the event this information is protected by the Federal Confidentiality of Alcohol and Drug Abuse Patient Records regulations: The Federal rules restrict any use of the information to criminally investigate or prosecute any alcohol or drug abuse patient.[facility] HospitalIn the event this information is protected by the Federal Confidentiality of Alcohol and Drug Abuse Patient Records regulations: The Federal rules restrict any use of the information to criminally investigate or prosecute any alcohol or drug abuse patient.[facility] HospitalIn the event this information is protected by the Federal Confidentiality of Alcohol and Drug Abuse Patient Records regulations: The Federal rules restrict any use of the information to criminally investigate or prosecute any alcohol or drug abuse patient.[facility] HospitalIn the event this information is protected by the Federal Confidentiality of Alcohol and Drug Abuse Patient Records regulations: The Federal rules restrict any use of the information to criminally investigate or prosecute any alcohol or drug abuse patient.[facility] HospitalIn the event this information is protected by the Federal Confidentiality of Alcohol and Drug Abuse Patient Records regulations: The Federal rules restrict any use of the information to criminally investigate or prosecute any alcohol or drug abuse patient.[facility] HospitalIn the event this information is protected by the Federal Confidentiality of Alcohol and Drug Abuse Patient Records regulations: The Federal rules restrict any use of the information to criminally investigate or prosecute any alcohol or drug abuse patient.[facility] HospitalIn the event this information is protected by the Federal Confidentiality of Alcohol and Drug Abuse Patient Records regulations: The Federal rules restrict any use of the information to criminally investigate or prosecute any alcohol or drug abuse patient.[facility] HospitalIn the event this information is protected by the Federal Confidentiality of Alcohol and Drug Abuse Patient Records regulations: The Federal rules restrict any use of the information to criminally investigate or prosecute any alcohol or drug abuse patient.[facility] HospitalIn the event this information is protected by the Federal Confidentiality of Alcohol and Drug Abuse Patient Records regulations: The Federal rules restrict any use of the information to criminally investigate or prosecute any alcohol or drug abuse patient.[facility] HospitalIn the event this information is protected by the Federal Confidentiality of Alcohol and Drug Abuse Patient Records regulations: The Federal rules restrict any use of the information to criminally investigate or prosecute any alcohol or drug abuse patient.[facility] HospitalIn the event this information is protected by the Federal Confidentiality of Alcohol and Drug Abuse Patient Records regulations: The Federal rules restrict any use of the information to criminally investigate or prosecute any alcohol or drug abuse patient.[facility] HospitalIn the event this information is protected by the Federal Confidentiality of Alcohol and Drug Abuse Patient Records regulations: The Federal rules restrict any use of the information to criminally investigate or prosecute any alcohol or drug abuse patient.[facility] HospitalIn the event this information is protected by the Federal Confidentiality of Alcohol and Drug Abuse Patient Records regulations: The Federal rules restrict any use of the information to criminally investigate or prosecute any alcohol or drug abuse patient.[facility] HospitalIn the event this information is protected by the Federal Confidentiality of Alcohol and Drug Abuse Patient Records regulations: The Federal rules restrict any use of the information to criminally investigate or prosecute any alcohol or drug abuse patient.[facility] HospitalIn the event this information is protected by the Federal Confidentiality of Alcohol and Drug Abuse Patient Records regulations: The Federal rules restrict any use of the information to criminally investigate or prosecute any alcohol or drug abuse patient.[facility] HospitalIn the event this information is protected by the Federal Confidentiality of Alcohol and Drug Abuse Patient Records regulations: The Federal rules restrict any use of the information to criminally investigate or prosecute any alcohol or drug abuse patient.[facility] HospitalIn the event this information is protected by the Federal Confidentiality of Alcohol and Drug Abuse Patient Records regulations: The Federal rules restrict any use of the information to criminally investigate or prosecute any alcohol or drug abuse patient.[facility] HospitalIn the event this information is protected by the Federal Confidentiality of Alcohol and Drug Abuse Patient Records regulations: The Federal rules restrict any use of the information to criminally investigate or prosecute any alcohol or drug abuse patient.[facility] HospitalIn the event this information is protected by the Federal Confidentiality of Alcohol and Drug Abuse Patient Records regulations: The Federal rules restrict any use of the information to criminally investigate or prosecute any alcohol or drug abuse patient.[facility] HospitalIn the event this information is protected by the Federal Confidentiality of Alcohol and Drug Abuse Patient Records regulations: The Federal rules restrict any use of the information to criminally investigate or prosecute any alcohol or drug abuse patient.[facility] HospitalIn the event this information is protected by the Federal Confidentiality of Alcohol and Drug Abuse Patient Records regulations: The Federal rules restrict any use of the information to criminally investigate or prosecute any alcohol or drug abuse patient.[facility] HospitalIn the event this information is protected by the Federal Confidentiality of Alcohol and Drug Abuse Patient Records regulations: The Federal rules restrict any use of the information to criminally investigate or prosecute any alcohol or drug abuse patient.[facility] HospitalIn the event this information is protected by the Federal Confidentiality of Alcohol and Drug Abuse Patient Records regulations: The Federal rules restrict any use of the information to criminally investigate or prosecute any alcohol or drug abuse patient.[facility] HospitalIn the event this information is protected by the Federal Confidentiality of Alcohol and Drug Abuse Patient Records regulations: The Federal rules restrict any use of the information to criminally investigate or prosecute any alcohol or drug abuse patient.[facility] HospitalIn the event this information is protected by the Federal Confidentiality of Alcohol and Drug Abuse Patient Records regulations: The Federal rules restrict any use of the information to criminally investigate or prosecute any alcohol or drug abuse patient.[facility] HospitalIn the event this information is protected by the Federal Confidentiality of Alcohol and Drug Abuse Patient Records regulations: The Federal rules restrict any use of the information to criminally investigate or prosecute any alcohol or drug abuse patient.[facility] HospitalIn the event this information is protected by the Federal Confidentiality of Alcohol and Drug Abuse Patient Records regulations: The Federal rules restrict any use of the information to criminally investigate or prosecute any alcohol or drug abuse patient.[facility] HospitalIn the event this information is protected by the Federal Confidentiality of Alcohol and Drug Abuse Patient Records regulations: The Federal rules restrict any use of the information to criminally investigate or prosecute any alcohol or drug abuse patient.[facility] HospitalIn the event this information is protected by the Federal Confidentiality of Alcohol and Drug Abuse Patient Records regulations: The Federal rules restrict any use of the information to criminally investigate or prosecute any alcohol or drug abuse patient.[facility] HospitalIn the event this information is protected by the Federal Confidentiality of Alcohol and Drug Abuse Patient Records regulations: The Federal rules restrict any use of the information to criminally investigate or prosecute any alcohol or drug abuse patient.[facility] HospitalIn the event this information is protected by the Federal Confidentiality of Alcohol and Drug Abuse Patient Records regulations: The Federal rules restrict any use of the information to criminally investigate or prosecute any alcohol or drug abuse patient.[facility] HospitalIn the event this information is protected by the Federal Confidentiality of Alcohol and Drug Abuse Patient Records regulations: The Federal rules restrict any use of the information to criminally investigate or prosecute any alcohol or drug abuse patient.[facility] HospitalIn the event this information is protected by the Federal Confidentiality of Alcohol and Drug Abuse Patient Records regulations: The Federal rules restrict any use of the information to criminally investigate or prosecute any alcohol or drug abuse patient.[facility] HospitalIn the event this information is protected by the Federal Confidentiality of Alcohol and Drug Abuse Patient Records regulations: The Federal rules restrict any use of the information to criminally investigate or prosecute any alcohol or drug abuse patient.[facility] HospitalIn the event this information is protected by the Federal Confidentiality of Alcohol and Drug Abuse Patient Records regulations: The Federal rules restrict any use of the information to criminally investigate or prosecute any alcohol or drug abuse patient.[facility] HospitalIn the event this information is protected by the Federal Confidentiality of Alcohol and Drug Abuse Patient Records regulations: The Federal rules restrict any use of the information to criminally investigate or prosecute any alcohol or drug abuse patient.[facility] HospitalIn the event this information is protected by the Federal Confidentiality of Alcohol and Drug Abuse Patient Records regulations: The Federal rules restrict any use of the information to criminally investigate or prosecute any alcohol or drug abuse patient.[facility] HospitalIn the event this information is protected by the Federal Confidentiality of Alcohol and Drug Abuse Patient Records regulations: The Federal rules restrict any use of the information to criminally investigate or prosecute any alcohol or drug abuse patient.[facility] HospitalIn the event this information is protected by the Federal Confidentiality of Alcohol and Drug Abuse Patient Records regulations: The Federal rules restrict any use of the information to criminally investigate or prosecute any alcohol or drug abuse patient.[facility] HospitalIn the event this information is protected by the Federal Confidentiality of Alcohol and Drug Abuse Patient Records regulations: The Federal rules restrict any use of the information to criminally investigate or prosecute any alcohol or drug abuse patient.[facility] HospitalIn the event this information is protected by the Federal Confidentiality of Alcohol and Drug Abuse Patient Records regulations: The Federal rules restrict any use of the information to criminally investigate or prosecute any alcohol or drug abuse patient.[facility] HospitalIn the event this information is protected by the Federal Confidentiality of Alcohol and Drug Abuse Patient Records regulations: The Federal rules restrict any use of the information to criminally investigate or prosecute any alcohol or drug abuse patient.[facility] HospitalIn the event this information is protected by the Federal Confidentiality of Alcohol and Drug Abuse Patient Records regulations: The Federal rules restrict any use of the information to criminally investigate or prosecute any alcohol or drug abuse patient.[facility] HospitalIn the event this information is protected by the Federal Confidentiality of Alcohol and Drug Abuse Patient Records regulations: The Federal rules restrict any use of the information to criminally investigate or prosecute any alcohol or drug abuse patient.[facility] HospitalIn the event this information is protected by the Federal Confidentiality of Alcohol and Drug Abuse Patient Records regulations: The Federal rules restrict any use of the information to criminally investigate or prosecute any alcohol or drug abuse patient.[facility] HospitalIn the event this information is protected by the Federal Confidentiality of Alcohol and Drug Abuse Patient Records regulations: The Federal rules restrict any use of the information to criminally investigate or prosecute any alcohol or drug abuse patient.[facility] HospitalIn the event this information is protected by the Federal Confidentiality of Alcohol and Drug Abuse Patient Records regulations: The Federal rules restrict any use of the information to criminally investigate or prosecute any alcohol or drug abuse patient.[facility] HospitalIn the event this information is protected by the Federal Confidentiality of Alcohol and Drug Abuse Patient Records regulations: The Federal rules restrict any use of the information to criminally investigate or prosecute any alcohol or drug abuse patient.[facility] HospitalIn the event this information is protected by the Federal Confidentiality of Alcohol and Drug Abuse Patient Records regulations: The Federal rules restrict any use of the information to criminally investigate or prosecute any alcohol or drug abuse patient.[facility] HospitalIn the event this information is protected by the Federal Confidentiality of Alcohol and Drug Abuse Patient Records regulations: The Federal rules restrict any use of the information to criminally investigate or prosecute any alcohol or drug abuse patient.[facility] HospitalIn the event this information is protected by the Federal Confidentiality of Alcohol and Drug Abuse Patient Records regulations: The Federal rules restrict any use of the information to criminally investigate or prosecute any alcohol or drug abuse patient.[facility] HospitalIn the event this information is protected by the Federal Confidentiality of Alcohol and Drug Abuse Patient Records regulations: The Federal rules restrict any use of the information to criminally investigate or prosecute any alcohol or drug abuse patient.[facility] HospitalIn the event this information is protected by the Federal Confidentiality of Alcohol and Drug Abuse Patient Records regulations: The Federal rules restrict any use of the information to criminally investigate or prosecute any alcohol or drug abuse patient.[facility] HospitalIn the event this information is protected by the Federal Confidentiality of Alcohol and Drug Abuse Patient Records regulations: The Federal rules restrict any use of the information to criminally investigate or prosecute any alcohol or drug abuse patient.[facility] HospitalIn the event this information is protected by the Federal Confidentiality of Alcohol and Drug Abuse Patient Records regulations: The Federal rules restrict any use of the information to criminally investigate or prosecute any alcohol or drug abuse patient.[facility] HospitalIn the event this information is protected by the Federal Confidentiality of Alcohol and Drug Abuse Patient Records regulations: The Federal rules restrict any use of the information to criminally investigate or prosecute any alcohol or drug abuse patient.[facility] HospitalIn the event this information is protected by the Federal Confidentiality of Alcohol and Drug Abuse Patient Records regulations: The Federal rules restrict any use of the information to criminally investigate or prosecute any alcohol or drug abuse patient.[facility] HospitalIn the event this information is protected by the Federal Confidentiality of Alcohol and Drug Abuse Patient Records regulations: The Federal rules restrict any use of the information to criminally investigate or prosecute any alcohol or drug abuse patient.[facility] HospitalIn the event this information is protected by the Federal Confidentiality of Alcohol and Drug Abuse Patient Records regulations: The Federal rules restrict any use of the information to criminally investigate or prosecute any alcohol or drug abuse patient.[facility] HospitalIn the event this information is protected by the Federal Confidentiality of Alcohol and Drug Abuse Patient Records regulations: The Federal rules restrict any use of the information to criminally investigate or prosecute any alcohol or drug abuse patient.[facility] HospitalIn the event this information is protected by the Federal Confidentiality of Alcohol and Drug Abuse Patient Records regulations: The Federal rules restrict any use of the information to criminally investigate or prosecute any alcohol or drug abuse patient.[facility] HospitalIn the event this information is protected by the Federal Confidentiality of Alcohol and Drug Abuse Patient Records regulations: The Federal rules restrict any use of the information to criminally investigate or prosecute any alcohol or drug abuse patient.[facility] Reason for Visit (unrecogniz ed section and content) Reason Comments New Patient history of bradycardia Specialty Diagnoses / Procedures Referred By Contac t Referred To Contact Cardiology Diagnoses JON (dyspnea on exertion) Procedures CONSULT TO CARDIOLOGY NEW PATIENT VISIT LEVEL 5 Rafal Zapien DO [address] [place] [address] Referral ID Status Reason Start Date Expiration Date Visits Requested Visits Authorized [id number] Pending Review PCP Requested Referral 05/17/2021 05/17/2022 1 1 Reason Comments F/U 3 months Reason Onset Date Comments Refill Request 04/06/2022 Reason Comments Results Reason Onset Date Comments Refill Request 04/07/2022 Reason Onset Date Comments Population Health Navigation Outreach 04/21/2022 [employer] Reason Comments Orders Reason Comments B-12 Injection Reason Comments Radiology US Specialty Diagnoses / Procedures Referred By Contac t Referred To Contact [facility] Diagnoses Breast pain Procedures US BREAST LTD LT US BREAST UNI REAL TIME WITH IMAGE LIMITED Rafal Zapien DO [address] [place] [address] [facility] [address] [place] [address] Referral ID Status Reason Start Date Expiration Date V isits Requested Visits Authorized [id number] Closed Auto-Generate d Referral 04/28/2022 05/28/2023 1 1 Reason Comments B-12 Injection Imm/Inj Reason Comments Refill Request Reason Comments Follow Up 3 months Reason Onset Date Comments Refill Request 07/29/2022 Reason Comments Patient Update Patient Question Reason Onset Date Comments B-12 Injection Immunizations 08/23/2022 Flu vaccination Reason Comments PT Eval Specialty Diagnoses / Procedures Referred By Contac t Referred To Contact [facility] Diagnoses Vertigo Procedures CONSULT TO PHYSICAL THERAPY PHYSICAL THERAPY EVALUATION HIGH COMPLEX 45 MINS Rafal Zapien DO [address] [place] [address] [facility] [address] [address] Referral ID Status Reason Start Date Expiration Date V isits Requested Visits Authorized [id number] Closed Auto-Generate d Referral 04/20/2022 11/19/2022 1 1 Reason Comments Physical Therapy Specialty Diagnoses / Procedures Referred By Contac t Referred To Contact [facility] Diagnoses Vertigo Procedures PT REHAB FOLLOW UP ORDER THERAPEUTIC EXERCISES RE, EA 15 MIN. Betty Valentino, PT [facility] [address] [address] Referral ID Status Reason Start Date Expiration Date Visits Requested Visits Authorized [id number] Authorized PCP Requested Referral Auto-Generate d Referral 10/12/2022 6 6 Reason Comments Patient Question Orders Reason Comments Cough Sinus congestion Reason Comments Cough Chest congestion x1. 5 months Reason Onset Date Comments Refill Request 05/19/2023 Reason Comments F/U 3 Month Reason Onset Date Comments Refill Request 08/08/2023 Specialty Diagnoses / Procedures Referred By Contac t Referred To Contact [facility] Diagnoses Dizziness 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) Abnormal CT of brain New onset of headaches Procedures MRI BRAIN WO/W IVCON MRI BRAIN BRAIN STEM W/O W/CONTRAST MATERIAL Rafal Zapien L, DO [address] [place] [address] [id number] Referral ID Status Reason Start Date Expiration Date V isits Requested Visits Authorized [id number] Closed Auto-Generate d Referral 11/04/2022 12/04/2022 1 1 Reason Comments Orders Requesting labs Reason Onset Date Comments Refill Request 10/27/2023 Reason Comments Follow Up 6 weeks Reason Onset Date Comments Refill Request 05/08/2024 Reason Comments Medication Problem Reason Comments Urinary Problem Burning, pressure x 12 hrs Reason Onset Date Comments Refill Request 08/27/2024 Reason Comments Follow Up Reason Comments Lab Order Request Reason Comments Back Pain Reason Comments fell on ice hurt back sciatic bad. Reason Comments Patient Update Reason Comments Follow Up Hospital F/U Reason Comments Appointment Request Outside Medical Records Reason Onset Date Comments Population Health Navigation Outreach 02/18/2025 [employer] [facility] [place] Reason Comments 02-20-2025 colon ASC Reason Onset Date Comments Population Health Navigation Outreach 03/20/2025 Chantale Campos Reason Comments Lab Orders Reason Comments Insurance Authorization Reason Comments Appointment Reason Comments Patient Update Clinical Update Reason Comments Medicare Wellness Exam Care Teams (unrecognized sec tion and content) Optometric Technologist Relationship Specialty Start Date End Date Rafal Zapien, DO [address] [place] [address] PCP - General Family Practice 03/19/14 Optometric Technologist Relationship Specialty Start Date End Date Rafal Zapien, DO [address] [place] [address] PCP - General Family Practice 03/19/14 Optometric Technologist Relationship Specialty Start Date End Date Rafal Zapien DO [address] [place] [address] PCP - General Family Practice 03/19/14 Optometric Technologist Relationship Specialty Start Date End Date Rafal Zapien DO [address] [place] [address] PCP - General Family Practice 03/19/14 Optometric Technologist Relationship Specialty Start Date End Date Rafal Zapien, DO [address] [place] [address] PCP - General Family Practice 03/19/14 Optometric Technologist Relationship Specialty Start Date End Date Rafal Zapien, DO [address] [place] [address] PCP - General Family Practice 03/19/14 Optometric Technologist Relationship Specialty Start Date End Date Rafal Zapien DO [address] [place] [address] PCP - General Family Practice 03/19/14 Optometric Technologist Relationship Specialty Start Date End Date Rafal Zapien DO [address] [place] [address] PCP - General Family Practice 03/19/14 Optometric Technologist Relationship Specialty Start Date End Date Rafal Zapien, DO [address] [place] [address] PCP - General Family Practice 03/19/14 Optometric Technologist Relationship Specialty Start Date End Date Rafal Zapien, DO [address] [place] [address] PCP - General Family Practice 03/19/14 Optometric Technologist Relationship Specialty Start Date End Date Rafal Zapien, DO [address] [place] [address] PCP - General Family Practice 03/19/14 Optometric Technologist Relationship Specialty Start Date End Date Rafal Zapien, DO [address] [place] [address] PCP - General Family Medicine 03/19/14 Optometric Technologist Relationship Specialty Start Date End Date Rafal Zapien, DO [address] [place] [address] PCP - General Family Medicine 03/19/14 Optometric Technologist Relationship Specialty Start Date End Date Rafal Zapien, DO [address] [place] [address] PCP - General Family Medicine 03/19/14 Optometric Technologist Relationship Specialty Start Date End Date Rafal Zapien, DO [address] [place] [address] PCP - General Family Medicine 03/19/14 Optometric Technologist Relationship Specialty Start Date End Date Rafal Zapien, DO [address] [place] [address] PCP - General Family Medicine 03/19/14 Optometric Technologist Relationship Specialty Start Date End Date Rafal Zapien, DO [address] [place] [address] PCP - General Family Medicine 03/19/14 Optometric Technologist Relationship Specialty Start Date End Date Rafal Zapien, DO [address] [place] [address] PCP - General Family Medicine 03/19/14 Optometric Technologist Relationship Specialty Start Date End Date Rafal Zapien, DO [address] [place] [address] PCP - General Family Medicine 03/19/14 Optometric Technologist Relationship Specialty Start Date End Date Rafal Zapien, DO [address] [place] [address] PCP - General Family Medicine 03/19/14 Optometric Technologist Relationship Specialty Start Date End Date Rafal Zapien DO [address] [facility] [place] [address] PCP - General Family Medicine 03/19/14 Optometric Technologist Relationship Specialty Start Date End Date Rafal Zapien DO [address] [facility] [place] [address] PCP - General Family Medicine 03/19/14 Optometric Technologist Relationship Specialty Start Date End Date Rafal Zapien DO [address] [place] [address] PCP - General Family Medicine 03/19/14 Optometric Technologist Relationship Specialty Start Date End Date Rafal Zapien DO [address] [place] [address] PCP - General Family Medicine 03/19/14 Optometric Technologist Relationship Specialty Start Date End Date Rafal Zapien DO [address] [place] [address] PCP - General Family Medicine 03/19/14 Optometric Technologist Relationship Specialty Start Date End Date Rafal Zapien, DO [address] [facility] [place] [address] PCP - General Family Medicine 03/19/14 Optometric Technologist Relationship Specialty Start Date End Date Rafal Zapien, DO [address] [facility] [place] [address] PCP - General Family Medicine 03/19/14 Optometric Technologist Relationship Specialty Start Date End Date Rafal Zapien, [address] [facility] [place] [address] PCP - General Family Medicine 03/19/14 Optometric Technologist Relationship Specialty Start Date End Date Rafal Zapien DO [address] [facility] [place] [address] PCP - General Family Medicine 03/19/14 Optometric Technologist Relationship Specialty Start Date End Date Rafal Zapien DO [address] [place] [address] PCP - General Family Medicine 03/19/14 Optometric Technologist Relationship Specialty Start Date End Date Rafal Zapien, [address] [place] [address] PCP - General Family Medicine 03/19/14 Optometric Technologist Relationship Specialty Start Date End Date Rafal Zapien DO [address] [place] [address] PCP - General Family Medicine 03/19/14 Optometric Technologist Relationship Specialty Start Date End Date Rafal Zapien, [address] [facility] [place] [address] PCP - General Family Medicine 03/19/14 Optometric Technologist Relationship Specialty Start Date End Date Rafal Zapien, [address] [place] [address] PCP - General Family Medicine 03/19/14 Optometric Technologist Relationship Specialty Start Date End Date Rafal Zapien DO [address] [place] [address] PCP - General Family Medicine 03/19/14 Optometric Technologist Relationship Specialty Start Date End Date Rafal Zapien DO [address] [place] [address] PCP - General Family Medicine 03/19/14 Optometric Technologist Relationship Specialty Start Date End Date Rafal Zapien DO [address] [place] [address] PCP - General Family Medicine 03/19/14 Optometric Technologist Relationship Specialty Start Date End Date Rafal Zapien DO [address] [place] [address] PCP - General Family Medicine 03/19/14 Optometric Technologist Relationship Specialty Start Date End Date Rafal Zapien DO [address] [place] [address] PCP - General Family Medicine 03/19/14 Optometric Technologist Relationship Specialty Start Date End Date Rafal Zapien DO [address] [place] [address] PCP - General Family Medicine 03/19/14 Optometric Technologist Relationship Specialty Start Date End Date Rafal Zapien DO [address] [place] [address] PCP - General Family Medicine 03/19/14 Optometric Technologist Relationship Specialty Start Date End Date Rafal Zapien DO [address] [facility] [place] [address] PCP - General Family Medicine 03/19/14 Elham Perez, CARDIOPULMONARY SUPERVISOR.CARDIAC NURSE SPECIALIST [address] [place] [address] Anaesthetic Technician [facility] 10/27/24 [facility], CARDIOPULMONARY SUPERVISOR.CARDIAC NURSE SPECIALIST [address] [place] [address] [facility] Optometric Technologist Relationship Specialty Start Date End Date Rafal Zapien DO [address] [place] [address] PCP - General Family Medicine 03/19/14 Elham Perez, CARDIOPULMONARY SUPERVISOR.CARDIAC NURSE SPECIALIST [address] [place] [address] [facility] 10/27/24 [facility], CARDIOPULMONARY SUPERVISOR.CARDIAC NURSE SPECIALIST [address] [place] [address] [facility] 10/27/24 Optometric Technologist Relationship Specialty Start Date End Date Rafal Zapien DO [address] [place] [address] PCP - General Family Medicine 03/19/14 Elham Perez, CARDIOPULMONARY SUPERVISOR.CARDIAC NURSE SPECIALIST [address] [place] [address] [facility] 10/27/24 [facility] Darrell, CARDIOPULMONARY SUPERVISOR.CARDIAC NURSE SPECIALIST [address] [facility] [place] [address] Formerly [facility] 10/27/24 Optometric Technologist Relationship Specialty Start Date End Date Rafal Zapien DO [address] [place] [address] PCP - General Family Medicine 03/19/14 Elham Perez, CARDIOPULMONARY SUPERVISOR.CARDIAC NURSE SPECIALIST [address] [facility] [place] [address] Formerly [facility] 10/27/24 [facility] Darrell, CARDIOPULMONARY SUPERVISOR.CARDIAC NURSE SPECIALIST [address] [facility] [place] [address] Formerly [facility] 10/27/24 Optometric Technologist Relationship Specialty Start Date End Date Rafal Zapien DO [address] [facility] [place] [address] PCP - General Family Medicine 03/19/14 Elham Perez, CARDIOPULMONARY SUPERVISOR.CARDIAC NURSE SPECIALIST [address] [place] [address] Formerly [facility] 10/27/24 [facility], CARDIOPULMONARY SUPERVISOR.CARDIAC NURSE SPECIALIST [address] [facility] [place] [address] Formerly [facility] 10/27/24 Optometric Technologist Relationship Specialty Start Date End Date Rafal Zapien DO [address] [place] [address] PCP - General Family Medicine 03/19/14 Elham Perez, CARDIOPULMONARY SUPERVISOR.CARDIAC NURSE SPECIALIST [address] [place] [address] Anaesthetic Technician [facility] 10/27/24 Darrell Rodriguez, CARDIOPULMONARY SUPERVISOR.CARDIAC NURSE SPECIALIST [address] [place] [address] Anaesthetic Technician [facility] 10/27/24 Optometric Technologist Relationship Specialty Start Date End Date Rafal Zapien DO [address] [facility] [place] [address] PCP - General Family Medicine 03/19/14 Elham Perez, CARDIOPULMONARY SUPERVISOR.CARDIAC NURSE SPECIALIST [address] [place] [address] [facility] 10/27/24 PrernaDarrell, CARDIOPULMONARY SUPERVISOR.CARDIAC NURSE SPECIALIST [address] [facility] [place] [address] Formerly [facility] 10/27/24 Optometric Technologist Relationship Specialty Start Date End Date Rafal Zapien DO [address] [place] [address] PCP - General Family Medicine 03/19/14 Elham Perez, CARDIOPULMONARY SUPERVISOR.CARDIAC NURSE SPECIALIST [address] [place] [address] [facility] 10/27/24 Darrell Rodriguez, CARDIOPULMONARY SUPERVISOR.CARDIAC NURSE SPECIALIST [address] [place] [address] [facility] 10/27/24 Optometric Technologist Relationship Specialty Start Date End Date Rafal Zapien DO [address] [facility] [place] [address] PCP - General Family Medicine 03/19/14 Elham Perez, CARDIOPULMONARY SUPERVISOR.CARDIAC NURSE SPECIALIST [address] [place] [address] Anaesthetic Technician Family Medicine 10/27/24 Darrell Rodriguez, CARDIOPULMONARY SUPERVISOR.CARDIAC NURSE SPECIALIST [address] [place] [address] Anaesthetic Technician Family Medicine 10/27/24 Optometric Technologist Relationship Specialty Start Date End Date Rafal Zapien DO [address] [place] [address] PCP - General Family Medicine 03/19/14 Elham Perez, CARDIOPULMONARY SUPERVISOR.CARDIAC NURSE SPECIALIST [address] [place] [address] Anaesthetic Technician Family Medicine 10/27/24 Darrell Rodriguez, CARDIOPULMONARY SUPERVISOR.CARDIAC NURSE SPECIALIST [address] [place] [address] [facility] 10/27/24 Optometric Technologist Relationship Specialty Start Date End Date Rafal Zapien DO [address] [place] [address] PCP - General Family Medicine 03/19/14 Elham Perez, CARDIOPULMONARY SUPERVISOR.CARDIAC NURSE SPECIALIST [address] [place] [address] Anaesthetic Technician Family Medicine 10/27/24 Darrell Rodriguez, CARDIOPULMONARY SUPERVISOR.CARDIAC NURSE SPECIALIST [address] [place] [address] Anaesthetic Technician Family [facility] 10/27/24 Optometric Technologist Relationship Specialty Start Date End Date Rafal Zapien DO [address] [facility] [place] [address] PCP - General Family Medicine 03/19/14 Darrell Rodriguez, CARDIOPULMONARY SUPERVISOR.CARDIAC NURSE SPECIALIST [address] [facility] [place] [address] [facility] 10/27/24 Optometric Technologist Relationship Specialty Start Date End Date Rafal Zapien DO [address] [facility] [place] [address] PCP - General Family Medicine 03/19/14 Darrell Rodriguez, CARDIOPULMONARY SUPERVISOR.CARDIAC NURSE SPECIALIST [address] [place] [address] [facility] 10/27/24 Optometric Technologist Relationship Specialty Start Date End Date Rafal Zapien DO [address] [facility] [place] [address] PCP - General Family Medicine 03/19/14 Darrell Rodriguez, CARDIOPULMONARY SUPERVISOR.CARDIAC NURSE SPECIALIST [address] [facility] [place] [address] [facility] 10/27/24 Optometric Technologist Relationship Specialty Start Date End Date Rafal Zapien DO [address] [facility] [place] [address] PCP - General Family Medicine 03/19/14 Darrell Rodriguez, CARDIOPULMONARY SUPERVISOR.CARDIAC NURSE SPECIALIST [address] [place] [address] [facility] 10/27/24 Optometric Technologist Relationship Specialty Start Date End Date Rafal Zapien DO [address] [place] [address] PCP - General Family Medicine 03/19/14 Elham Perez, CARDIOPULMONARY SUPERVISOR.CARDIAC NURSE SPECIALIST [address] [place] [address] [facility] 10/27/24 02/07/25 Darrell Rodriguez, CARDIOPULMONARY SUPERVISOR.CARDIAC NURSE SPECIALIST [address] [place] [address] Formerly [facility] 10/27/24 Optometric Technologist Relationship Specialty Start Date End Date Rafal Zapien DO [address] [place] [address] PCP - General Family Medicine 03/19/14 Darrell Rodriguez, CARDIOPULMONARY SUPERVISOR.CARDIAC NURSE SPECIALIST [address] [place] [address] Formerly [facility] 10/27/24 Optometric Technologist Relationship Specialty Start Date End Date Rafal Zapien DO [address] [place] [address] PCP - General Family Medicine 03/19/14 Darrell Rodriguez, CARDIOPULMONARY SUPERVISOR.CARDIAC NURSE SPECIALIST [address] [place] [address] Formerly [facility] 10/27/24 Optometric Technologist Relationship Specialty Start Date End Date Rafal Zapien DO [address] [place] [address] PCP - General Family Medicine 03/19/14 [facility], CARDIOPULMONARY SUPERVISOR.CARDIAC NURSE SPECIALIST [address] [facility] [place] [address] Anaesthetic Technician Family [facility] 10/27/24 Optometric Technologist Relationship Specialty Start Date End Date Rafal Zapien DO [address] [facility] [place] [address] PCP - General Family Medicine 03/19/14 [facility] Darrell, CARDIOPULMONARY SUPERVISOR.CARDIAC NURSE SPECIALIST [address] [facility] [place] [address] [facility] 10/27/24 Optometric Technologist Relationship Specialty Start Date End Date Rafal Zapien DO [address] [facility] [place] [address] PCP - General Family Medicine 03/19/14 [facility] Darrell, CARDIOPULMONARY SUPERVISOR.CARDIAC NURSE SPECIALIST [address] [facility] [place] [address] [facility] 10/27/24 Optometric Technologist Relationship Specialty Start Date End Date Rafal Zapien DO [address] [facility] [place] [address] PCP - General Family Medicine 03/19/14 [facility] Darrell, CARDIOPULMONARY SUPERVISOR.CARDIAC NURSE SPECIALIST [address] [place] [address] Formerly [facility] 10/27/24 Optometric Technologist Relationship Specialty Start Date End Date Rafal Zapien, [address] [place] [address] PCP - General Family Medicine 03/19/14 [facility], CARDIOPULMONARY SUPERVISOR.CARDIAC NURSE SPECIALIST [address] [facility] [place] [address] Anaesthetic Technician Family [facility] 10/27/24 Optometric Technologist Relationship Specialty Start Date End Date Rafal Zapien, [address] [facility] [place] [address] PCP - General Family Medicine 03/19/14 [facility], CARDIOPULMONARY SUPERVISOR.CARDIAC NURSE SPECIALIST [address] [facility] [place] [address] [facility] 10/27/24 Optometric Technologist Relationship Specialty Start Date End Date Rafal Zapien, [address] [facility] [place] [address] PCP - General Family Medicine 03/19/14 [facility], CARDIOPULMONARY SUPERVISOR.CARDIAC NURSE SPECIALIST [address] [facility] [place] [address] [facility] 10/27/24 Optometric Technologist Relationship Specialty Start Date End Date Rafal Zapien DO [address] [facility] [place] [address] PCP - General Family Medicine 03/19/14 [facility] Darrell, CARDIOPULMONARY SUPERVISOR.CARDIAC NURSE SPECIALIST [address] [facility] [place] [address] [facility] 10/27/24 Optometric Technologist Relationship Specialty Start Date End Date Rafal Zapien DO [address] [facility] [place] [address] PCP - General Family Medicine 03/19/14 PrernaDarrell alexandra, CARDIOPULMONARY SUPERVISOR.CARDIAC NURSE SPECIALIST [address] [place] [address] Anaesthetic Technician [facility] 10/27/24 Deya Dutton, HECTOR.CARDIAC NURSE SPECIALIST [address] [place] [address] Anaesthetic Technician [facility] 05/05/25 Care Team (unrecognized sect ion and content) Care Team Personnel Name: RAFAL ZAPIEN DO Member Role: Primary Care Physician Address: Address: [address] [place] [id number]- Care Team Related Persons Name: KIET HERNANDEZ Address: Home [address] [place] [address] [place] Active Administered Medications - up to 3 most recent administrations Administered Medications (un recognized section and content) Medication Order MAR Action Action Date Dose Rate Site cyanocobalamin 1,000 mcg injection 1,000 mcg, INTRAMUSCULAR, EVERY 1 MONTH, 12 doses, First dose on Mon04/27/23 at 0000, Last dose on Mon03/22/24 at 0000 Given 01/31/2024 1:57 PM EDT 1,000 mcg Deltoid, Right Given 11/30/2023 1:43 PM EST 1,000 mcg De ltoid, Left Given 10/31/2023 1:49 PM EST 1,000 mcg De ltoid, Right Active Administered Medications - up to 3 most recent administrations Medication Order MAR Action Action Date Dose Rate Site cyanocobalamin 1,000 mcg injection 1,000 mcg, INTRAMUSCULAR, EVERY 1 MONTH, 12 doses, First dose on Mon04/27/23 at 0000, Last dose on Mon03/22/24 at 0000 Given 02/28/2024 2:36 PM EDT 1,000 mcg Deltoid, Left Given 01/31/2024 1:57 PM EDT 1,000 mcg De ltoid, Right Given 11/30/2023 1:43 PM EST 1,000 mcg De ltoid, Left FOR RECORDS PERTAINING TO PATIENTS WHO ARE OR HAVE BEEN ENROLLED IN A CHEMICAL DEPENDENCY/SUBSTANCEABUSE PROGRAM, SOME INFORMATION MAY BE OMITTED. This clinical summary was aggregated from multiple sources. Caution should be exercised in using it in the provision of clinical care. This summary normalizes information from multiple sources, and as a consequence, information in this document may materially change the coding, format and clinical context of patient data. In addition, data may be omitted in some cases. CLINICAL DECISIONS SHOULD BE BASED ON THE PRIMARY CLINICAL RECORDS. [facility]. provides no warranty or guarantee of the accuracy or completeness of information in this document.
--- NOTE | 2025-06-29 15:39 | EKG12_ITS ---
Test Reason : Blood Pressure : */* mmHG Vent. Rate : 62 BPM Atrial Rate : 62 BPM P-R Int : 168 ms QRS Dur : 76 ms QT Int : 438 ms P-R-T Axes : 37 -63 60 degrees QTcB Int : 444 ms Normal sinus rhythm Left anterior fascicular block Abnormal ECG Confirmed by LEONA MARTINES, RUSLAN ([id number]), editor dictionary NIKKI LOVING ([id number]) on 06/30/2025 1:15:04 PM Referred By: PEG Confirmed By: RUSLAN DELGADILLO MD
[2025-06-29 15:59] LABS: Hematocrit 43.6 % (37-47); Hemoglobin 14.3 g/dL (12.0-15.0); Immature Granulocytes Count 0.030 X10^3/uL (0.0-0.0); Mean Corp Hgb Conc 32.8 g/dL (32-36); Mean Corpuscular Volume 93.0 fL (81-99); Mean Platelet Vol. 11.1 fl (6.2-12.0); NRBC Flagged by Analyzer 0 % (0-5); Platelet Count 241 K/mm3 (150-450); RBC Distribution Width CV 12.8 % (11.6-14.6); RBC Distribution Width SD 43.5 fl (35.1-43.9); Red Blood Count 4.69 M/mm3 (4.2-5.4); White Blood Count 6.7 K/mm3 (4.4-11.0)
--- NOTE | 2025-06-29 16:00 | RAD_ITS ---
PROCEDURE: CHEST PA AND LATERAL 06/29/2025 REASON FOR EXAM: DYSPNEA TECHNIQUE: CHEST PA AND LATERAL COMPARISON: None. FINDINGS: Hardware: None. Heart: The heart size is normal. Mediastinum: The mediastinal contour is unremarkable. Calcific plaque of the thoracic aorta. Lungs: No focal consolidation, pleural effusion or pneumothorax. Bones: Degenerative changes are identified within the thoracic spine. RAD/Chest PA and Lateral IMPRESSION: NO ACUTE FINDINGS. Reading Location: [id number]
[2025-06-29 16:16] LABS: Troponin T High Sensitivity 8 ng/L (<=14)
[2025-06-29 16:18] LABS: Anion Gap 14 (5-15); BUN 17 mg/dL (4-19); BUN/Creat Ratio 19.5 RATIO (10-20); Calcium,Total 9.5 mg/dL (7.6-11.0); Carbon Dioxide 21.1 mmol/L (21.0-32.0); Chloride 103 mmol/L (98-108); Estimated Creatinine Clearance 58.66 ml/min (50-250); Glucose 102 mg/dL (70-99); Potassium 4.5 mmol/L (3.3-5.1); Pro- Brain NATRIURETIC PEPTIDE 37 pg/mL (<=1800)
[2025-06-29 16:27] LABS: D-Dimer Quantitative (DVT/PE) 0.27 FEU/ug/m (0.27-0.49)
[2025-06-29 16:28] LABS: Mucous, Urine 0 SEEN /hpf (<or=2+)
[2025-06-29 16:34] LABS: Color, Urine Yellow (Yellow); Glucose, Dipstick Normal (Normal); Ketone-Dipstick Negative (Negative); Leukocyte Esterase-Dipstick 25 /ul (Negative); Nitrite-Dipstick Negative (Negative); Occult Blood-Urine 10 /ul (Negative); Protein-Dipstick 15 mg/dl (Negative); Specific Gravity, Urine 1.015 (1.002-1.030); Urine Bilirubin Dipstick Negative (Negative)
[2025-06-29 16:43] VITALS: BP 154/81; PULSE 78; RESP 18; O2SAT 97
[2025-06-29 16:52] LABS: Red Blood Cells-Urine 0-5 SEEN /hpf (0-5); Squamous Epithelial Cells - UA 0-5 SEEN /hpf (5-10)
[2025-06-29 17:17] LABS: Troponin T High Sens 2 HR 8 ng/L (<=14)
[2025-06-29 18:00] VITALS: BP 155/72; PULSE 68; RESP 18; O2SAT 98
[2025-06-29 18:19] VITALS: BP 139/73; PULSE 64; RESP 18; TEMP 36.7; O2SAT 98
== END 2025-06-29 18:21 | disposition home or self-care (01) ==
PROVIDERS: Emergency Provider Emergency Medicine; PCP Student in an Organized Health Care Education/Training Program; Visit Provider Emergency Medicine
DX: R06.02 Shortness of breath (principal); E78.00 Pure hypercholesterolemia, unspecified; R03.0 Elevated blood-pressure reading, without diagnosis of hypertension; R51.9 Headache, unspecified; M54.9 Dorsalgia, unspecified
CPT/HCPCS: 71046; 80048; 81001; 83880; 84484; 85025; 85379; 93005; 99283; A4216